=== PATIENT | male | born 1935 | race Caucasian/White ===

== ENCOUNTER 2016-10-02 09:44 | Inpatient (IN) | payer OTHER ==
[~2016-10-02] VITALS: Ht 172.7 cm; Wt 65.9 kg
[2016-10-02] MEDS ORDERED: SODIUM CHLORIDE 0.9% 1000ML 250 ML IV STA (09:58)
--- NOTE | 2016-10-02 10:07 | EMERGENCY ROOM VISIT NOTE ---
History Report prepared by Duncan: Nava Shultz Under the Supervision of: Dr. Nolan Ladd M.D. First contact with patient: 09:53 Chief Complaint: CONFUSION Stated Complaint: CONFUSION History of Present Illness The patient is an 81 year old male who presents to the Emergency Room with complaints of persistent confusion that began Saturday. Per the patient's daughter in law, the patient has been increasingly confused over the last several days. She states that the patient states that he has been going back in time. The patient's daughter in law notes that the patient has had decrease in sleep recently. The patient's khyiispd-[id number] states that the patient had a subjective, low-grade fever today. She states that the patient goes to dialysis Saturday, Saturday, Saturday, and states that he went yesterday. The patient's [id number] states that the patient additionally has mouth cancer at this time and has a feeding tube, noting that he receives all his nutrients via the tube. She states that the patient had radiation in June for his cancer, but denies any plans for surgery. The patient's mumcdago-ej-xno states that the patient has a history of pancreatitis, stating that when he spent time in the hospital he did not complain of any pain, or have any confusion. She states that the patient had a stroke in 2012. The patient's jxuincpt-ln-[id number] states that the patient takes an aspirin daily. She denies the patient having any strong history of urinary tract infections. Source of History: family ([id number]-av-[id number]) Onset: Saturday Position: other (global) Quality: other (confusion) Timing: other (persistent) Associated Symptoms: + fevers Note: Associated Symptoms: decreased sleep Review of Systems See HPI for pertinent positives & negatives. A total of 10 systems reviewed and were otherwise negative. Past Medical & Surgical Medical Problems: (1) Altered mental status (2) Benign hypertension (3) BPH (benign prostatic hyperplasia) (4) CAD (coronary artery disease) (5) CTS (carpal tunnel syndrome) (6) CVA (7) CVA (cerebral vascular accident) (8) Depression (9) DM2 (diabetes mellitus, type 2) (10) ESRD (end stage renal disease) on dialysis (11) Hematuria (12) History of left heart catheterization (LHC) (13) HLD (hyperlipidemia) (14) HTN (hypertension) (15) Neck malignant neoplasm (16) RLS (restless legs syndrome) (17) Valvular disease Surgical Problems: (1) H/O colonoscopy (2) History of surgical procedure on mouth (3) S/P percutaneous endoscopic gastrostomy (PEG) tube placement Family History Noncontributory d/t age Social History Smoking Status: Former Smoker Drug Use: none Marital Status: Occupation Status: retired Current/Historical Medications Scheduled Aspirin (Aspirin Ec), 81 MG PO DAILY Citalopram (Citalopram Hydrobromide), 40 MG PO DAILY Folic Acid (Folvite), 1 MG PO DAILY Gabapentin (Neurontin), 100 MG PO QPM Levothyroxine Sodium (Synthroid), 50 MCG PO DAILY Lidocaine-Prilocaine (Lidocaine/Prilocaine), 1 APPLN TOP UD Nutritional Supplements (Twocal Hn), 5 CAN PEG QPM Omeprazole (Prilosec), 20 MG PO QPM Tamsulosin Hcl (Flomax), 0.4 MG PO QPM Scheduled PRN Acetaminophen (Tylenol), 325 MG PO Q4H PRN for Pain Oxycodone Ir (Roxicodone Ir), 5 MG PO Q4H PRN for Pain Allergies Coded Allergies: No Known Allergies (Unverified , 10/02/16) Physical Exam Vital Signs Date Time Temp Pulse Resp B/P Pulse Ox O2 Delivery O2 Flow Rate FiO2 10/02/16 12:30 84 14 109/68 10/02/16 12:17 91 Room Air 10/02/16 12:02 87 10/02/16 11:37 91 Room Air 10/02/16 11:25 92 16 112/68 91 Room Air 10/02/16 09:49 37.1 92 18 79/52 97 Room Air Physical Exam GENERAL: Patient is in no acute distress. HEENT: Bandage to the left jaw, consistent with his malignant tumors. No acute trauma, normocephalic atraumatic, mucous membranes moist, no nasal congestion, no scleral icterus. NECK: No stridor, no adenopathy, no meningismus, trachea is midline. LUNGS: Clear to auscultation bilaterally, no wheeze, no rhonchi, breath sounds equal. HEART: 3/6 systolic murmur, irregular rhythm, with a normal rate. ABDOMEN: Feeding tube in upper abdomen consistent with his history. Soft, nontender, bowel sounds positive, no hernias, no peritonitis. RECTAL: Heme negative EXTREMITIES: No cyanosis or edema, full range of motion of all the joints without pain or difficulty, no signs for acute trauma. NEUROLOGIC: Moving all extremities, awake, some confusion, answers simple questions. SKIN: No rash, no jaundice, no diaphoresis. Medical Decision & Procedures ER Provider Diagnostic Interpretation: X ray results and stated below per my interpretation and radiologist interpretation. Other radiology results and stated below per my review and radiologist interpretation: CT SCAN OF THE BRAIN WITHOUT IV CONTRAST CLINICAL HISTORY: Generalized weakness. Change in mental status. COMPARISON STUDY: CT of the brain dated 04/06/2016. TECHNIQUE: Unenhanced axial CT scan of the brain is performed from the vertex to the skull base. CT DOSE: 823.94 mGycm FINDINGS: Brain parenchyma: There are age-related involutional changes noting mild subcortical and periventricular microangiopathic change. There is no hemorrhage, mass effect, or evidence of acute territorial ischemia by CT criteria. A small chronic lacunar infarct is noted in the left thalamus. Martel-white matter is preserved. No extra-axial fluid collection is seen. Ventricles, sulci, cisterns: Prominent secondary to involutional change. Intracranial vasculature: There is atherosclerotic calcification of the cavernous carotid and vertebral arteries. Calvarium: Unremarkable. Sinuses and mastoids: Mucosal thickening is seen within the left maxillary antrum, the ethmoid sinuses, and the right frontal sinus. There is a left mastoid effusion. The right mastoid air cells are well pneumatized. Orbits: The bony orbits are grossly intact. There are bilateral ocular lens implants. IMPRESSION: There is no hemorrhage, mass effect, or evidence of acute territorial ischemia by CT criteria. Electronically signed by: Nolan Ly M.D. 10/02/2016 11:12 AM Dictated Date/Time: 10/02/2016 11:09 AM CHEST ONE VIEW PORTABLE HISTORY: EVALUATE ALTERED MENTAL STATUS/WEAKNESS COMPARISON: Chest 04/14/2016. FINDINGS: No focal lung consolidations to suggest pneumonia. No evidence for pulmonary edema. The heart is normal in size. No pleural effusions. No pneumothorax. Degenerative changes within the bilateral glenohumeral joints are again noted. Calcifications at the aortic knob. IMPRESSION: No acute process. Electronically signed by: Antwon Calderón M.D. 10/02/2016 10:31 AM Dictated Date/Time: 10/02/2016 10:29 AM Laboratory Results 10/02/16 10:15 Red Blood Count 2.38, Mean Corpuscular Volume 100.0, Mean Corpuscular Hemoglobin 32.4, Mean Corpuscular Hemoglobin Concent 32.4, Mean Platelet Volume 9.7, Neutrophils (%) (Auto) 76.1, Lymphocytes (%) (Auto) 11.7, Monocytes (%) ( Auto) 7.6, Eosinophils (%) (Auto) 4.1, Basophils (%) (Auto) 0.3, Neutrophils # ( Auto) 4.70, Lymphocytes # (Auto) 0.72, Monocytes # (Auto) 0.47, Eosinophils # ( Auto) 0.25, Basophils # (Auto) 0.02 10/02/16 10:15 Test 10/02/16 10:15 10/02/16 10:27 10/02/16 10:43 White Blood Count 6.17 K/uL (4.8-10.8) Red Blood Count 2.38 M/uL (4.7-6.1) Hemoglobin 7.7 g/dL (14.0-18.0) Hematocrit 23.8 % (42-52) Mean Corpuscular Volume 100.0 fL (80-100) Mean Corpuscular Hemoglobin 32.4 pg (25-34) Mean Corpuscular Hemoglobin Concent 32.4 g/dl (32-36) Platelet Count 152 K/uL (130-400) Mean Platelet Volume 9.7 fL (7.4-10.4) Neutrophils (%) (Auto) 76.1 % Lymphocytes (%) (Auto) 11.7 % Monocytes (%) (Auto) 7.6 % Eosinophils (%) (Auto) 4.1 % Basophils (%) (Auto) 0.3 % Neutrophils # (Auto) 4.70 K/uL (1.4-6.5) Lymphocytes # (Auto) 0.72 K/uL (1.2-3.4) Monocytes # (Auto) 0.47 K/uL (0.11-0.59) Eosinophils # (Auto) 0.25 K/uL (0-0.5) Basophils # (Auto) 0.02 K/uL (0-0.2) RDW Standard Deviation 56.2 fL (36.4-46.3) RDW Coefficient of Variation 15.5 % (11.5-14.5) Immature Granulocyte % (Auto) 0.2 % Immature Granulocyte # (Auto) 0.01 K/uL (0.00-0.02) Schistocytes 1+ Anion Gap 10.0 mmol/L (3-11) Est Creatinine Clear Calc Drug Dose 25.5 ml/min Estimated GFR () 31.4 Estimated GFR (Non- 27.1 BUN/Creatinine Ratio 28.4 (10-20) Calcium Level 9.1 mg/dl (8.5-10.1) Magnesium Level 2.6 mg/dl (1.8-2.4) Total Bilirubin 0.3 mg/dl (0.2-1) Aspartate Amino Transf (AST/SGOT) 19 U/L (15-37) Alanine Aminotransferase (ALT/SGPT) 25 U/L (12-78) Alkaline Phosphatase 103 U/L (45-117) Troponin I < 0.015 ng/ml (0-0.045) Total Protein 7.4 gm/dl (6.4-8.2) Albumin 3.0 gm/dl (3.4-5.0) Globulin 4.4 gm/dl (2.5-4.0) Albumin/Globulin Ratio 0.7 (0.9-2) Lipase 168 U/L (73-393) Thyroid Stimulating Hormone (TSH) 60.300 uIu/ml (0.300-4.500) Free Thyroxine 0.54 ng/dl (0.80-1.60) Urine Color DK YELLOW Urine Appearance TURBID (CLEAR) Urine pH 8.0 (4.5-7.5) Urine Specific [place]cox 1.019 (1.000-1.030) Urine Protein 1+ (NEG) Urine Glucose (UA) NEG (NEG) Urine Ketones NEG (NEG) Urine Occult Blood 1+ (NEG) Urine Nitrite NEG (NEG) Urine Bilirubin NEG (NEG) Urine Urobilinogen NEG (NEG) Urine Leukocyte Esterase LARGE (NEG) Urine WBC (Auto) >30 /hpf (0-5) Urine RBC (Auto) 5-10 /hpf (0-4) Urine Hyaline Casts (Auto) 1-5 /lpf (0-5) Urine Epithelial Cells (Auto) 5-10 /lpf (0-5) Urine Bacteria (Auto) NEG (NEG) Lactic Acid Level 1.3 mmol/L (0.4-2.0) Laboratory results reviewed by me. Medications Administered Medications (Trade) Dose Ordered Sig/Aj Route Start Time Stop Time Status Last Admin Dose Admin Sodium Chloride (Nss 1000ml) 250 ml @ 999 mls/hr Q16M STAT IV 10/02/16 09:58 10/02/16 10:22 DC 10/02/16 10:55 999 MLS/HR ECG Indication: other (confusion) Rate (beats per minute): 83 Rhythm: sinus rhythm Findings: PVC, no acute ischemic change ED Course 0955: The patient was evaluated in room B9. A complete history and physical exam was performed. 0958: Ordered Sodium Chloride 250 ml @ 999 mls/hr IV. 1132: I performed a rectal exam on the patient at this time. See physical exam for further detail. I discussed all the exam findings with his [id number]-ew-ffa and I discussed the treatment plan. She verbalized complete understanding and agreement. The patient will be evaluated for further treatment. 1141: I discussed the patients case with Jazzy Patel. She is going to evaluate the patient for further treatment. Medical Decision The patient is an 81 year old male who presents to the ED with complaints of confusion. Differential diagnoses considered include dehydration, electrolyte imbalance, stroke, intracranial bleeding, UTI, sepsis, infection. There is no leukocytosis. The patient is anemic though with a hemoglobin of 7.7. I did perform a rectal exam, stool was heme-negative. Renal panel testing shows an elevation to the creatinine, consistent with his history of needing dialysis, no significant electrolyte abnormalities requiring correction. There was no hepatitis. The patient appears to be hypothyroid by our testing. Chest x-ray does not show pneumonia or CHF. EKG shows a sinus rhythm, there was no acute ischemia. Cardiac enzyme testing times one is not consistent with acute cardiac injury. Urinalysis shows possible infection, urine culture and blood cultures are pending. Brain CT shows some chronic findings, no acute bleed or mass effect. Lactic acid level was not elevated making severe sepsis less likely. The patient presents with some confusion, hypotension. He is anemic by workup. His blood pressure did respond to IV saline-he received a 250 mL bolus with a nice response. The patient was ordered for packed red blood cells for possible transfusion, the blood is not ready to be given. Given the change in mental status, given the hypotension and the anemia, admission/observation was felt warranted. I spoke to the patient, his family and case management, I talked to the on-call hospitalist. Consults Time Called: 1136 Consulting Physician: Jazzy Patel Returned Call: 1141 I discussed the patients case with Jazzy Patel. She is going to evaluate the patient for further treatment. Impression Primary Impression: Change in mental status Additional Impressions: Hypotension Anemia Scribe Attestation The scribe's documentation has been prepared under my direction and personally reviewed by me in its entirety. I confirm that the note above accurately reflects all work, treatment, procedures, and medical decision making performed by me. Departure Information Dispostion Being Evaluated By Hospitalist Referrals Francisco Delarosa M.D. (PCP) Problem Qualifiers
--- NOTE | 2016-10-02 10:32 | DIAGNOSTIC IMAGING REPORT ---
CHEST ONE VIEW PORTABLE HISTORY: EVALUATE ALTERED MENTAL STATUS/WEAKNESS COMPARISON: Chest 04/14/2016. FINDINGS: No focal lung consolidations to suggest pneumonia. No evidence for pulmonary edema. The heart is normal in size. No pleural effusions. No pneumothorax. Degenerative changes within the bilateral glenohumeral joints are again noted. Calcifications at the aortic knob. IMPRESSION: No acute process. Electronically signed by: Antwon Calderón M.D. 10/02/2016 10:31 AM Dictated Date/Time: 10/02/2016 10:29 AM
[2016-10-02] MEDS ORDERED: FOLI1TAB7 PO (10:46)
[2016-10-02] MEDS ORDERED: LEVO50TA PO (10:46)
[2016-10-02] MEDS ORDERED: PRLSR20 PO (10:46)
[2016-10-02] MEDS ORDERED: NUTR-431 PEG (10:46)
[2016-10-02] MEDS ORDERED: TAMS0.4C38 PO (10:46)
[2016-10-02] MEDS ORDERED: ACET-1311 PO (10:46)
[2016-10-02] MEDS ORDERED: LIDO1CRE16 TOP (10:46)
[2016-10-02] MEDS ORDERED: GABA-112 PO (10:46)
[2016-10-02] MEDS ORDERED: CITA40TA4 PO (10:46)
[2016-10-02] MEDS ORDERED: OXYC1TAB3 PO (10:46)
[2016-10-02] MEDS ORDERED: ASPI81TA28 PO (10:46)
[2016-10-02 10:49] LABS: BASO % 0.3 %; BASO ABS # 0.02 K/uL (0-0.2); EOS % 4.1 %; HEMATOCRIT 23.8 % (42-52); IG% 0.2 %; LYMPH % 11.7 %; LYMPH ABS # 0.72 K/uL (1.2-3.4); MEAN CORPUSCULAR HEMOGLOBIN 32.4 pg (25-34); MEAN CORPUSCULAR HGB CONC 32.4 g/dl (32-36); MEAN PLATELET VOLUME 9.7 fL (7.4-10.4); MONO % 7.6 %; NEUT % 76.1 %; PLATELET COUNT 152 K/uL (130-400); RED BLOOD COUNT 2.38 M/uL (4.7-6.1); WHITE BLOOD COUNT 6.17 K/uL (4.8-10.8)
[2016-10-02 10:50] LABS: URINE APPEARANCE TURBID (CLEAR); URINE BILIRUBIN NEG (NEG); URINE COLOR DK YELLOW; URINE NITRITE NEG (NEG); URINE SPECIFIC GRAVITY 1.019 (1.000-1.030); UROBILINOGEN NEG (NEG); ZZURINE CULT IF INDIC CATH YES
[2016-10-02 11:03] LABS: MANUAL MICROSCOPIC REQUIRED? NO; REVIEW REQ? NO; SULFASALICYLIC ACID POS (NEG)
--- NOTE | 2016-10-02 11:13 | DIAGNOSTIC IMAGING REPORT ---
CT SCAN OF THE BRAIN WITHOUT IV CONTRAST CLINICAL HISTORY: Generalized weakness. Change in mental status. COMPARISON STUDY: CT of the brain dated 04/06/2016. TECHNIQUE: Unenhanced axial CT scan of the brain is performed from the vertex to the skull base. CT DOSE: 823.94 mGycm FINDINGS: Brain parenchyma: There are age-related involutional changes noting mild subcortical and periventricular microangiopathic change. There is no hemorrhage, mass effect, or evidence of acute territorial ischemia by CT criteria. A small chronic lacunar infarct is noted in the left thalamus. Martel-white matter is preserved. No extra-axial fluid collection is seen. Ventricles, sulci, cisterns: Prominent secondary to involutional change. Intracranial vasculature: There is atherosclerotic calcification of the cavernous carotid and vertebral arteries. Calvarium: Unremarkable. Sinuses and mastoids: Mucosal thickening is seen within the left maxillary antrum, the ethmoid sinuses, and the right frontal sinus. There is a left mastoid effusion. The right mastoid air cells are well pneumatized. Orbits: The bony orbits are grossly intact. There are bilateral ocular lens implants. IMPRESSION: There is no hemorrhage, mass effect, or evidence of acute territorial ischemia by CT criteria. Electronically signed by: Nolan Ly M.D. 10/02/2016 11:12 AM Dictated Date/Time: 10/02/2016 11:09 AM
[2016-10-02 11:14] LABS: BLOOD UREA NITROGEN 62 mg/dl (7-18); GLUCOSE 219 mg/dl (70-99)
[2016-10-02 11:15] LABS: ALT/SGPT 25 U/L (12-78); BUN/CREATININE RATIO 28.4 (10-20); CALCIUM 9.1 mg/dl (8.5-10.1); CARBON DIOXIDE 32 mmol/L (21-32); CHLORIDE 97 mmol/L (98-107); MAGNESIUM 2.6 mg/dl (1.8-2.4); POTASSIUM 4.2 mmol/L (3.5-5.1); SODIUM 139 mmol/L (136-145)
[2016-10-02 11:19] LABS: COMPLETE YES; SCHISTOCYTES 1+
[2016-10-02 11:23] LABS: ALB/GLOB RATIO 0.7 (0.9-2); ALKALINE PHOSPHATASE 103 U/L (45-117); AST/SGOT 19 U/L (15-37)
[2016-10-02 12:17] VITALS: O2SAT 91; Ht 172.7 cm; Wt 65.9 kg
[2016-10-02] MEDS ORDERED: VANCOMYCIN INJ 1,000 MG in SODIUM CHLORIDE 0.9% 250ML 250 ML IV STA (12:59)
[2016-10-02] MEDS ORDERED: GLUCAGON FOR INJ 1 MG VIAL SQ PRN ×2 (13:00→14:00)
[2016-10-02] MEDS ORDERED: GLUCOSE 40% GEL 15 GM TUBE PO PRN ×2 (13:00→14:00)
[2016-10-02] MEDS ORDERED: LIDOCAINE/PRILOCAINE 2.5% EA CRM EXT SCH (13:00)
[2016-10-02] MEDS ORDERED: DEXTROSE 50% 50 ML SYR IV PRN ×2 (13:00→14:00)
[2016-10-02] MEDS ORDERED: GLUCOSE 10 TABS/TUBE PO PRN ×2 (13:00→14:00)
[2016-10-02] MEDS ORDERED: ONDANSETRON INJ 2 MG/ML 2 ML VIAL IV PRN (13:00)
[2016-10-02 14:03] VITALS: BP 129/67; PULSE 88; TEMP 36.9; O2SAT 91
[2016-10-02] MEDS ORDERED: VANCOMYCIN CONSULT ACTIVE PRN (14:10)
[2016-10-02] MEDS ORDERED: PHARMACY GLYCEMIC MGMT CONSULT PRN (14:11)
[2016-10-02] MEDS ORDERED: PIPERACILL/TAZOBAC CONSULT ACTIVE PRN (14:15)
--- NOTE | 2016-10-02 14:35 | Pharmacy Progress Note ---
Glycemic Control Intl Consult Date of Service Oct 02, 2016. Scope Glycemic Pharmacist consulted by Fozia Szymanski PA-C on 10/02/16 for glycemic control and to write orders per [facility] inpatient glycemic control protocol Objective Weight (Kilograms): 70.000 Accuchecks BSG (last 24hrs): Test 10/02/16 10:15 Random Glucose 219 mg/dl (70-99) Laboratory Data (last 24hrs) Test 10/02/16 10:15 Anion Gap 10.0 mmol/L BUN/Creatinine Ratio 28.4 Blood Urea Nitrogen 62 mg/dl Creatinine 2.20 mg/dl Potassium Level 4.2 mmol/L Sodium Level 139 mmol/L White Blood Count 6.17 K/uL Red Blood Count 2.38 M/uL Hemoglobin 7.7 g/dL Hematocrit 23.8 % Mean Corpuscular Volume 100.0 fL Mean Corpuscular Hemoglobin 32.4 pg Mean Corpuscular Hemoglobin Concent 32.4 g/dl Platelet Count 152 K/uL Mean Platelet Volume 9.7 fL Neutrophils (%) (Auto) 76.1 % Lymphocytes (%) (Auto) 11.7 % Monocytes (%) (Auto) 7.6 % Eosinophils (%) (Auto) 4.1 % Basophils (%) (Auto) 0.3 % Neutrophils # (Auto) 4.70 K/uL Lymphocytes # (Auto) 0.72 K/uL Monocytes # (Auto) 0.47 K/uL Eosinophils # (Auto) 0.25 K/uL Basophils # (Auto) 0.02 K/uL Recent Pertinent Medications Outpatient Anti-diabetic Regimen: * None * A1c = 6.3 % 03/31/16 - new A1c ordered with AM labs Risk Factors for Insulin Resistance: * Infection: IV Vancomycin and Zosyn * IVF: Zosyn mixed in dextrose * Diet: PEG tube supplements for all nutrition (mouth cancer) dietary consulted Assessment & Plan ASSESSMENT: * 81 year old male admitted for confusion, started on IV antibiotics, random BSG = 219mg/dL, not on any medications for glycemic control as outpatient. Latest A1c at goal, requires updated A1c. * I will start patient only on a CF at this time until we have more blood sugar data and A1c. * Dietary consulted for PEG tube nutrition, as patient has mouth cancer and this is his only means of nutritional intake. These carbs may or may not eventually need Novolog coverage. * ADA & AACE recommend a goal blood sugar range 140-180 mg/dl for the majority of critically ill & non-critically ill patients. However, more stringent targets may be selected in individual cases. I will start patient with 120-160mg /dL goal range, since A1c was 6.3% in March of 2016, but to prevent hypoglycemia in 81 year old. PLAN FOR INPATIENT GLYCEMIC CONTROL: * Correctional Insulin with NOVOLOG per scale ACHS or Q6hrs while NPO * Goal Range: Low 120 mg/dL - High 160 mg/dL * Correction Factor: 40 mg/dL/unit * Nutritional / Prandial insulin - None at this time until needs are determined * New A1c with AM labs, added to discharge instructions * Please note that the plan above was derived based on current level of insulin resistance and hospital stress. These recommendations are appropriate for inpatient admission only. Plan of care upon discharge will need to be reassessed to avoid potential outpatient hypo/hyperglycemia. Thank you.
[2016-10-02] MEDS ORDERED: VANCOMYCIN INJ 1,400 MG in SODIUM CHLORIDE 0.9% 500ML 500 ML IV ONE (14:45)
--- NOTE | 2016-10-02 14:48 | Pharmacy Progress Note ---
Pharmacy Antibiotic Consult Date of Service: Oct 02, 2016. Pharmacy Dosing Scope Pharmacy is consulted to initiate Vanco/Zosyn IV dosing therapy, order appropriate labs and adjust drug dose/frequency. Subjective The patient is a 81 year old male admitted on Oct 02, 2016 at 12:59. Objective Height (Feet): 5 Height (Inches): 8.00 Weight (Kilograms): 70.000 Lab Results (24hrs): Item Value Date Time Est Creatinine Clear Calc Drug Dose 25.5 ml/min 10/02/16 1015 Creatinine 2.20 mg/dl H 10/02/16 1015 Laboratory Tests Test 10/02/16 10:15 BUN/Creatinine Ratio 28.4 Blood Urea Nitrogen 62 mg/dl Creatinine 2.20 mg/dl White Blood Count 6.17 K/uL Red Blood Count 2.38 M/uL Hemoglobin 7.7 g/dL Hematocrit 23.8 % Mean Corpuscular Volume 100.0 fL Mean Corpuscular Hemoglobin 32.4 pg Mean Corpuscular Hemoglobin Concent 32.4 g/dl Platelet Count 152 K/uL Mean Platelet Volume 9.7 fL Neutrophils (%) (Auto) 76.1 % Lymphocytes (%) (Auto) 11.7 % Monocytes (%) (Auto) 7.6 % Eosinophils (%) (Auto) 4.1 % Basophils (%) (Auto) 0.3 % Neutrophils # (Auto) 4.70 K/uL Lymphocytes # (Auto) 0.72 K/uL Monocytes # (Auto) 0.47 K/uL Eosinophils # (Auto) 0.25 K/uL Basophils # (Auto) 0.02 K/uL Micro Results: Item Value Date Time Blood Culture Received 10/02/16 1043 Blood Pending Urine Culture Received 10/02/16 1027 Urine,Catheterized Pending Blood Culture Received 10/02/16 1015 Blood Pending Assessment & Plan Pt p/w altered MS. Mr. Varela attends MWF. Last session was yesterday. Pt population p'kinetics: t1/2=27hrs, ke=0.025. He is known to the pharmacy kinetic team from previous admissions. BC and UC are all pending. Mr Varela is set to receive a one time dose of Vanco 1400mg (20mg/kg) at 1445. I have ordered a random lvl for tomorrow with AM labs before his HD session. Goal trough 15-20 until C/s's result. Thank you for consulting the pharmacy kinetic team and including us in the care of Mr. Varela. Pharmacy will continue to follow and will adjust dose/frequency as necessary. Thank you
[2016-10-02] MEDS ORDERED: PIPERACILL/TAZOBAC IV 3.375 GM in DEXTROSE 5% 100ML IV ONE (15:00)
--- NOTE | 2016-10-02 15:12 | Progress Note ---
Progress Note Date of Service Oct 02, 2016. Progress Note ID Consult Dictated #[id number] A/P: 1. Left facial wound -Continue emperic abx, culture ordered -Will follow, thank you
--- NOTE | 2016-10-02 15:46 | INFECT. DISEASE CONSULTATION ---
DATE OF CONSULTATION: 10/02/2016 DATE OF CONSULTATION: 10/02/2016. HISTORY OF PRESENT ILLNESS: This is an 81-year-old gentleman who was admitted secondary to increasing confusion. His family is present during my examination and they provide most of the history. 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 He states his last received radiation in June. He did have 5 treatments for this. They are following with hematology/oncology in [place] to discuss any additional chemotherapy. He does have a large mass on the left side of the face which has been increasing in size. He does not feel that it has improved with radiation therapy. He has had drainage and foul odor from this area. They did follow up with pellet press operator in June and again in July. In July, he was placed on a 10-day course unknown oral antibiotics but did not have much improvement in symptoms. He denies any fevers or chills at home. He does admit to pain and difficulty with eating. He is eating ice cream and cereal on my examination and appears to be tolerating these well. He states that his pain tolerance is very high and he has had increasing confusion which does not allow him to state when he is in pain. Of note, he was also found to have a TSH over 60. He does have a history of chronic kidney disease and is on dialysis on Saturday, Saturday and Saturday. He currently denies fevers or chills. He does admit to some pain in the left side of the face. He is continually pulling at the drainage. He denies any chest pain, cough, shortness of breath, nausea, vomiting or diarrhea. All remaining review of systems were reviewed and are negative. PAST MEDICAL HISTORY: Significant for hypertension, BPH, coronary artery disease, chronic kidney disease with dialysis, carpal tunnel syndrome, history of CVA, depression, type 2 diabetes, neck malignancy, restless leg syndrome, valvular disease. PAST SURGICAL HISTORY: Significant for colonoscopy, oral surgery for carcinoma, PEG tube placement, heart catheterization. FAMILY HISTORY: Noncontributory. SOCIAL HISTORY: Significant for history of tobacco use. He is and lives with family. ALLERGIES: He has no known drug allergies. CURRENT MEDICATIONS: Include aspirin, Celexa, folic acid, Protonix, Synthroid, Neurontin, Flomax, Zosyn, insulin, vancomycin, Tylenol, Zofran. PHYSICAL EXAMINATION: VITAL SIGNS: He is afebrile, pulse 80, respiratory rate is 20, blood pressure is 129/67, oxygen saturation 91% on room air. GENERAL: He is awake and oriented to self. He is in no acute distress. HEAD, EYES, EARS, NOSE, AND THROAT: Mucous membranes are moist. There is a large fungating mass on the left side of the face with foul smelling drainage. It is tender and firm to palpation. HEART: Regular. LUNGS: Clear. ABDOMEN: Soft and nondistended. EXTREMITIES: There is no edema. SKIN: Without rash. LABORATORY STUDIES: CBC reveals a white blood cell count of 6.1, hemoglobin 7.7, hematocrit 23.8, platelets are 152. Chemistry panel reveals a sodium of 139, potassium 4.2, chloride 97, bicarbonate 32, BUN 62, creatinine 2.2, glucose is 219. LFTs are within normal limits. Urinalysis had no bacteria. Blood and urine cultures are pending. Head CT showed no hemorrhage, mass effect. Chest x-ray was unremarkable. ASSESSMENT AND PLAN: Left facial mass, likely secondary to known malignancy. He can be continued on empiric antibiotics as there certainly is a chance for superimposed infection. Wound culture will be ordered. His change in mental status certainly could be related to his thyroid abnormalities as well. We will follow along with you. Thank you for this consultation.
--- NOTE | 2016-10-02 16:32 | History and Physical ---
History & Physical Date & Time of Service: Oct 02, 2016 at 13:12 Chief Complaint: Confusion Primary Care Physician: Francisco Delarosa M.D. 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 History obtained from daughter in law at bedside due to patient's mental status. At baseline patient is oriented x 3 except mildly off on days of the week. He is currently only oriented to person. Daughter in law states confusion started 4 days ago on Saturday and has progressively worsened. Yesterday at dialysis pt was attempting to stand up from the table. She reports associated insomnia and visual hallucinations. Daughter in law states pt accidentally hit himself in the face with his hand 2 weeks ago and ruptured the masses on his left jaw area. From that time he had increased pain which has been medicated with Tylenol and rare use of Oxy IR- last dose 7 am. There has been white drainage from the lesions. Pt has chronic mouth asymmetry s/p buccal surgery. Pt has chronic decreased tax economist in left hand s/p CVA in 2012. Over past 2 weeks pt's legs occasionally give out but has not fallen. Ambulates with walker and assistance. Pt is chronically incontinent of dark yellow urine which is malodorous. Pt has occasional epistaxis a few times per month but no severe, prolonged bleeding. Pt is chronically cold. He takes in liquids, pills, occasional puree consistency food PO but main source of nutrition is via PEG tube. Daughter in law denies fevers, URI symptoms, cough, chest pain, SOB, speech or swallowing difficulty, acute focal numbness, chest pain, SOB, abdominal pain, nausea, vomiting, change in chronic diarrhea, hematochezia, melena. Pt dialyzes MWF and had full dialysis tx yesterday. Levothyroxine was increased approx 2 weeks ago but no other recent med change. Past Medical/Surgical History Medical Problems: (1) Benign hypertension Status: Chronic (2) BPH (benign prostatic hyperplasia) Status: Chronic (3) CAD (coronary artery disease) Status: Chronic (4) CTS (carpal tunnel syndrome) Status: Chronic (5) CVA Status: Chronic (6) CVA (cerebral vascular accident) Status: Chronic (7) Depression Status: Chronic (8) DM2 (diabetes mellitus, type 2) Status: Chronic (9) ESRD (end stage renal disease) on dialysis Status: Chronic (10) History of left heart catheterization (LHC) Permanent Comment: [place]-[facility] 30% proximal right coronary artery lesion, 20-30 % distal right coronary artery stenosis. 30% mid-LAD-D stenosis. 50% ostial stenotic lesion of LAD-D2( very small vessel). normal left ventricular function [id number] Status: Chronic (11) HLD (hyperlipidemia) Status: Chronic (12) HTN (hypertension) Status: Chronic (13) Neck malignant neoplasm Status: Chronic (14) RLS (restless legs syndrome) Status: Chronic (15) Valvular disease Status: Chronic Surgical Problems: (1) H/O colonoscopy Status: Chronic (2) History of surgical procedure on mouth Status: Chronic (3) S/P percutaneous endoscopic gastrostomy (PEG) tube placement Status: Chronic Family History Diabetes mellitus BROTHER FH: cancer BROTHER (esophageal) Social History Smoking Status: Former Smoker (quit ) Smokeless Tobacco Use: quit Alcohol Use: occasionally (rare beer. none recently. ) Drug Use: none Marital Status: Housing status: lives with family (daughter in law and son) Occupational Status: retired Immunizations History of Influenza Vaccine: No History of Tetanus Vaccine?: No History of Pneumococcal: Yes History of Hepatitis B Vaccine: No Allergies Coded Allergies: No Known Allergies (Unverified , 10/02/16) Home Medications Scheduled Aspirin (Aspirin Ec), 81 MG PO DAILY Citalopram (Citalopram Hydrobromide), 40 MG PO DAILY Folic Acid (Folvite), 1 MG PO DAILY Gabapentin (Neurontin), 100 MG PO QPM Levothyroxine Sodium (Synthroid), 50 MCG PO DAILY Lidocaine-Prilocaine (Lidocaine/Prilocaine), 1 APPLN TOP UD Nutritional Supplements (Twocal Hn), 5 CAN PEG QPM Omeprazole (Prilosec), 20 MG PO QPM Tamsulosin Hcl (Flomax), 0.4 MG PO QPM Scheduled PRN Acetaminophen (Tylenol), 325 MG PO Q4H PRN for Pain Oxycodone Ir (Roxicodone Ir), 5 MG PO Q4H PRN for Pain Review of Systems Constitutional: + problem reported (chronically cold), No fever, No weight loss ENT: No nasal symptoms, No trouble swallowing Respiratory: No cough, No shortness of breath Cardiovascular: No chest pain Abdomen: + diarrhea (chronic attributed to tube feeds), No GI bleeding (no hematochezia or melena as per daughter in law. noticed trace of blood from an abrasion on his buttock a few days ago but none in the stool or toilet. ), No nausea, No pain, No vomiting Genitourinary - Male: + problem reported (dark malodorous urine- chronic per daughter in law), + urinary incontinence (chronic) Psychiatric: + insomnia, + problem reported (confusion, hallucination) Hematologic / Lymphatic: + problem reported (epistaxis approx 2x per month. no prolonged severe bleeding. bruises easily) Integumentary: + problem reported (facial lesions- see HPI. tiny abrasion on buttock. ) Physical Exam Vital Signs Date Time Temp Pulse Resp B/P Pulse Ox O2 Delivery O2 Flow Rate FiO2 10/02/16 12:30 84 14 109/68 10/02/16 12:17 91 Room Air 10/02/16 12:02 87 10/02/16 11:37 91 Room Air 10/02/16 11:25 92 16 112/68 91 Room Air 10/02/16 09:49 37.1 92 18 79/52 97 Room Air General Appearance: WD/WN, no apparent distress, + pertinent finding ( pleasantly confused elderly male, no distress) Head: normocephalic, atraumatic Eyes: normal inspection, PERRL, EOMI ENT: hearing grossly normal, + pertinent finding (pharynx exam limited due to patient's decreased ability to open his mouth) Neck: supple, no JVD, trachea midline Respiratory/Chest: lungs clear, normal breath sounds, no respiratory distress, no accessory muscle use Cardiovascular: regular rate, rhythm, + systolic murmur Abdomen/GI: normal bowel sounds, non tender, soft, + pertinent finding (PEG tube in place) Extremities/Musculoskelatal: no calf tenderness, no pedal edema Neurologic/Psych: alert, normal mood/affect, oriented x 3, + pertinent finding (left lip asymmetry secondary to prior buccal surgery. well healed scar noted at left commisure. cranial nerves II-XII otherwise normal. tax economist strength 4/5 left hand- chronic. all other extremities strenth 5/5. no sensory deficit of face or extremities.) Skin: + pertinent finding (large mass left jaw with purulent discharge, tenderness, mild surrounding erythema. tiny abrasion on left buttock without erythema or drainage. remainder of skin is warm and dry with normal color. ) Diagnostics Laboratory Results Results Past 24 Hours Test 10/02/16 10:15 10/02/16 10:27 10/02/16 10:43 Range/Units White Blood Count 6.17 4.8-10.8 K/uL Red Blood Count 2.38 4.7-6.1 M/uL Hemoglobin 7.7 14.0-18.0 g/dL Hematocrit 23.8 42-52 % Mean Corpuscular Volume 100.0 80-100 fL Mean Corpuscular Hemoglobin 32.4 25-34 pg Mean Corpuscular Hemoglobin Concent 32.4 32-36 g/dl Platelet Count 152 130-400 K/uL Mean Platelet Volume 9.7 7.4-10.4 fL Neutrophils (%) (Auto) 76.1 % Lymphocytes (%) (Auto) 11.7 % Monocytes (%) (Auto) 7.6 % Eosinophils (%) (Auto) 4.1 % Basophils (%) (Auto) 0.3 % Neutrophils # (Auto) 4.70 1.4-6.5 K/uL Lymphocytes # (Auto) 0.72 1.2-3.4 K/uL Monocytes # (Auto) 0.47 0.11-0.59 K/uL Eosinophils # (Auto) 0.25 0-0.5 K/uL Basophils # (Auto) 0.02 0-0.2 K/uL RDW Standard Deviation 56.2 36.4-46.3 fL RDW Coefficient of Variation 15.5 11.5-14.5 % Immature Granulocyte % (Auto) 0.2 % Immature Granulocyte # (Auto) 0.01 0.00-0.02 K/uL Schistocytes 1+ Sodium Level 139 136-145 mmol/L Potassium Level 4.2 3.5-5.1 mmol/L Chloride Level 97 98-107 mmol/L Carbon Dioxide Level 32 21-32 mmol/L Anion Gap 10.0 3-11 mmol/L Blood Urea Nitrogen 62 7-18 mg/dl Creatinine 2.20 0.60-1.40 mg/dl Est Creatinine Clear Calc Drug Dose 25.5 ml/min Estimated GFR () 31.4 Estimated GFR (Non- 27.1 BUN/Creatinine Ratio 28.4 10-20 Random Glucose 219 70-99 mg/dl Calcium Level 9.1 8.5-10.1 mg/dl Magnesium Level 2.6 1.8-2.4 mg/dl Total Bilirubin 0.3 0.2-1 mg/dl Aspartate Amino Transf (AST/SGOT) 19 15-37 U/L Alanine Aminotransferase (ALT/SGPT) 25 12-78 U/L Alkaline Phosphatase 103 45-117 U/L Troponin I < 0.015 0-0.045 ng/ml Total Protein 7.4 6.4-8.2 gm/dl Albumin 3.0 3.4-5.0 gm/dl Globulin 4.4 2.5-4.0 gm/dl Albumin/Globulin Ratio 0.7 0.9-2 Lipase 168 73-393 U/L Thyroid Stimulating Hormone (TSH) 60.300 0.300-4.500 uIu/ml Free Thyroxine 0.54 0.80-1.60 ng/dl Urine Color DK YELLOW Urine Appearance TURBID CLEAR Urine pH 8.0 4.5-7.5 Urine Specific [place] 1.019 1.000-1.030 Urine Protein 1+ NEG Urine Glucose (UA) NEG NEG Urine Ketones NEG NEG Urine Occult Blood 1+ NEG Urine Nitrite NEG NEG Urine Bilirubin NEG NEG Urine Urobilinogen NEG NEG Urine Leukocyte Esterase LARGE NEG Urine WBC (Auto) >30 0-5 /hpf Urine RBC (Auto) 5-10 0-4 /hpf Urine Hyaline Casts (Auto) 1-5 0-5 /lpf Urine Epithelial Cells (Auto) 5-10 0-5 /lpf Urine Bacteria (Auto) NEG NEG Lactic Acid Level 1.3 0.4-2.0 mmol/L Microbiology Results 10/02/16 Blood Culture, Received Pending 10/02/16 Blood Culture, Received Pending 10/02/16 Urine Culture, Received Pending Diagnostic Radiology CT SCAN OF THE BRAIN WITHOUT IV CONTRAST CLINICAL HISTORY: Generalized weakness. Change in mental status. COMPARISON STUDY: CT of the brain dated 04/06/2016. TECHNIQUE: Unenhanced axial CT scan of the brain is performed from the vertex to the skull base. CT DOSE: 823.94 mGycm FINDINGS: Brain parenchyma: There are age-related involutional changes noting mild subcortical and periventricular microangiopathic change. There is no hemorrhage, mass effect, or evidence of acute territorial ischemia by CT criteria. A small chronic lacunar infarct is noted in the left thalamus. Martel-white matter is preserved. No extra-axial fluid collection is seen. Ventricles, sulci, cisterns: Prominent secondary to involutional change. Intracranial vasculature: There is atherosclerotic calcification of the cavernous carotid and vertebral arteries. Calvarium: Unremarkable. Sinuses and mastoids: Mucosal thickening is seen within the left maxillary antrum, the ethmoid sinuses, and the right frontal sinus. There is a left mastoid effusion. The right mastoid air cells are well pneumatized. Orbits: The bony orbits are grossly intact. There are bilateral ocular lens implants. IMPRESSION: There is no hemorrhage, mass effect, or evidence of acute territorial ischemia by CT criteria. CHEST ONE VIEW PORTABLE HISTORY: EVALUATE ALTERED MENTAL STATUS/WEAKNESS COMPARISON: Chest 04/14/2016. FINDINGS: No focal lung consolidations to suggest pneumonia. No evidence for pulmonary edema. The heart is normal in size. No pleural effusions. No pneumothorax. Degenerative changes within the bilateral glenohumeral joints are again noted. Calcifications at the aortic knob. IMPRESSION: No acute process. EKG sinus rhythm with occasional PVC, in comparison to prior EKG nonspecific T wave abnormality improved in inferior leads as per cardiology read Impression Assessment and Plan ALTERED MENTAL STATUS Possible metabolic encephalopathy due to infection/ sepsis; ? related to oxycodone use CT head- no acute findings Check urine drug screen Check influenza PCR Hold oxycodone POSSIBLE SEPSIS ? SKIN VS. URINARY SOURCE Presented with hypotension, tachycardia -> VSS after 250 mL bolus Afebrile; no leukocytosis; lactic acid WNL UA + large leukocyte esterase, WBC >30,000; also has facial lesion with purulent drainage; per clinic notes this was also treated with Keflex back in July 2016 F/u blood cultures, urine culture, check wound culture Empiric broad spectrum abx coverage with Zosyn and vancomycin Consult infectious disease Consult wound care nurse CHRONIC ANEMIA Hg is 7.7; baseline varies 8-10s; required prior transfusions Likely due to anemia of chronic disease No active bleeding Family denies GI bleeding; FOBT negative in ER Monitor daily H/H RECURRENT LEFT BUCCAL MUCOSA SCC [place] [facility] [place]. Tse S/p resection in 04/[address] 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 Hartmann Consult nephrology HYPOTHYROIDISM TSH elevated to 60 Levothyroxine recently increased from 25 -> 50 mcg daily on 09/19/16 Recheck TSH as outpatient in around 10/31/16 DM TYPE 2 Diet controlled Monitor BSG ACHS Insulin sliding scale coverage Consult pharmacy for glycemic control HISTORY OF CVA Continue aspirin CAD Stable; continue aspirin DEPRESSION Continue Celexa BPH Continue Flomax GERD Continue PPI NUTRITION Takes minimal PO + PEG tube feedings Consult assistant director of financial aid DVT PROPHYLAXIS SCD's Patient seen in collaboration with Dr. Breen. Please see her addendum. ADDENDUM: I have seen and examined the patient and have discussed the case with the provider above. I agree with the assessment and plan as stated. Will add heparin for DVT prophylaxis. Nephro to see in am to orchestrate inpatient dialysis (MWF schedule). Pt not on consistent oxycodone daily. Suspect infection (UTI vs wound), malignancy, dementia or hypothyroidism as a cause for AMS. Defer blood transfusion to Nephrology--repeat CBC in am--no signs/ symptoms of active bleeding at this time. Monitor overnight on telemetry with initial treatment plan as above. Mitra Breen, Hospitalist Level of Care Telemetry Advanced Directives Existing Living Will: Yes Existing Power of Perl Programmer: Yes (PJ SON ) Resuscitation Status FULL RESUSCITATION VTE Prophylaxis VTE Risk Assessment Done? Y/N: Yes Risk Level: Moderate Given or contraindicated: Unfractionated heparin SQ
[2016-10-02 17:12] LABS: INFLUENZA A PCR Neg for Influ A (NEG); INFLUENZA B PCR Neg for Influ B (NEG)
[2016-10-02] MEDS: INSULIN ASPART 100 UNITS/ML 3 ML PEN SC SCH ×2 (17:14→20:34)
[2016-10-02] MEDS ORDERED: PIPERACILL/TAZOBAC IV 4.5 GM in DEXTROSE 5% 100ML 100 ML IV SCH (18:00)
--- NOTE | 2016-10-02 18:32 | Medical Consult ---
Consultation Date of Consultation: Oct 02, 2016. Attending Physician: Viki Kellogg M.D. Reason for Consultation: Recurrent SCC of left buccal mucosa with metastatic disease to cervical nodes History of Present Illness Mr. Varela is new to the consulting Medical Oncology Service. 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 Irby, Radiation Oncology at [facility], and Dr. Tse , medical oncology at [facility]. He has extensive comorbidities including end- stage renal disease on hemodialysis, coronary artery disease, type 2 diabetes, hypertension, prior history of CVA in 2012, G-tube in situ. At initial diagnosis in early 2014, he had biopsy-proven squamous cell carcinoma of the left buccal mucosa, T2 N0, P 16 negative. A PET-CT at diagnosis revealed activity in the left buccal region and left lateral tongue, but no evidence of disease in the neck or distant metastases ; small pulmonary nodule noted. He completed 66 Gy of radiotherapy in January 2015 at [facility]. A subsequent biopsy on 03/28/2015 showed recurrent squamous cell carcinoma in so his case was prevented at tumor Board. He underwent salvage resection with ST SD reconstruction on 05/06/[address] miguel Mora ; procedure was complicated by wound disease and, which was revised on . There is an area of suspicious granulation tissue in the patient 's left side oral cavity which was biopsied on 03/15/2016, which turned out to be candidiasis. A PET-CT in March 2016 demonstrated left buccal mucosa of 80. A large, 4 centimeter, left neck lymph node, level 1 B/2a was noted subsequently. A CT of the neck was obtained. An FNA on 06/05/2016 revealed metastatic squamous cell carcinoma. he then underwent palliative RT under the direction of Dr. sudhir watson, which was completed in June 2016. Radius sensitizing Cytoxan map was going to be administered, but ultimately deferred due to the patient 's major comorbidities and poor for performance status. Dr. Tse was planning for restaging scans of CT neck and PET-CT, which was scheduled for liter September 2016. if the scans demonstrated residual disease, checkpoint inhibitor therapy was going to be considered. the patient was brought to the emergency room at [facility] today by his family due to onset of confusion since last 09/28/2016. His chest x-ray and CT of the head on admission were nonrevealing for a cause. Hematologically, he was anemic with a hemoglobin of 7.7 G/ dL for which he is receiving 1 unit PRBC. Blood in urine cultures are pending, with infection as part of differential for confusion. Additional history obtained from the patient at bedside. Patient appears to be somewhat of an unreliable historian due to known dementia. He reports feeling overall fair. He does not know why he is hospitalized. He states that his lesions on his left jaw 9 have "probably enlarged" With time. He states that they are very sore. He reports drinking some fluids by mouth, water and soda. He is maintain nutritionally via a G-tube placed during head and neck squamous cell carcinoma treatment. He reports that his bowels are regular. He has not had cough or dyspnea. He has no areas of pain, aside from the right lower leg for the past 3-4 months. He has had a few falls, per his report, but he is uncertain if he injured his right leg. He has not had dizziness or vision change. Past Medical/Surgical History Medical Problems: (1) Acute pancreatitis Status: Acute (2) Acute renal failure Status: Acute (3) Anemia Status: Acute (4) Change in mental status Status: Acute (5) Hypotension Status: Acute Family History Diabetes mellitus BROTHER FH: cancer BROTHER (esophageal) Social History Smoking Status: Former Smoker (quit ) Smokeless Tobacco Use: quit 1990s Alcohol Use: occasionally (rare beer. none recently. ) Drug Use: none Marital Status: Occupation Status: retired Allergies Coded Allergies: No Known Allergies (Unverified , 10/02/16) Current Inpatient Medications Current Inpatient Medications Medications (Trade) Dose Ordered Sig/Aj Route Start Time Stop Time Status Last Admin Dose Admin Acetaminophen (Tylenol Tab) 650 mg Q4H PRN PO 10/02/16 13:00 11/01/16 12:59 Ondansetron HCl (Zofran Inj) 4 mg Q6H PRN IV 10/02/16 13:00 11/01/16 12:59 Aspirin (Ecotrin Tab) 81 mg DAILY PO 10/03/16 09:00 11/02/16 08:59 Citalopram Hydrobromide (celeXA TAB) 40 mg DAILY PO 10/03/16 09:00 11/02/16 08:59 Folic Acid (Folvite Tab) 1 mg DAILY PO 10/03/16 09:00 11/02/16 08:59 Gabapentin (Neurontin Cap) 100 mg QPM PO 10/02/16 21:00 11/01/16 20:59 Levothyroxine Sodium (Synthroid Tab) 50 mcg DAILYBB PO 10/03/16 06:00 11/02/16 05:59 Lidocaine/ Prilocaine (Emla 2.5% Crm) 1 ea UD EXT 10/02/16 13:00 11/01/16 12:59 Tamsulosin HCl (Flomax Cap) 0.4 mg QPM PO 10/02/16 21:00 11/01/16 20:59 Pantoprazole Sodium (Protonix Tab) 40 mg QAM PO 10/03/16 09:00 11/02/16 08:59 Glucose (Glucose 40% Gel) 15-30 GRAMS 15 GRAMS... UD PRN PO 10/02/16 13:00 11/01/16 12:59 Glucose (Glucose Chew Tab) 4-8 Tablets 4 Tabl... UD PRN PO 10/02/16 13:00 11/01/16 12:59 Dextrose (Dextrose 50% 50ML Syringe) 25-50ML OF 50% DW IV FOR... UD PRN IV 10/02/16 13:00 11/01/16 12:59 Glucagon (Glucagon Inj) 1 mg UD PRN SQ 10/02/16 13:00 11/01/16 12:59 Vancomycin HCl (Consult) 1 ea UD PRN N/A 10/02/16 14:10 11/01/16 14:09 Insulin Aspart (novoLOG ASPART) SLIDING SCALE If C... ACHS SC 10/02/16 16:15 11/01/16 16:14 10/02/16 17:14 3 UNITS Miscellaneous Information (Consult Glycemic Management Pharmacy) 1 ea UD PRN N/A 10/02/16 14:11 11/01/16 14:10 Piperacillin Sod/ Tazobactam Sod 1 ea 1 ea UD PRN N/A 10/02/16 14:15 11/01/16 14:14 Piperacillin Sod/ Tazobactam Sod/ Dextrose (Zosyn Iv/D5 100ml) 115 ml @ 28.75 mls/ hr Q12H IV 10/02/16 20:00 10/12/16 19:59 Review of Systems Constitutional: No chills, No fever, No sweats Eyes: No worsening of vision ENT: + hearing loss, + problem reported (see HPI) Respiratory: No cough, No shortness of breath, No sputum Cardiovascular: No chest pain, No claudication Abdomen: + problem reported (see HPI), No constipation, No diarrhea, No nausea , No pain Genitourinary - Male: No dysuria, No hematuria Neurologic: + balance problems, + memory loss Physical Exam Date Time Temp Pulse Resp B/P Pulse Ox O2 Delivery O2 Flow Rate FiO2 10/02/16 14:03 36.9 88 20 129/67 91 Room Air 10/02/16 13:35 81 16 106/56 10/02/16 12:30 84 14 109/68 10/02/16 12:17 91 Room Air 10/02/16 12:02 87 10/02/16 11:37 91 Room Air 10/02/16 11:25 92 16 112/68 91 Room Air 10/02/16 09:49 37.1 92 18 79/52 97 Room Air General Appearance: WD/WN, no apparent distress Neck: + adenopathy present (diffuse induration of anterolateral left mandible and left neck) Respiratory/Chest: normal breath sounds, no respiratory distress, no accessory muscle use Cardiovascular: regular rate, rhythm Abdomen/GI: non tender, soft Extremities/Musculoskelatal: normal inspection, no calf tenderness, no pedal edema Neurologic/Psych: alert, + disoriented (at times) Skin: warm/dry, no rash, + pertinent finding (2 area with central opening on anterolateral left mandible; same area diffusely indurated, erythematous and tender with extension down left neck) Laboratory Results Last 24 Hours Test 10/02/16 10:15 10/02/16 10:27 10/02/16 10:43 10/02/16 15:05 White Blood Count 6.17 K/uL Red Blood Count 2.38 M/uL Hemoglobin 7.7 g/dL Hematocrit 23.8 % Mean Corpuscular Volume 100.0 fL Mean Corpuscular Hemoglobin 32.4 pg Mean Corpuscular Hemoglobin Concent 32.4 g/dl Platelet Count 152 K/uL Mean Platelet Volume 9.7 fL Neutrophils (%) (Auto) 76.1 % Lymphocytes (%) (Auto) 11.7 % Monocytes (%) (Auto) 7.6 % Eosinophils (%) (Auto) 4.1 % Basophils (%) (Auto) 0.3 % Neutrophils # (Auto) 4.70 K/uL Lymphocytes # (Auto) 0.72 K/uL Monocytes # (Auto) 0.47 K/uL Eosinophils # (Auto) 0.25 K/uL Basophils # (Auto) 0.02 K/uL RDW Standard Deviation 56.2 fL RDW Coefficient of Variation 15.5 % Immature Granulocyte % (Auto) 0.2 % Immature Granulocyte # (Auto) 0.01 K/uL Schistocytes 1+ Sodium Level 139 mmol/L Potassium Level 4.2 mmol/L Chloride Level 97 mmol/L Carbon Dioxide Level 32 mmol/L Anion Gap 10.0 mmol/L Blood Urea Nitrogen 62 mg/dl Creatinine 2.20 mg/dl Est Creatinine Clear Calc Drug Dose 25.5 ml/min Estimated GFR () 31.4 Estimated GFR (Non- 27.1 BUN/Creatinine Ratio 28.4 Random Glucose 219 mg/dl Calcium Level 9.1 mg/dl Magnesium Level 2.6 mg/dl Total Bilirubin 0.3 mg/dl Aspartate Amino Transf (AST/SGOT) 19 U/L Alanine Aminotransferase (ALT/SGPT) 25 U/L Alkaline Phosphatase 103 U/L Troponin I < 0.015 ng/ml Total Protein 7.4 gm/dl Albumin 3.0 gm/dl Globulin 4.4 gm/dl Albumin/Globulin Ratio 0.7 Lipase 168 U/L Thyroid Stimulating Hormone (TSH) 60.300 uIu/ml Free Thyroxine 0.54 ng/dl Urine Color DK YELLOW Urine Appearance TURBID Urine pH 8.0 Urine Specific [place] 1.019 Urine Protein 1+ Urine Glucose (UA) NEG Urine Ketones NEG Urine Occult Blood 1+ Urine Nitrite NEG Urine Bilirubin NEG Urine Urobilinogen NEG Urine Leukocyte Esterase LARGE Urine WBC (Auto) >30 /hpf Urine RBC (Auto) 5-10 /hpf Urine Hyaline Casts (Auto) 1-5 /lpf Urine Epithelial Cells (Auto) 5-10 /lpf Urine Bacteria (Auto) NEG Lactic Acid Level 1.3 mmol/L Influenza Type A (RT-PCR) Neg for Influ A Influenza Type B (RT-PCR) Neg for Influ B Test 10/02/16 16:30 Bedside Glucose 246 mg/dl CT of the head from 10/02/2016: No hemorrhage, mass effect or evidence of acute territorial ischemia. Small chronic lacunar infarct in the left thalamus. Chest x-ray from 10/02/2016: No focal lung consolidation to suggest pneumonia. No evidence of pulmonary edema. No pleural effusions. Assessment & Plan (1) Squamous cell cancer of buccal mucosa Assessment & Plan: Patient is s/p definitive RT, salvage surgery after local recurrence shortly after RT in 2014; he then recurred in left cervical LN and received palliative RT, completed in 06/2016. [place] this [place] [facility] rest[place] CT neck and PET/CT revealed residual neoplastic disease, Dr. Tse of [facility] was going to consider patient for palliative checkpoint inhibitor therapy (as patient has poor performance status and tolerance of other agents is of concern). Recommend obtaining CT of the neck without contrast (in light of his ESRD, on HD ) to restage local disease; PET CT can be obtained after discharge (already scheduled for 10/10/16). Further treatment of his recurrent SCC of buccal mucosa will be deferred to outpatient setting. His CT of head did not identify metastatic disease; do not believe his acute confusion is related to his malignancy. (2) Secondary malignant neoplasm of lymph nodes of neck Assessment & Plan: See #1. (3) Change in mental status Status: Acute Assessment & Plan: Uncertain etiology; infectious work up pending with blood and urine cultures and wound culture of left cheek, SCC site. Possible superinfection of SCC of left cheek. Patient started on empiric abx-Zosyn and vancomycin. Management per hospitalist team. CT of head did not reveal metastatic disease; do not believe his reason for hospitalization is related to his malignancy. TSH noted to be at 60 on admission- could be related to post-RT ablation of thyroid tissue, could be contributing to mental status. (4) Anemia due to multiple mechanisms Assessment & Plan: Patient likely has anemia from multiple mechanisms. He has end-stage renal disease for which he is on hemodialysis. Is unclear if he is on an agent such as Procrit in the outpatient setting, defer to outpatient nephrology. Recommend to transfuse PRBC if hemoglobin< 8 g/dL or patient is symptomatic of cardiopulmonary symptoms due to anemia. He also likely has a component of anemia of inflammation / chronic disease, with type 2 diabetes malignancy. He does not report any active bleeding. His hepatic function is normal, without hyperbilirubinemia, not suspecting hemolysis. Will check routine anemia labs - iron panel, ferritin, vitamin B12, folate and reticulocyte panel. I performed a history and physical examination of the patient and discussed the management with Virginia Oquendo PA-C . I reviewed her note and agree with the documented findings and plan of care. In summary he is a case of recurrent head and neck cancer mainly squamous cell carcinoma involving left buccal mucosa with metastatic disease involving the cervical lymph nodes, ESRD on HD, agree about current management. He would have PET-CT scan as an outpatient. Dr. Bartolo Vo Hem/Onc (This note was completed using the dictation program Fluency Direct. As such, there may be misspellings, word substitutions, or other variations that should not change the essence of the clinical content of this encounter note. If there is need for further clarification, please direct questions to the provider listed above.) Problem Qualifiers (1) Change in mental status: Altered mental status type: disorientation Qualified Codes: R41.0 - Disorientation, unspecified
[2016-10-02 20:02] VITALS: BP 107/66; PULSE 82; TEMP 36.8; O2SAT 94
[2016-10-02] MEDS: ACETAMINOPHEN 325 MG TAB PO PRN (20:18)
[2016-10-02] MEDS: PIPERACILL/TAZOBAC IV 3.375 GM in DEXTROSE 5% 100ML IV SCH (20:46)
[2016-10-02] MEDS: GABAPENTIN 100 MG CAP PO SCH (21:02)
[2016-10-02] MEDS: TAMSULOSIN HCL 0.4 MG CAP PO SCH (21:02)
[2016-10-02 23:21] VITALS: BP 99/58; PULSE 80; TEMP 37.5; O2SAT 95
[2016-10-03] VITALS (20 sets, daily range): BP systolic 81–133; BP diastolic 46–84; PULSE 56–91; TEMP 36.9–37.4; O2SAT 90–97
[2016-10-03] MEDS ORDERED: LEVOTHYROXINE 50 MCG TAB PO SCH (06:00)
[2016-10-03] MEDS: HEPARIN SOD 5000 UNIT/0.5 ML CARP SQ SCH ×3 (06:00→22:27)
[2016-10-03 06:40] LABS: HEMATOCRIT 24.7 % (42-52); MEAN CELL VOLUME 99.6 fL (80-100); MEAN CORPUSCULAR HEMOGLOBIN 32.7 pg (25-34); MEAN CORPUSCULAR HGB CONC 32.8 g/dl (32-36); MEAN PLATELET VOLUME 9.8 fL (7.4-10.4); PLATELET COUNT 156 K/uL (130-400); RED BLOOD COUNT 2.48 M/uL (4.7-6.1)
[2016-10-03 06:46] LABS: PROTHROMBIN TIME (PATIENT) 10.7 SECONDS (9.0-12.0)
[2016-10-03 07:13] LABS: CALCIUM 9.1 mg/dl (8.5-10.1); CREATININE 2.5 mg/dl (0.60-1.40); MAGNESIUM 2.5 mg/dl (1.8-2.4); POTASSIUM 3.8 mmol/L (3.5-5.1)
[2016-10-03 07:18] LABS: FERRITIN 1175.6 ng/ml (8.0-388.0)
[2016-10-03 07:23] LABS: ESTIMATED AVERAGE GLUCOSE 143 mg/dl; HA1C FLAG Normal (Normal)
[2016-10-03] MEDS: PIPERACILL/TAZOBAC IV 3.375 GM in DEXTROSE 5% 100ML IV SCH ×2 (07:35→20:19)
[2016-10-03] MEDS: INSULIN ASPART 100 UNITS/ML 3 ML PEN SC SCH ×4 (07:49→21:15)
[2016-10-03] MEDS ORDERED: ALBUMIN HUMAN 25% 12.5 GM/50 ML VIAL IV ONE (08:00)
[2016-10-03] MEDS ORDERED: CITALOPRAM 40 MG TAB PO SCH (09:00)
[2016-10-03] MEDS ORDERED: PANTOprazole SOD 40 MG TAB PO SCH (09:00)
[2016-10-03] MEDS ORDERED: ASPIRIN 81 MG ECTAB PO SCH (09:00)
--- NOTE | 2016-10-03 09:18 | Pharmacy Progress Note ---
Pharmacy Antibiotic Prog Note Date of Service: Oct 03, 2016. Subjective: The patient is currently receiving Vancomycin IV based on random levels and Zosyn 3.375 g IV every 12 hours for treatment of left facial mass secondary to malignancy. The patient is currently on day # 2 of IV therapy. Objective: Height (Feet): 5 Height (Inches): 8.00 Weight (Kilograms): 71.500 Levels: Item Value Date Time Random Vancomycin Level 14.2 mcg/ml 10/03/16 0609 Lab Results (24hrs): Laboratory Tests Test 10/02/16 10:15 10/03/16 06:09 BUN/Creatinine Ratio 28.4 27.0 Blood Urea Nitrogen 62 mg/dl 68 mg/dl Creatinine 2.20 mg/dl 2.50 mg/dl White Blood Count 6.17 K/uL 7.00 K/uL Red Blood Count 2.38 M/uL Hemoglobin 7.7 g/dL Hematocrit 23.8 % Mean Corpuscular Volume 100.0 fL Mean Corpuscular Hemoglobin 32.4 pg Mean Corpuscular Hemoglobin Concent 32.4 g/dl Platelet Count 152 K/uL Mean Platelet Volume 9.7 fL Neutrophils (%) (Auto) 76.1 % Lymphocytes (%) (Auto) 11.7 % Monocytes (%) (Auto) 7.6 % Eosinophils (%) (Auto) 4.1 % Basophils (%) (Auto) 0.3 % Neutrophils # (Auto) 4.70 K/uL Lymphocytes # (Auto) 0.72 K/uL Monocytes # (Auto) 0.47 K/uL Eosinophils # (Auto) 0.25 K/uL Basophils # (Auto) 0.02 K/uL Micro Results: Item Value Date Time Blood Culture Received 10/02/16 1015 Blood Pending Urine Culture Received 10/02/16 1027 Urine,Catheterized Pending Blood Culture Received 10/02/16 1043 Blood Pending Gram Stain Resulted 10/02/16 1505 Drainage - Surface Face Pending Assessment & Plan: 81 year old male with squamous cell carcinoma of L buccal mucosa receiving empiric Vancomycin and Zosyn IV for left facial mass secondary to malignancy. Patient was prescribed a 10 day course of unknown PO antibiotic in July 2016. Plan Vancomycin IV * Patient was given a dose of 1400 mg (20 mg/kg) IV on 10/02 ~1445. * Random level this am was near therapeutic at 14.2 mcg/mL. * h/o ESRD on HD - home schedule is - * The patient will be given a dose of 750 mg IV after HD today. * Goal trough level estimate: between 15 - 20 mcg/mL. * Random level has been ordered for: 3/9 am (this level has been ordered to ensure appropriate trough - further levels should be ordered based on inpatient HD schedule) Zosyn * Continue 3.375g IV every 12 hours (ext. infusion) for CrCl 20 mL/min or less or HD. Pharmacy will continue to follow and will adjust dose/frequency as necessary. Thank you
--- NOTE | 2016-10-03 10:35 | Progress Note ---
Subjective Date of Service: Oct 03, 2016. Subjective pt off of floor, wound culture with gpc, blood cultures pending. afebrile overnight, tolerating abx. wbc nml. vanco level 14.2. no overnight events. Problem List Medical Problems: (1) Acute pancreatitis Status: Acute (2) Acute renal failure Status: Acute (3) Anemia Status: Acute (4) Change in mental status Status: Acute (5) Hypotension Status: Acute Objective Vital Signs Date Time Temp Pulse Resp B/P Pulse Ox O2 Delivery O2 Flow Rate FiO2 10/03/16 07:52 37.2 79 20 118/60 90 Room Air 10/03/16 04:00 Room Air 10/03/16 03:29 36.9 82 21 93/46 94 Room Air 10/03/16 00:00 Room Air 10/02/16 23:21 37.5 80 20 99/58 95 Room Air 10/02/16 20:02 36.8 82 19 107/66 94 10/02/16 20:00 Room Air 10/02/16 16:00 Nasal Cannula 2.0 10/02/16 14:03 36.9 88 20 129/67 91 Room Air 10/02/16 13:35 81 16 106/56 10/02/16 12:30 84 14 109/68 10/02/16 12:17 91 Room Air 10/02/16 12:02 87 10/02/16 11:37 91 Room Air 10/02/16 11:25 92 16 112/68 91 Room Air Laboratory Results Item Value Date Time Gram Stain - Final Resulted 10/02/16 1505 Drainage - Surface Face Last 24 Hours Test 10/02/16 10:43 10/02/16 15:05 10/02/16 16:30 10/02/16 20:07 Lactic Acid Level 1.3 mmol/L Influenza Type A (RT-PCR) Neg for Influ A Influenza Type B (RT-PCR) Neg for Influ B Bedside Glucose 246 mg/dl 146 mg/dl Test 10/03/16 06:09 10/03/16 06:42 White Blood Count 7.00 K/uL Red Blood Count 2.48 M/uL Hemoglobin 8.1 g/dL Hematocrit 24.7 % Mean Corpuscular Volume 99.6 fL Mean Corpuscular Hemoglobin 32.7 pg Mean Corpuscular Hemoglobin Concent 32.8 g/dl RDW Standard Deviation 56.3 fL RDW Coefficient of Variation 15.5 % Platelet Count 156 K/uL Mean Platelet Volume 9.8 fL Absolute Reticulocyte Count 0.06 10^6/uL Percent Reticulocyte Count 2.6 % Prothrombin Time 10.7 SECONDS Prothromb Time International Ratio 1.0 Sodium Level 139 mmol/L Potassium Level 3.8 mmol/L Chloride Level 97 mmol/L Carbon Dioxide Level 31 mmol/L Anion Gap 11.0 mmol/L Blood Urea Nitrogen 68 mg/dl Creatinine 2.50 mg/dl Est Creatinine Clear Calc Drug Dose 22.4 ml/min Estimated GFR () 26.9 Estimated GFR (Non- 23.2 BUN/Creatinine Ratio 27.0 Random Glucose 134 mg/dl Estimated Average Glucose 143 mg/dl Hemoglobin A1c 6.6 % Calcium Level 9.1 mg/dl Magnesium Level 2.5 mg/dl Iron Level 50 mcg/dl Total Iron Binding Capacity 278 mcg/dl Transferrin 239 mg/dl Transferrin % Saturation 15 % Ferritin 1175.6 ng/ml Vitamin B12 Level 860 pg/mL Folate > 24.00 ng/mL Random Vancomycin Level 14.2 mcg/ml Bedside Glucose 151 mg/dl Assessment and Plan (1) Open facial wound Assessment & Plan: tumor, ? superimposed infection, follow cultures, continue emperic abx for now.
[2016-10-03] MEDS ORDERED: VANCOMYCIN INJ 750 MG in SODIUM CHLORIDE 0.9% 250ML 250 ML IV SCH (12:00)
--- NOTE | 2016-10-03 13:58 | NEPHROLOGY CONSULTATION ---
DATE OF CONSULTATION: 10/03/2016 ATTENDING OF RECORD: Dr. Kellogg. REASON FOR CONSULTATION: End-stage renal disease. HISTORY OF PRESENT ILLNESS: This is an 81-year-old male who dialyzes at the [facility] Mondays, Wednesdays, and Fridays; does have significant history of squamous cell carcinoma of the buccal mucosa and required chemo and radiation and underwent a PEG tube to help keep nutritional levels up. The patient still eats well, but does get night time tube feeds, and does have underlying diabetes and hypertension. The patient presented with mental status changes and worsening confusion as well as some hallucinations and difficulty sleeping. The patient has history of stroke in 2012 with residual left hand weakness, ambulates with a walker and has chronic urinary incontinence, still does urinate as well as epistaxis. The patient had cultures drawn, which are pending and infectious disease was consulted and was started on empiric antibiotics. The patient this morning is much more alert and recognized me and was answering questions appropriately and does not remember much over the last couple days, eating breakfast well. Did not receive any tube feeds last night. REVIEW OF SYSTEMS: No fevers or chills. No headaches. Positive dysphagia. No chest pain or shortness of breath. No nausea or vomiting. No diarrhea or constipation. Positive urinary incontinence. Positive ambulatory dysfunction. Positive hand weakness. All other review of systems otherwise negative. PAST MEDICAL HISTORY: Hypertension; BPH; coronary artery disease; history of stroke in the past; type 2 diabetes; end-stage renal disease on dialysis Mondays, Wednesdays and Fridays in [facility] followed by my partner, Dr. Emma Luther; buccal mucosal squamous cell carcinoma, requiring a history of radiation. PAST SURGICAL HISTORY: PEG tube placement, dialysis catheter placement, and surgery to his cancer on his side of his mouth. FAMILY HISTORY: Significant for diabetes. SOCIAL HISTORY: Former smoker, quit in the . No alcohol, no drugs. He is and lives with family. CURRENT MEDICATIONS: Aspirin 81 mg a day, Celexa 40 mg daily, folic acid 1 mg daily, Protonix 40 mg daily, Synthroid 50 mcg daily, heparin 5000 units subQ q. 8, Neurontin 100 mg p.o. at night, Flomax 0.4 mg at night, Zosyn 3.375 IV q. 12, sliding scale insulin, vancomycin and Zosyn. PHYSICAL EXAMINATION: VITAL SIGNS: Temperature 37.2, pulse 79, respiratory rate is 20, blood pressure 118/60, satting 90% on room air. GENERAL: Awake, alert, oriented x3. EYES: No scleral icterus. DERMATOLOGIC: Has the cancer on the left side of his face causing facial asymmetry and is currently covered. NECK: Supple. PULMONARY: Clear to auscultation. CARDIAC: Regular with ectopy. ABDOMEN: Positive PEG tube. Bowel sounds positive, soft and nontender. EXTREMITIES: No significant clubbing, cyanosis or edema. NEUROLOGICALLY: He does have some left-sided weakness and ambulates with a walker. DERMATOLOGIC: Has the resolving cancer on the side of his face. Otherwise, no other ulcers noted. LABORATORY DATA: White count 7, H\T\H 8.1 and 24.7, and platelet counts 156. Sodium level 139, potassium 3.8, chloride 97, bicarbonate is 31, BUN 68, creatinine is 2.5, glucose 134, hemoglobin A1c 6.6, mag is 2.5 desaturation 15%. INR is 1. UA with pH of 8, specific gravity 1.019, 1+ protein, 1+ blood, large leukocyte esterase, greater than 30 WBCs. Urine tox screen is pending. Flu is negative. IMAGING DATA: Chest x-ray shows no acute process. IMPRESSION AND PLAN: 1. End-stage renal disease: Plan on dialysis today since today is his regular dialysis day. 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 Likely did not get much p.o. fluid intake; however, did get IV fluids last night as well as fluids with the antibiotics and volume status still appears appropriate. We will discuss further with the outpatient dialysis unit to decide how much fluid is appropriate to take off today. Blood pressures tend to run low, we will use albumin to help keep blood pressure up during dialysis. 2. Anemia of renal failure. Hemoglobin levels are trending down, does have significant head and neck cancer. Transfusion dependent. No procrit. 3. Renal osteodystrophy. We will follow phosphorous levels, currently not on any phosphate binders. 4. Nutrition. The patient does get tube feeds at night through the PEG tube. We will discuss further with the family about what type and how much and discuss further with the primary hospitalist. I appreciate the consultation. JAVIER
--- NOTE | 2016-10-03 14:49 | Pharmacy Progress Note ---
Glycemic Control: Progress Nt Date of Service Oct 03, 2016. Scope Glycemic Pharmacist consulted by Fozia Szymanski PA-C on 10/02/16 for glycemic control and to write orders per [facility] inpatient glycemic control protocol. Objective Accuchecks BSG (last 24hrs): Test 10/02/16 16:30 10/02/16 20:07 10/03/16 06:09 10/03/16 06:42 Bedside Glucose 246 mg/dl (70-99) 146 mg/dl (70-99) 151 mg/dl (70-99) Random Glucose 134 mg/dl (70-99) Test 10/03/16 14:20 Bedside Glucose 139 mg/dl (70-99) Laboratory Data (last 24hrs) Test 10/03/16 06:09 Anion Gap 11.0 mmol/L BUN/Creatinine Ratio 27.0 Blood Urea Nitrogen 68 mg/dl Creatinine 2.50 mg/dl Hemoglobin A1c 6.6 % Potassium Level 3.8 mmol/L Sodium Level 139 mmol/L White Blood Count 7.00 K/uL HbA1c: Test 10/03/16 06:09 Hemoglobin A1c 6.6 % (4.5-5.6) H Recent Pertinent Medications Outpatient Anti-diabetic Regimen: * None * A1c = 6.6 % 10/03/16 Risk Factors for Insulin Resistance: * Infection: IV Vancomycin and Zosyn * IVF: Zosyn mixed in dextrose * Diet: Regular diet - ate 50% at dinner last night and at breakfast this morning. PEG tube supplements - Novosource Renal (mouth cancer) dietary consulted - 275ML TID Assessment & Plan ASSESSMENT: 10/02/16 * 81 year old male admitted for confusion, started on IV antibiotics, random BSG = 219mg/dL, not on any medications for glycemic control as outpatient. Latest A1c at goal, requires updated A1c. * I will start patient only on a CF at this time until we have more blood sugar data and A1c. * Dietary consulted for PEG tube nutrition, as patient has mouth cancer and this is his only means of nutritional intake. These carbs may or may not eventually need Novolog coverage. * ADA & AACE recommend a goal blood sugar range 140-180 mg/dl for the majority of critically ill & non-critically ill patients. However, more stringent targets may be selected in individual cases. I will start patient with 120-160mg /dL goal range, since A1c was 6.3% in March of 2016, but to prevent hypoglycemia in 81 year old. 10/03/16 * Patient only required 3 units of insulin yesterday and 1 unit so far today. Patient to start Novosource Renal tonight (275ML TID), patient's A1c at goal, no changes in current regimen until we see how patient can handle supplements. PLAN FOR INPATIENT GLYCEMIC CONTROL: * Correctional Insulin with NOVOLOG per scale ACHS or Q6hrs while NPO * Goal Range: Low 120 mg/dL - High 160 mg/dL * Correction Factor: 40 mg/dL/unit * Nutritional / Prandial insulin - None at this time until needs are determined * Please note that the plan above was derived based on current level of insulin resistance and hospital stress. These recommendations are appropriate for inpatient admission only. Plan of care upon discharge will need to be reassessed to avoid potential outpatient hypo/hyperglycemia. Thank you.
[2016-10-03] MEDS: TUBE FEEDING WATER FLUSH PEG SCH ×2 (17:55→19:00)
[2016-10-03] MEDS: NOVASOURCE RENAL 1000ML BAG PEG SCH ×2 (17:55→22:34)
[2016-10-03] MEDS ORDERED: TUBE FEEDING WATER FLUSH NG SCH (18:00)
--- NOTE | 2016-10-03 19:17 | Progress Note ---
Internal Med Progress Note Date of Service: Oct 03, 2016. Provider Documentation: SUBJECTIVE: offers no complain , pleasant no fever or chills OBJECTIVE: Vital Signs-as noted below Exam: General-no sign of distress Eyes-sclera non icteric ENT-large fungating mass on the left side of the face with foul smelling drainage. Lungs-CTA Heart-regular Abdomen-soft, non tender , PEG tube present Extremities-no lower ext edema Neuro-no focal deficit Lab data as noted below. ASSESSMENT & PLAN: ALTERED MENTAL STATUS Possible metabolic encephalopathy due to infection/ sepsis; /infected Facial ulcer CT head- no acute findings cont empiric abx with vancomycin /Zosyn POSSIBLE SEPSIS /SOURCE OF INFECTION INFECTED FACIAL ULCER Presented with hypotension, tachycardia -> VSS after 250 mL bolus Afebrile; no leukocytosis; lactic acid WNL has facial lesion with purulent drainage; with underlying malignancy Sq cell ca wound culture growing : gram positive cocci Empiric broad spectrum abx coverage with Zosyn and vancomycin to be given with dialysis consulted infectious disease-appreciate input Consult wound care nurse CHRONIC ANEMIA/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 Tse S/p resection in 04/[address] 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 Hartmann Consult nephrology -appreciate input got scheduled dialysis today HYPOTHYROIDISM TSH elevated to 60 Levothyroxine recently increased from 25 -> 50 mcg daily on 09/19/16 increase Levothyroxine to 75 mcg /Free T4 -remains low Recheck TSH as outpatient in around 10/31/16 DM TYPE 2 Diet controlled Monitor BSG ACHS Insulin sliding scale coverage Consult pharmacy for glycemic control HISTORY OF CVA Continue aspirin CAD Stable; continue aspirin DEPRESSION Continue Celexa BPH Continue Flomax GERD Continue PPI DVT PROPHYLAXIS SCD's DISPOSITION will need rehab PT/OT eval requested referral placed for [facility] following for discharge planning Vital Signs: Date Time Temp Pulse Resp B/P Pulse Ox O2 Delivery O2 Flow Rate FiO2 10/03/16 18:53 37.3 85 18 105/60 97 Room Air 10/03/16 16:00 Room Air 10/03/16 15:11 37.4 86 18 104/72 94 Room Air 10/03/16 14:30 Room Air 10/03/16 14:22 37.4 86 20 133/84 95 Room Air 10/03/16 13:45 37.4 87 118/73 10/03/16 13:00 58 96/67 10/03/16 12:45 73 95/63 10/03/16 12:30 74 90/57 10/03/16 12:15 70 98/71 10/03/16 12:01 75 115/70 10/03/16 11:30 75 81/61 10/03/16 11:15 60 95/65 10/03/16 11:00 56 97/54 10/03/16 10:45 70 101/67 10/03/16 10:30 89 115/62 10/03/16 10:13 89 115/62 10/03/16 09:55 37.3 81 91/74 10/03/16 08:00 Room Air 10/03/16 07:52 37.2 79 20 118/60 90 Room Air 10/03/16 04:00 Room Air 10/03/16 03:29 36.9 82 21 93/46 94 Room Air 10/03/16 00:00 Room Air 10/02/16 23:21 37.5 80 20 99/58 95 Room Air Lab Results: Results Past 24 Hours Test 10/03/16 06:09 10/03/16 06:42 10/03/16 14:20 10/03/16 15:46 Range/Units White Blood Count 7.00 4.8-10.8 K/uL Red Blood Count 2.48 4.7-6.1 M/uL Hemoglobin 8.1 14.0-18.0 g/dL Hematocrit 24.7 42-52 % Mean Corpuscular Volume 99.6 80-100 fL Mean Corpuscular Hemoglobin 32.7 25-34 pg Mean Corpuscular Hemoglobin Concent 32.8 32-36 g/dl RDW Standard Deviation 56.3 36.4-46.3 fL RDW Coefficient of Variation 15.5 11.5-14.5 % Platelet Count 156 130-400 K/uL Mean Platelet Volume 9.8 7.4-10.4 fL Absolute Reticulocyte Count 0.06 0.02-0.10 10^6/uL Percent Reticulocyte Count 2.6 0.5-2.0 % Prothrombin Time 10.7 9.0-12.0 SECONDS Prothromb Time International Ratio 1.0 0.9-1.1 Sodium Level 139 136-145 mmol/L Potassium Level 3.8 3.5-5.1 mmol/L Chloride Level 97 98-107 mmol/L Carbon Dioxide Level 31 21-32 mmol/L Anion Gap 11.0 3-11 mmol/L Blood Urea Nitrogen 68 7-18 mg/dl Creatinine 2.50 0.60-1.40 mg/dl Est Creatinine Clear Calc Drug Dose 22.4 ml/min Estimated GFR () 26.9 Estimated GFR (Non- 23.2 BUN/Creatinine Ratio 27.0 10-20 Random Glucose 134 70-99 mg/dl Estimated Average Glucose 143 mg/dl Hemoglobin A1c 6.6 4.5-5.6 % Calcium Level 9.1 8.5-10.1 mg/dl Magnesium Level 2.5 1.8-2.4 mg/dl Iron Level 50 35-175 mcg/dl Total Iron Binding Capacity 278 250-450 mcg/dl Transferrin 239 200-360 mg/dl Transferrin % Saturation 15 20-50 % Ferritin 1175.6 8.0-388.0 ng/ml Vitamin B12 Level 860 211-911 pg/mL Folate > 24.00 >5.38 ng/mL Random Vancomycin Level 14.2 mcg/ml Bedside Glucose 151 139 139 70-99 mg/dl Test 10/03/16 19:42 Range/Units Bedside Glucose 223 70-99 mg/dl
--- NOTE | 2016-10-03 20:11 | DIAGNOSTIC IMAGING REPORT ---
CT SCAN OF THE NECK WITHOUT IV CONTRAST CLINICAL HISTORY: Unspecified head and neck cancer. COMPARISON STUDY: No priors. TECHNIQUE: CT scan of the soft tissues of the neck was performed from the skull base to the upper chest. Images are reviewed in the axial, sagittal, and coronal planes. IV contrast was not administered as per the referring clinician. Note that the examination was performed in significantly suboptimal fashion without IV contrast. CT DOSE: 405.52 mGy.cm FINDINGS: Soft tissues: There is diffuse infiltration of the soft tissues of the left neck with associated dermal thickening. There is an indeterminant soft tissue lesion seen within the subcutaneous tissues in the left facial region overlying the body of the left mandible on axial image #144. This extends to the dermal surface and measures approximately 3.5 x 3 cm. This extends to the underlying muscles of mastication, and also appears to protrude from the dermal surface. Small foci of gas are present within this lesion. There is mild stranding soft tissue stranding. There is advanced atherosclerotic calcification of the carotid bulbs. Pharynx: The unenhanced nasopharyngeal soft tissues are grossly unremarkable. The pharyngeal airway is patent. The vocal cords are symmetric. There is asymmetric soft tissue infiltration identified in the left parapharyngeal region with loss of the left-sided parapharyngeal fat. This is best seen on axial image #129 and is located deep to the dermal lesion seen at this level. The right parapharyngeal fat is well maintained. There is mild retropharyngeal soft tissue edema. No fluid collection is suspected. The epiglottis is normal. Lymphadenopathy: No pathologically enlarged cervical lymph nodes are seen Thyroid: Atrophic. Salivary glands: The parotid and right submandibular glands are within normal limits. The left submandibular gland is not well visualized due to surrounding inflammation. Brain parenchyma: The visualized brain parenchyma at the skull base is grossly normal in appearance noting age-related involutional change. Skeletal structures: The skeletal structures are osteopenic. No lytic or blastic lesions are seen. Imaged portions of the calvarium at the skull base are within normal limits. The cervical spine appears intact noting multilevel spondylosis. Orbits: The bony orbits are intact. Orbital contents are normal in appearance noting bilateral ocular lens implants. Sinuses and mastoids: There is moderate mucosal thickening within the left maxillary antrum noting air-fluid level. Trace mucosal thickening is seen in the right maxillary antrum. Thickening and sclerosis of the byrne of the maxillary antra indicate chronicity. Moderate mucosal thickening is also seen within the ethmoid sinuses. Mild mucosal thickening is noted in the frontal sinuses. There is a bony defect seen within the lateral wall of the left maxillary antrum on image #90. There is a small left mastoid effusion. The right mastoid air cells are well pneumatized. Upper chest: Intralobular septal thickening is noted at the lung apices. No airspace consolidation, pleural effusion, or nodularity is identified. There is advanced atherosclerotic calcification of the visualized thoracic aorta. Prominent subcentimeter mediastinal lymph nodes are indeterminant significance. IMPRESSION: 1. Significantly compromised examination without IV contrast. 2. There is an indeterminant soft tissue lesion identified in the left facial region superficial to the mandible and extending to the dermal surface as detailed above. This likely corresponds to the reported history of a head and neck cancer. 3. There is diffuse induration of the subcutaneous oft tissues of the left neck, possibly treatment-related if there has been a history of radiation. Clinical correlation will be essential. 4. There is diffuse soft tissue thickening in the left parapharyngeal region with loss of the parapharyngeal fat. Again, this could represent tumor or treatment related change. 5. Mild retropharyngeal edema is identified. This may be treatment related. Clinical correlation will be required. 6. No pathologically enlarged cervical lymph nodes are identified. 7. Chronic appearing paranasal sinus disease as above. 6 per left mastoid effusion. Electronically signed by: Nolan Ly M.D. 10/03/2016 8:10 PM Dictated Date/Time: 10/03/2016 7:58 PM
[2016-10-03] MEDS: GABAPENTIN 100 MG CAP PO SCH (21:13)
[2016-10-03] MEDS: TAMSULOSIN HCL 0.4 MG CAP PO SCH (21:13)
[2016-10-04] MEDS: ACETAMINOPHEN 325 MG TAB PO PRN (01:01)
[2016-10-04] MEDS: NOVASOURCE RENAL 1000ML BAG PEG SCH (02:16)
[2016-10-04] MEDS: TUBE FEEDING WATER FLUSH PEG SCH ×4 (02:16→19:00)
[2016-10-04] MEDS: HEPARIN SOD 5000 UNIT/0.5 ML CARP SQ SCH ×3 (05:37→21:07)
[2016-10-04] MEDS ORDERED: LEVOTHYROXINE 75 MCG TAB PEG SCH (06:00)
[2016-10-04] MEDS ORDERED: LEVOTHYROXINE 100 MCG TAB PEG SCH (06:00)
--- NOTE | 2016-10-04 07:20 | DIAGNOSTIC IMAGING REPORT ---
KUB HISTORY: Abdominal distention. r/o ileus, obstruction COMPARISON: KUB 04/26/2016. FINDINGS: There is a gastrostomy tube identified. There are severe gaseous distention of the bowel. This primarily involves the colon. Distention of the descending colon has progressed and measures up to 13 cm in diameter. Distention of the ascending colon has improved and measures up to 9 cm, previously measuring 10 cm. No renal calculi. No ureteral calculi. No pneumoperitoneum or pneumatosis. IMPRESSION: Severe gaseous distention of the bowel is again noted as described above. This primarily involves the colon. Electronically signed by: Antwon Calderón M.D. 10/04/2016 7:18 AM Dictated Date/Time: 10/04/2016 7:16 AM
[2016-10-04 07:53] VITALS: BP 122/71; PULSE 83; TEMP 36.8; O2SAT 97
[2016-10-04] MEDS: PIPERACILL/TAZOBAC IV 3.375 GM in DEXTROSE 5% 100ML IV SCH (07:59)
[2016-10-04] MEDS: INSULIN ASPART 100 UNITS/ML 3 ML PEN SC SCH ×3 (08:04→17:28)
[2016-10-04 09:05] LABS: HEMATOCRIT 23.4 % (42-52); MEAN CORPUSCULAR HEMOGLOBIN 32.9 pg (25-34); MEAN PLATELET VOLUME 9.7 fL (7.4-10.4); PLATELET COUNT 154 K/uL (130-400); RED BLOOD COUNT 2.34 M/uL (4.7-6.1)
--- NOTE | 2016-10-04 09:06 | Medical Consult ---
Consultation Date of Consultation: Oct 04, 2016. Attending Physician: Viki Kellogg M.D. History of Present Illness 81 yo male adm with confusion, possible sepsis, h/o SCCa mouth with drainage from Lt face. recent progressive abd distention- KUB shows diffusely dilated sb and colon h/o chronic anemia, ESRD on HD, PEG tube, DM, CVA Past Medical/Surgical History Medical Problems: (1) Acute pancreatitis Status: Acute (2) Acute renal failure Status: Acute (3) Anemia Status: Acute (4) Change in mental status Status: Acute (5) Hypotension Status: Acute Family History Diabetes mellitus BROTHER FH: cancer BROTHER (esophageal) Social History Smoking Status: Former Smoker (quit 1970s) Smokeless Tobacco Use: quit Alcohol Use: occasionally (rare beer. none recently. ) Drug Use: none Marital Status: Occupation Status: retired Allergies Coded Allergies: No Known Allergies (Unverified , 10/02/16) Current Inpatient Medications Current Inpatient Medications Medications (Trade) Dose Ordered Sig/Aj Route Start Time Stop Time Status Last Admin Dose Admin Ondansetron HCl (Zofran Inj) 4 mg Q6H PRN IV 10/02/16 13:00 11/01/16 12:59 10/04/16 07:59 4 MG Lidocaine/ Prilocaine (Emla 2.5% Crm) 1 ea UD EXT 10/02/16 13:00 11/01/16 12:59 Glucose (Glucose 40% Gel) 15-30 GRAMS 15 GRAMS... UD PRN PO 10/02/16 13:00 11/01/16 12:59 Glucose (Glucose Chew Tab) 4-8 Tablets 4 Tabl... UD PRN PO 10/02/16 13:00 11/01/16 12:59 Dextrose (Dextrose 50% 50ML Syringe) 25-50ML OF 50% DW IV FOR... UD PRN IV 10/02/16 13:00 11/01/16 12:59 Glucagon (Glucagon Inj) 1 mg UD PRN SQ 10/02/16 13:00 11/01/16 12:59 Vancomycin HCl (Consult) 1 ea UD PRN N/A 10/02/16 14:10 11/01/16 14:09 Insulin Aspart (novoLOG ASPART) SLIDING SCALE If C... ACHS SC 3/7/17 16:15 11/01/16 16:14 10/04/16 08:04 1 UNITS Miscellaneous Information (Consult Glycemic Management Pharmacy) 1 ea UD PRN N/A 10/02/16 14:11 11/01/16 14:10 Piperacillin Sod/ Tazobactam Sod 1 ea 1 ea UD PRN N/A 10/02/16 14:15 11/01/16 14:14 Piperacillin Sod/ Tazobactam Sod/ Dextrose (Zosyn Iv/D5 100ml) 115 ml @ 28.75 mls/ hr Q12H IV 10/02/16 20:00 10/12/16 19:59 10/04/16 07:59 28.75 MLS/HR Heparin Sodium (Porcine) (Heparin Sq 5000 Unit/0.5ml) 5,000 unit Q8 SQ 10/03/16 06:00 11/02/16 05:59 10/04/16 05:37 5,000 UNIT Review of Systems Constitutional: No chills, No fever Eyes: No eye pain Respiratory: No cough, No sputum Cardiovascular: No chest pain Abdomen: No pain, No vomiting Musculoskeletal: No muscle pain Genitourinary - Male: + urinary frequency, + urinary incontinence Neurologic: + balance problems, + weakness Endocrine: + fatigue Integumentary: + rash Physical Exam Date Time Temp Pulse Resp B/P Pulse Ox O2 Delivery O2 Flow Rate FiO2 10/04/16 07:53 36.8 83 18 122/71 97 Room Air 10/04/16 00:05 Room Air 10/03/16 23:57 37.3 91 20 98/55 94 Room Air 10/03/16 22:10 37.3 85 18 97 10/03/16 20:00 Room Air 10/03/16 18:53 37.3 85 18 105/60 97 Room Air 10/03/16 16:00 Room Air 10/03/16 15:11 37.4 86 18 104/72 94 Room Air 10/03/16 14:30 Room Air 10/03/16 14:22 37.4 86 20 133/84 95 Room Air 10/03/16 13:45 37.4 87 118/73 10/03/16 13:00 58 96/67 10/03/16 12:45 73 95/63 10/03/16 12:30 74 90/57 10/03/16 12:15 70 98/71 10/03/16 12:01 75 115/70 10/03/16 11:30 75 81/61 10/03/16 11:15 60 95/65 10/03/16 11:00 56 97/54 10/03/16 10:45 70 101/67 10/03/16 10:30 89 115/62 10/03/16 10:13 89 115/62 10/03/16 09:55 37.3 81 91/74 General Appearance: no apparent distress, + cachetic Head: + pertinent finding (draining lesion Lt face) Eyes: sclerae normal Neck: supple Respiratory/Chest: no respiratory distress Cardiovascular: regular rate, rhythm Abdomen/GI: non tender, + distended Neurologic/Psych: alert Skin: no rash Laboratory Results Last 24 Hours Test 10/03/16 14:20 10/03/16 15:46 10/03/16 19:42 10/04/16 06:19 Bedside Glucose 139 mg/dl 139 mg/dl 223 mg/dl Random Vancomycin Level 16.3 mcg/ml Test 10/04/16 07:43 10/04/16 08:27 Bedside Glucose 198 mg/dl Assessment & Plan 10/04/16- diffuse gaseous distention of small bowel and colon- more of an ileus picture. Had formed bm today. nonoperative mgt for now- be sure electrolytes normalized. Will ask GI to see- endoscopic decompression would be best if worsens
[2016-10-04 09:09] LABS: MEAN CORPUSCULAR HGB CONC 32.9 g/dl (32-36)
[2016-10-04 09:27] LABS: ALB/GLOB RATIO 0.7 (0.9-2); BUN/CREATININE RATIO 23.4 (10-20); CREATININE 2.1 mg/dl (0.60-1.40); POTASSIUM 3.4 mmol/L (3.5-5.1)
--- NOTE | 2016-10-04 09:46 | DIAGNOSTIC IMAGING REPORT ---
CT SCAN OF THE ABDOMEN AND PELVIS WITHOUT IV CONTRAST CLINICAL HISTORY: Colonic distention. COMPARISON STUDY: Abdominal CT dated 04/22/2016. TECHNIQUE: CT scan of the abdomen and pelvis is performed from the lung bases to the proximal femora. Images are reviewed in the axial, sagittal, and coronal planes. IV contrast was not administered for this examination due to poor renal function. Note that the examination is suboptimal without IV contrast. Enteric contrast was utilized. The examination is also degraded by motion artifact, as well as by streak artifact from the patient's arms which could not be elevated above the abdomen or pelvis.. Automated dose control exposure was utilized. CT DOSE: 1089.83 mGy.cm FINDINGS: Lung bases: The heart is enlarged and without pericardial effusion. The coronary arteries an aortic valve leaflets are densely calcified. There is diminished attenuation of the cardiac blood pool as compared to the myocardium suggesting anemia. There are small pleural effusions with bibasilar consolidation. A small hiatal hernia is identified. Liver: Evaluation of the liver is degraded by streak artifact. The unenhanced liver is normal in size, contour, and attenuation. There is no intrahepatic biliary ductal dilatation. Gallbladder: Unremarkable. Spleen: Normal in size and attenuation. Pancreas: The unenhanced pancreas is atrophic and grossly unremarkable. Adrenal glands: Unremarkable. Kidneys: The unenhanced kidneys are atrophic and without hydronephrosis. There are no renal calculi identified. There is no evidence of contour deforming renal mass lesion. Abdominal vasculature: The abdominal aorta is normal in course and caliber noting advanced atherosclerotic calcification. Bowel: A gastrostomy tube is present in the distal stomach. The small bowel is normal in caliber. There is marked gaseous distention of the colon with numerous air-fluid levels identified. The cecum measures up to 9 cm in caliber. Enteric contrast reaches the sigmoid. There is ill-defined soft tissue suggested in the inferior rectum on axial image #414. No significant colonic wall thickening is identified. The appendix is not clearly visualized. Peritoneum: There is trace free fluid in the pelvis. No intraperitoneal free air is seen. Lymphadenopathy: None. Pelvic viscera: The prostate gland is enlarged and heterogeneous, measuring 5.9 cm in transverse diameter. The bladder wall appears thickened and trabeculated suggesting chronic s obstruction. The seminal vesicles are normal as visualized. Skeletal structures: The skeletal structures are osteopenic. There is moderate to advanced lumbosacral spondylosis. No lytic or blastic lesions are seen. Degenerative change and sclerosis is noted in the sacroiliac joints. IMPRESSION: 1. Suboptimal examination without IV contrast. The examination is also significantly degraded by streak and motion artifact. 2. There is marked distention of the colon which contains liquid stool. Enteric contrast reaches the sigmoid. The appearance is concerning for colonic obstruction. Ill-defined soft tissue is suggested involving the inferior rectum. This is indeterminant, and an obstructing mass is not excluded. Colonoscopy is recommended for further assessment. 3. No small bowel obstruction is seen. 4. Cardiomegaly. 5. Small pleural effusions with bibasilar consolidation. This likely represents atelectasis. Correlate clinically for evidence of infectious/inflammatory pneumonitis. 6. Trace pelvic ascites. 7. Additional changes as above. Electronically signed by: Nolan Ly M.D. 10/04/2016 9:45 AM Dictated Date/Time: 10/04/2016 9:35 AM
--- NOTE | 2016-10-04 09:56 | Pharmacy Progress Note ---
Glycemic Control: Progress Nt Date of Service Oct 04, 2016. Scope Glycemic Pharmacist consulted by Fozia Szymanski PA-C on 10/02/16 for glycemic control and to write orders per [facility] inpatient glycemic control protocol. Objective Accuchecks BSG (last 24hrs): Test 10/03/16 14:20 10/03/16 15:46 10/03/16 19:42 10/04/16 07:43 Bedside Glucose 139 mg/dl (70-99) 139 mg/dl (70-99) 223 mg/dl (70-99) 198 mg/dl (70-99) Test 10/04/16 08:53 Random Glucose 181 mg/dl (70-99) Laboratory Data (last 24hrs) Test 10/04/16 08:53 Anion Gap 12.0 mmol/L BUN/Creatinine Ratio 23.4 Blood Urea Nitrogen 49 mg/dl Creatinine 2.10 mg/dl Potassium Level 3.4 mmol/L Sodium Level 136 mmol/L White Blood Count 6.60 K/uL HbA1c: Test 10/03/16 06:09 Hemoglobin A1c 6.6 % (4.5-5.6) H Recent Pertinent Medications Outpatient Anti-diabetic Regimen: * None * A1c = 6.6 % 10/03/16 Risk Factors for Insulin Resistance: * Infection: IV Vancomycin and Zosyn * IVF: Zosyn mixed in dextrose * Diet: NPO TODAY * yesterday = Regular diet - ate 50% at dinner 10/02 and at breakfast 10/03. PEG tube supplements - Novosource Renal (mouth cancer) dietary consulted - 275ML TID - pt received at 1800,2200, and 0200 (10/03-10/04) Assessment & Plan ASSESSMENT: 10/02/16 * 81 year old male admitted for confusion, started on IV antibiotics, random BSG = 219mg/dL, not on any medications for glycemic control as outpatient. Latest A1c at goal, requires updated A1c. * I will start patient only on a CF at this time until we have more blood sugar data and A1c. * Dietary consulted for PEG tube nutrition, as patient has mouth cancer and this is his only means of nutritional intake. These carbs may or may not eventually need Novolog coverage. * ADA & AACE recommend a goal blood sugar range 140-180 mg/dl for the majority of critically ill & non-critically ill patients. However, more stringent targets may be selected in individual cases. I will start patient with 120-160mg /dL goal range, since A1c was 6.3% in March of 2016, but to prevent hypoglycemia in 81 year old. 10/03/16 * Patient only required 3 units of insulin yesterday and 1 unit so far today. Patient to start Novosource Renal tonight (275ML TID), patient's A1c at goal, no changes in current regimen until we see how patient can handle supplements. 10/04/16 * Patient started on tube feeds last night resulting in slightly higher BSG, corrected with Novolog. TFs were cut today after consult by Dr Irizarry - pt with distention of small bowel and colon, more of an ileus picture, GI also consulted. Non-operative management at this time, NPO. * No changes needed in glycemic regimen as diet has been changed to NPO. May need to cover tube feeds with fixed doses of insulin if/when they are resumed. PLAN FOR INPATIENT GLYCEMIC CONTROL: * Correctional Insulin with NOVOLOG per scale ACHS or Q6hrs while NPO * Goal Range: Low 120 mg/dL - High 160 mg/dL * Correction Factor: 40 mg/dL/unit * Nutritional / Prandial insulin - None at this time (NPO) * Please note that the plan above was derived based on current level of insulin resistance and hospital stress. These recommendations are appropriate for inpatient admission only. Plan of care upon discharge will need to be reassessed to avoid potential outpatient hypo/hyperglycemia. Thank you.
--- NOTE | 2016-10-04 09:57 | Pharmacy Progress Note ---
Pharmacy Antibiotic Prog Note Date of Service: Oct 04, 2016. Subjective: The patient is currently receiving Vancomycin dosing per random levels for ESRD + Zosyn The patient is currently on day # 3 of Abx IV therapy. 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 Patient was prescribed a 10 day course of unknown PO antibiotic in July 2016. Pt given one dose of Fluconazole for Paola albicans UTI. Plan Vancomycin IV * h/o ESRD on HD - home schedule is which is being continued inhouse. * Vancomycin is being dosed after HD based on pre-HD level. * The patient was given a dose of 750 mg IV after HD yesterday (10/03) based on pre-HD vanco level of 14.2mcg/ml * Goal trough level estimate: between 15 - 20 mcg/mL. * Random level this morning is therapeutic at 16.3mcg/ml but may become sub- therapeutic over the next 24hrs. * Per nursing, Pt is voiding (minimally). Nursing is unable to quantify voiding amount due to incontinence. But, nursing reports that urine production is "not that much." Pt with 8 occurrences of voiding 10/03. * HD next scheduled for 10/05. Vancomycin is dosed after HD. * Concern that level will become subtherapeutic after HD tomorrow d/t urine output + HD. * Will give a minimal dose today of Vancomycin 250mg/dl to ensure that therapeutic trough level is maintained. * Based on patient Vd this should equate to about a 5 point rise in vanco level. * Random level has been ordered for: 10/05 with AM labs. Vancomycin will be redosed after HD on 10/05 depending on pre-HD vanco level. Zosyn * Continue 3.375g IV every 12 hours (ext. infusion) for CrCl 20 mL/min or less or HD. Pharmacy will continue to follow and will adjust dose/frequency as necessary. Thank you
--- NOTE | 2016-10-04 10:28 | Progress Note ---
Progress Note Date of Service Oct 04, 2016. Progress Note ATTENDING NOTE: Xray of KUB ordered last night for abdominal distention -shows severe gaseous distention of the bowel /distention of descending colon measures 13 cm /ascending colon distention [address] ABDOMEN /PELVIS : There is marked distention of the colon which contains liquid stool. Enteric contrast reaches the sigmoid. The appearance is concerning for colonic obstruction. Ill-defined soft tissue is suggested involving the inferior rectum. This is indeterminant, and an obstructing mass is not excluded. Colonoscopy is recommended for further assessment. No small bowel obstruction seen Surgery consulted -appreciate input not a surgical candidate recommend cont bowel rest with NPO GI consulted for colonoscopic eval family will be updated
--- NOTE | 2016-10-04 10:53 | Progress Note ---
Subjective Date of Service: Oct 04, 2016. Subjective Pt evaluation today including: conversation w/ patient, conversation w/ family , physical exam, chart review, lab review pt seen in follow up, family at bedside, pt resting comfortably during exam, family provides history. state pt is distended. ct abd/ pelvis done, obst with ? mass, ? need for scope. Also had ct face, mass noted 3.5x3cm with extension to muscles. no abscess/collection noted. remains on abx, wound culture with gpc , awaiting furhter ID. blood cultures negative, urine culture with yeast and gpc , no bacteria noted on ua, given fluconazole yesterday. afebrile. tolerating abx. vanco level 16, wbc nml. Problem List Medical Problems: (1) Acute pancreatitis Status: Acute (2) Acute renal failure Status: Acute (3) Anemia Status: Acute (4) Change in mental status Status: Acute (5) Hypotension Status: Acute Objective Vital Signs Date Time Temp Pulse Resp B/P Pulse Ox O2 Delivery O2 Flow Rate FiO2 10/04/16 07:53 36.8 83 18 122/71 97 Room Air 10/04/16 00:05 Room Air 10/03/16 23:57 37.3 91 20 98/55 94 Room Air 10/03/16 22:10 37.3 85 18 97 10/03/16 20:00 Room Air 10/03/16 18:53 37.3 85 18 105/60 97 Room Air 10/03/16 16:00 Room Air 10/03/16 15:11 37.4 86 18 104/72 94 Room Air 10/03/16 14:30 Room Air 10/03/16 14:22 37.4 86 20 133/84 95 Room Air 10/03/16 13:45 37.4 87 118/73 10/03/16 13:00 58 96/67 10/03/16 12:45 73 95/63 10/03/16 12:30 74 90/57 10/03/16 12:15 70 98/71 10/03/16 12:01 75 115/70 10/03/16 11:30 75 81/61 10/03/16 11:15 60 95/65 10/03/16 11:00 56 97/54 Physical Exam General Appearance: WD/WN, no apparent distress ENT: + pertinent finding (left facial dressing c/d/i) Respiratory/Chest: lungs clear, normal breath sounds, no respiratory distress Cardiovascular: regular rate, rhythm, no edema Abdomen: non tender, + distended Extremities: non-tender, normal inspection, no pedal edema Skin: normal color Laboratory Results Item Value Date Time Gram Stain - Final Resulted 10/02/16 1505 Drainage - Surface Face Blood Culture - Preliminary Resulted 10/02/16 1043 Blood NO GROWTH TO DATE. Urine Culture - Preliminary Resulted 10/02/16 1027 Urine,Catheterized Paola Albicans Blood Culture - Preliminary Resulted 10/02/16 1015 Blood NO GROWTH TO DATE. Urine Culture - Final Complete 10/02/16 1027 Urine,Catheterized Paola Albicans Last 24 Hours Test 10/03/16 14:20 10/03/16 15:46 10/03/16 19:42 10/04/16 06:19 Bedside Glucose 139 mg/dl 139 mg/dl 223 mg/dl Random Vancomycin Level 16.3 mcg/ml Test 10/04/16 07:43 10/04/16 08:53 Bedside Glucose 198 mg/dl White Blood Count 6.60 K/uL Red Blood Count 2.34 M/uL Hemoglobin 7.7 g/dL Hematocrit 23.4 % Mean Corpuscular Volume 100.0 fL Mean Corpuscular Hemoglobin 32.9 pg Mean Corpuscular Hemoglobin Concent 32.9 g/dl RDW Standard Deviation 54.8 fL RDW Coefficient of Variation 15.1 % Platelet Count 154 K/uL Mean Platelet Volume 9.7 fL Sodium Level 136 mmol/L Potassium Level 3.4 mmol/L Chloride Level 98 mmol/L Carbon Dioxide Level 26 mmol/L Anion Gap 12.0 mmol/L Blood Urea Nitrogen 49 mg/dl Creatinine 2.10 mg/dl Est Creatinine Clear Calc Drug Dose 26.7 ml/min Estimated GFR () 33.2 Estimated GFR (Non- 28.7 BUN/Creatinine Ratio 23.4 Random Glucose 181 mg/dl Lactic Acid Level 1.4 mmol/L Calcium Level 9.0 mg/dl Total Bilirubin 0.4 mg/dl Aspartate Amino Transf (AST/SGOT) 23 U/L Alanine Aminotransferase (ALT/SGPT) 25 U/L Alkaline Phosphatase 104 U/L Total Protein 7.7 gm/dl Albumin 3.2 gm/dl Globulin 4.5 gm/dl Albumin/Globulin Ratio 0.7 Assessment and Plan (1) Open facial wound Assessment & Plan: tumor with ? superimposed infection. await culture findings , no gnr found, will stop zosyn. now with ? colonic mass as well.
--- NOTE | 2016-10-04 11:54 | Progress Note ---
Internal Med Progress Note Date of Service: Oct 04, 2016. Provider Documentation: SUBJECTIVE: developed abdominal distention last night Xray of KUB shows distended Colon pt is made NPO case D/w Surgery and GI team Daughter in Law -Dixon present at bedside -updated at well pt appears to be not in distress, offers no complain has nausea earlier this morning per Nursing -had episode of retching , no vomiting denies of any abdominal pain or discomfort or pain now had BM yesterday -liquid no BM today .not able to pass gas made NPO ,TF kept on hold no residue noted on suction of PEG tube per nursing GI team will decide for possible C -scope today for colonic decompression OBJECTIVE: Vital Signs-as noted below Exam: General-no sign of distress , elderly male , appears to be in stable state of mind , answering questions appropriately Eyes-sclera non icteric ENT-ulcer on left face /dressing present , no drainage-noted Lungs-CTA Heart-regular Abdomen-Distended, tympanic, pt denies of any pain on palpation , PEG tube present , bowel sound diminished Extremities-no lower ext edema Neuro-no focal deficit , no confusion , agitation noted, appears to be at baseline mental status Lab data as noted below. ASSESSMENT & PLAN: ABDOMINAL DISTENTION /COLONIC DILATATION : Xray of KUB ordered last night for abdominal distention -shows severe gaseous distention of the bowel /distention of descending colon measures 13 cm /ascending colon distention [address] ABDOMEN /PELVIS : There is marked distention of the colon which contains liquid stool. Enteric contrast reaches the sigmoid. The appearance is concerning for colonic obstruction. Ill-defined soft tissue is suggested involving the inferior rectum. This is indeterminant, and an obstructing mass is not excluded. Colonoscopy is recommended for further assessment. No small bowel obstruction seen Surgery consulted -appreciate input not a surgical candidate recommend cont bowel rest with NPO GI consulted for colonoscopic eval -pt evaluated by GI team lactic acid wnl , normal white count, no evidence of bowel ischemia pt has similar episodes in his last admission at [facility] on 03/2016 had Colonoscopy on 04/14/16 -showed ext hemorrhoids no mass or growth noted will defer to GI team for Colonoscopy and Biopsy if indicated ALTERED MENTAL STATUS due to sepsis /dehydratiaon -mental status improved to baseline line Possible metabolic encephalopathy due to infection/ sepsis; /infected Facial ulcer CT head- no acute findings cont empiric abx with vancomycin /Zosyn POSSIBLE SEPSIS /SOURCE OF INFECTION INFECTED FACIAL ULCER Presented with hypotension, tachycardia -> improved Vital signs after 250 mL bolus Afebrile; no leukocytosis; lactic acid WNL has facial lesion with purulent drainage; with underlying malignancy Sq cell ca wound culture growing : gram positive cocci MRSA Nasal swab ordered Empiric broad spectrum abx coverage with Zosyn and vancomycin to be given with dialysis consulted infectious disease-appreciate input Consult wound care nurse UTI: urine culture gram + ve cocci /Paola on Vanco ordered 1 x dose of 50 mg Diflucan ( pt is on HD ) ID following CHRONIC ANEMIA/AOCD due to end stage renal disease Hg is 7.7; baseline varies 8-10s; required prior transfusions with dialysis Procrit contraindicated due to malignancy LOW k ; will defer to Nephrology to correct as pt is on dialysis 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 Tse S/p resection in 04/[address] Evans S/p radiation in January 2015 Developed left neck mass FNA revealed metastatic SCC Completed second round of radiation June 2016 [facility] plan is for PET scan October 10 2016 As per oncology note 08/21/16 skin lesion looks concerning for metastasis; if confirmed, checkpoint inhibitor therapy is the one tx that may be considered in this patient Consult oncology ESRD ON DIALYSIS Dialyzes on MWF Follows with Dr. Hartmann Consult nephrology -appreciate input got scheduled dialysis yesterday HYPOTHYROIDISM TSH elevated to 60 Levothyroxine recently increased from 25 -> 50 mcg daily on 09/19/16 increase Levothyroxine to 75 mcg /Free T4 -remains low Recheck TSH as outpatient in around 10/31/16 DM TYPE 2 Diet controlled Monitor BSG ACHS Insulin sliding scale coverage pharmacy consulted for glycemic control HISTORY OF CVA hold aspirin for NPO bowel obstruction CAD Stable; hold all meds for NPO bowel obstruction DEPRESSION hold all meds for NPO bowel obstruction BPH hold all meds for NPO bowel obstruction DVT PROPHYLAXIS SCD's DISPOSITION will need rehab PT/OT eval requested referral placed for [facility] following for discharge planning daughter in Law updated at bedside Vital Signs: Date Time Temp Pulse Resp B/P Pulse Ox O2 Delivery O2 Flow Rate FiO2 10/04/16 07:53 36.8 83 18 122/71 97 Room Air 10/04/16 00:05 Room Air 10/03/16 23:57 37.3 91 20 98/55 94 Room Air 10/03/16 22:10 37.3 85 18 97 10/03/16 20:00 Room Air 10/03/16 18:53 37.3 85 18 105/60 97 Room Air 10/03/16 16:00 Room Air 10/03/16 15:11 37.4 86 18 104/72 94 Room Air 10/03/16 14:30 Room Air 10/03/16 14:22 37.4 86 20 133/84 95 Room Air 10/03/16 13:45 37.4 87 118/73 10/03/16 13:00 58 96/67 10/03/16 12:45 73 95/63 10/03/16 12:30 74 90/57 10/03/16 12:15 70 98/71 10/03/16 12:01 75 115/70 Lab Results: Results Past 24 Hours Test 10/03/16 14:20 10/03/16 15:46 10/03/16 19:42 10/04/16 06:19 Range/Units Bedside Glucose 139 139 223 70-99 mg/dl Random Vancomycin Level 16.3 mcg/ml Test 10/04/16 07:43 10/04/16 08:53 10/04/16 11:46 Range/Units Bedside Glucose 198 70-99 mg/dl White Blood Count 6.60 4.8-10.8 K/uL Red Blood Count 2.34 4.7-6.1 M/uL Hemoglobin 7.7 14.0-18.0 g/dL Hematocrit 23.4 42-52 % Mean Corpuscular Volume 100.0 80-100 fL Mean Corpuscular Hemoglobin 32.9 25-34 pg Mean Corpuscular Hemoglobin Concent 32.9 32-36 g/dl RDW Standard Deviation 54.8 36.4-46.3 fL RDW Coefficient of Variation 15.1 11.5-14.5 % Platelet Count 154 130-400 K/uL Mean Platelet Volume 9.7 7.4-10.4 fL Sodium Level 136 136-145 mmol/L Potassium Level 3.4 3.5-5.1 mmol/L Chloride Level 98 98-107 mmol/L Carbon Dioxide Level 26 21-32 mmol/L Anion Gap 12.0 3-11 mmol/L Blood Urea Nitrogen 49 7-18 mg/dl Creatinine 2.10 0.60-1.40 mg/dl Est Creatinine Clear Calc Drug Dose 26.7 ml/min Estimated GFR () 33.2 Estimated GFR (Non- 28.7 BUN/Creatinine Ratio 23.4 10-20 Random Glucose 181 70-99 mg/dl Lactic Acid Level 1.4 0.4-2.0 mmol/L Calcium Level 9.0 8.5-10.1 mg/dl Total Bilirubin 0.4 0.2-1 mg/dl Aspartate Amino Transf (AST/SGOT) 23 15-37 U/L Alanine Aminotransferase (ALT/SGPT) 25 12-78 U/L Alkaline Phosphatase 104 45-117 U/L Total Protein 7.7 6.4-8.2 gm/dl Albumin 3.2 3.4-5.0 gm/dl Globulin 4.5 2.5-4.0 gm/dl Albumin/Globulin Ratio 0.7 0.9-2
[2016-10-04] MEDS ORDERED: FLUCONAZOLE IV ONE (12:00)
[2016-10-04] MEDS ORDERED: PREMIXED NSS IV ONE (12:00)
[2016-10-04] MEDS ORDERED: NSS IV ONE (12:00)
[2016-10-04] MEDS ORDERED: NURSING DECISION MEDICATION ORDER SCH (13:00)
[2016-10-04] MEDS ORDERED: EUCERIN CR 120 GM JAR EXT PRN (13:15)
[2016-10-04 13:58] LABS: URCREATININE 78.9 MG/DL (>/= 20)
[2016-10-04] MEDS ORDERED: VANCOMYCIN IV SCH (14:00)
[2016-10-04] MEDS ORDERED: SODIUM CHLORIDE 0.9% IV SCH (14:00)
--- NOTE | 2016-10-04 14:46 | Surgery Progress Note ---
Surgery Progress Note Date of Service Oct 04, 2016. Objective Vital Signs: Date Time Temp Pulse Resp B/P Pulse Ox O2 Delivery O2 Flow Rate FiO2 10/04/16 07:53 36.8 83 18 122/71 97 Room Air 10/04/16 00:05 Room Air 10/03/16 23:57 37.3 91 20 98/55 94 Room Air 10/03/16 22:10 37.3 85 18 97 10/03/16 20:00 Room Air 10/03/16 18:53 37.3 85 18 105/60 97 Room Air 10/03/16 16:00 Room Air 10/03/16 15:11 37.4 86 18 104/72 94 Room Air Laboratory Results: Results Past 24 Hours Test 10/03/16 15:46 10/03/16 19:42 10/04/16 06:19 10/04/16 07:43 Range/Units Bedside Glucose 139 223 198 70-99 mg/dl Random Vancomycin Level 16.3 mcg/ml Test 10/04/16 08:53 10/04/16 11:50 Range/Units White Blood Count 6.60 4.8-10.8 K/uL Red Blood Count 2.34 4.7-6.1 M/uL Hemoglobin 7.7 14.0-18.0 g/dL Hematocrit 23.4 42-52 % Mean Corpuscular Volume 100.0 80-100 fL Mean Corpuscular Hemoglobin 32.9 25-34 pg Mean Corpuscular Hemoglobin Concent 32.9 32-36 g/dl RDW Standard Deviation 54.8 36.4-46.3 fL RDW Coefficient of Variation 15.1 11.5-14.5 % Platelet Count 154 130-400 K/uL Mean Platelet Volume 9.7 7.4-10.4 fL Sodium Level 136 136-145 mmol/L Potassium Level 3.4 3.5-5.1 mmol/L Chloride Level 98 98-107 mmol/L Carbon Dioxide Level 26 21-32 mmol/L Anion Gap 12.0 3-11 mmol/L Blood Urea Nitrogen 49 7-18 mg/dl Creatinine 2.10 0.60-1.40 mg/dl Est Creatinine Clear Calc Drug Dose 26.7 ml/min Estimated GFR () 33.2 Estimated GFR (Non- 28.7 BUN/Creatinine Ratio 23.4 10-20 Random Glucose 181 70-99 mg/dl Lactic Acid Level 1.4 0.4-2.0 mmol/L Calcium Level 9.0 8.5-10.1 mg/dl Magnesium Level 2.4 1.8-2.4 mg/dl Total Bilirubin 0.4 0.2-1 mg/dl Aspartate Amino Transf (AST/SGOT) 23 15-37 U/L Alanine Aminotransferase (ALT/SGPT) 25 12-78 U/L Alkaline Phosphatase 104 45-117 U/L Total Protein 7.7 6.4-8.2 gm/dl Albumin 3.2 3.4-5.0 gm/dl Globulin 4.5 2.5-4.0 gm/dl Albumin/Globulin Ratio 0.7 0.9-2 Bedside Glucose 184 70-99 mg/dl Microbiology Results 10/04/16 MRSA DNA Surveillance Screen, Received Pending Assessment & Plan 10/04/16- pt had very similar episode Mar 2016 with colonoscopic decompression x [address] Mckenzie- nothing seen or felt in rectum on those 2 occasions
--- NOTE | 2016-10-04 14:49 | Gastrointestinal Consultation ---
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 His daughter in law (Dixon) noted that pt had been progressively confused since last Saturday. Upon evaluation he was noted to have infection of his L face tumor wound ( Corynebacterium and GPCs). Urine culture also grew GPCs and lulu. He is currently on Vancomycin and Fluconazole. His CT head is w/o evidence of acute processes. He is currently back to his baseline mental status. Confusion suspected to be due to wound infection, UTI and possibly related to opioid use. GI consulted as pt was noted to have abd distension. CT abd/pelvis showed normal caliber small bowel but colonic distension throughout w cecum measuring 9cm. CT also noted soft tissue mass at inferior rectum area. In reviewing pt's chart, he was admitted last March and was also noted to have colonic distension at that time. He underwent colonic decompression and rectal tube placements by Dr. Mckenzie on 04/14/16 and 04/20/16. Eventually placed on Erythromycin 250mg QID via PE. Neostigmine use deferred given his cardiac history. Pt seen laying in bed, awake, oriented to self and place. He is currently NPO and TF help last night. He denies any abd pain, n/v. Denies passing flatus either. He did have a BM this AM. Past Medical/Surgical History Medical Problems: (1) Acute pancreatitis Status: Acute (2) Acute renal failure Status: Acute (3) Anemia Status: Acute (4) Change in mental status Status: Acute (5) Hypotension Status: Acute Past Medical History: See above. Past Surgical History: See above. Family History Diabetes mellitus BROTHER FH: cancer BROTHER (esophageal) Unrelated to admission Social History Smoking Status: Former Smoker (quit ) Alcohol Use: none Drug Use: none Marital Status: Occupation Status: retired Allergies Coded Allergies: No Known Allergies (Unverified , 10/02/16) Current Medications Home Meds and Scripts Medications Dose Route/Sig Max Daily Dose Days Date Category Dose Instructions Lidocaine/Prilocaine (Lidocaine-Prilocaine) 1 Cre Cre 1 Appln TOP UD 10/02/16 Reported APPLIES TO FISTULA ON LEFT ARM Folvite (Folic Acid) 1 Mg Tab 1 Mg PO DAILY 10/02/16 Reported Citalopram Hydrobromide (Citalopram) 40 Mg Tab 40 Mg PO DAILY 10/02/16 Reported Aspirin Ec (Aspirin) 81 Mg Tab 81 Mg PO DAILY 10/02/16 Reported Neurontin (Gabapentin) 100 Mg Cap 100 Mg PO QPM 10/02/16 Reported Synthroid (Levothyroxine Sodium) 50 Mcg Tab 50 Mcg PO DAILY 10/02/16 Reported Flomax (Tamsulosin Hcl) 0.4 Mg Cap 0.4 Mg PO QPM 10/02/16 Reported Tylenol (Acetaminophen) 325 Mg Tab 325 Mg PO Q4H PRN 10/02/16 Reported Prilosec (Omeprazole) 20 Mg Capcr 20 Mg PO QPM 10/02/16 Reported Roxicodone Ir (Oxycodone HCl) 5 Mg Tab 5 Mg PO Q4H PRN 10/02/16 Reported Twocal Hn (Nutritional Supplements) 1 Liq Liq 5 Can PEG QPM 10/02/16 Reported Review of Systems Constitutional: No chills, No fever Respiratory: No cough, No shortness of breath Cardiac: No chest pain, No edema Abdomen: No nausea, No pain, No vomiting Skin: + see HPI Physical Exam Date Time Temp Pulse Resp B/P Pulse Ox O2 Delivery O2 Flow Rate FiO2 10/04/16 07:53 36.8 83 18 122/71 97 Room Air 10/04/16 00:05 Room Air 10/03/16 23:57 37.3 91 20 98/55 94 Room Air 10/03/16 22:10 37.3 85 18 97 10/03/16 20:00 Room Air 10/03/16 18:53 37.3 85 18 105/60 97 Room Air 10/03/16 16:00 Room Air 10/03/16 15:11 37.4 86 18 104/72 94 Room Air 10/03/16 14:30 Room Air 10/03/16 14:22 37.4 86 20 133/84 95 Room Air 10/03/16 13:45 37.4 87 118/73 10/03/16 13:00 58 96/67 10/03/16 12:45 73 95/63 General Appearance: WD/WN, no apparent distress Eyes: normal inspection, PERRL, EOMI Neck: supple, no JVD, trachea midline Respiratory/Chest: no respiratory distress, no accessory muscle use, + respiratory distress, + decreased breath sounds Cardiovascular: no gallop, no murmur Abdomen: non tender, + abnormal bowel sounds (tympanic bowel sounds), + distended Extremities: normal inspection, no pedal edema, no calf tenderness Neurologic/Psych: alert, normal mood/affect, + disoriented (oriented to self and place only) Skin: normal color, no jaundice, + pertinent finding (L cheek wound covered w CDI dressing) Laboratory Results Last 24 Hours Test 10/03/16 14:20 10/03/16 15:46 10/03/16 19:42 10/04/16 06:19 Bedside Glucose 139 mg/dl 139 mg/dl 223 mg/dl Random Vancomycin Level 16.3 mcg/ml Test 10/04/16 07:43 10/04/16 08:53 10/04/16 11:50 Bedside Glucose 198 mg/dl 184 mg/dl White Blood Count 6.60 K/uL Red Blood Count 2.34 M/uL Hemoglobin 7.7 g/dL Hematocrit 23.4 % Mean Corpuscular Volume 100.0 fL Mean Corpuscular Hemoglobin 32.9 pg Mean Corpuscular Hemoglobin Concent 32.9 g/dl RDW Standard Deviation 54.8 fL RDW Coefficient of Variation 15.1 % Platelet Count 154 K/uL Mean Platelet Volume 9.7 fL Sodium Level 136 mmol/L Potassium Level 3.4 mmol/L Chloride Level 98 mmol/L Carbon Dioxide Level 26 mmol/L Anion Gap 12.0 mmol/L Blood Urea Nitrogen 49 mg/dl Creatinine 2.10 mg/dl Est Creatinine Clear Calc Drug Dose 26.7 ml/min Estimated GFR () 33.2 Estimated GFR (Non- 28.7 BUN/Creatinine Ratio 23.4 Random Glucose 181 mg/dl Lactic Acid Level 1.4 mmol/L Calcium Level 9.0 mg/dl Total Bilirubin 0.4 mg/dl Aspartate Amino Transf (AST/SGOT) 23 U/L Alanine Aminotransferase (ALT/SGPT) 25 U/L Alkaline Phosphatase 104 U/L Total Protein 7.7 gm/dl Albumin 3.2 gm/dl Globulin 4.5 gm/dl Albumin/Globulin Ratio 0.7 Impression Patient is a 81 year old male w SCC of L cheek/buccal mucosa currently seen for colonic distension up to 9cm at cecum area. 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 He had previous colonic decompressions & rectal tube placement w colonic distension recurrence. Plan - Hold TF, NPO for now. - Start Erythromycin 250mg QID per PEG - Place rectal tube; repeat KUB tomorrow if colon still distended, will attempt colonoscopy to decompress colon ATTESTATION: I have performed a history and physical examination of this patient and reviewed the electronic record. Specifically, on physical examination abdomen is distended. I have discussed the case with BLANE Ricketts. The above note reflects my findings, conclusions, and recommendations. Gurvinder Cisse MD
[2016-10-04 16:45] VITALS: BP 114/66; PULSE 82; TEMP 36.6; O2SAT 97
[2016-10-04] MEDS: POTASSIUM CHLR 10 MEQ / WTR 10 MEQ in PREMIXED WATER 100 ML IV SCH ×4 (17:27→19:38)
[2016-10-04] MEDS: ERYTHROMYCIN ETHYLSUCC SUSP 200 MG/5 ML 100 ML BTL PEG SCH ×2 (17:28→20:56)
[2016-10-04 23:38] VITALS: BP 100/73; PULSE 85; TEMP 37.3; O2SAT 95
[2016-10-05] VITALS (17 sets, daily range): BP systolic 91–117; BP diastolic 45–66; PULSE 64–90; TEMP 36.6–37.1; O2SAT 93–99
[2016-10-05] MEDS: INSULIN ASPART 100 UNITS/ML 3 ML PEN SC SCH ×5 (06:00→23:52)
[2016-10-05 06:03] LABS: HEMATOCRIT 23.4 % (42-52); MEAN CORPUSCULAR HEMOGLOBIN 32.9 pg (25-34); MEAN CORPUSCULAR HGB CONC 32.9 g/dl (32-36); MEAN PLATELET VOLUME 9.7 fL (7.4-10.4); PLATELET COUNT 147 K/uL (130-400); RED BLOOD COUNT 2.34 M/uL (4.7-6.1); WHITE BLOOD COUNT 6.59 K/uL (4.8-10.8)
--- NOTE | 2016-10-05 06:03 | Surgery Progress Note ---
Surgery Progress Note Date of Service Oct 05, 2016. Subjective + bowel movement, + flatus, No nausea, No vomiting has fecal mgt system in place abd is flat and soft Objective Vital Signs: Date Time Temp Pulse Resp B/P Pulse Ox O2 Delivery O2 Flow Rate FiO2 10/05/16 00:00 95 Room Air 2.0 10/04/16 23:38 37.3 85 20 100/73 95 Room Air 10/04/16 16:45 36.6 82 16 114/66 97 Room Air 10/04/16 16:00 Room Air 10/04/16 08:00 Room Air 10/04/16 07:53 36.8 83 18 122/71 97 Room Air General Appearance: no apparent distress Abdomen: non tender, non distended, soft (has bowel sounds) Laboratory Results: Results Past 24 Hours Test 10/04/16 06:19 10/04/16 07:43 10/04/16 08:53 10/04/16 11:50 Range/Units Random Vancomycin Level 16.3 mcg/ml Bedside Glucose 198 184 70-99 mg/dl White Blood Count 6.60 4.8-10.8 K/uL Red Blood Count 2.34 4.7-6.1 M/uL Hemoglobin 7.7 14.0-18.0 g/dL Hematocrit 23.4 42-52 % Mean Corpuscular Volume 100.0 80-100 fL Mean Corpuscular Hemoglobin 32.9 25-34 pg Mean Corpuscular Hemoglobin Concent 32.9 32-36 g/dl RDW Standard Deviation 54.8 36.4-46.3 fL RDW Coefficient of Variation 15.1 11.5-14.5 % Platelet Count 154 130-400 K/uL Mean Platelet Volume 9.7 7.4-10.4 fL Sodium Level 136 136-145 mmol/L Potassium Level 3.4 3.5-5.1 mmol/L Chloride Level 98 98-107 mmol/L Carbon Dioxide Level 26 21-32 mmol/L Anion Gap 12.0 3-11 mmol/L Blood Urea Nitrogen 49 7-18 mg/dl Creatinine 2.10 0.60-1.40 mg/dl Est Creatinine Clear Calc Drug Dose 26.7 ml/min Estimated GFR () 33.2 Estimated GFR (Non- 28.7 BUN/Creatinine Ratio 23.4 10-20 Random Glucose 181 70-99 mg/dl Lactic Acid Level 1.4 0.4-2.0 mmol/L Calcium Level 9.0 8.5-10.1 mg/dl Magnesium Level 2.4 1.8-2.4 mg/dl Total Bilirubin 0.4 0.2-1 mg/dl Aspartate Amino Transf (AST/SGOT) 23 15-37 U/L Alanine Aminotransferase (ALT/SGPT) 25 12-78 U/L Alkaline Phosphatase 104 45-117 U/L Total Protein 7.7 6.4-8.2 gm/dl Albumin 3.2 3.4-5.0 gm/dl Globulin 4.5 2.5-4.0 gm/dl Albumin/Globulin Ratio 0.7 0.9-2 Test 10/04/16 16:39 10/05/16 00:37 10/05/16 05:16 Range/Units Bedside Glucose 153 121 70-99 mg/dl Microbiology Results 10/04/16 MRSA DNA Surveillance Screen - Final, Complete Specimen Negative for MRSA by DNA Probe Assessment & Plan 10/05/16- No abd distention- decompressed with rectal tube system Will follow progress- Dr Nair covering over weekend 10/04/16- pt had very similar episode Mar 2016 with colonoscopic decompression x [address] Mckenzie- nothing seen or felt in rectum on those 2 occasions 10/04/16- pt had very similar episode Mar 2016 with colonoscopic decompression x [address] Mckenzie- nothing seen or felt in rectum on those 2 occasions
[2016-10-05] MEDS: HEPARIN SOD 5000 UNIT/0.5 ML CARP SQ SCH ×3 (06:32→21:37)
[2016-10-05 06:34] LABS: BUN/CREATININE RATIO 21.2 (10-20); CALCIUM 8.9 mg/dl (8.5-10.1); CREATININE 2.4 mg/dl (0.60-1.40); MAGNESIUM 2.4 mg/dl (1.8-2.4); POTASSIUM 3.8 mmol/L (3.5-5.1)
--- NOTE | 2016-10-05 07:46 | Nephrology Progress Note ---
Nephrology Progress Note Date of Service: Oct 05, 2016. Subjective 81 yo male with esrd who was admitted with confusion which is back to baseline. pt with positive wound culture from his face, +uti and on appropriate antibiotics. mental status changes thought to be from infection or pain meds. pt found to have abdominal distention and has history of abdominal distention in previous admission requiring colonic decompression through scope. GI was consulted and repeating kub to see if any improvement. pts main complaint is the rectal tube which is causing discomfort. Objective Date Time Temp Pulse Resp B/P Pulse Ox O2 Delivery O2 Flow Rate FiO2 10/05/16 00:00 95 Room Air 2.0 10/04/16 23:38 37.3 85 20 100/73 95 Room Air 10/04/16 16:45 36.6 82 16 114/66 97 Room Air 10/04/16 16:00 Room Air 10/04/16 08:00 Room Air 10/04/16 07:53 36.8 83 18 122/71 97 Room Air Physical Exam: General-[id number] Eyes-no scleral icterus ENT-left facial wound-covered Neck-supple Lungs-cta Heart-2/6 systolic murmur Abdomen-bs+, soft, +peg Extremities-no c/c/e Neuro-at baseline Rectal olmos in place Current Inpatient Medications Medications (Trade) Dose Ordered Sig/Aj Route Start Time Stop Time Status Last Admin Dose Admin Ondansetron HCl (Zofran Inj) 4 mg Q6H PRN IV 10/02/16 13:00 11/01/16 12:59 10/04/16 07:59 4 MG Lidocaine/ Prilocaine (Emla 2.5% Crm) 1 ea UD EXT 10/02/16 13:00 11/01/16 12:59 Glucose (Glucose 40% Gel) 15-30 GRAMS 15 GRAMS... UD PRN PO 10/02/16 13:00 11/01/16 12:59 Glucose (Glucose Chew Tab) 4-8 Tablets 4 Tabl... UD PRN PO 10/02/16 13:00 11/01/16 12:59 Dextrose (Dextrose 50% 50ML Syringe) 25-50ML OF 50% DW IV FOR... UD PRN IV 10/02/16 13:00 11/01/16 12:59 Glucagon (Glucagon Inj) 1 mg UD PRN SQ 10/02/16 13:00 11/01/16 12:59 Vancomycin HCl (Consult) 1 ea UD PRN N/A 10/02/16 14:10 11/01/16 14:09 Miscellaneous Information (Consult Glycemic Management Pharmacy) 1 ea UD PRN N/A 10/02/16 14:11 11/01/16 14:10 Heparin Sodium (Porcine) (Heparin Sq 5000 Unit/0.5ml) 5,000 unit Q8 SQ 10/03/16 06:00 11/02/16 05:59 10/05/16 06:32 5,000 UNIT Insulin Aspart (novoLOG ASPART) SLIDING SCALE If C... Q6 SC 10/04/16 12:00 11/03/16 11:59 10/04/16 12:34 1 UNITS Erythromycin Ethylsuccinate (Ees Susp) 250 mg QID PEG 10/04/16 17:00 10/14/16 16:59 10/04/16 20:56 250 MG Multi-Ingredient Ointment (Eucerin Unscented Cr) 1 appln BID PRN EXT 10/04/16 13:15 11/03/16 13:14 Morphine Sulfate (MoRPHine SULFATE INJ) 1 mg Q4 PRN IV 10/04/16 18:30 10/18/16 18:29 Last 24 Hours Test 10/04/16 07:43 10/04/16 08:53 10/04/16 11:50 10/04/16 16:39 Bedside Glucose 198 mg/dl 184 mg/dl 153 mg/dl White Blood Count 6.60 K/uL Red Blood Count 2.34 M/uL Hemoglobin 7.7 g/dL Hematocrit 23.4 % Mean Corpuscular Volume 100.0 fL Mean Corpuscular Hemoglobin 32.9 pg Mean Corpuscular Hemoglobin Concent 32.9 g/dl RDW Standard Deviation 54.8 fL RDW Coefficient of Variation 15.1 % Platelet Count 154 K/uL Mean Platelet Volume 9.7 fL Sodium Level 136 mmol/L Potassium Level 3.4 mmol/L Chloride Level 98 mmol/L Carbon Dioxide Level 26 mmol/L Anion Gap 12.0 mmol/L Blood Urea Nitrogen 49 mg/dl Creatinine 2.10 mg/dl Est Creatinine Clear Calc Drug Dose 26.7 ml/min Estimated GFR () 33.2 Estimated GFR (Non- 28.7 BUN/Creatinine Ratio 23.4 Random Glucose 181 mg/dl Lactic Acid Level 1.4 mmol/L Calcium Level 9.0 mg/dl Magnesium Level 2.4 mg/dl Total Bilirubin 0.4 mg/dl Aspartate Amino Transf (AST/SGOT) 23 U/L Alanine Aminotransferase (ALT/SGPT) 25 U/L Alkaline Phosphatase 104 U/L Total Protein 7.7 gm/dl Albumin 3.2 gm/dl Globulin 4.5 gm/dl Albumin/Globulin Ratio 0.7 Test 10/05/16 00:37 10/05/16 05:16 10/05/16 06:18 Bedside Glucose 121 mg/dl 121 mg/dl White Blood Count 6.59 K/uL Red Blood Count 2.34 M/uL Hemoglobin 7.7 g/dL Hematocrit 23.4 % Mean Corpuscular Volume 100.0 fL Mean Corpuscular Hemoglobin 32.9 pg Mean Corpuscular Hemoglobin Concent 32.9 g/dl RDW Standard Deviation 54.5 fL RDW Coefficient of Variation 15.1 % Platelet Count 147 K/uL Mean Platelet Volume 9.7 fL Sodium Level 140 mmol/L Potassium Level 3.8 mmol/L Chloride Level 102 mmol/L Carbon Dioxide Level 28 mmol/L Anion Gap 10.0 mmol/L Blood Urea Nitrogen 51 mg/dl Creatinine 2.40 mg/dl Est Creatinine Clear Calc Drug Dose 23.4 ml/min Estimated GFR () 28.3 Estimated GFR (Non- 24.4 BUN/Creatinine Ratio 21.2 Random Glucose 119 mg/dl Calcium Level 8.9 mg/dl Magnesium Level 2.4 mg/dl Random Vancomycin Level 15.5 mcg/ml Date/Time Source Procedure Growth Status 10/04/16 14:00 Nasal MRSA DNA Surveillance Screen - Final Specimen Negative for MRSA by DNA Probe Complete Assessment & Plan ESRD-for dialysis today and will need to arrange with GI if he indeed goes for colonic decompression today. Hypokalemia-has loose stools through the rectal bag, given 40meq of iv k yesterday. todays labs pending.
--- NOTE | 2016-10-05 08:21 | DIAGNOSTIC IMAGING REPORT ---
KUB CLINICAL HISTORY: Colonic distention. FINDINGS: 2 AP supine abdominal radiographs are compared to radiographs and abdominal CT dated 10/04/2016. There is persistent and unchanged gaseous distention of the colon as compared to yesterday. The small bowel loops are gas-filled and normal in caliber. No evidence of intraperitoneal free air is seen. Advanced atherosclerotic calcification is noted in the abdominal aorta. Phleboliths are observed in the pelvis. The skeletal structures are osteopenic. There is advanced lumbosacral spondylosis and mild scoliosis. IMPRESSION: Unchanged gaseous distention of the colon as compared to yesterday. Electronically signed by: Nolan Ly M.D. 10/05/2016 8:19 AM Dictated Date/Time: 10/05/2016 8:18 AM
[2016-10-05] MEDS: ERYTHROMYCIN ETHYLSUCC SUSP 200 MG/5 ML 100 ML BTL PEG SCH ×4 (08:36→19:50)
--- NOTE | 2016-10-05 09:01 | Pharmacy Progress Note ---
Glycemic Control: Progress Nt Date of Service Oct 05, 2016. Scope Glycemic Pharmacist consulted by Yulissa Szymanski PA-C on 10/02/16 for glycemic control and to write orders per [facility] inpatient glycemic control protocol. Objective Accuchecks BSG (last 24hrs): Test 10/04/16 11:50 10/04/16 16:39 Bedside Glucose 184 mg/dl (70-99) 153 mg/dl (70-99) Test 10/05/16 00:37 10/05/16 05:16 10/05/16 06:18 Bedside Glucose 121 mg/dl 119mg/dl 121 mg/dl (70-99) HbA1c: Test 10/03/16 06:09 Hemoglobin A1c 6.6 % (4.5-5.6) H Recent Pertinent Medications Outpatient Anti-diabetic Regimen: * None The patient is currently receiving: * Basal insulin: None * Correctional Insulin: Novolog Correction per scale ACHS/Q6hrs while NPO Goal Range: Low 120 mg/dL - High 160 mg/dL Correction Factor: 40 mg/dL/unit * Prandial insulin: None Risk Factors for Insulin Resistance: * Infection * Dialysates Assessment & Plan ASSESSMENT: * 81yo male known to pharmacy from previous admissions/glycemic consults * Pt requires little to no insulin while admitted despite stressors. * BSGs in range x 48hrs with current orders * No changes have been made since admission * No further titrations needed - PHARMACY WILL SIGN OFF OF GLYCEMIC CONSULT PLAN FOR INPATIENT GLYCEMIC CONTROL: * Correctional Insulin with NOVOLOG per scale ACHS or Q6hrs while NPO * Goal Range: Low 120 mg/dL - High 160 mg/dL * Correction Factor: 40 mg/dL/unit * PHARMACY IS SIGNING OFF OF GLYCEMIC CONSULT. Please feel free to re-consult if needed. Thank you. * Please note that the plan above was derived based on current level of insulin resistance and hospital stress. These recommendations are appropriate for inpatient admission only. Plan of care upon discharge will need to be reassessed to avoid potential outpatient hypo/hyperglycemia. Thank you.
--- NOTE | 2016-10-05 10:15 | Progress Note ---
Subjective Date of Service: Oct 05, 2016. Subjective now with rectal tube, ? colonoscopy if no improvement. on vanco, tolerating well. no fevers. wound culture with gbs. blood cultures negative. wbc 6.5. no overnight events. Problem List Medical Problems: (1) Acute pancreatitis Status: Acute (2) Acute renal failure Status: Acute (3) Anemia Status: Acute (4) Change in mental status Status: Acute (5) Hypotension Status: Acute Objective Vital Signs Date Time Temp Pulse Resp B/P Pulse Ox O2 Delivery O2 Flow Rate FiO2 10/05/16 08:27 36.6 83 18 100/58 96 Room Air 10/05/16 00:00 95 Room Air 2.0 10/04/16 23:38 37.3 85 20 100/73 95 Room Air 10/04/16 16:45 36.6 82 16 114/66 97 Room Air 10/04/16 16:00 Room Air Laboratory Results Item Value Date Time Gram Stain - Final Resulted 10/02/16 1505 Drainage - Surface Face Blood Culture - Preliminary Resulted 10/02/16 1043 Blood NO GROWTH TO DATE. Urine Culture - Preliminary Resulted 10/02/16 1027 Urine,Catheterized Paola Albicans Blood Culture - Preliminary Resulted 10/02/16 1015 Blood NO GROWTH TO DATE. Urine Culture - Final Complete 10/02/16 1027 Urine,Catheterized Paola Albicans Gram Stain - Final Resulted 10/02/16 1505 Drainage - Surface Face Last 24 Hours Test 10/04/16 11:50 10/04/16 16:39 10/05/16 00:37 10/05/16 05:16 Bedside Glucose 184 mg/dl 153 mg/dl 121 mg/dl White Blood Count 6.59 K/uL Red Blood Count 2.34 M/uL Hemoglobin 7.7 g/dL Hematocrit 23.4 % Mean Corpuscular Volume 100.0 fL Mean Corpuscular Hemoglobin 32.9 pg Mean Corpuscular Hemoglobin Concent 32.9 g/dl RDW Standard Deviation 54.5 fL RDW Coefficient of Variation 15.1 % Platelet Count 147 K/uL Mean Platelet Volume 9.7 fL Sodium Level 140 mmol/L Potassium Level 3.8 mmol/L Chloride Level 102 mmol/L Carbon Dioxide Level 28 mmol/L Anion Gap 10.0 mmol/L Blood Urea Nitrogen 51 mg/dl Creatinine 2.40 mg/dl Est Creatinine Clear Calc Drug Dose 23.4 ml/min Estimated GFR () 28.3 Estimated GFR (Non- 24.4 BUN/Creatinine Ratio 21.2 Random Glucose 119 mg/dl Calcium Level 8.9 mg/dl Magnesium Level 2.4 mg/dl Random Vancomycin Level 15.5 mcg/ml Test 10/05/16 06:18 Bedside Glucose 121 mg/dl Assessment and Plan (1) Open facial wound Assessment & Plan: continue vanco for now, if pcn sensitive would suggest transition to po augmentin to complete 21 day course. blood cultures negative. continue local wound care.
[2016-10-05] MEDS ORDERED: PROPOFOL IV EMULSION 10 MG/ML 20 ML VIAL IV ONE (11:24)
[2016-10-05] MEDS ORDERED: LIDOCAINE HCL 2% 2 ML VIAL (20MG/ML) ONE (11:24)
--- NOTE | 2016-10-05 11:48 | Pharmacy Progress Note ---
Pharmacy Antibiotic Prog Note Date of Service: Oct 05, 2016. Subjective: The patient is currently receiving Vanco/Zosyn Objective: Height (Feet): 5 Height (Inches): 8.00 Weight (Kilograms): 73.900 Levels: Item Value Date Time Random Vancomycin Level 15.5 mcg/ml 10/05/16 0516 Random Vancomycin Level 16.3 mcg/ml 10/04/16 0619 Random Vancomycin Level 14.2 mcg/ml 10/03/16 0609 Lab Results (24hrs): Laboratory Tests Test 10/05/16 05:16 10/05/16 10:17 BUN/Creatinine Ratio 21.2 Blood Urea Nitrogen 51 mg/dl Creatinine 2.40 mg/dl White Blood Count 6.59 K/uL Micro Results: Item Value Date Time MRSA DNA Surveillance Screen - Final Complete 10/04/16 1400 Nasal Specimen Negative for MRSA by DNA Probe Cancelled 10/02/16 1521 Skin Face , Left Gram Stain - Final Resulted 10/02/16 1505 Drainage - Surface Face Group B beta Strep Corynebacterium sp Blood Culture - Preliminary Resulted 10/02/16 1043 Blood NO GROWTH TO DATE. Urine Culture - Final Complete 10/02/16 1027 Urine,Catheterized Paola Albicans Gram(+) cocci Blood Culture - Preliminary Resulted 10/02/16 1015 Blood NO GROWTH TO DATE. Assessment & Plan: Pt is an 81yo M w SCC receiving empiric Vanco for left facial mass 2/2 to malignancy. Zosyn was d/c'd. Pt received a one time dose of Fluconazole for Paola in the urine on 10/04/16. May need to schedule additional doses after HD sessions. HD scheduled for MWF's. Vanco: * Receiving Vanco PRN 2/2 to HD. This morning's lvl came back therapeutic at 15.5. I have dosed a one time Vanco 750mg (11mg/kg) to ensure he remains therapeutic after today's HD session. It looks like the pt has been voiding between HD sessions and thus eliminating Vanco outside of HD. I have ordered a trough to be drawn on Saturday 10/07 w/ AM labs to ensure Mr. Varela is still within therapeutic ranges. Thank you for consulting the pharmacy kinetic team and including us in the care of Mr. Varela Pharmacy will continue to follow and will adjust dose/frequency as necessary. Thank you
--- NOTE | 2016-10-05 11:55 | Progress Note ---
Progress Note Date of Service Oct 05, 2016. Progress Note Pt seen for colonic distension. He had rectal tube placement yesterday. KUB this AM showed persistent colonic distension though on exam his abd is soft, he' s having good bowel sounds. He denies any abd pain, nausea and vomiting. Discussed case and assessment findings w Dr. Cisse who decided that colonoscopy for decompression could be deferred at this time. Will keep rectal tube in place for over weekend, repeat KUB tomorrow AM. Pls call if any questions or concerns over the weekend.
[2016-10-05] MEDS ORDERED: EpHEDrine SULFATE 50MG/5ML SYR ONE (12:22)
--- NOTE | 2016-10-05 15:29 | Hematology/Oncology Prog Note ---
Hematology/Onc Progress Note Date of Service Oct 05, 2016. Diagnoses 1. 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 AMS 3. Anemia of multiple mechanisms 4. Colonic distension- recurrent Medications Medications Administered Medications (Trade) Dose Ordered Sig/Aj Route Start Time Stop Time Status Last Admin Dose Admin Sodium Chloride (Nss 1000ml) 250 ml @ 999 mls/hr Q16M STAT IV 10/02/16 09:58 10/02/16 10:22 DC 10/02/16 10:55 999 MLS/HR Acetaminophen (Tylenol Tab) 650 mg Q4H PRN PO 10/02/16 13:00 10/04/16 08:09 DC 10/04/16 01:01 650 MG Ondansetron HCl (Zofran Inj) 4 mg Q6H PRN IV 10/02/16 13:00 11/01/16 12:59 10/04/16 07:59 4 MG Aspirin (Ecotrin Tab) 81 mg DAILY PO 10/03/16 09:00 10/04/16 08:09 DC 10/03/16 07:36 81 MG Citalopram Hydrobromide (celeXA TAB) 40 mg DAILY PO 10/03/16 09:00 10/04/16 08:09 DC 10/03/16 07:36 40 MG Folic Acid (Folvite Tab) 1 mg DAILY PO 10/03/16 09:00 10/04/16 08:09 DC 10/03/16 07:36 1 MG Gabapentin (Neurontin Cap) 100 mg QPM PO 10/02/16 21:00 10/04/16 08:09 DC 10/03/16 21:13 100 MG Levothyroxine Sodium (Synthroid Tab) 50 mcg DAILYBB PO 10/03/16 06:00 10/03/16 21:15 DC 10/03/16 06:41 50 MCG Tamsulosin HCl (Flomax Cap) 0.4 mg QPM PO 10/02/16 21:00 10/04/16 08:09 DC 10/03/16 21:13 0.4 MG Pantoprazole Sodium (Protonix Tab) 40 mg QAM PO 10/03/16 09:00 10/04/16 08:09 DC 10/03/16 07:37 40 MG Insulin Aspart SLIDING SCALE If C... ACHS SC 10/02/16 16:15 10/04/16 09:56 DC 10/04/16 08:04 1 UNITS Vancomycin HCl 1400 mg/Sodium Chloride 528 ml @ 200 mls/hr 1445 ONCE IV 10/02/16 14:45 10/02/16 17:23 DC 10/02/16 15:57 200 MLS/HR Piperacillin Sod/ Tazobactam Sod 3.375 gm/Dextrose 115 ml @ 230 mls/hr 1500 ONCE IV 10/02/16 15:00 10/02/16 15:29 DC 10/02/16 15:23 230 MLS/HR Piperacillin Sod/ Tazobactam Sod/ Dextrose (Zosyn Iv/D5 100ml) 115 ml @ 28.75 mls/ hr Q12H IV 10/02/16 20:00 10/04/16 10:54 DC 10/04/16 07:59 28.75 MLS/HR Heparin Sodium (Porcine) (Heparin Sq 5000 Unit/0.5ml) 5,000 unit Q8 SQ 10/03/16 06:00 11/02/16 05:59 10/05/16 13:55 5,000 UNIT Albumin Human 12.5 gm 12.5 gm TODAY@0800 ONCE IV 10/03/16 08:00 10/03/16 08:01 DC 10/03/16 11:38 12.5 GM Vancomycin HCl/ Sodium Chloride (Vancomycin Inj/ Nss 250ml) 265 ml @ 125 mls/hr 1200 IV 10/03/16 12:00 10/03/16 18:01 DC 10/03/16 14:18 125 MLS/HR Enteral Nutritional Formula (Novasource Renal) 275 ml DAILY@0200,1800,2200 PEG 10/03/16 18:00 10/04/16 08:09 DC 10/04/16 02:16 275 ML Sterile Water 1 ea 1 ea 0200,0300,1800,1900 PEG 10/03/16 18:00 10/04/16 08:09 DC 10/04/16 03:00 1 EA Fluconazole/ Sodium Chloride 50 mg/Prmx 50 ml @ 100 mls/hr ONE ONCE IV 10/04/16 12:00 10/04/16 12:29 DC 10/04/16 13:56 100 MLS/HR Vancomycin HCl/ Sodium Chloride (Vancomycin Inj/ Nss 50ml) 55 ml @ 55 mls/hr TODAY@1400 IV 10/04/16 14:00 10/04/16 14:59 DC 10/04/16 15:54 55 MLS/HR Insulin Aspart (novoLOG ASPART) SLIDING SCALE If C... Q6 SC 10/04/16 12:00 11/03/16 11:59 10/04/16 12:34 1 UNITS Erythromycin Ethylsuccinate 250 mg 250 mg QID PEG 10/04/16 17:00 10/14/16 16:59 10/05/16 08:36 250 MG Potassium Chloride/Prmx (Kcl 10 Meq / Wtr/Premixed Water) 100 ml @ 100 mls/hr Q1H IV 10/04/16 14:45 10/04/16 18:44 DC 10/04/16 17:45 100 MLS/HR Subjective Mr. Varela was seen briefly today in follow-up in dialysis unit. He reports feeling overall fair. He states that his left jaw feels less sore today. He does not have issues with cough or dyspnea. A rectal tube has been placed due to rectal obstruction. He has been evaluated by GI. Vital Signs Vital Signs Past 12 Hours Date Time Temp Pulse Resp B/P Pulse Ox O2 Delivery O2 Flow Rate FiO2 10/05/16 14:32 37.1 86 16 110/52 99 Room Air 10/05/16 12:26 97 Room Air 10/05/16 12:00 78 103/59 10/05/16 11:45 81 113/62 10/05/16 11:30 90 91/54 10/05/16 11:15 81 111/62 10/05/16 11:00 80 117/62 10/05/16 10:45 70 105/45 10/05/16 10:30 86 100/61 10/05/16 10:15 84 107/61 10/05/16 10:06 76 106/58 10/05/16 08:27 36.6 83 18 100/58 96 Room Air 10/05/16 08:00 Room Air Physical Exam Head: normocephalic, atraumatic ENMT: pertinent finding (bandage covering left anterolateral mandible. ) Lungs: Respiratory Effort: no dyspnea Auscuitation: no wheezing, no rhonchi Cardiovascular: Heart Auscultation: RRR Abdomen: Bowel Sounds: normal Inspection & Palpation: no tenderness, guarding & rebound, pertinent finding (firm to palpation) Laboratory 10/03/16 06:09 10/04/16 08:53 10/05/16 05:16 10/03/16 06:09 10/04/16 08:53 10/05/16 05:16 Test 10/02/16 16:30 10/02/16 20:07 10/03/16 06:09 10/03/16 06:42 Bedside Glucose 246 mg/dl (70-99) 146 mg/dl (70-99) 151 mg/dl (70-99) Red Blood Count 2.48 M/uL (4.7-6.1) Mean Corpuscular Volume 99.6 fL (80-100) Mean Corpuscular Hemoglobin 32.7 pg (25-34) Mean Corpuscular Hemoglobin Concent 32.8 g/dl (32-36) RDW Standard Deviation 56.3 fL (36.4-46.3) RDW Coefficient of Variation 15.5 % (11.5-14.5) Mean Platelet Volume 9.8 fL (7.4-10.4) Absolute Reticulocyte Count 0.06 10^6/uL (0.02-0.10) Percent Reticulocyte Count 2.6 % (0.5-2.0) Prothrombin Time 10.7 SECONDS (9.0-12.0) Prothromb Time International Ratio 1.0 (0.9-1.1) Anion Gap 11.0 mmol/L (3-11) Est Creatinine Clear Calc Drug Dose 22.4 ml/min Estimated GFR () 26.9 Estimated GFR (Non- 23.2 BUN/Creatinine Ratio 27.0 (10-20) Estimated Average Glucose 143 mg/dl Hemoglobin A1c 6.6 % (4.5-5.6) Calcium Level 9.1 mg/dl (8.5-10.1) Magnesium Level 2.5 mg/dl (1.8-2.4) Iron Level 50 mcg/dl (35-175) Total Iron Binding Capacity 278 mcg/dl (250-450) Transferrin 239 mg/dl (200-360) Transferrin % Saturation 15 % (20-50) Ferritin 1175.6 ng/ml (8.0-388.0) Vitamin B12 Level 860 pg/mL (211-911) Folate > 24.00 ng/mL (>5.38) Random Vancomycin Level 14.2 mcg/ml Test 10/03/16 14:20 10/03/16 15:46 10/03/16 19:42 10/04/16 06:19 Bedside Glucose 139 mg/dl (70-99) 139 mg/dl (70-99) 223 mg/dl (70-99) Random Vancomycin Level 16.3 mcg/ml Test 10/04/16 07:43 10/04/16 08:53 10/04/16 11:50 10/04/16 16:39 Bedside Glucose 198 mg/dl (70-99) 184 mg/dl (70-99) 153 mg/dl (70-99) Red Blood Count 2.34 M/uL (4.7-6.1) Mean Corpuscular Volume 100.0 fL (80-100) Mean Corpuscular Hemoglobin 32.9 pg (25-34) Mean Corpuscular Hemoglobin Concent 32.9 g/dl (32-36) RDW Standard Deviation 54.8 fL (36.4-46.3) RDW Coefficient of Variation 15.1 % (11.5-14.5) Mean Platelet Volume 9.7 fL (7.4-10.4) Anion Gap 12.0 mmol/L (3-11) Est Creatinine Clear Calc Drug Dose 26.7 ml/min Estimated GFR () 33.2 Estimated GFR (Non- 28.7 BUN/Creatinine Ratio 23.4 (10-20) Lactic Acid Level 1.4 mmol/L (0.4-2.0) Calcium Level 9.0 mg/dl (8.5-10.1) Magnesium Level 2.4 mg/dl (1.8-2.4) Total Bilirubin 0.4 mg/dl (0.2-1) Aspartate Amino Transf (AST/SGOT) 23 U/L (15-37) Alanine Aminotransferase (ALT/SGPT) 25 U/L (12-78) Alkaline Phosphatase 104 U/L (45-117) Total Protein 7.7 gm/dl (6.4-8.2) Albumin 3.2 gm/dl (3.4-5.0) Globulin 4.5 gm/dl (2.5-4.0) Albumin/Globulin Ratio 0.7 (0.9-2) Test 10/05/16 00:37 10/05/16 05:16 10/05/16 06:18 10/05/16 11:27 Bedside Glucose 121 mg/dl (70-99) 121 mg/dl (70-99) 121 mg/dl (70-99) Red Blood Count 2.34 M/uL (4.7-6.1) Mean Corpuscular Volume 100.0 fL (80-100) Mean Corpuscular Hemoglobin 32.9 pg (25-34) Mean Corpuscular Hemoglobin Concent 32.9 g/dl (32-36) RDW Standard Deviation 54.5 fL (36.4-46.3) RDW Coefficient of Variation 15.1 % (11.5-14.5) Mean Platelet Volume 9.7 fL (7.4-10.4) Anion Gap 10.0 mmol/L (3-11) Est Creatinine Clear Calc Drug Dose 23.4 ml/min Estimated GFR () 28.3 Estimated GFR (Non- 24.4 BUN/Creatinine Ratio 21.2 (10-20) Calcium Level 8.9 mg/dl (8.5-10.1) Magnesium Level 2.4 mg/dl (1.8-2.4) Random Vancomycin Level 15.5 mcg/ml Date/Time Source Procedure Growth Status 10/04/16 14:00 Nasal MRSA DNA Surveillance Screen - Final Specimen Negative for MRSA by DNA Probe Complete CT of the neck from 10/03/2016: Diffuse infiltration of soft tissues of left neck with associated dermal thickening. Indeterminate soft tissue lesion seen within the subcutaneous tissues of the left facial region overlying the body of the left mandible, extending to the terminal surface and measuring approximately 3.5 x 3 cm. Extends to the underlying muscles of mastication and also appears to protrude from the dermal surface. Small foci of gas present within lesion. Mild stranding soft tissue. Asymmetric soft tissue infiltration identified in the left parapharyngeal region with loss of the left- sided parapharyngeal fat (tx related vs malignancy). Mild retropharyngeal soft tissue edema. No pathologically enlarged cervical lymph nodes. No lytic or blastic lesions the skeleton. Prominent subcentimeter mediastinal lymph nodes of indeterminate significance. KUB from 10/04/2016: Severe gaseous distention of the bowel primarily involving the colon. CT of the abdomen/pelvis from 10/04/2016: No lymphadenopathy or liver lesions. No lytic or blastic lesions. Marked distention of the colon which contains liquid stool. Appearance concerning for colonic obstruction. Ill-defined soft tissue is suggested involving the inferior rectum. This is indeterminate, an obstructing mass is not excluded. Colonoscopy is recommended for further assessment. KUB from 10/05/2016: Unchanged gassy is distention of colon. Assessment & Plan (1) Squamous cell cancer of buccal mucosa Assessment & Plan: Patient is s/p definitive RT, salvage surgery after local recurrence shortly after RT in 2014; he then recurred in left cervical LN and received palliative RT, completed in 06/2016. Restaging evaluation was planned for later this month through [facility] and if restaging CT neck and PET/CT revealed residual neoplastic disease, Dr. Tse of [facility] [place] was going to consider patient for palliative checkpoint inhibitor therapy (as patient has poor performance status and tolerance of other agents is of concern). CT of the neck without contrast (in light of his ESRD, on HD) to restage local disease was obtained 10/03/16- no definitive evidence of metastatic disease to cervical LNS, appears to have involvement of subcutaneous tissues of jaw and possibly parapharyngeal space (vs post-tx effect?). Mediastinal LNs indeterminate. PET CT can be obtained after discharge (already scheduled for ) to further characterize these findings. CT of abd/pelvis obtained for constipation- no abdominal/pelvic involvement with carcinoma by these scans. Further treatment of his recurrent SCC of buccal mucosa will be deferred to outpatient setting, depending on PS. (2) Secondary malignant neoplasm of lymph nodes of neck Assessment & Plan: See #1. (3) Anemia due to multiple mechanisms Assessment & Plan: Patient likely has anemia from multiple mechanisms. He has end-stage renal disease for which he is on hemodialysis. Nephrology not administering Procrit, will be supported by blood transfusion as necessary. Recommend to transfuse PRBC if hemoglobin< 8 g/dL or patient is symptomatic of cardiopulmonary symptoms due to anemia. He also likely has a component of anemia of inflammation / chronic disease, with type 2 diabetes and malignancy. Iron panel, ferritin, vitamin B12, folate and reticulocyte panel- no deficiencies identified. #4. Colonic distension- management per GI. No colonoscopy to decompress at this time, continue rectal tube. Colonoscopy in / did not reveal suspicious findings.
[2016-10-05] MEDS: FLUCONAZOLE 100 MG TAB PO SCH (17:55)
[2016-10-05] MEDS ORDERED: VANCOMYCIN INJ 750 MG in SODIUM CHLORIDE 0.9% 250ML 250 ML IV ONE (18:00)
--- NOTE | 2016-10-05 21:25 | Progress Note ---
Internal Med Progress Note Date of Service: Oct 05, 2016. Provider Documentation: SUBJECTIVE: had multiple loose bowel movement after rectal tube placement abdomen soft , non tender pt feels much more comfortable no nausea , no fever or chills OBJECTIVE: Vital Signs-as noted below Exam: General-no sign of distress , elderly male , appears to be in stable state of mind , answering questions appropriately Eyes-sclera non icteric ENT-ulcer on left face /dressing present , no drainage-noted Lungs-CTA Heart-regular Abdomen-soft, improved distention , PEG tube present , Extremities-no lower ext edema Neuro-no focal deficit , Lab data as noted below. ASSESSMENT & PLAN: ABDOMINAL DISTENTION /COLONIC DILATATION : possible Pseudo obstruction due to Ileus improved after placement of rectal tube , had multiple loose BM with improvement of abdominal distention , discomfort GI following , cont rectal tube for now , with continued bowel rest no plan for Colonoscopy Surgery consulted -appreciate input -conservative management ALTERED MENTAL STATUS resolved due to sepsis /dehydration -mental status improved to baseline line Possible metabolic encephalopathy due to infection/ sepsis; /infected Facial ulcer CT head- no acute findings POSSIBLE SEPSIS /SOURCE OF INFECTION INFECTED FACIAL ULCER Presented with hypotension, tachycardia -> improved Vital signs after 250 mL bolus Afebrile; no leukocytosis; lactic acid WNL has facial lesion with purulent drainage; with underlying malignancy Sq cell ca wound culture growing : gram positive cocci -Streptococcus /Corynebacterium MRSA Nasal swab -negative was on Empiric broad spectrum abx coverage with Zosyn and vancomycin to be given with dialysis consulted infectious disease-appreciate input IV Vancomycin D/jody if Streptococcus species Penicillin sensitive would recommend transition to PO Augmentin to complete 21 day course. blood cultures negative. continue local wound care. 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 Tse S/p resection in 04/[address] Evans S/p radiation in January 2015 Developed left neck mass FNA revealed metastatic SCC Completed second round of radiation June 2016 [facility] states plan is for PET scan October 10 2016 As per oncology note 08/21/16 skin lesion looks concerning for metastasis; if confirmed, checkpoint inhibitor therapy is the one tx that may be considered in this patient Consult oncology ESRD ON DIALYSIS Dialyzes on MWF Follows with Dr. Hartmann Consult nephrology -appreciate input got scheduled dialysis yesterday HYPOTHYROIDISM TSH elevated to 60 Levothyroxine recently increased from 25 -> 50 mcg daily on 09/19/16 increase Levothyroxine to 75 mcg /Free T4 -remains low Recheck TSH as outpatient in around 10/31/16 DM TYPE 2 Diet controlled Monitor BSG ACHS Insulin sliding scale coverage pharmacy consulted for glycemic control HISTORY OF CVA hold aspirin for NPO bowel obstruction CAD Stable; hold all meds for NPO bowel obstruction DEPRESSION hold all meds for NPO bowel obstruction BPH hold all meds for NPO bowel obstruction DVT PROPHYLAXIS SCD's DISPOSITION will need rehab PT/OT eval requested referral placed for [facility] plan to transfer to [facility] as medically stable /Ileus resolves Social service following for discharge planning daughter in Law updated at bedside Vital Signs: Date Time Temp Pulse Resp B/P Pulse Ox O2 Delivery O2 Flow Rate FiO2 10/05/16 16:01 84 97 10/05/16 16:00 Room Air 10/05/16 14:32 37.1 86 16 110/52 99 Room Air 10/05/16 13:30 37.0 68 112/62 10/05/16 12:26 97 Room Air 10/05/16 12:00 78 103/59 10/05/16 11:45 81 113/62 10/05/16 11:30 90 91/54 10/05/16 11:15 81 111/62 10/05/16 11:00 80 117/62 10/05/16 10:45 70 105/45 10/05/16 10:30 86 100/61 10/05/16 10:15 84 107/61 10/05/16 10:06 76 106/58 10/05/16 09:50 37.1 64 94/66 10/05/16 08:27 36.6 83 18 100/58 96 Room Air 10/05/16 08:00 Room Air 10/05/16 00:00 95 Room Air 2.0 10/04/16 23:38 37.3 85 20 100/73 95 Room Air Lab Results: Results Past 24 Hours Test 10/05/16 00:37 10/05/16 05:16 10/05/16 06:18 10/05/16 11:27 Range/Units Bedside Glucose 121 121 121 70-99 mg/dl White Blood Count 6.59 4.8-10.8 K/uL Red Blood Count 2.34 4.7-6.1 M/uL Hemoglobin 7.7 14.0-18.0 g/dL Hematocrit 23.4 42-52 % Mean Corpuscular Volume 100.0 80-100 fL Mean Corpuscular Hemoglobin 32.9 25-34 pg Mean Corpuscular Hemoglobin Concent 32.9 32-36 g/dl RDW Standard Deviation 54.5 36.4-46.3 fL RDW Coefficient of Variation 15.1 11.5-14.5 % Platelet Count 147 130-400 K/uL Mean Platelet Volume 9.7 7.4-10.4 fL Sodium Level 140 136-145 mmol/L Potassium Level 3.8 3.5-5.1 mmol/L Chloride Level 102 98-107 mmol/L Carbon Dioxide Level 28 21-32 mmol/L Anion Gap 10.0 3-11 mmol/L Blood Urea Nitrogen 51 7-18 mg/dl Creatinine 2.40 0.60-1.40 mg/dl Est Creatinine Clear Calc Drug Dose 23.4 ml/min Estimated GFR () 28.3 Estimated GFR (Non- 24.4 BUN/Creatinine Ratio 21.2 10-20 Random Glucose 119 70-99 mg/dl Calcium Level 8.9 8.5-10.1 mg/dl Magnesium Level 2.4 1.8-2.4 mg/dl Random Vancomycin Level 15.5 mcg/ml Test 10/05/16 17:49 10/05/16 20:13 Range/Units Bedside Glucose 133 119 70-99 mg/dl
[2016-10-05] MEDS ORDERED: LEVO50TA PO (21:27)
[2016-10-05] MEDS ORDERED: [UNRECOGNIZED DRUG - CODE] PEG (21:27)
--- NOTE | 2016-10-05 21:29 | Discharge Instructions ---
Discharge Instructions Date of Service Oct 05, 2016. Admission Reason for Admission: Altered Mental Status, Hypotension Discharge Discharge Diagnosis / Problem: SEPSIS /INFECTED FACIAL WOUND /ILLEUS Discharge Goals Goal(s): Increase independence, Improve disease control, Diagnostic testing, Therapeutic intervention Activity Recommendations Activity Level: Assistance Required Therapies: Physical Therapy, Occupational Therapy . Additional Information Patient informed of condition: Yes Advance Directives: No DNR: No Level of Care: Skilled Communicable Disease: No Prognosis: Stable Kaur Catheter: No Instructions / Follow-Up Instructions / Follow-Up FOLLOW UP WITH FAMILY PHYSICIAN AFTER DISCHARGE FORM REHAB Current Hospital Diet Patient's current hospital diet: Regular Diet Discharge Diet Recommended Diet: N/A (TUBE FEEDING ) Pending Studies Studies pending at discharge: no Laboratory Results Hemoglobin A1c Test 10/03/16 06:09 Range/Units Estimated Average Glucose 143 mg/dl Hemoglobin A1c 6.6 H 4.5-5.6 % Medical Emergencies . Who to Call and When: Medical Emergencies: If at any time you feel your situation is an emergency, please call 911 immediately. . Non-Emergent Contact Non-Emergency issues call your: Primary Care Provider . . "Provider Documentation" section prepared by Viki Kellogg. Core Measure Problem Core Measures: None
[2016-10-06] VITALS (7 sets, daily range): BP systolic 101–127; BP diastolic 55–70; PULSE 84–88; TEMP 36.4–37.3; O2SAT 93–98
[2016-10-06] MEDS: MoRPHine SULFATE 2 MG/ML CARP IV PRN ×2 (00:41→16:55)
[2016-10-06] MEDS: INSULIN ASPART 100 UNITS/ML 3 ML PEN SC SCH ×4 (06:00→23:41)
[2016-10-06 06:18] LABS: HEMATOCRIT 24.4 % (42-52); MEAN CELL VOLUME 97.6 fL (80-100); MEAN CORPUSCULAR HEMOGLOBIN 33.2 pg (25-34); MEAN PLATELET VOLUME 9.6 fL (7.4-10.4); PLATELET COUNT 164 K/uL (130-400); WHITE BLOOD COUNT 7.32 K/uL (4.8-10.8)
[2016-10-06] MEDS: HEPARIN SOD 5000 UNIT/0.5 ML CARP SQ SCH ×3 (06:22→21:21)
[2016-10-06 06:55] LABS: BUN/CREATININE RATIO 15.5 (10-20); CALCIUM 8.7 mg/dl (8.5-10.1); CREATININE 1.9 mg/dl (0.60-1.40); MAGNESIUM 2.2 mg/dl (1.8-2.4); POTASSIUM 3.7 mmol/L (3.5-5.1)
[2016-10-06] MEDS: FLUCONAZOLE 50 MG TAB PO SCH (08:00)
[2016-10-06] MEDS: ERYTHROMYCIN ETHYLSUCC SUSP 200 MG/5 ML 100 ML BTL PEG SCH ×4 (08:10→20:31)
--- NOTE | 2016-10-06 09:49 | DIAGNOSTIC IMAGING REPORT ---
KUB CLINICAL HISTORY: re-eval colonic distension COMPARISON STUDY: 10/05/2016 FINDINGS: There is a left upper quadrant catheter likely representing a PEG tube. There is mild gaseous prominence of both large and small bowel loops. There are no transition zones indicate bowel obstruction. Degenerative changes are present within the lumbar spine IMPRESSION: Slightly diminished colonic distention. No evidence of bowel obstruction. Electronically signed by: Mik Clark M.D. 10/06/2016 9:48 AM Dictated Date/Time: 10/06/2016 9:45 AM
--- NOTE | 2016-10-06 12:18 | Surgery Progress Note ---
Surgery Progress Note Date of Service Oct 06, 2016. Subjective + bowel movement, + flatus, No nausea Denies abdominal pain Objective Vital Signs: Date Time Temp Pulse Resp B/P Pulse Ox O2 Delivery O2 Flow Rate FiO2 10/06/16 08:00 98 Room Air 10/06/16 07:07 36.4 88 20 127/70 98 Room Air 10/06/16 01:32 93 Room Air 10/06/16 00:30 109/65 10/05/16 23:19 37.1 83 18 91/51 93 Room Air 10/05/16 16:01 84 97 10/05/16 16:00 Room Air 10/05/16 14:32 37.1 86 16 110/52 99 Room Air 10/05/16 13:30 37.0 68 112/62 10/05/16 12:26 97 Room Air Abdomen: non tender, non distended, soft Laboratory Results: Results Past 24 Hours Test 10/05/16 17:49 10/05/16 20:13 10/06/16 05:36 10/06/16 06:16 Range/Units Bedside Glucose 133 119 121 70-99 mg/dl White Blood Count 7.32 4.8-10.8 K/uL Red Blood Count 2.50 4.7-6.1 M/uL Hemoglobin 8.3 14.0-18.0 g/dL Hematocrit 24.4 42-52 % Mean Corpuscular Volume 97.6 80-100 fL Mean Corpuscular Hemoglobin 33.2 25-34 pg Mean Corpuscular Hemoglobin Concent 34.0 32-36 g/dl RDW Standard Deviation 52.0 36.4-46.3 fL RDW Coefficient of Variation 14.6 11.5-14.5 % Platelet Count 164 130-400 K/uL Mean Platelet Volume 9.6 7.4-10.4 fL Sodium Level 139 136-145 mmol/L Potassium Level 3.7 3.5-5.1 mmol/L Chloride Level 101 98-107 mmol/L Carbon Dioxide Level 27 21-32 mmol/L Anion Gap 11.0 3-11 mmol/L Blood Urea Nitrogen 30 7-18 mg/dl Creatinine 1.90 0.60-1.40 mg/dl Est Creatinine Clear Calc Drug Dose 29.5 ml/min Estimated GFR () 37.5 Estimated GFR (Non- 32.3 BUN/Creatinine Ratio 15.5 10-20 Random Glucose 108 70-99 mg/dl Calcium Level 8.7 8.5-10.1 mg/dl Magnesium Level 2.2 1.8-2.4 mg/dl Test 10/06/16 07:35 10/06/16 11:20 Range/Units Bedside Glucose 118 131 70-99 mg/dl Assessment & Plan Bowel system in place and effective NNO evidence of peritonitis Continue conservative measures
--- NOTE | 2016-10-06 15:23 | Progress Note ---
Progress Note Date of Service Oct 06, 2016. Progress Note Continues to have loose small volume BM's. Per nursing, abd distention is much improved. Appears comfortable. Abd is soft. X ray reviewed A/P: Pseudoobstruction - I suspect he has chronic constipation and chronic gudelia colon. He has risk factors for this (age, immboility, narcs), and events during prior hosp in March, when he appeared to be discharged with a cecal diameter of 13 cm, supports this diagnosis. His lack of abdiominal pain, dspite x rays showing cecal dilation, also supports this diagnosis. - Will cont emycin for now, Begin feeds.
[2016-10-06] MEDS ORDERED: NURSING VERBAL MED ORDER ONE (15:30)
[2016-10-06] MEDS: NOVASOURCE RENAL 1000ML BAG PEG SCH ×4 (18:08→22:20)
--- NOTE | 2016-10-06 21:54 | Progress Note ---
Internal Med Progress Note Date of Service: Oct 06, 2016. Provider Documentation: SUBJECTIVE: continued to liquid bowel movement -in rectal tube abdominal pain has resolved started on clear diet by GI -tolerating well OBJECTIVE: Vital Signs-as noted below Exam: General-no sign of distress , elderly male , appears to be in stable state of mind , answering questions appropriately Eyes-sclera non icteric ENT-ulcer on left face /dressing present , no drainage-noted Lungs-CTA Heart-regular Abdomen-soft, improved distention , PEG tube present , Extremities-no lower ext edema Neuro-no focal deficit , Lab data as noted below. ASSESSMENT & PLAN: ABDOMINAL DISTENTION /COLONIC DILATATION : possible Pseudo obstruction due to Ileus improved after placement of rectal tube , had multiple loose BM with improvement of abdominal distention , discomfort GI following , cont rectal tube for now , started on Clears no plan for Colonoscopy Surgery consulted -appreciate input -conservative management ALTERED MENTAL STATUS resolved due to sepsis /dehydration -mental status improved to baseline line Possible metabolic encephalopathy due to infection/ sepsis; /infected Facial ulcer CT head- no acute findings POSSIBLE SEPSIS /SOURCE OF INFECTION INFECTED FACIAL ULCER Presented with hypotension, tachycardia -> improved Vital signs after 250 mL bolus Afebrile; no leukocytosis; lactic acid WNL has facial lesion with purulent drainage; with underlying malignancy Sq cell ca wound culture growing : gram positive cocci -Streptococcus /Corynebacterium MRSA Nasal swab -negative was on Empiric broad spectrum abx coverage with Zosyn and vancomycin to be given with dialysis consulted infectious disease-appreciate input IV Vancomycin D/jody if Streptococcus species Penicillin sensitive would recommend transition to PO Augmentin to complete 21 day course. blood cultures negative. continue local wound care. 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 hem/onc Dr. Tse S/p resection in 04/[address] Evans S/p radiation in January 2015 Developed left neck mass FNA revealed metastatic SCC Completed second round of radiation June 2016 [facility] states plan is for PET scan October 10 2016 As per oncology note 08/21/16 skin lesion looks concerning for metastasis; if confirmed, checkpoint inhibitor therapy is the one tx that may be considered in this patient Consult oncology ESRD ON DIALYSIS Dialyzes on MWF Follows with Dr. Hartmann Consult nephrology -appreciate input got scheduled dialysis yesterday HYPOTHYROIDISM TSH elevated to 60 Levothyroxine recently increased from 25 -> 50 mcg daily on 09/19/16 increase Levothyroxine to 75 mcg /Free T4 -remains low Recheck TSH as outpatient in around 10/31/16 DM TYPE 2 Diet controlled Monitor BSG ACHS Insulin sliding scale coverage pharmacy consulted for glycemic control HISTORY OF CVA hold aspirin for NPO bowel obstruction CAD Stable; hold all meds for NPO bowel obstruction DEPRESSION hold all meds for NPO bowel obstruction BPH hold all meds for NPO bowel obstruction DVT PROPHYLAXIS SCD's DISPOSITION will need rehab PT/OT eval requested referral placed for [facility] plan to transfer to [facility] as medically stable /Ileus resolves Social service following for discharge planning daughter in Law updated at bedside Vital Signs: Date Time Temp Pulse Resp B/P Pulse Ox O2 Delivery O2 Flow Rate FiO2 10/06/16 16:00 98 Room Air 10/06/16 14:57 36.9 84 20 107/55 97 Room Air 10/06/16 08:00 98 Room Air 10/06/16 07:07 36.4 88 20 127/70 98 Room Air 10/06/16 01:32 93 Room Air 10/06/16 00:30 109/65 10/05/16 23:19 37.1 83 18 91/51 93 Room Air Lab Results: Results Past 24 Hours Test 10/06/16 05:36 10/06/16 06:16 10/06/16 07:35 10/06/16 11:20 Range/Units White Blood Count 7.32 4.8-10.8 K/uL Red Blood Count 2.50 4.7-6.1 M/uL Hemoglobin 8.3 14.0-18.0 g/dL Hematocrit 24.4 42-52 % Mean Corpuscular Volume 97.6 80-100 fL Mean Corpuscular Hemoglobin 33.2 25-34 pg Mean Corpuscular Hemoglobin Concent 34.0 32-36 g/dl RDW Standard Deviation 52.0 36.4-46.3 fL RDW Coefficient of Variation 14.6 11.5-14.5 % Platelet Count 164 130-400 K/uL Mean Platelet Volume 9.6 7.4-10.4 fL Sodium Level 139 136-145 mmol/L Potassium Level 3.7 3.5-5.1 mmol/L Chloride Level 101 98-107 mmol/L Carbon Dioxide Level 27 21-32 mmol/L Anion Gap 11.0 3-11 mmol/L Blood Urea Nitrogen 30 7-18 mg/dl Creatinine 1.90 0.60-1.40 mg/dl Est Creatinine Clear Calc Drug Dose 29.5 ml/min Estimated GFR () 37.5 Estimated GFR (Non- 32.3 BUN/Creatinine Ratio 15.5 10-20 Random Glucose 108 70-99 mg/dl Calcium Level 8.7 8.5-10.1 mg/dl Magnesium Level 2.2 1.8-2.4 mg/dl Bedside Glucose 121 118 131 70-99 mg/dl Test 10/06/16 16:28 10/06/16 20:05 Range/Units Bedside Glucose 109 158 70-99 mg/dl
[2016-10-07] MEDS: NOVASOURCE RENAL 1000ML BAG PEG SCH ×3 (01:38→22:16)
[2016-10-07] MEDS: TUBE FEEDING WATER FLUSH PEG SCH ×4 (01:56→19:00)
[2016-10-07] MEDS: MoRPHine SULFATE 2 MG/ML CARP IV PRN ×2 (03:06→18:17)
[2016-10-07 05:12] LABS: HEMATOCRIT 22.7 % (42-52); MEAN CELL VOLUME 98.3 fL (80-100); MEAN CORPUSCULAR HEMOGLOBIN 33.3 pg (25-34); MEAN CORPUSCULAR HGB CONC 33.9 g/dl (32-36); MEAN PLATELET VOLUME 9.7 fL (7.4-10.4); PLATELET COUNT 162 K/uL (130-400); RED BLOOD COUNT 2.31 M/uL (4.7-6.1); WHITE BLOOD COUNT 7.86 K/uL (4.8-10.8)
[2016-10-07 05:36] LABS: BUN/CREATININE RATIO 19.7 (10-20); CALCIUM 8.4 mg/dl (8.5-10.1); CREATININE 2.4 mg/dl (0.60-1.40); MAGNESIUM 2.2 mg/dl (1.8-2.4); POTASSIUM 3.5 mmol/L (3.5-5.1)
[2016-10-07] MEDS: HEPARIN SOD 5000 UNIT/0.5 ML CARP SQ SCH ×3 (05:40→21:50)
[2016-10-07] MEDS: INSULIN ASPART 100 UNITS/ML 3 ML PEN SC SCH ×4 (05:49→21:49)
[2016-10-07 06:53] VITALS: BP 109/63; PULSE 83; TEMP 36.8; O2SAT 96
[2016-10-07] MEDS: ERYTHROMYCIN ETHYLSUCC SUSP 200 MG/5 ML 100 ML BTL PEG SCH ×4 (08:00→19:57)
[2016-10-07] MEDS: FLUCONAZOLE 50 MG TAB PO SCH (08:00)
[2016-10-07 08:30] VITALS: O2SAT 96
--- NOTE | 2016-10-07 13:27 | Surgery Progress Note ---
Surgery Progress Note Date of Service Oct 07, 2016. Subjective + bowel movement, + flatus, No nausea, No vomiting Denies pain Objective Vital Signs: Date Time Temp Pulse Resp B/P Pulse Ox O2 Delivery O2 Flow Rate FiO2 10/07/16 08:30 96 Room Air 10/07/16 06:53 36.8 83 20 109/63 96 Room Air 10/07/16 00:00 Room Air 10/06/16 22:33 37.3 86 20 101/56 95 Room Air 10/06/16 16:00 98 Room Air 10/06/16 14:57 36.9 84 20 107/55 97 Room Air Abdomen: normal bowel sounds, non tender, non distended, soft Laboratory Results: Results Past 24 Hours Test 10/06/16 16:28 10/06/16 20:05 10/06/16 23:39 10/07/16 04:50 Range/Units Bedside Glucose 109 158 133 70-99 mg/dl White Blood Count 7.86 4.8-10.8 K/uL Red Blood Count 2.31 4.7-6.1 M/uL Hemoglobin 7.7 14.0-18.0 g/dL Hematocrit 22.7 42-52 % Mean Corpuscular Volume 98.3 80-100 fL Mean Corpuscular Hemoglobin 33.3 25-34 pg Mean Corpuscular Hemoglobin Concent 33.9 32-36 g/dl RDW Standard Deviation 52.3 36.4-46.3 fL RDW Coefficient of Variation 14.4 11.5-14.5 % Platelet Count 162 130-400 K/uL Mean Platelet Volume 9.7 7.4-10.4 fL Sodium Level 138 136-145 mmol/L Potassium Level 3.5 3.5-5.1 mmol/L Chloride Level 100 98-107 mmol/L Carbon Dioxide Level 25 21-32 mmol/L Anion Gap 13.0 3-11 mmol/L Blood Urea Nitrogen 47 7-18 mg/dl Creatinine 2.40 0.60-1.40 mg/dl Est Creatinine Clear Calc Drug Dose 23.4 ml/min Estimated GFR () 28.3 Estimated GFR (Non- 24.4 BUN/Creatinine Ratio 19.7 10-20 Random Glucose 207 70-99 mg/dl Calcium Level 8.4 8.5-10.1 mg/dl Magnesium Level 2.2 1.8-2.4 mg/dl Random Vancomycin Level 13.3 mcg/ml Test 10/07/16 05:43 10/07/16 07:38 10/07/16 11:35 Range/Units Bedside Glucose 197 157 145 70-99 mg/dl Assessment & Plan Bowel system in place and effective No evidence of peritonitis Continue conservative measures
--- NOTE | 2016-10-07 13:32 | Nephrology Progress Note ---
Nephrology Progress Note Date of Service: Oct 07, 2016. Subjective 81 yo male with esrd who was admitted with confusion, found to have uti and then discovered to have colonic distention requiring a rectal tube. has loose stools coming from the rectal tube. pt comfortable. underwent dialysis on saturday. usually m-w-f as outpt. no abdominal pain. confusion resolved. Objective Date Time Temp Pulse Resp B/P Pulse Ox O2 Delivery O2 Flow Rate FiO2 10/07/16 08:30 96 Room Air 10/07/16 06:53 36.8 83 20 109/63 96 Room Air 10/07/16 00:00 Room Air 10/06/16 22:33 37.3 86 20 101/56 95 Room Air 10/06/16 16:00 98 Room Air 10/06/16 14:57 36.9 84 20 107/55 97 Room Air Physical Exam: General-aaox3 Eyes-no scleral icterus ENT-left facial wound-covered Neck-supple Lungs-clear Heart-2/6 systolic murmur, regular Abdomen-bs+, soft, +peg Extremities-no c/c/e Neuro-nonfocal Rectal bag in place Current Inpatient Medications Medications (Trade) Dose Ordered Sig/Aj Route Start Time Stop Time Status Last Admin Dose Admin Ondansetron HCl (Zofran Inj) 4 mg Q6H PRN IV 10/02/16 13:00 11/01/16 12:59 10/04/16 07:59 4 MG Lidocaine/ Prilocaine (Emla 2.5% Crm) 1 ea UD EXT 10/02/16 13:00 11/01/16 12:59 Glucose (Glucose 40% Gel) 15-30 GRAMS 15 GRAMS... UD PRN PO 10/02/16 13:00 11/01/16 12:59 Glucose (Glucose Chew Tab) 4-8 Tablets 4 Tabl... UD PRN PO 10/02/16 13:00 11/01/16 12:59 Dextrose (Dextrose 50% 50ML Syringe) 25-50ML OF 50% DW IV FOR... UD PRN IV 10/02/16 13:00 11/01/16 12:59 Glucagon (Glucagon Inj) 1 mg UD PRN SQ 10/02/16 13:00 11/01/16 12:59 Vancomycin HCl (Consult) 1 ea UD PRN N/A 10/02/16 14:10 11/01/16 14:09 Heparin Sodium (Porcine) (Heparin Sq 5000 Unit/0.5ml) 5,000 unit Q8 SQ 10/03/16 06:00 11/02/16 05:59 10/07/16 05:40 5,000 UNIT Enteral Nutritional Formula (Novasource Renal) 275 ml DAILY@0200,1800,2200 PEG 10/03/16 18:00 11/02/16 17:59 10/07/16 01:38 275 ML Sterile Water (Tube Feeding Water Flush) 1 ea 0200,0300,1800,1900 PEG 10/03/16 18:00 11/02/16 17:59 10/07/16 04:32 1 EA Insulin Aspart (novoLOG ASPART) SLIDING SCALE If C... Q6 SC 10/04/16 12:00 11/03/16 11:59 10/07/16 05:49 1 UNITS Erythromycin Ethylsuccinate (Ees Susp) 250 mg QID PEG 10/04/16 17:00 10/14/16 16:59 10/07/16 12:42 250 MG Multi-Ingredient Ointment (Eucerin Unscented Cr) 1 appln BID PRN EXT 10/04/16 13:15 11/03/16 13:14 Morphine Sulfate (MoRPHine SULFATE INJ) 1 mg Q4 PRN IV 10/04/16 18:30 10/18/16 18:29 10/07/16 03:06 1 MG Fluconazole (Diflucan Tab) 100 mg MoWeFr@1800 PO 10/05/16 18:00 10/15/16 17:59 Fluconazole (Diflucan Tab) 50 mg SuTuThSa@0900 PO 10/06/16 09:00 10/16/16 08:59 10/07/16 08:00 50 MG Last 24 Hours Test 10/06/16 16:28 10/06/16 20:05 10/06/16 23:39 10/07/16 04:50 Bedside Glucose 109 mg/dl 158 mg/dl 133 mg/dl White Blood Count 7.86 K/uL Red Blood Count 2.31 M/uL Hemoglobin 7.7 g/dL Hematocrit 22.7 % Mean Corpuscular Volume 98.3 fL Mean Corpuscular Hemoglobin 33.3 pg Mean Corpuscular Hemoglobin Concent 33.9 g/dl RDW Standard Deviation 52.3 fL RDW Coefficient of Variation 14.4 % Platelet Count 162 K/uL Mean Platelet Volume 9.7 fL Sodium Level 138 mmol/L Potassium Level 3.5 mmol/L Chloride Level 100 mmol/L Carbon Dioxide Level 25 mmol/L Anion Gap 13.0 mmol/L Blood Urea Nitrogen 47 mg/dl Creatinine 2.40 mg/dl Est Creatinine Clear Calc Drug Dose 23.4 ml/min Estimated GFR () 28.3 Estimated GFR (Non- 24.4 BUN/Creatinine Ratio 19.7 Random Glucose 207 mg/dl Calcium Level 8.4 mg/dl Magnesium Level 2.2 mg/dl Random Vancomycin Level 13.3 mcg/ml Test 10/07/16 05:43 10/07/16 07:38 10/07/16 11:35 Bedside Glucose 197 mg/dl 157 mg/dl 145 mg/dl Assessment & Plan ESRD-for dialysis again on saturday on a 4k bath with k chronically below 4. volume status appropriate. plan on one liter off as bp tolerates. Hypokalemia-likely losing it from GI sources. will do him on a 4k bath. k 3.5 today. will give 20 iv of kcl today. Anemia of renal failure-pts hg levels are trending down. no procrit given his head and neck cancer. blood transfusions prn.
[2016-10-07] MEDS: POTASSIUM CHLR 10 MEQ / WTR 10 MEQ in PREMIXED WATER 100 ML IV SCH ×2 (14:48→17:04)
[2016-10-07 15:11] VITALS: BP 106/52; PULSE 84; TEMP 37.2; O2SAT 97
[2016-10-07 16:00] VITALS: O2SAT 97
--- NOTE | 2016-10-07 17:27 | Progress Note ---
Progress Note Date of Service Oct 07, 2016. Progress Note Tube feeds resumed. Pt has no complaints. He is stooling small volumes of liquid. Abd is mildly more distended compared to yesterday. Will cont tube feeds at current rate, give Relistor, and check KUB tomorrow.
[2016-10-07] MEDS ORDERED: METHYLNALTREXONE BROMIDE INJ 12 MG/0.6 ML SYR SQ ONE (18:00)
[2016-10-07] MEDS: AMOXICILLIN/CLAVULANATE TAB 500 MG TAB PO SCH (18:02)
--- NOTE | 2016-10-07 18:24 | Progress Note ---
Internal Med Progress Note Date of Service: Oct 07, 2016. Provider Documentation: SUBJECTIVE: tube feeding started on low dose tolerating well no abdominal pain or nausea rectal tube present , draining liquid stool OBJECTIVE: Vital Signs-as noted below Exam: General-no sign of distress , elderly male , appears to be in stable state of mind , answering questions appropriately Eyes-sclera non icteric ENT-ulcer on left face /dressing present , no drainage-noted Lungs-CTA Heart-regular Abdomen-soft, improved distention , PEG tube present , Extremities-no lower ext edema Neuro-no focal deficit , Lab data as noted below. ASSESSMENT & PLAN: ABDOMINAL DISTENTION /COLONIC DILATATION : possible Pseudo obstruction due to Ileus improved after placement of rectal tube , had multiple loose BM with improvement of abdominal distention , discomfort GI following , started on Clears , Tube feeding started no plan for Colonoscopy Surgery consulted -appreciate input -conservative management ALTERED MENTAL STATUS resolved due to sepsis /dehydration -mental status improved to baseline line Possible metabolic encephalopathy due to infection/ sepsis; /infected Facial ulcer CT head- no acute findings POSSIBLE SEPSIS /SOURCE OF INFECTION INFECTED FACIAL ULCER Presented with hypotension, tachycardia -> improved Vital signs after 250 mL bolus Afebrile; no leukocytosis; lactic acid WNL has facial lesion with purulent drainage; with underlying malignancy Sq cell ca wound culture growing : gram positive cocci -Streptococcus /Corynebacterium MRSA Nasal swab -negative was on Empiric broad spectrum abx coverage with Zosyn and vancomycin to be given with dialysis consulted infectious disease-appreciate input IV Vancomycin D/jody Streptococcus species Penicillin sensitive : transition to PO Augmentin to complete 21 day course. blood cultures negative. continue local wound care. 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 Tse S/p resection in 04/[address] Evans S/p radiation in January 2015 Developed left neck mass FNA revealed metastatic SCC Completed second round of radiation June 2016 [facility] plan is for PET scan October 10 2016 As per oncology note 08/21/16 skin lesion looks concerning for metastasis; if confirmed, checkpoint inhibitor therapy is the one tx that may be considered in this patient Consult oncology ESRD ON DIALYSIS Dialyzes on MWF Follows with Dr. Hartmann Consult nephrology -appreciate input got scheduled dialysis yesterday HYPOTHYROIDISM TSH elevated to 60 Levothyroxine recently increased from 25 -> 50 mcg daily on 09/19/16 increase Levothyroxine to 75 mcg /Free T4 -remains low Recheck TSH as outpatient in around 10/31/16 DM TYPE 2 Diet controlled Monitor BSG ACHS Insulin sliding scale coverage pharmacy consulted for glycemic control HISTORY OF CVA hold aspirin for NPO bowel obstruction CAD Stable; hold all meds for NPO bowel obstruction DEPRESSION hold all meds for NPO bowel obstruction BPH hold all meds for NPO bowel obstruction DVT PROPHYLAXIS SCD's DISPOSITION will need rehab PT/OT eval requested referral placed for [facility] plan to transfer to [facility] as medically stable /Ileus resolves Social service following for discharge planning daughter in Law updated at bedside Vital Signs: Date Time Temp Pulse Resp B/P Pulse Ox O2 Delivery O2 Flow Rate FiO2 10/08/16 18:55 37.1 73 131/76 10/08/16 18:30 82 109/61 10/08/16 18:15 83 122/73 10/08/16 18:00 78 115/66 10/08/16 17:45 75 107/64 10/08/16 17:30 82 92/54 10/08/16 17:15 81 118/62 10/08/16 17:00 81 99/62 10/08/16 16:45 83 127/65 10/08/16 16:30 65 122/64 10/08/16 16:15 92 105/65 10/08/16 16:00 77 126/60 10/08/16 15:45 83 121/77 10/08/16 15:33 69 123/64 10/08/16 15:30 Room Air 10/08/16 15:15 37.3 84 114/67 10/08/16 14:58 36.6 74 20 119/66 96 Room Air 10/08/16 14:20 86 10/08/16 08:30 96 Room Air 10/08/16 06:42 36.4 80 20 96/53 96 Room Air 10/08/16 00:00 Room Air 10/07/16 23:38 36.4 93 18 101/58 97 Room Air Lab Results: Results Past 24 Hours Test 10/08/16 01:59 10/08/16 05:26 10/08/16 07:43 10/08/16 11:28 Range/Units Bedside Glucose 130 160 171 70-99 mg/dl White Blood Count 5.94 4.8-10.8 K/uL Red Blood Count 2.19 4.7-6.1 M/uL Hemoglobin 7.3 14.0-18.0 g/dL Hematocrit 21.6 42-52 % Mean Corpuscular Volume 98.6 80-100 fL Mean Corpuscular Hemoglobin 33.3 25-34 pg Mean Corpuscular Hemoglobin Concent 33.8 32-36 g/dl RDW Standard Deviation 52.4 36.4-46.3 fL RDW Coefficient of Variation 14.5 11.5-14.5 % Platelet Count 151 130-400 K/uL Mean Platelet Volume 9.2 7.4-10.4 fL Sodium Level 137 136-145 mmol/L Potassium Level 3.4 3.5-5.1 mmol/L Chloride Level 100 98-107 mmol/L Carbon Dioxide Level 27 21-32 mmol/L Anion Gap 10.0 3-11 mmol/L Blood Urea Nitrogen 54 7-18 mg/dl Creatinine 2.30 0.60-1.40 mg/dl Est Creatinine Clear Calc Drug Dose 24.4 ml/min Estimated GFR () 29.8 Estimated GFR (Non- 25.7 BUN/Creatinine Ratio 23.6 10-20 Random Glucose 156 70-99 mg/dl Calcium Level 8.3 8.5-10.1 mg/dl Magnesium Level 2.3 1.8-2.4 mg/dl Test 10/08/16 19:57 Range/Units Bedside Glucose 148 70-99 mg/dl
[2016-10-07] MEDS: BISACODYL 5 MG TABEC PO SCH (19:57)
[2016-10-07 23:38] VITALS: BP 101/58; PULSE 93; TEMP 36.4; O2SAT 97
[2016-10-08] VITALS (21 sets, daily range): BP systolic 92–131; BP diastolic 53–77; PULSE 65–92; TEMP 36.4–37.3; O2SAT 96–98
[2016-10-08] MEDS: TUBE FEEDING WATER FLUSH PEG SCH ×4 (01:58→20:31)
[2016-10-08] MEDS: NOVASOURCE RENAL 1000ML BAG PEG SCH ×3 (01:58→23:28)
[2016-10-08 05:55] LABS: HEMATOCRIT 21.6 % (42-52); MEAN CELL VOLUME 98.6 fL (80-100); MEAN CORPUSCULAR HEMOGLOBIN 33.3 pg (25-34); MEAN CORPUSCULAR HGB CONC 33.8 g/dl (32-36); MEAN PLATELET VOLUME 9.2 fL (7.4-10.4); PLATELET COUNT 151 K/uL (130-400); RED BLOOD COUNT 2.19 M/uL (4.7-6.1); WHITE BLOOD COUNT 5.94 K/uL (4.8-10.8)
[2016-10-08] MEDS: HEPARIN SOD 5000 UNIT/0.5 ML CARP SQ SCH ×3 (06:07→22:10)
[2016-10-08 06:23] LABS: BUN/CREATININE RATIO 23.6 (10-20); CALCIUM 8.3 mg/dl (8.5-10.1); CREATININE 2.3 mg/dl (0.60-1.40); MAGNESIUM 2.3 mg/dl (1.8-2.4); POTASSIUM 3.4 mmol/L (3.5-5.1)
--- NOTE | 2016-10-08 07:54 | DIAGNOSTIC IMAGING REPORT ---
KUB CLINICAL HISTORY: look for evidence of worsening ileus, measure cecal diameter COMPARISON STUDY: 10/06/2016 FINDINGS: Improving ileus. Cecal diameter 4 cm. Persistent air-filled small bowel. IMPRESSION: Nonobstructive bowel pattern. Mild generalized ileus improved from the prior exam. Cecal diameter 4 cm. Electronically signed by: Maksim Duenas M.D. 10/08/2016 7:52 AM Dictated Date/Time: 10/08/2016 7:50 AM
[2016-10-08] MEDS: ERYTHROMYCIN ETHYLSUCC SUSP 200 MG/5 ML 100 ML BTL PEG SCH ×4 (08:22→20:30)
[2016-10-08] MEDS: INSULIN ASPART 100 UNITS/ML 3 ML PEN SC SCH ×4 (08:25→20:30)
--- NOTE | 2016-10-08 10:02 | Nephrology Progress Note ---
Nephrology Progress Note Date of Service: Oct 08, 2016. Subjective no complaints of musculoskeletal or abdominal pain or dypsnea, taking liquids/ po though limited amount. voided 300 mL yesterday. Objective Date Time Temp Pulse Resp B/P Pulse Ox O2 Delivery O2 Flow Rate FiO2 10/08/16 08:30 96 Room Air 10/08/16 06:42 36.4 80 20 96/53 96 Room Air 10/08/16 00:00 Room Air 10/07/16 23:38 36.4 93 18 101/58 97 Room Air 10/07/16 16:00 97 Room Air 10/07/16 15:11 37.2 84 18 106/52 97 Room Air Physical Exam: General-aaox3, sitting up on RA Eyes-no scleral icterus ENT-left facial/jaw wound-covered, [place] Neck-supple Lungs-clear/diminished Heart-2/6 systolic murmur, regular Abdomen-bs+, soft, +peg Extremities-no c/c/e Neuro-vinson, fluent but slightly delayed speech Current Inpatient Medications Medications (Trade) Dose Ordered Sig/Aj Route Start Time Stop Time Status Last Admin Dose Admin Ondansetron HCl (Zofran Inj) 4 mg Q6H PRN IV 10/02/16 13:00 11/01/16 12:59 10/04/16 07:59 4 MG Lidocaine/ Prilocaine (Emla 2.5% Crm) 1 ea UD EXT 10/02/16 13:00 11/01/16 12:59 Glucose (Glucose 40% Gel) 15-30 GRAMS 15 GRAMS... UD PRN PO 10/02/16 13:00 11/01/16 12:59 Glucose (Glucose Chew Tab) 4-8 Tablets 4 Tabl... UD PRN PO 10/02/16 13:00 11/01/16 12:59 Dextrose (Dextrose 50% 50ML Syringe) 25-50ML OF 50% DW IV FOR... UD PRN IV 10/02/16 13:00 11/01/16 12:59 Glucagon (Glucagon Inj) 1 mg UD PRN SQ 10/02/16 13:00 11/01/16 12:59 Heparin Sodium (Porcine) (Heparin Sq 5000 Unit/0.5ml) 5,000 unit Q8 SQ 10/03/16 06:00 11/02/16 05:59 3/13/17 06:07 5,000 UNIT Enteral Nutritional Formula (Novasource Renal) 275 ml DAILY@0200,1800,2200 PEG 10/03/16 18:00 11/02/16 17:59 10/08/16 01:58 275 ML Sterile Water (Tube Feeding Water Flush) 1 ea 0200,0300,1800,1900 PEG 10/03/16 18:00 11/02/16 17:59 10/08/16 03:15 1 EA Erythromycin Ethylsuccinate (Ees Susp) 250 mg QID PEG 10/04/16 17:00 10/14/16 16:59 10/08/16 08:22 250 MG Multi-Ingredient Ointment (Eucerin Unscented Cr) 1 appln BID PRN EXT 10/04/16 13:15 11/03/16 13:14 Morphine Sulfate (MoRPHine SULFATE INJ) 1 mg Q4 PRN IV 10/04/16 18:30 10/18/16 18:29 10/07/16 18:17 1 MG Fluconazole (Diflucan Tab) 100 mg MoWeFr@1800 PO 10/05/16 18:00 10/15/16 17:59 Fluconazole (Diflucan Tab) 50 mg SuTuThSa@0900 PO 10/06/16 09:00 10/16/16 08:59 10/07/16 08:00 50 MG Amoxicillin/ Clavulanate Potassium (Augmentin Tab) 500 mg Q24H PO 10/07/16 18:00 10/27/16 18:01 10/07/16 18:02 500 MG Bisacodyl (Dulcolax Tab) 5 mg BID PO 10/07/16 20:00 11/06/16 19:59 10/07/16 19:57 5 MG Insulin Aspart (novoLOG ASPART) SLIDING SCALE If C... ACHS SC 10/07/16 21:00 11/06/16 20:59 10/07/16 21:49 1 UNITS Last 24 Hours Test 10/07/16 11:35 10/07/16 16:22 10/07/16 20:15 10/08/16 01:59 Bedside Glucose 145 mg/dl 116 mg/dl 182 mg/dl 130 mg/dl Test 10/08/16 05:26 10/08/16 07:43 White Blood Count 5.94 K/uL Red Blood Count 2.19 M/uL Hemoglobin 7.3 g/dL Hematocrit 21.6 % Mean Corpuscular Volume 98.6 fL Mean Corpuscular Hemoglobin 33.3 pg Mean Corpuscular Hemoglobin Concent 33.8 g/dl RDW Standard Deviation 52.4 fL RDW Coefficient of Variation 14.5 % Platelet Count 151 K/uL Mean Platelet Volume 9.2 fL Sodium Level 137 mmol/L Potassium Level 3.4 mmol/L Chloride Level 100 mmol/L Carbon Dioxide Level 27 mmol/L Anion Gap 10.0 mmol/L Blood Urea Nitrogen 54 mg/dl Creatinine 2.30 mg/dl Est Creatinine Clear Calc Drug Dose 24.4 ml/min Estimated GFR () 29.8 Estimated GFR (Non- 25.7 BUN/Creatinine Ratio 23.6 Random Glucose 156 mg/dl Calcium Level 8.3 mg/dl Magnesium Level 2.3 mg/dl Bedside Glucose 160 mg/dl Assessment & Plan 81 yo male with esrd who was admitted with confusion, found to have uti and then discovered to have colonic distention requiring a rectal tube. usually m-w -f as outpt. no abdominal pain. confusion resolved. ESRD-for dialysis again today on a 4k bath with k chronically below 4. volume status appropriate. plan on one liter off as bp tolerates. Hypokalemia-likely losing it from GI sources. will do him on a 4k bath. k 3.4 today. Anemia of renal failure-pts hg levels are trending down. no procrit given his head and neck cancer. blood transfusions prn >> may need one soon; recommend transfusion between 7-7.5 hgb Appreciate consult; will follow with you.
[2016-10-08] MEDS: BISACODYL 5 MG TABEC PO SCH ×2 (12:07→20:30)
--- NOTE | 2016-10-08 12:25 | Progress Note ---
Progress Note Date of Service Oct 08, 2016. Progress Note Pt without complaints. He is tacos his current diet. His rectal tube is not draining, despite flushing, and he is having small vol liquid BM's. On exam, His abd is mod distended and tympanic, but non tender. It is mildly more distended than yesterday, Imaging reviewed - Cecal diameter is reported as 4 cm, but pt apperas to have diffuse dilation of sb loops. A/P: Pseudo-obstruction - He appears to be at his presumed baseline. Would cont current diet. Will titrate laxatives and d/c rectal tube. Please complete 7 d course of emycin, and then d/c..
[2016-10-08] MEDS: FLUCONAZOLE 100 MG TAB PO SCH (18:00)
[2016-10-08] MEDS: AMOXICILLIN/CLAVULANATE TAB 500 MG TAB PO SCH (18:00)
--- NOTE | 2016-10-08 20:27 | Hematology/Oncology Prog Note ---
Hematology/Onc Progress Note Date of Service Oct 08, 2016. Diagnoses 1. 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 AMS 3. Anemia of multiple mechanisms 4. Colonic distension- recurrent Subjective Mr. Varela was seen today in his hospital room. He reports feeling overall fair. He states his rectal tube has been removed today. He reports a good appetite and has not had nausea, vomiting, abdominal pain. He denies cough or dyspnea. He states his left role as intermittently sore. Patient was easily confused during questioning, so full ROS not obtained. Vital Signs Vital Signs Past 12 Hours Date Time Temp Pulse Resp B/P Pulse Ox O2 Delivery O2 Flow Rate FiO2 10/08/16 18:55 37.1 73 131/76 10/08/16 18:30 82 109/61 10/08/16 18:15 83 122/73 10/08/16 18:00 78 115/66 10/08/16 17:45 75 107/64 10/08/16 17:30 82 92/54 10/08/16 17:15 81 118/62 10/08/16 17:00 81 99/62 10/08/16 16:45 83 127/65 10/08/16 16:30 65 122/64 10/08/16 16:15 92 105/65 10/08/16 16:00 77 126/60 10/08/16 15:45 83 121/77 10/08/16 15:33 69 123/64 10/08/16 15:30 Room Air 10/08/16 15:15 37.3 84 114/67 10/08/16 14:58 36.6 74 20 119/66 96 Room Air 10/08/16 14:20 86 10/08/16 08:30 96 Room Air Physical Exam Head: normocephalic, atraumatic ENMT: pertinent finding (bandage covering left anterolateral mandible. ) Lungs: Respiratory Effort: no dyspnea Auscuitation: no wheezing, no rhonchi Cardiovascular: Heart Auscultation: RRR Abdomen: Bowel Sounds: normal Inspection & Palpation: no tenderness, guarding & rebound Laboratory 10/06/16 05:36 10/07/16 04:50 10/08/16 05:26 10/06/16 05:36 10/07/16 04:50 10/08/16 05:26 Test 10/06/16 05:36 10/06/16 06:16 10/06/16 07:35 10/06/16 11:20 Red Blood Count 2.50 M/uL (4.7-6.1) Mean Corpuscular Volume 97.6 fL (80-100) Mean Corpuscular Hemoglobin 33.2 pg (25-34) Mean Corpuscular Hemoglobin Concent 34.0 g/dl (32-36) RDW Standard Deviation 52.0 fL (36.4-46.3) RDW Coefficient of Variation 14.6 % (11.5-14.5) Mean Platelet Volume 9.6 fL (7.4-10.4) Anion Gap 11.0 mmol/L (3-11) Est Creatinine Clear Calc Drug Dose 29.5 ml/min Estimated GFR () 37.5 Estimated GFR (Non- 32.3 BUN/Creatinine Ratio 15.5 (10-20) Calcium Level 8.7 mg/dl (8.5-10.1) Magnesium Level 2.2 mg/dl (1.8-2.4) Bedside Glucose 121 mg/dl (70-99) 118 mg/dl (70-99) 131 mg/dl (70-99) Test 10/06/16 16:28 10/06/16 20:05 10/06/16 23:39 10/07/16 04:50 Bedside Glucose 109 mg/dl (70-99) 158 mg/dl (70-99) 133 mg/dl (70-99) Red Blood Count 2.31 M/uL (4.7-6.1) Mean Corpuscular Volume 98.3 fL (80-100) Mean Corpuscular Hemoglobin 33.3 pg (25-34) Mean Corpuscular Hemoglobin Concent 33.9 g/dl (32-36) RDW Standard Deviation 52.3 fL (36.4-46.3) RDW Coefficient of Variation 14.4 % (11.5-14.5) Mean Platelet Volume 9.7 fL (7.4-10.4) Anion Gap 13.0 mmol/L (3-11) Est Creatinine Clear Calc Drug Dose 23.4 ml/min Estimated GFR () 28.3 Estimated GFR (Non- 24.4 BUN/Creatinine Ratio 19.7 (10-20) Calcium Level 8.4 mg/dl (8.5-10.1) Magnesium Level 2.2 mg/dl (1.8-2.4) Random Vancomycin Level 13.3 mcg/ml Test 10/07/16 05:43 10/07/16 07:38 10/07/16 11:35 10/07/16 16:22 Bedside Glucose 197 mg/dl (70-99) 157 mg/dl (70-99) 145 mg/dl (70-99) 116 mg/dl (70-99) Test 10/07/16 20:15 10/08/16 01:59 10/08/16 05:26 10/08/16 07:43 Bedside Glucose 182 mg/dl (70-99) 130 mg/dl (70-99) 160 mg/dl (70-99) Red Blood Count 2.19 M/uL (4.7-6.1) Mean Corpuscular Volume 98.6 fL (80-100) Mean Corpuscular Hemoglobin 33.3 pg (25-34) Mean Corpuscular Hemoglobin Concent 33.8 g/dl (32-36) RDW Standard Deviation 52.4 fL (36.4-46.3) RDW Coefficient of Variation 14.5 % (11.5-14.5) Mean Platelet Volume 9.2 fL (7.4-10.4) Anion Gap 10.0 mmol/L (3-11) Est Creatinine Clear Calc Drug Dose 24.4 ml/min Estimated GFR () 29.8 Estimated GFR (Non- 25.7 BUN/Creatinine Ratio 23.6 (10-20) Calcium Level 8.3 mg/dl (8.5-10.1) Magnesium Level 2.3 mg/dl (1.8-2.4) Test 10/08/16 11:28 10/08/16 19:57 Bedside Glucose 171 mg/dl (70-99) 148 mg/dl (70-99) Radiology KUB from 10/06/2016: Slightly diminished colonic distention. No evidence of bowel obstruction. KUB from 10/08/2016: Improving ileus with cecal diameter 4 cm. Persistent air- filled small-bowel. Assessment & Plan (1) Squamous cell cancer of buccal mucosa Assessment & Plan: Patient is s/p definitive RT, salvage surgery after local recurrence shortly after RT in 2014; he then recurred in left cervical LN and received palliative RT, completed in 06/2016. Restaging evaluation was planned for later this month through [facility] [place] and if restaging CT neck and PET/CT revealed residual neoplastic disease, Dr. Tse of [facility] was going to consider patient for palliative checkpoint inhibitor therapy (as patient has poor performance status and tolerance of other agents is of concern). CT of the neck without contrast (in light of his ESRD, on HD) to restage local disease was obtained 10/03/16- no definitive evidence of metastatic disease to cervical LNS, appears to have involvement of subcutaneous tissues of jaw and possibly parapharyngeal space (vs post-tx effect?). Mediastinal LNs indeterminate. PET CT can be obtained after discharge (already scheduled for ) to further characterize these findings. CT of abd/pelvis obtained for constipation- no abdominal/pelvic involvement with carcinoma by these scans. Further treatment of his recurrent SCC of buccal mucosa will be deferred to outpatient setting, depending on PS. Patient should have an appointment made with his primary managing oncologist at [facility] upon discharge, Dr. Tse. (2) Secondary malignant neoplasm of lymph nodes of neck Assessment & Plan: See #1. (3) Anemia due to multiple mechanisms Assessment & Plan: Patient likely has anemia from multiple mechanisms. He has end-stage renal disease for which he is on hemodialysis. Nephrology not administering Procrit, will be supported by blood transfusion as necessary. Recommend to transfuse PRBC if hemoglobin< 8 g/dL or patient is symptomatic of cardiopulmonary symptoms due to anemia. He also likely has a component of anemia of inflammation / chronic disease, with type 2 diabetes and malignancy. Iron panel, ferritin, vitamin B12, folate and reticulocyte panel- no deficiencies identified. #4. Colonic distension- management per GI. No colonoscopy to decompress. Colonoscopy in 04/13 did not reveal suspicious findings. Rectal tube was removed today.
--- NOTE | 2016-10-08 20:33 | Progress Note ---
Internal Med Progress Note Date of Service: Oct 08, 2016. Provider Documentation: SUBJECTIVE: rectal tube D/jody today feels much better tolerating TF to goal having liquid bowel movement OBJECTIVE: Vital Signs-as noted below Exam: General-no sign of distress , elderly male , appears to be in stable state of mind , answering questions appropriately Eyes-sclera non icteric ENT-ulcer on left face /dressing present , no drainage-noted Lungs-CTA Heart-regular Abdomen-soft, improved distention , PEG tube present , Extremities-no lower ext edema Neuro-no focal deficit , Lab data as noted below. ASSESSMENT & PLAN: ABDOMINAL DISTENTION /COLONIC DILATATION : possible Pseudo obstruction due to Ileus improved after placement of rectal tube , had multiple loose BM with improvement of abdominal distention , discomfort rectal tube D/jody TF restarted Erythromycin to be continued for total 7 days GI following , started on Clears , Tube feeding started no plan for Colonoscopy Surgery consulted -appreciate input -conservative management ALTERED MENTAL STATUS resolved due to sepsis /dehydration -mental status improved to baseline line Possible metabolic encephalopathy due to infection/ sepsis; /infected Facial ulcer CT head- no acute findings POSSIBLE SEPSIS /SOURCE OF INFECTION INFECTED FACIAL ULCER Presented with hypotension, tachycardia -> improved Vital signs after 250 mL bolus Afebrile; no leukocytosis; lactic acid WNL has facial lesion with purulent drainage; with underlying malignancy Sq cell ca wound culture growing : gram positive cocci -Streptococcus /Corynebacterium MRSA Nasal swab -negative was on Empiric broad spectrum abx coverage with Zosyn and vancomycin to be given with dialysis consulted infectious disease-appreciate input IV Vancomycin D/jody Streptococcus species Penicillin sensitive : transition to PO Augmentin to complete 21 day course. blood cultures negative. continue local wound care. UTI: urine culture gram + ve cocci /Paola cont Diflucan -needs 7 days tx Pharmacy following for renal dosing ID following CHRONIC ANEMIA/AOCD due to end stage renal disease Hg is 7.7; baseline varies 8-10s; required prior transfusions with dialysis Procrit contraindicated due to malignancy LOW k ; corrected RECURRENT LEFT BUCCAL MUCOSA Sq cell CA hold PEG tube feeding for bowel obstruction [place] [facility] [place]onc Dr. Tse S/p resection in 04/[address] Evans S/p radiation in January 2015 Developed left neck mass FNA revealed metastatic SCC Completed second round of radiation June 2016 [facility] plan is for PET scan October 10 2016 As per oncology note 1/24/17 skin lesion looks concerning for metastasis; if confirmed, checkpoint inhibitor therapy is the one tx that may be considered in this patient Consult oncology ESRD ON DIALYSIS Dialyzes on MWF Follows with Dr. Hartmann Consult nephrology -appreciate input got scheduled dialysis yesterday HYPOTHYROIDISM TSH elevated to 60 Levothyroxine recently increased from 25 -> 50 mcg daily on 09/19/16 increase Levothyroxine to 75 mcg /Free T4 -remains low Recheck TSH as outpatient in around 10/31/16 DM TYPE 2 Diet controlled Monitor BSG ACHS Insulin sliding scale coverage pharmacy consulted for glycemic control HISTORY OF CVA hold aspirin for NPO bowel obstruction CAD Stable; hold all meds for NPO bowel obstruction DEPRESSION hold all meds for NPO bowel obstruction BPH hold all meds for NPO bowel obstruction DVT PROPHYLAXIS SCD's DISPOSITION will need rehab PT/OT eval requested referral placed for [facility] plan to transfer to [facility] as medically stable /Ileus resolves Social service following for discharge planning Vital Signs: Date Time Temp Pulse Resp B/P Pulse Ox O2 Delivery O2 Flow Rate FiO2 10/08/16 18:55 37.1 73 131/76 10/08/16 18:30 82 109/61 10/08/16 18:15 83 122/73 10/08/16 18:00 78 115/66 10/08/16 17:45 75 107/64 10/08/16 17:30 82 92/54 10/08/16 17:15 81 118/62 10/08/16 17:00 81 99/62 10/08/16 16:45 83 127/65 10/08/16 16:30 65 122/64 10/08/16 16:15 92 105/65 10/08/16 16:00 77 126/60 10/08/16 15:45 83 121/77 10/08/16 15:33 69 123/64 10/08/16 15:30 Room Air 10/08/16 15:15 37.3 84 114/67 10/08/16 14:58 36.6 74 20 119/66 96 Room Air 10/08/16 14:20 86 10/08/16 08:30 96 Room Air 10/08/16 06:42 36.4 80 20 96/53 96 Room Air 10/08/16 00:00 Room Air 10/07/16 23:38 36.4 93 18 101/58 97 Room Air Lab Results: Results Past 24 Hours Test 10/08/16 01:59 10/08/16 05:26 10/08/16 07:43 10/08/16 11:28 Range/Units Bedside Glucose 130 160 171 70-99 mg/dl White Blood Count 5.94 4.8-10.8 K/uL Red Blood Count 2.19 4.7-6.1 M/uL Hemoglobin 7.3 14.0-18.0 g/dL Hematocrit 21.6 42-52 % Mean Corpuscular Volume 98.6 80-100 fL Mean Corpuscular Hemoglobin 33.3 25-34 pg Mean Corpuscular Hemoglobin Concent 33.8 32-36 g/dl RDW Standard Deviation 52.4 36.4-46.3 fL RDW Coefficient of Variation 14.5 11.5-14.5 % Platelet Count 151 130-400 K/uL Mean Platelet Volume 9.2 7.4-10.4 fL Sodium Level 137 136-145 mmol/L Potassium Level 3.4 3.5-5.1 mmol/L Chloride Level 100 98-107 mmol/L Carbon Dioxide Level 27 21-32 mmol/L Anion Gap 10.0 3-11 mmol/L Blood Urea Nitrogen 54 7-18 mg/dl Creatinine 2.30 0.60-1.40 mg/dl Est Creatinine Clear Calc Drug Dose 24.4 ml/min Estimated GFR () 29.8 Estimated GFR (Non- 25.7 BUN/Creatinine Ratio 23.6 10-20 Random Glucose 156 70-99 mg/dl Calcium Level 8.3 8.5-10.1 mg/dl Magnesium Level 2.3 1.8-2.4 mg/dl Test 10/08/16 19:57 Range/Units Bedside Glucose 148 70-99 mg/dl
[2016-10-08] MEDS ORDERED: [UNRECOGNIZED DRUG - CODE] PEG (20:34)
[2016-10-09 00:21] VITALS: O2SAT 96
[2016-10-09] MEDS: TUBE FEEDING WATER FLUSH PEG SCH ×4 (01:56→17:58)
[2016-10-09] MEDS: NOVASOURCE RENAL 1000ML BAG PEG SCH ×3 (01:57→22:49)
[2016-10-09] MEDS: HEPARIN SOD 5000 UNIT/0.5 ML CARP SQ SCH ×3 (05:40→22:27)
[2016-10-09] MEDS: LEVOTHYROXINE 75 MCG TAB NG SCH (05:48)
[2016-10-09 05:49] LABS: CREATININE 1.6 mg/dl (0.60-1.40)
[2016-10-09] MEDS: INSULIN ASPART 100 UNITS/ML 3 ML PEN SC SCH ×4 (06:30→20:38)
[2016-10-09 07:26] VITALS: BP 117/65; PULSE 62; TEMP 36.5; O2SAT 96
--- NOTE | 2016-10-09 07:35 | SURGERY PROGRESS NOTE ---
DATE: 10/09/2016 David is resting comfortably. He is having no issues. He is tolerating a diet. His last vitals showed a temperature of 36.5, pulse 62, respirations 16, blood pressure 117/65, O2 sats 96 on room air. He has been moving his bowels. His abdomen is completely benign. The PEG tube site is free of any inflammation. Last labs yesterday showed hemoglobin is stable at 7.3. At this point I have nothing further to add. We will sign off. If there is any more issues please reconsult us.
[2016-10-09] MEDS: BISACODYL 5 MG TABEC PO SCH ×2 (08:00→20:31)
[2016-10-09] MEDS: BISACODYL 10 MG SUPP PR SCH (08:00)
[2016-10-09] MEDS: FLUCONAZOLE 50 MG TAB PO SCH (08:23)
[2016-10-09] MEDS: ERYTHROMYCIN ETHYLSUCC SUSP 200 MG/5 ML 100 ML BTL PEG SCH ×4 (08:23→20:32)
[2016-10-09 09:07] LABS: HEPATITIS B AB NEG
--- NOTE | 2016-10-09 10:56 | Progress Note ---
Progress Note Date of Service Oct 09, 2016. 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 Rectal tube placed last , pt able to avoid colonoscopy for colonic decompression. His rectal tube was removed on Saturday. He's having bowel movements. Tolerating TF via PEG. Abd today soft, non tender, BS present. He's denying any abd pain, nausea, vomiting. VS stable. KUB yesterday showed cecum 4cm. - Continue Erythromycin 250mg QID via PEG - GI will sign off; call if new questions or concerns.
[2016-10-09 15:15] VITALS: BP 105/52; PULSE 73; TEMP 36.9; O2SAT 98
--- NOTE | 2016-10-09 17:35 | Progress Note ---
Internal Med Progress Note Date of Service: Oct 09, 2016. Provider Documentation: SUBJECTIVE: resting comfortably tolerating tube feeds says has some discomfort on left cheek at his cancer site afebrile says ambulated fine with PT OBJECTIVE: Vital Signs-as noted below Exam: General-alert and oriented. Not in distress HEENT- lesion on left cheek. Has bandage Neck-no neck masses Lungs-cta b/l no wheezing no crackles Heart-s1 and s2 heard, regular rate and rhythm no murmurs Abdomen-soft bowel sounds present non tender no distension Extremities-no edema no erythema Neuro-alert and awake moves extremities Lab data as noted below. ASSESSMENT & PLAN: ABDOMINAL DISTENTION /COLONIC DILATATION : most likely Pseudo obstruction due to Ileus improvement after placement of rectal tube rectal tube D/jody TF restarted and tolerating ok Erythromycin to be continued for total 7 days GI following signed off started on Clears , Tube feeding started Surgery consulted -appreciate input -signed off. ALTERED MENTAL STATUS resolved due to sepsis /dehydration CT head- no acute findings POSSIBLE SEPSIS /SOURCE OF INFECTION INFECTED FACIAL ULCER Presented with hypotension, tachycardia -> improved Vital signs after 250 mL bolus has facial lesion with purulent drainage; with underlying malignancy Sq cell ca wound culture growing : gram positive cocci -Streptococcus /Corynebacterium MRSA Nasal swab -negative was on Empiric broad spectrum abx coverage with Zosyn and vancomycin to be given with dialysis consulted infectious disease IV Vancomycin D/jody transition to PO Augmentin to complete 21 day course. To continue local wound care. UTI: urine culture gram + ve cocci /Paola cont Diflucan for 7 days tx Pharmacy following for renal dosing ID following CHRONIC ANEMIA/AOCD due to end stage renal disease Hg is 7.7; baseline varies 8-10s; required prior transfusions with dialysis Procrit contraindicated due to malignancy may need prbc transfusion during dialysis appreciate nephrology inputs LOW k ; corrected RECURRENT LEFT BUCCAL MUCOSA Sq cell CA As per : [place] [facility] [place] Dr. Tse S/p resection in 04/[address] Evans S/p radiation in January 2015 Developed left neck mass FNA revealed metastatic SCC Completed second round of radiation June 2016 [facility] states plan is for PET scan October 10 2016 As per oncology note 08/21/16 skin lesion looks concerning for metastasis; if confirmed, checkpoint inhibitor therapy is the one tx that may be considered in this patient Consulted oncology ESRD ON DIALYSIS Dialyzes on MWF Follows with Dr. Hartmann HYPOTHYROIDISM TSH elevated to 60 Levothyroxine recently increased from 25 -> 50 mcg daily on 09/19/16 increase Levothyroxine to 75 mcg /Free T4 -remains low Recheck TSH as outpatient in 4-6 weeks DM TYPE 2 Diet controlled Monitor BSG ACHS Insulin sliding scale coverage hba1c 6.6 pharmacy consulted for glycemic control HISTORY OF CVA will restart aspirin which was held while npo for colon obstruction CAD Stable; restart po meds DEPRESSION stable BPH stable DVT PROPHYLAXIS SCD's DISPOSITION plan for [facility] following for discharge planning Vital Signs: Date Time Temp Pulse Resp B/P Pulse Ox O2 Delivery O2 Flow Rate FiO2 10/09/16 16:00 Room Air 10/09/16 15:15 36.9 73 16 105/52 98 Room Air 10/09/16 08:00 Room Air 10/09/16 07:26 36.5 62 16 117/65 96 Room Air 10/09/16 00:21 96 Room Air 10/08/16 23:25 37.1 84 18 103/64 98 Room Air 10/08/16 20:30 96 Room Air 10/08/16 18:55 37.1 73 131/76 10/08/16 18:30 82 109/61 10/08/16 18:15 83 122/73 10/08/16 18:00 78 115/66 10/08/16 17:45 75 107/64 10/08/16 17:30 82 92/54 Lab Results: Results Past 24 Hours Test 10/08/16 19:57 10/09/16 05:12 10/09/16 07:13 10/09/16 11:41 Range/Units Bedside Glucose 148 139 151 70-99 mg/dl Creatinine 1.60 0.60-1.40 mg/dl Est Creatinine Clear Calc Drug Dose 35.0 ml/min Estimated GFR () 46.1 Estimated GFR (Non- 39.8 Hepatitis B Surface Antigen NEG NEG Hepatitis B Surface Antibody NEG Test 10/09/16 16:34 Range/Units Bedside Glucose 113 70-99 mg/dl
[2016-10-09] MEDS: AMOXICILLIN/CLAVULANATE TAB 500 MG TAB PO SCH (17:45)
[2016-10-09] MEDS: GABAPENTIN 100 MG CAP PO SCH (20:31)
[2016-10-09] MEDS: TAMSULOSIN HCL 0.4 MG CAP PO SCH (20:32)
[2016-10-09 23:51] VITALS: BP 101/55; PULSE 86; TEMP 37; O2SAT 98
[2016-10-10] VITALS (20 sets, daily range): BP systolic 97–130; BP diastolic 41–80; PULSE 60–86; TEMP 36.5–37.1; O2SAT 96–99
[2016-10-10] MEDS: TUBE FEEDING WATER FLUSH PEG SCH ×4 (02:07→18:32)
[2016-10-10] MEDS: NOVASOURCE RENAL 1000ML BAG PEG SCH ×3 (02:07→22:05)
[2016-10-10 06:13] LABS: HEMATOCRIT 23.1 % (42-52)
[2016-10-10] MEDS: HEPARIN SOD 5000 UNIT/0.5 ML CARP SQ SCH ×3 (06:20→20:20)
[2016-10-10] MEDS: INSULIN ASPART 100 UNITS/ML 3 ML PEN SC SCH ×4 (06:30→20:20)
[2016-10-10 06:33] LABS: BUN/CREATININE RATIO 22.7 (10-20); CALCIUM 8.8 mg/dl (8.5-10.1); CREATININE 1.9 mg/dl (0.60-1.40); POTASSIUM 3.2 mmol/L (3.5-5.1)
[2016-10-10] MEDS: LEVOTHYROXINE 75 MCG TAB NG SCH (06:45)
[2016-10-10] MEDS ORDERED: HEPARIN SOD (PORCINE) 1000 UNIT/ML 10 ML VIAL IV SCH ×2 (08:00)
[2016-10-10] MEDS: ERYTHROMYCIN ETHYLSUCC SUSP 200 MG/5 ML 100 ML BTL PEG SCH ×4 (08:00→20:20)
[2016-10-10] MEDS: MoRPHine SULFATE 2 MG/ML CARP IV PRN (08:45)
--- NOTE | 2016-10-10 09:03 | Dialysis Progress Note ---
Nephrology Dialysis Note Date of Service: Oct 10, 2016. Subjective c/o L facial/jaw pain at site of H/Neck cancer. no other complaints of musculoskeletal or abdominal pain or dypsnea, taking liquids/po though limited amount. voided 375 mL yesterday. Objective Date Time Temp Pulse Resp B/P Pulse Ox O2 Delivery O2 Flow Rate FiO2 10/10/16 07:33 37.0 86 20 126/80 99 Room Air 10/10/16 01:08 96 Room Air 10/09/16 23:51 37.0 86 18 101/55 98 Room Air 10/09/16 16:00 Room Air 10/09/16 15:15 36.9 73 16 105/52 98 Room Air Physical Exam: General-aaox3, on RA Eyes-no scleral icterus ENT-left facial/jaw wound-covered, [place] Neck-supple Lungs-clear/diminished Heart-2/6 systolic murmur, regular Abdomen-bs+, soft, +peg Extremities-no c/c/e Neuro-vinson, fluent but slightly delayed speech Current Inpatient Medications Medications (Trade) Dose Ordered Sig/Aj Route Start Time Stop Time Status Last Admin Dose Admin Ondansetron HCl (Zofran Inj) 4 mg Q6H PRN IV 10/02/16 13:00 11/01/16 12:59 10/04/16 07:59 4 MG Lidocaine/ Prilocaine (Emla 2.5% Crm) 1 ea UD EXT 10/02/16 13:00 11/01/16 12:59 Glucose (Glucose 40% Gel) 15-30 GRAMS 15 GRAMS... UD PRN PO 10/02/16 13:00 11/01/16 12:59 Glucose (Glucose Chew Tab) 4-8 Tablets 4 Tabl... UD PRN PO 10/02/16 13:00 11/01/16 12:59 Dextrose (Dextrose 50% 50ML Syringe) 25-50ML OF 50% DW IV FOR... UD PRN IV 10/02/16 13:00 11/01/16 12:59 Glucagon (Glucagon Inj) 1 mg UD PRN SQ 10/02/16 13:00 11/01/16 12:59 Heparin Sodium (Porcine) (Heparin Sq 5000 Unit/0.5ml) 5,000 unit Q8 SQ 10/03/16 06:00 11/02/16 05:59 10/10/16 06:20 5,000 UNIT Enteral Nutritional Formula (Novasource Renal) 275 ml DAILY@0200,1800,2200 PEG 10/03/16 18:00 11/02/16 17:59 10/10/16 02:07 275 ML Sterile Water (Tube Feeding Water Flush) 1 ea 0200,0300,1800,1900 PEG 10/03/16 18:00 11/02/16 17:59 10/10/16 03:10 1 EA Erythromycin Ethylsuccinate (Ees Susp) 250 mg QID PEG 10/04/16 17:00 10/14/16 16:59 10/09/16 20:32 250 MG Multi-Ingredient Ointment (Eucerin Unscented Cr) 1 appln BID PRN EXT 10/04/16 13:15 11/03/16 13:14 Morphine Sulfate (MoRPHine SULFATE INJ) 1 mg Q4 PRN IV 10/04/16 18:30 10/18/16 18:29 10/10/16 08:45 1 MG Fluconazole (Diflucan Tab) 100 mg MoWeFr@1800 PO 10/05/16 18:00 10/15/16 17:59 Fluconazole (Diflucan Tab) 50 mg SuTuThSa@0900 PO 10/06/16 09:00 10/16/16 08:59 10/09/16 08:23 50 MG Amoxicillin/ Clavulanate Potassium (Augmentin Tab) 500 mg Q24H PO 10/07/16 18:00 10/27/16 18:01 10/09/16 17:45 500 MG Bisacodyl (Dulcolax Tab) 5 mg BID PO 10/07/16 20:00 11/06/16 19:59 10/09/16 20:31 5 MG Insulin Aspart (novoLOG ASPART) SLIDING SCALE If C... ACHS SC 10/07/16 21:00 11/06/16 20:59 10/09/16 20:38 1 UNITS Bisacodyl (Dulcolax Supp) 10 mg QAM DE 10/09/16 08:00 11/08/16 07:59 Levothyroxine Sodium (Synthroid Tab) 75 mcg DAILYBB NG 10/09/16 06:30 11/08/16 06:29 10/10/16 06:45 75 MCG Heparin Sodium (Porcine) (Heparin Iv Bolus) 400 unit Q1H IV 10/10/16 08:00 10/10/16 10:01 Aspirin (Ecotrin Tab) 81 mg QAM PO 10/10/16 08:00 11/09/16 07:59 Citalopram Hydrobromide (celeXA TAB) 40 mg QAM PO 10/10/16 08:00 11/09/16 07:59 Tamsulosin HCl (Flomax Cap) 0.4 mg HS PO 10/09/16 21:00 11/08/16 20:59 10/09/16 20:32 0.4 MG Gabapentin (Neurontin Cap) 100 mg HS PO 10/09/16 21:00 11/08/16 20:59 10/09/16 20:31 100 MG Pantoprazole Sodium (Protonix Tab) 40 mg QAM PO 10/10/16 08:00 11/09/16 07:59 Last 24 Hours Test 10/09/16 11:41 10/09/16 16:34 10/09/16 20:29 10/10/16 05:36 Bedside Glucose 151 mg/dl 113 mg/dl 172 mg/dl Hemoglobin 7.7 g/dL Hematocrit 23.1 % Sodium Level 136 mmol/L Potassium Level 3.2 mmol/L Chloride Level 100 mmol/L Carbon Dioxide Level 26 mmol/L Anion Gap 10.0 mmol/L Blood Urea Nitrogen 43 mg/dl Creatinine 1.90 mg/dl Est Creatinine Clear Calc Drug Dose 29.5 ml/min Estimated GFR () 37.5 Estimated GFR (Non- 32.3 BUN/Creatinine Ratio 22.7 Random Glucose 126 mg/dl Calcium Level 8.8 mg/dl Test 10/10/16 07:19 Bedside Glucose 140 mg/dl Assessment & Plan 81 yo male with esrd who was admitted with confusion, found to have uti and then discovered to have colonic distention requiring a rectal tube. usually m-w -f as outpt. no abdominal pain. confusion resolved. ESRD-for dialysis again today on a 4k bath with k chronically below 4. volume status appropriate. plan on one-2 liters off as bp tolerates. Hypokalemia-likely losing it from GI sources. will do him on a 4k bath. k 3.2 today. Anemia of renal failure-pts hg levels are stable in 7s. no procrit given his head and neck cancer. blood transfusions prn >> may need one soon; recommend transfusion between 7-7.5 hgb Appreciate consult; will follow with you.
[2016-10-10] MEDS: BISACODYL 5 MG TABEC PO SCH ×2 (11:47→20:13)
[2016-10-10] MEDS: CITALOPRAM 40 MG TAB PO SCH (11:48)
[2016-10-10] MEDS: ASPIRIN 81 MG ECTAB PO SCH (11:48)
[2016-10-10] MEDS: PANTOprazole SOD 40 MG TAB PO SCH (11:48)
[2016-10-10] MEDS ORDERED: MoRPHine SULFATE 2 MG/ML CARP IV ONE (12:15)
[2016-10-10] MEDS ORDERED: NURSING VERBAL MED ORDER ONE (12:15)
[2016-10-10] MEDS: OXYCODONE HCL IR 5 MG TAB (IMMEDIATE RELEASE) PO PRN (14:55)
[2016-10-10] MEDS: BISACODYL 10 MG SUPP PR SCH (16:30)
--- NOTE | 2016-10-10 17:11 | Progress Note ---
Internal Med Progress Note Date of Service: Oct 10, 2016. Provider Documentation: SUBJECTIVE: complains of pain in his left cheek eating clears no chest pain or sob afebrile OBJECTIVE: Vital Signs-as noted below Exam: General-alert and oriented. Not in distress HEENT- lesion on left cheek. Has bandage Neck-no neck masses Lungs-cta b/l no wheezing no crackles Heart-s1 and s2 heard, regular rate and rhythm no murmurs Abdomen-soft bowel sounds present non tender no distension Extremities-no edema no erythema Neuro-alert and awake moves extremities Lab data as noted below. ASSESSMENT & PLAN: ABDOMINAL DISTENTION /COLONIC DILATATION : most likely Pseudo obstruction due to Ileus improvement after placement of rectal tube rectal tube D/jody TF restarted and tolerating ok Erythromycin to be continued for total 7 days GI following signed off started on Clears , Tube feeding started Surgery consulted -appreciate input -signed off. stable ALTERED MENTAL STATUS resolved due to sepsis /dehydration CT head- no acute findings stable POSSIBLE SEPSIS /SOURCE OF INFECTION INFECTED FACIAL ULCER Presented with hypotension, tachycardia -> improved Vital signs after 250 mL bolus has facial lesion with purulent drainage; with underlying malignancy Sq cell ca wound culture growing : gram positive cocci -Streptococcus /Corynebacterium MRSA Nasal swab -negative was on Empiric broad spectrum abx coverage with Zosyn and vancomycin to be given with dialysis consulted infectious disease IV Vancomycin D/jody transition to PO Augmentin to complete 21 day course. To continue local wound care. 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 Tse S/p resection in 04/[address] Evans S/p radiation in January 2015 Developed left neck mass FNA revealed metastatic SCC Completed second round of radiation June 2016 [facility] states plan is for PET scan October 10 2016 As per oncology note 08/21/16 skin lesion looks concerning for metastasis; if confirmed, checkpoint inhibitor therapy is the one tx that may be considered in this patient Consulted oncology f/u with oncology. 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 Hartmann HYPOTHYROIDISM TSH elevated to 60 Levothyroxine recently increased from 25 -> 50 mcg daily on 09/19/16 increase Levothyroxine to 75 mcg /Free T4 -remains low Recheck TSH as outpatient in 4-6 weeks DM TYPE 2 Diet controlled Monitor BSG ACHS Insulin sliding scale coverage hba1c 6.6 pharmacy consulted for glycemic control HISTORY OF CVA will restart aspirin which was held while npo for colon obstruction CAD Stable; restart po meds DEPRESSION stable BPH stable DVT PROPHYLAXIS SCD's DISPOSITION possible for [facility] in am Social service following for discharge planning Vital Signs: Date Time Temp Pulse Resp B/P Pulse Ox O2 Delivery O2 Flow Rate FiO2 10/10/16 16:00 Room Air 10/10/16 15:28 37.0 82 18 107/41 98 Room Air 10/10/16 11:09 36.5 70 130/72 10/10/16 11:03 63 106/63 10/10/16 10:45 66 120/59 10/10/16 10:30 67 116/69 10/10/16 10:15 60 128/67 10/10/16 10:00 65 130/63 10/10/16 09:45 69 116/69 10/10/16 09:30 75 123/72 10/10/16 09:15 71 112/69 10/10/16 09:00 74 97/71 10/10/16 08:45 62 106/63 10/10/16 08:30 71 120/62 10/10/16 08:15 69 118/55 10/10/16 08:00 81 122/51 10/10/16 08:00 Room Air 10/10/16 07:45 81 118/52 10/10/16 07:33 37.0 86 20 126/80 99 Room Air 10/10/16 07:30 84 121/58 10/10/16 07:15 37.1 82 124/65 10/10/16 01:08 96 Room Air 10/09/16 23:51 37.0 86 18 101/55 98 Room Air Lab Results: Results Past 24 Hours Test 10/09/16 20:29 10/10/16 05:36 10/10/16 07:19 10/10/16 11:42 Range/Units Bedside Glucose 172 140 120 70-99 mg/dl Hemoglobin 7.7 14.0-18.0 g/dL Hematocrit 23.1 42-52 % Sodium Level 136 136-145 mmol/L Potassium Level 3.2 3.5-5.1 mmol/L Chloride Level 100 98-107 mmol/L Carbon Dioxide Level 26 21-32 mmol/L Anion Gap 10.0 3-11 mmol/L Blood Urea Nitrogen 43 7-18 mg/dl Creatinine 1.90 0.60-1.40 mg/dl Est Creatinine Clear Calc Drug Dose 29.5 ml/min Estimated GFR () 37.5 Estimated GFR (Non- 32.3 BUN/Creatinine Ratio 22.7 10-20 Random Glucose 126 70-99 mg/dl Calcium Level 8.8 8.5-10.1 mg/dl
[2016-10-10] MEDS: AMOXICILLIN/CLAVULANATE TAB 500 MG TAB PO SCH (18:06)
[2016-10-10] MEDS: FLUCONAZOLE 100 MG TAB PO SCH (18:07)
[2016-10-10] MEDS: GABAPENTIN 100 MG CAP PO SCH (20:14)
[2016-10-10] MEDS: TAMSULOSIN HCL 0.4 MG CAP PO SCH (20:14)
[2016-10-11 00:24] VITALS: BP 100/54; PULSE 84; TEMP 36.9; O2SAT 96
[2016-10-11] MEDS: NOVASOURCE RENAL 1000ML BAG PEG SCH ×3 (02:16→22:36)
[2016-10-11] MEDS: TUBE FEEDING WATER FLUSH PEG SCH ×4 (02:16→19:44)
[2016-10-11] MEDS: LEVOTHYROXINE 75 MCG TAB NG SCH (05:39)
[2016-10-11] MEDS: HEPARIN SOD 5000 UNIT/0.5 ML CARP SQ SCH ×3 (05:42→20:49)
[2016-10-11 05:44] LABS: HEMATOCRIT 23.7 % (42-52)
[2016-10-11] MEDS: BISACODYL 5 MG TABEC PO SCH ×2 (07:46→20:49)
[2016-10-11] MEDS: PANTOprazole SOD 40 MG TAB PO SCH (07:47)
[2016-10-11] MEDS: ASPIRIN 81 MG ECTAB PO SCH (07:47)
[2016-10-11] MEDS: CITALOPRAM 40 MG TAB PO SCH (07:47)
[2016-10-11] MEDS: FLUCONAZOLE 50 MG TAB PO SCH (07:47)
[2016-10-11] MEDS: ERYTHROMYCIN ETHYLSUCC SUSP 200 MG/5 ML 100 ML BTL PEG SCH ×4 (07:50→20:49)
[2016-10-11 08:10] VITALS: BP 107/62; PULSE 86; TEMP 37; O2SAT 97
[2016-10-11 08:30] VITALS: O2SAT 97
[2016-10-11] MEDS: INSULIN ASPART 100 UNITS/ML 3 ML PEN SC SCH ×4 (09:09→20:48)
[2016-10-11] MEDS: BISACODYL 10 MG SUPP PR SCH (11:27)
[2016-10-11 12:00] VITALS: BP 107/66; PULSE 77; TEMP 37.1; O2SAT 96
[2016-10-11] MEDS: OXYCODONE HCL IR 5 MG TAB (IMMEDIATE RELEASE) PO PRN (13:13)
[2016-10-11 15:47] VITALS: BP 105/62; PULSE 83; TEMP 36.9; O2SAT 98
--- NOTE | 2016-10-11 16:33 | Progress Note ---
Internal Med Progress Note Date of Service: Oct 11, 2016. Provider Documentation: SUBJECTIVE: complains of pain in his left cheek and says current pain meds not working much tolerating mechanical soft diet denies chest pain or sob afebrile OBJECTIVE: Vital Signs-as noted below Exam: General-alert and oriented. Not in distress HEENT- lesion on left cheek. Has bandage Neck-no neck masses Lungs-cta b/l no wheezing no crackles Heart-s1 and s2 heard, regular rate and rhythm no murmurs Abdomen-soft bowel sounds present non tender no distension Extremities-no edema no erythema Neuro-alert and awake moves extremities Lab data as noted below. ASSESSMENT & PLAN: ABDOMINAL DISTENTION /COLONIC DILATATION : most likely Pseudo obstruction due to Ileus improvement after placement of rectal tube rectal tube D/jody TF restarted and tolerating ok Erythromycin to be continued for total 7 days GI following signed off started on Clears , Tube feeding started Surgery consulted -appreciate input -signed off. tolerating mechanical soft diet now await placement ALTERED MENTAL STATUS resolved due to sepsis /dehydration CT head- no acute findings stable POSSIBLE SEPSIS /SOURCE OF INFECTION INFECTED FACIAL ULCER Presented with hypotension, tachycardia -> improved Vital signs after 250 mL bolus has facial lesion with purulent drainage; with underlying malignancy Sq cell ca wound culture growing : gram positive cocci -Streptococcus /Corynebacterium MRSA Nasal swab -negative was on Empiric broad spectrum abx coverage with Zosyn and vancomycin to be given with dialysis consulted infectious disease IV Vancomycin D/jody transition to PO Augmentin to complete 21 day course. To continue local wound care. 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 Tse S/p resection in 04/[address] Evans S/p radiation in January 2015 Developed left neck mass FNA revealed metastatic SCC Completed second round of radiation June 2016 Family states plan is for PET scan October 10 2016 As per oncology note 08/21/16 skin lesion looks concerning for metastasis; if confirmed, checkpoint inhibitor therapy is the one tx that may be considered in this patient Consulted oncology f/u with oncology. 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 Hartmann HYPOTHYROIDISM TSH elevated to 60 Levothyroxine recently increased from 25 -> 50 mcg daily on 09/19/16 increase Levothyroxine to 75 mcg /Free T4 -remains low Recheck TSH as outpatient in 4-6 weeks DM TYPE 2 Diet controlled Monitor BSG ACHS Insulin sliding scale coverage hba1c 6.6 pharmacy consulted for glycemic control HISTORY OF CVA will restart aspirin which was held while npo for colon obstruction CAD Stable; restart po meds DEPRESSION stable BPH stable DVT PROPHYLAXIS SCD's [facility] Social service following for discharge planning Vital Signs: Date Time Temp Pulse Resp B/P Pulse Ox O2 Delivery O2 Flow Rate FiO2 10/11/16 16:00 Room Air 10/11/16 15:47 36.9 83 20 105/62 98 Room Air 10/11/16 12:00 37.1 77 18 107/66 96 Room Air 10/11/16 08:30 97 Room Air 10/11/16 08:21 Room Air 10/11/16 08:10 37.0 86 18 107/62 97 Room Air 10/11/16 00:24 36.9 84 16 100/54 96 Room Air 10/11/16 00:01 Room Air 10/10/16 19:30 Room Air Lab Results: Results Past 24 Hours Test 10/10/16 16:56 10/10/16 20:16 10/11/16 05:20 10/11/16 07:45 Range/Units Bedside Glucose 100 202 193 70-99 mg/dl Hemoglobin 7.9 14.0-18.0 g/dL Hematocrit 23.7 42-52 % Test 10/11/16 11:42 Range/Units Bedside Glucose 125 70-99 mg/dl
[2016-10-11] MEDS: AMOXICILLIN/CLAVULANATE TAB 500 MG TAB PO SCH (17:59)
[2016-10-11] MEDS: GABAPENTIN 100 MG CAP PO SCH (20:50)
[2016-10-11] MEDS: TAMSULOSIN HCL 0.4 MG CAP PO SCH (20:50)
[2016-10-12] VITALS (20 sets, daily range): BP systolic 85–156; BP diastolic 50–76; PULSE 53–91; TEMP 36.6–36.9; O2SAT 95–100
[2016-10-12] MEDS: NOVASOURCE RENAL 1000ML BAG PEG SCH ×3 (02:23→21:08)
[2016-10-12] MEDS: TUBE FEEDING WATER FLUSH PEG SCH ×4 (02:23→20:00)
[2016-10-12] MEDS: MoRPHine SULFATE 2 MG/ML CARP IV PRN ×2 (03:29→23:52)
[2016-10-12] MEDS: HEPARIN SOD 5000 UNIT/0.5 ML CARP SQ SCH ×3 (05:38→21:12)
[2016-10-12] MEDS: LEVOTHYROXINE 75 MCG TAB NG SCH (05:48)
[2016-10-12 06:16] LABS: HEMATOCRIT 24.1 % (42-52)
[2016-10-12] MEDS: INSULIN ASPART 100 UNITS/ML 3 ML PEN SC SCH ×4 (06:30→21:12)
[2016-10-12 06:50] LABS: BUN/CREATININE RATIO 25.5 (10-20); CALCIUM 9.2 mg/dl (8.5-10.1); CREATININE 2.1 mg/dl (0.60-1.40); POTASSIUM 3.1 mmol/L (3.5-5.1)
[2016-10-12] MEDS: HEPARIN SOD (PORCINE) 1000 UNIT/ML 10 ML VIAL IV SCH ×3 (08:00→10:00)
[2016-10-12] MEDS: ERYTHROMYCIN ETHYLSUCC SUSP 200 MG/5 ML 100 ML BTL PEG SCH ×4 (08:00→21:08)
[2016-10-12] MEDS ORDERED: HEPARIN SOD (PORCINE) 1000 UNIT/ML 10 ML VIAL IV SCH (08:00)
--- NOTE | 2016-10-12 10:02 | Dialysis Progress Note ---
Nephrology Dialysis Note Date of Service: Oct 12, 2016. Subjective 81 yo male with esrd who dialyzes m/w/f, admitted with confusion, found to have uti and then discovered to have colonic distention requiring a rectal tube. Patient was seen and examined while on dialysis. access working well. blood flow rate appropriate. BP adequate. tolerating small amount of UF. No Nausea, vomiting, cramping, SOB, or chest pain per patient. c/o L facial/jaw pain at site of H/Neck cancer and ear. appetite unchanged. tolerating small amount of UF removal. Objective Date Time Temp Pulse Resp B/P Pulse Ox O2 Delivery O2 Flow Rate FiO2 10/12/16 09:30 62 97/70 10/12/16 09:15 82 99/65 10/12/16 09:00 80 103/53 10/12/16 08:45 82 97/62 10/12/16 08:30 73 85/55 10/12/16 08:15 53 103/63 10/12/16 08:02 80 118/72 10/12/16 08:00 36.6 82 127/76 10/12/16 07:18 36.9 80 18 126/65 98 Room Air 10/12/16 00:03 36.7 90 18 156/73 97 Room Air 10/12/16 00:00 Room Air 10/11/16 20:00 Room Air 10/11/16 16:00 Room Air 10/11/16 15:47 36.9 83 20 105/62 98 Room Air 10/11/16 12:00 37.1 77 18 107/66 96 Room Air Physical Exam: General-aaox3, on RA Eyes-no scleral icterus ENT-left facial/jaw wound-covered, [place] Neck-supple Lungs-clear/diminished Heart-2/6 systolic murmur, regular Abdomen-bs+, soft, +peg Extremities-no c/c/e Neuro-vinson, fluent but slightly delayed speech Current Inpatient Medications Medications (Trade) Dose Ordered Sig/Aj Route Start Time Stop Time Status Last Admin Dose Admin Ondansetron HCl (Zofran Inj) 4 mg Q6H PRN IV 10/02/16 13:00 11/01/16 12:59 10/04/16 07:59 4 MG Lidocaine/ Prilocaine (Emla 2.5% Crm) 1 ea UD EXT 3/7/17 13:00 11/01/16 12:59 Glucose (Glucose 40% Gel) 15-30 GRAMS 15 GRAMS... UD PRN PO 10/02/16 13:00 11/01/16 12:59 Glucose (Glucose Chew Tab) 4-8 Tablets 4 Tabl... UD PRN PO 10/02/16 13:00 11/01/16 12:59 Dextrose (Dextrose 50% 50ML Syringe) 25-50ML OF 50% DW IV FOR... UD PRN IV 10/02/16 13:00 11/01/16 12:59 Glucagon (Glucagon Inj) 1 mg UD PRN SQ 10/02/16 13:00 11/01/16 12:59 Heparin Sodium (Porcine) (Heparin Sq 5000 Unit/0.5ml) 5,000 unit Q8 SQ 10/03/16 06:00 11/02/16 05:59 10/12/16 05:38 5,000 UNIT Enteral Nutritional Formula (Novasource Renal) 275 ml DAILY@0200,1800,2200 PEG 10/03/16 18:00 11/02/16 17:59 10/12/16 02:23 275 ML Sterile Water (Tube Feeding Water Flush) 1 ea 0200,0300,1800,1900 PEG 10/03/16 18:00 11/02/16 17:59 10/12/16 03:29 1 EA Erythromycin Ethylsuccinate (Ees Susp) 250 mg QID PEG 10/04/16 17:00 10/14/16 16:59 10/11/16 20:49 250 MG Multi-Ingredient Ointment (Eucerin Unscented Cr) 1 appln BID PRN EXT 10/04/16 13:15 11/03/16 13:14 Morphine Sulfate (MoRPHine SULFATE INJ) 1 mg Q4 PRN IV 10/04/16 18:30 10/18/16 18:29 10/12/16 03:29 1 MG Fluconazole (Diflucan Tab) 100 mg MoWeFr@1800 PO 10/05/16 18:00 10/15/16 17:59 10/10/16 18:07 100 MG Fluconazole (Diflucan Tab) 50 mg SuTuThSa@0900 PO 10/06/16 09:00 10/16/16 08:59 10/11/16 07:47 50 MG Amoxicillin/ Clavulanate Potassium (Augmentin Tab) 500 mg Q24H PO 10/07/16 18:00 10/27/16 18:01 10/11/16 17:59 500 MG Bisacodyl (Dulcolax Tab) 5 mg BID PO 10/07/16 20:00 11/06/16 19:59 10/11/16 20:49 5 MG Insulin Aspart (novoLOG ASPART) SLIDING SCALE If C... ACHS SC 10/07/16 21:00 11/06/16 20:59 10/11/16 20:48 2 UNITS Bisacodyl (Dulcolax Supp) 10 mg QAM OH 10/09/16 08:00 11/08/16 07:59 10/11/16 11:27 10 MG Levothyroxine Sodium (Synthroid Tab) 75 mcg DAILYBB NG 10/09/16 06:30 11/08/16 06:29 10/12/16 05:48 75 MCG Aspirin (Ecotrin Tab) 81 mg QAM PO 10/10/16 08:00 11/09/16 07:59 10/11/16 07:47 81 MG Citalopram Hydrobromide (celeXA TAB) 40 mg QAM PO 10/10/16 08:00 11/09/16 07:59 10/11/16 07:47 40 MG Tamsulosin HCl (Flomax Cap) 0.4 mg HS PO 10/09/16 21:00 11/08/16 20:59 10/11/16 20:50 0.4 MG Gabapentin (Neurontin Cap) 100 mg HS PO 10/09/16 21:00 11/08/16 20:59 10/11/16 20:50 100 MG Pantoprazole Sodium (Protonix Tab) 40 mg QAM PO 10/10/16 08:00 11/09/16 07:59 10/11/16 07:47 40 MG Oxycodone HCl (Roxicodone Immediate Rel Tab) 5 mg Q4 PRN PO 10/10/16 14:00 10/24/16 13:59 10/11/16 13:13 5 MG Heparin Sodium (Porcine) (Heparin Iv Bolus) 1,000 unit ONE IV 10/12/16 08:00 10/12/16 18:00 Heparin Sodium (Porcine) (Heparin Iv Bolus) 400 unit Q1H IV 10/12/16 08:00 10/12/16 10:01 Last 24 Hours Test 10/11/16 11:42 10/11/16 16:27 10/11/16 20:21 10/12/16 05:46 Bedside Glucose 125 mg/dl 139 mg/dl 208 mg/dl Hemoglobin 8.2 g/dL Hematocrit 24.1 % Sodium Level 132 mmol/L Potassium Level 3.1 mmol/L Chloride Level 92 mmol/L Carbon Dioxide Level 29 mmol/L Anion Gap 11.0 mmol/L Blood Urea Nitrogen 54 mg/dl Creatinine 2.10 mg/dl Est Creatinine Clear Calc Drug Dose 26.7 ml/min Estimated GFR () 33.2 Estimated GFR (Non- 28.7 BUN/Creatinine Ratio 25.5 Random Glucose 178 mg/dl Calcium Level 9.2 mg/dl Test 10/12/16 07:40 Bedside Glucose 158 mg/dl Other Studies: Last Resulted CBC 10/08/16 05:26 10/12/16 05:46 Last Resulted BMP 10/12/16 05:46 10/10/16 10/11/16 10/12/16 07:59 07:59 07:59 Intake Total 395 ml 1687 ml 1135 ml Output Total 425 ml 1650 ml 350 ml Balance -30 ml 37 ml 785 ml Assessment & Plan 81 yo male with esrd who was admitted with confusion, found to have uti and then discovered to have colonic distention requiring a rectal tube. patient was seen and examined while on dialysis. continuing to dialyze on // schedule or as clinical condition dictates. access working well. mentating well. continue to try for 1-2L to keep BP above 80 systolic. Hypokalemia-likely losing it from GI sources. continue to run on 4k bath. k 3.1 today. will begin to supplement orally and continue to follow closely. Anemia of renal failure-hgb level is stable at 8.2. no procrit given his head and neck cancer. blood transfusions prn This patient was seen and treated with direct collaboration with Dr. Luther. Thank you for the opportunity to participate in this patient's care. Appreciate the Consult. ATTENDING NOTE: I performed a history and physical examination of the patient, including specifically on history-for [facility] transfer when bed available, on ROS-less jaw pain today, on physical exam RRR w/ diminsihed but clear lungs and interactive/ appropriate/limited historian seen on dialysis, and my impression and plan are as above; one time PEG K supplemetn given. I have discussed the patient's management with Dedra Mancini PA-C. Please refer to the above note for the documented findings and plan of care. Emma Luther MD, PhD
[2016-10-12] MEDS ORDERED: POTASSIUM CHLORIDE 20 MEQ/15 ML UDC PEG ONE (10:15)
[2016-10-12] MEDS: BISACODYL 5 MG TABEC PO SCH ×2 (12:09→20:41)
[2016-10-12] MEDS: ASPIRIN 81 MG ECTAB PO SCH (12:09)
[2016-10-12] MEDS: CITALOPRAM 40 MG TAB PO SCH (12:09)
[2016-10-12] MEDS: PANTOprazole SOD 40 MG TAB PO SCH (12:10)
[2016-10-12] MEDS: BISACODYL 10 MG SUPP PR SCH (13:15)
--- NOTE | 2016-10-12 17:30 | Progress Note ---
Internal Med Progress Note Date of Service: Oct 12, 2016. Provider Documentation: SUBJECTIVE: resting comfortably hard of hearing afebrile not eating much OBJECTIVE: Vital Signs-as noted below Exam: General-alert and oriented. Not in distress HEENT- lesion on left cheek. Has bandage Neck-no neck masses Lungs-cta b/l no wheezing no crackles Heart-s1 and s2 heard, regular rate and rhythm no murmurs Abdomen-soft bowel sounds present non tender no distension Extremities-no edema no erythema Neuro-alert and awake moves extremities Lab data as noted below. ASSESSMENT & PLAN: ABDOMINAL DISTENTION /COLONIC DILATATION : most likely Pseudo obstruction due to Ileus improvement after placement of rectal tube rectal tube D/jody TF restarted and tolerating ok Erythromycin to be continued for total 7 days GI following signed off started on Clears , Tube feeding started Surgery consulted -appreciate input -signed off. tolerating mechanical soft diet now stable awaiting placement Stable conditions: ALTERED MENTAL STATUS resolved due to sepsis /dehydration CT head- no acute findings stable POSSIBLE SEPSIS /SOURCE OF INFECTION INFECTED FACIAL ULCER Presented with hypotension, tachycardia -> improved Vital signs after 250 mL bolus has facial lesion with purulent drainage; with underlying malignancy Sq cell ca wound culture growing : gram positive cocci -Streptococcus /Corynebacterium MRSA Nasal swab -negative was on Empiric broad spectrum abx coverage with Zosyn and vancomycin to be given with dialysis consulted infectious disease IV Vancomycin D/jody transition to PO Augmentin to complete 21 day course. To continue local wound care. 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 Tse S/p resection in 04/[address] Evans S/p radiation in January 2015 Developed left neck mass FNA revealed metastatic SCC Completed second round of radiation June 2016 [facility] states plan is for PET scan October 10 2016 As per oncology note 08/21/16 skin lesion looks concerning for metastasis; if confirmed, checkpoint inhibitor therapy is the one tx that may be considered in this patient Consulted oncology f/u with oncology. 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 Hartmann HYPOTHYROIDISM TSH elevated to 60 Levothyroxine recently increased from 25 -> 50 mcg daily on 09/19/16 increase Levothyroxine to 75 mcg /Free T4 -remains low Recheck TSH as outpatient in 4-6 weeks DM TYPE 2 Diet controlled Monitor BSG ACHS Insulin sliding scale coverage hba1c 6.6 pharmacy consulted for glycemic control HISTORY OF CVA will restart aspirin which was held while npo for colon obstruction CAD Stable; restart po meds DEPRESSION stable BPH stable DVT PROPHYLAXIS SCD's DISPOSITION await placement Social service following for discharge planning Vital Signs: Date Time Temp Pulse Resp B/P Pulse Ox O2 Delivery O2 Flow Rate FiO2 10/12/16 15:29 36.8 86 18 113/62 100 Room Air 10/12/16 12:24 142/75 10/12/16 11:15 86 120/71 10/12/16 11:00 85 114/69 10/12/16 10:45 88 105/61 10/12/16 10:30 83 104/50 10/12/16 10:15 85 111/62 10/12/16 10:02 84 114/65 10/12/16 09:45 81 113/63 10/12/16 09:30 62 97/70 10/12/16 09:15 82 99/65 10/12/16 09:00 80 103/53 10/12/16 08:45 82 97/62 10/12/16 08:30 73 85/55 10/12/16 08:15 53 103/63 10/12/16 08:02 80 118/72 10/12/16 08:00 36.6 82 127/76 10/12/16 08:00 Room Air 10/12/16 07:18 36.9 80 18 126/65 98 Room Air 10/12/16 00:03 36.7 90 18 156/73 97 Room Air 10/12/16 00:00 Room Air 10/11/16 20:00 Room Air Lab Results: Results Past 24 Hours Test 10/11/16 20:21 10/12/16 05:46 10/12/16 07:40 10/12/16 12:04 Range/Units Bedside Glucose 208 158 145 70-99 mg/dl Hemoglobin 8.2 14.0-18.0 g/dL Hematocrit 24.1 42-52 % Sodium Level 132 136-145 mmol/L Potassium Level 3.1 3.5-5.1 mmol/L Chloride Level 92 98-107 mmol/L Carbon Dioxide Level 29 21-32 mmol/L Anion Gap 11.0 3-11 mmol/L Blood Urea Nitrogen 54 7-18 mg/dl Creatinine 2.10 0.60-1.40 mg/dl Est Creatinine Clear Calc Drug Dose 26.7 ml/min Estimated GFR () 33.2 Estimated GFR (Non- 28.7 BUN/Creatinine Ratio 25.5 10-20 Random Glucose 178 70-99 mg/dl Calcium Level 9.2 8.5-10.1 mg/dl Test 10/12/16 16:22 Range/Units Bedside Glucose 145 70-99 mg/dl Microbiology Results 10/12/16 C.difficile Toxin B Gene (PCR) - Final, Complete No C. difficile toxin B gene detected
[2016-10-12] MEDS: FLUCONAZOLE 100 MG TAB PO SCH (18:41)
[2016-10-12] MEDS: AMOXICILLIN/CLAVULANATE TAB 500 MG TAB PO SCH (18:41)
[2016-10-12] MEDS: GABAPENTIN 100 MG CAP PO SCH (21:08)
[2016-10-12] MEDS: TAMSULOSIN HCL 0.4 MG CAP PO SCH (21:08)
[2016-10-13] MEDS: NOVASOURCE RENAL 1000ML BAG PEG SCH ×3 (02:15→22:19)
[2016-10-13] MEDS: TUBE FEEDING WATER FLUSH PEG SCH ×4 (02:15→19:45)
[2016-10-13 06:01] LABS: HEMATOCRIT 22.9 % (42-52)
[2016-10-13] MEDS: LEVOTHYROXINE 75 MCG TAB NG SCH (06:40)
[2016-10-13] MEDS: HEPARIN SOD 5000 UNIT/0.5 ML CARP SQ SCH ×2 (06:43→13:30)
[2016-10-13 07:04] VITALS: BP 115/65; PULSE 88; TEMP 36.8; O2SAT 99
[2016-10-13 07:56] LABS: BUN/CREATININE RATIO 23.2 (10-20); CALCIUM 8.5 mg/dl (8.5-10.1); CREATININE 1.7 mg/dl (0.60-1.40); POTASSIUM 3.6 mmol/L (3.5-5.1)
[2016-10-13] MEDS: CITALOPRAM 40 MG TAB PO SCH (09:41)
[2016-10-13] MEDS: INSULIN ASPART 100 UNITS/ML 3 ML PEN SC SCH ×4 (09:41→21:26)
[2016-10-13] MEDS: BISACODYL 5 MG TABEC PO SCH ×2 (09:42→19:55)
[2016-10-13] MEDS: ASPIRIN 81 MG ECTAB PO SCH (09:42)
[2016-10-13] MEDS: BISACODYL 10 MG SUPP PR SCH (09:43)
[2016-10-13] MEDS: PANTOprazole SOD 40 MG TAB PO SCH (09:43)
[2016-10-13] MEDS: FLUCONAZOLE 50 MG TAB PO SCH (09:44)
[2016-10-13] MEDS: ERYTHROMYCIN ETHYLSUCC SUSP 200 MG/5 ML 100 ML BTL PEG SCH ×4 (09:53→19:45)
[2016-10-13 15:26] VITALS: BP 109/62; PULSE 85; TEMP 36.5; O2SAT 98
--- NOTE | 2016-10-13 15:36 | DIAGNOSTIC IMAGING REPORT ---
[facility] CLINICAL HISTORY: abd distension? Pain COMPARISON STUDY: 10/08/2016 FINDINGS: Mild generalized ileus. No significant bowel distention. Colon as well as small bowel are in part air-filled. Degenerative change of the osseous structures including lumbar spine. IMPRESSION: Mild to moderate generalized nonobstructive ileus. Electronically signed by: Maksim Duenas M.D. 10/13/2016 3:34 PM Dictated Date/Time: 10/13/2016 3:32 PM
[2016-10-13 16:23] LABS: MANUAL MICROSCOPIC REQUIRED? NO; REVIEW REQ? NO; URINE APPEARANCE CLEAR (CLEAR); URINE BILIRUBIN NEG (NEG); URINE COLOR DK YELLOW; URINE EPITHELIAL CELL AUTO >30 /lpf (0-5); URINE NITRITE NEG (NEG); URINE PH 5.5 (4.5-7.5); UROBILINOGEN NEG (NEG); ZZUR CULT IF INDIC CLEAN CATCH NO
[2016-10-13 16:52] LABS: HEMATOCRIT 22.9 % (42-52)
--- NOTE | 2016-10-13 17:47 | Progress Note ---
Internal Med Progress Note Date of Service: Oct 13, 2016. Provider Documentation: SUBJECTIVE: resting comfortably hard of hearing had some blood in urine' denies pain afebrile OBJECTIVE: Vital Signs-as noted below Exam: General-alert and oriented. Not in distress HEENT- lesion on left cheek. Has bandage Neck-no neck masses Lungs-cta b/l no wheezing no crackles Heart-s1 and s2 heard, regular rate and rhythm no murmurs Abdomen-soft bowel sounds present non tender no distension mild blood stains in penile region. Extremities-no edema no erythema Neuro-alert and awake moves extremities Lab data as noted below. ASSESSMENT & PLAN: ABDOMINAL DISTENTION /COLONIC DILATATION : most likely Pseudo obstruction due to Ileus improvement after placement of rectal tube rectal tube D/jody TF restarted and tolerating ok Erythromycin to be continued for total 7 days GI following signed off started on Clears , Tube feeding started Surgery consulted -appreciate input -signed off. tolerating mechanical soft diet now stable awaiting placement Hematuria mild will Monitor stopped aspirin and heparin sub q if continue will consult urology otherwise needs out patient followup with urology recheck urine cx Stable conditions: ALTERED MENTAL STATUS resolved due to sepsis /dehydration CT head- no acute findings stable POSSIBLE SEPSIS /SOURCE OF INFECTION INFECTED FACIAL ULCER Presented with hypotension, tachycardia -> improved Vital signs after 250 mL bolus has facial lesion with purulent drainage; with underlying malignancy Sq cell ca wound culture growing : gram positive cocci -Streptococcus /Corynebacterium MRSA Nasal swab -negative was on Empiric broad spectrum abx coverage with Zosyn and vancomycin to be given with dialysis consulted infectious disease IV Vancomycin D/jody transition to PO Augmentin to complete 21 day course. To continue local wound care. 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 Tse S/p resection in 04/[address] Evans S/p radiation in January 2015 Developed left neck mass FNA revealed metastatic SCC Completed second round of radiation June 2016 [facility] plan is for PET scan October 10 2016 As per oncology note 08/21/16 skin lesion looks concerning for metastasis; if confirmed, checkpoint inhibitor therapy is the one tx that may be considered in this patient Consulted oncology f/u with oncology. 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 Hartmann HYPOTHYROIDISM TSH elevated to 60 Levothyroxine recently increased from 25 -> 50 mcg daily on 09/19/16 increase Levothyroxine to 75 mcg /Free T4 -remains low Recheck TSH as outpatient in 4-6 weeks DM TYPE 2 Diet controlled Monitor BSG ACHS Insulin sliding scale coverage hba1c 6.6 pharmacy consulted for glycemic control HISTORY OF CVA will restart aspirin which was held while npo for colon obstruction CAD Stable; restart po meds DEPRESSION stable BPH stable DVT PROPHYLAXIS SCD's DISPOSITION await placement Social service following for discharge planning Vital Signs: Date Time Temp Pulse Resp B/P Pulse Ox O2 Delivery O2 Flow Rate FiO2 10/13/16 16:00 Room Air 10/13/16 15:26 36.5 85 18 109/62 98 Room Air 10/13/16 08:00 Room Air 10/13/16 07:04 36.8 88 20 115/65 99 Room Air 10/13/16 00:00 Room Air 10/12/16 23:05 36.7 91 18 106/65 95 Room Air Lab Results: Results Past 24 Hours Test 10/12/16 21:01 10/13/16 05:41 10/13/16 07:37 10/13/16 11:31 Range/Units Bedside Glucose 192 150 152 70-99 mg/dl Hemoglobin 7.6 14.0-18.0 g/dL Hematocrit 22.9 42-52 % Sodium Level 136 136-145 mmol/L Potassium Level 3.6 3.5-5.1 mmol/L Chloride Level 102 98-107 mmol/L Carbon Dioxide Level 25 21-32 mmol/L Anion Gap 9.0 3-11 mmol/L Blood Urea Nitrogen 39 7-18 mg/dl Creatinine 1.70 0.60-1.40 mg/dl Est Creatinine Clear Calc Drug Dose 33.0 ml/min Estimated GFR () 42.9 Estimated GFR (Non- 37.0 BUN/Creatinine Ratio 23.2 10-20 Random Glucose 160 70-99 mg/dl Calcium Level 8.5 8.5-10.1 mg/dl Test 10/13/16 16:00 10/13/16 16:31 10/13/16 16:37 Range/Units Urine Color DK YELLOW Urine Appearance CLEAR CLEAR Urine pH 5.5 4.5-7.5 Urine Specific [place] 1.030 1.000-1.030 Urine Protein 1+ NEG Urine Glucose (UA) NEG NEG Urine Ketones NEG NEG Urine Occult Blood 3+ NEG Urine Nitrite NEG NEG Urine Bilirubin NEG NEG Urine Urobilinogen NEG NEG Urine Leukocyte Esterase TRACE NEG Urine WBC (Auto) 1-5 0-5 /hpf Urine RBC (Auto) >30 0-4 /hpf Urine Hyaline Casts (Auto) 1-5 0-5 /lpf Urine Epithelial Cells (Auto) >30 0-5 /lpf Urine Bacteria (Auto) NEG NEG Bedside Glucose 114 70-99 mg/dl Hemoglobin 7.7 14.0-18.0 g/dL Hematocrit 22.9 42-52 %
[2016-10-13] MEDS: AMOXICILLIN/CLAVULANATE TAB 500 MG TAB PO SCH (18:32)
[2016-10-13] MEDS: GABAPENTIN 100 MG CAP PO SCH (19:56)
[2016-10-13] MEDS: TAMSULOSIN HCL 0.4 MG CAP PO SCH (19:56)
[2016-10-13 23:49] VITALS: BP 129/68; PULSE 82; TEMP 36.7; O2SAT 100
[2016-10-14] MEDS: NOVASOURCE RENAL 1000ML BAG PEG SCH ×3 (02:27→21:41)
[2016-10-14] MEDS: TUBE FEEDING WATER FLUSH PEG SCH ×4 (02:27→19:30)
[2016-10-14 06:08] LABS: HEMATOCRIT 21.9 % (42-52)
[2016-10-14] MEDS: INSULIN ASPART 100 UNITS/ML 3 ML PEN SC SCH ×4 (06:30→21:46)
[2016-10-14] MEDS: LEVOTHYROXINE 75 MCG TAB NG SCH (06:30)
[2016-10-14 06:45] LABS: BUN/CREATININE RATIO 24.9 (10-20); CALCIUM 8.8 mg/dl (8.5-10.1); POTASSIUM 3.6 mmol/L (3.5-5.1)
[2016-10-14 07:05] VITALS: BP 130/68; PULSE 91; TEMP 36.8; O2SAT 99
[2016-10-14] MEDS: PANTOprazole SOD 40 MG TAB PO SCH (08:00)
[2016-10-14] MEDS: FLUCONAZOLE 50 MG TAB PO SCH (08:14)
[2016-10-14] MEDS: ERYTHROMYCIN ETHYLSUCC SUSP 200 MG/5 ML 100 ML BTL PEG SCH ×3 (08:14→18:10)
[2016-10-14] MEDS: CITALOPRAM 40 MG TAB PO SCH (08:14)
[2016-10-14] MEDS: BISACODYL 5 MG TABEC PO SCH ×2 (08:14→21:40)
[2016-10-14] MEDS: BISACODYL 10 MG SUPP PR SCH (08:29)
[2016-10-14 15:22] VITALS: BP 114/66; PULSE 81; TEMP 36.9; O2SAT 98
[2016-10-14 16:00] VITALS: O2SAT 98
[2016-10-14] MEDS: AMOXICILLIN/CLAVULANATE TAB 500 MG TAB PO SCH (18:12)
--- NOTE | 2016-10-14 18:48 | Progress Note ---
Internal Med Progress Note Date of Service: Oct 14, 2016. Provider Documentation: SUBJECTIVE: resting comfortably hard of hearing had some blood in urine' denies pain afebrile OBJECTIVE: Vital Signs-as noted below Exam: General-alert and oriented. Not in distress HEENT- lesion on left cheek. Has bandage Neck-no neck masses Lungs-cta b/l no wheezing no crackles Heart-s1 and s2 heard, regular rate and rhythm no murmurs Abdomen-soft bowel sounds present non tender no distension mild blood stains in penile region. Extremities-no edema no erythema Neuro-alert and awake moves extremities Lab data as noted below. ASSESSMENT & PLAN: 81 year old male with PMH of SCC of buccal mucosa s/p PEG tube, ESRD on dialysis, CAD, HTN, DM type 2 was brought in for confusion. Alerted mental status mostly form infected left face ulcer. Initially treated with iv vanco and zosyn and later changed to po Augmentin to complete 21 day course as per ID.Hospital stay was complicated by abdominal distension secondary to colonic dilatation form ileus which improved with rectal tube.Tolerating diet. Awaiting placement.On 10/13/16 had mild hematuria with no more episodes.Completed Diflucan course for paola in urine. Follow repeat urine cx.Await placement ALTERED MENTAL STATUS resolved due to sepsis /dehydration CT head- no acute findings stable POSSIBLE SEPSIS /SOURCE OF INFECTION INFECTED FACIAL ULCER Presented with hypotension, tachycardia -> improved Vital signs after 250 mL bolus has facial lesion with purulent drainage; with underlying malignancy Sq cell ca wound culture growing : gram positive cocci -Streptococcus /Corynebacterium MRSA Nasal swab -negative was on Empiric broad spectrum abx coverage with Zosyn and vancomycin to be given with dialysis consulted infectious disease IV Vancomycin D/jody transition to PO Augmentin to complete 21 day course. #12 To continue local wound care. pain control will monitor ABDOMINAL DISTENTION /COLONIC DILATATION : most likely Pseudo obstruction due to Ileus improvement after placement of rectal tube rectal tube D/jody TF restarted and tolerating ok Erythromycin to be continued for total 7 days which is stopped now GI following signed off Tube feeding restarted Surgery consulted -appreciate input -signed off. 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 Tse S/p resection in 04/[address] Evans S/p radiation in January 2015 Developed left neck mass FNA revealed metastatic SCC Completed second round of radiation June 2016 [facility] plan is for PET scan October 10 2016 As per oncology note 08/21/16 skin lesion looks concerning for metastasis; if confirmed, checkpoint inhibitor therapy is the one tx that may be considered in this patient Consulted oncology and appreciate inputs f/u with oncology. 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 Hartmann HYPOTHYROIDISM TSH elevated to 60 Levothyroxine recently increased from 25 -> 50 mcg daily on 09/19/16 increase Levothyroxine to 75 mcg /Free T4 -remains low Recheck TSH as outpatient in 4-6 weeks DM TYPE 2 Diet controlled Monitor BSG ACHS Insulin sliding scale coverage hba1c 6.6 pharmacy consulted for glycemic control HISTORY OF CVA will restart aspirin which was held while npo for colon obstruction CAD Stable; restart po meds DEPRESSION stable BPH stable DVT PROPHYLAXIS SCD's DISPOSITION awaiting placement pt/ot Social service following for discharge planning Vital Signs: Date Time Temp Pulse Resp B/P Pulse Ox O2 Delivery O2 Flow Rate FiO2 10/14/16 15:22 36.9 81 18 114/66 98 Room Air 10/14/16 08:00 Room Air 10/14/16 07:05 36.8 91 20 130/68 99 Room Air 10/14/16 00:00 Room Air 10/13/16 23:49 36.7 82 16 129/68 100 Room Air 10/13/16 20:00 Room Air Lab Results: Results Past 24 Hours Test 10/13/16 20:15 10/14/16 05:22 10/14/16 07:23 10/14/16 11:51 Range/Units Bedside Glucose 174 155 160 70-99 mg/dl Hemoglobin 7.6 14.0-18.0 g/dL Hematocrit 21.9 42-52 % Sodium Level 134 136-145 mmol/L Potassium Level 3.6 3.5-5.1 mmol/L Chloride Level 99 98-107 mmol/L Carbon Dioxide Level 24 21-32 mmol/L Anion Gap 11.0 3-11 mmol/L Blood Urea Nitrogen 50 7-18 mg/dl Creatinine 2.00 0.60-1.40 mg/dl Est Creatinine Clear Calc Drug Dose 28.0 ml/min Estimated GFR () 35.2 Estimated GFR (Non- 30.4 BUN/Creatinine Ratio 24.9 10-20 Random Glucose 177 70-99 mg/dl Calcium Level 8.8 8.5-10.1 mg/dl Test 10/14/16 16:45 Range/Units Bedside Glucose 128 70-99 mg/dl Microbiology Results 10/14/16 Urine Culture, Received Pending
[2016-10-14] MEDS: TAMSULOSIN HCL 0.4 MG CAP PO SCH (21:40)
[2016-10-14] MEDS: GABAPENTIN 100 MG CAP PO SCH (21:41)
[2016-10-14 23:46] VITALS: BP 133/70; PULSE 89; TEMP 36.8; O2SAT 98
[2016-10-15] VITALS (21 sets, daily range): BP systolic 81–126; BP diastolic 54–71; PULSE 63–94; TEMP 36.8–37.1; O2SAT 98–100
[2016-10-15] MEDS: NOVASOURCE RENAL 1000ML BAG PEG SCH ×3 (02:35→21:55)
[2016-10-15] MEDS: TUBE FEEDING WATER FLUSH PEG SCH ×4 (02:35→19:11)
[2016-10-15 05:40] LABS: HEMATOCRIT 22.6 % (42-52); MEAN CELL VOLUME 98.7 fL (80-100); MEAN CORPUSCULAR HEMOGLOBIN 33.2 pg (25-34); MEAN CORPUSCULAR HGB CONC 33.6 g/dl (32-36); MEAN PLATELET VOLUME 9.4 fL (7.4-10.4); PLATELET COUNT 144 K/uL (130-400); RED BLOOD COUNT 2.29 M/uL (4.7-6.1); WHITE BLOOD COUNT 6.14 K/uL (4.8-10.8)
[2016-10-15] MEDS: LEVOTHYROXINE 75 MCG TAB NG SCH (05:51)
[2016-10-15] MEDS: OXYCODONE HCL IR 5 MG TAB (IMMEDIATE RELEASE) PO PRN (05:56)
[2016-10-15 06:03] LABS: BUN/CREATININE RATIO 27.8 (10-20); CALCIUM 8.8 mg/dl (8.5-10.1); CREATININE 2.2 mg/dl (0.60-1.40); POTASSIUM 3.6 mmol/L (3.5-5.1)
[2016-10-15] MEDS: HEPARIN SOD (PORCINE) 1000 UNIT/ML 10 ML VIAL IV SCH ×2 (07:26→07:27)
[2016-10-15 07:37] LABS: BASO % 0.3 %; BASO ABS # 0.02 K/uL (0-0.2); COMPLETE YES; EOS % 4.1 %; IG% 0.5 %; LYMPH ABS # 0.49 K/uL (1.2-3.4); NEUT % 79.1 %
--- NOTE | 2016-10-15 07:50 | Nephrology Progress Note ---
Nephrology Progress Note Date of Service: Oct 15, 2016. Subjective 81 yo male with esrd who was admitted with confusion, found to have uti/ infected facial wound and then discovered to have colonic distention requiring a rectal tube. rectal tube has been removed. has intermittent periods of hematuria. repeating urine culture. awaiting placement. pt comfortable. Objective Date Time Temp Pulse Resp B/P Pulse Ox O2 Delivery O2 Flow Rate FiO2 10/15/16 07:08 37.0 83 20 126/70 100 Room Air 10/15/16 00:00 Room Air 10/14/16 23:46 36.8 89 20 133/70 98 Room Air 10/14/16 16:00 98 Room Air 10/14/16 15:22 36.9 81 18 114/66 98 Room Air 10/14/16 08:00 Room Air Physical Exam: General-aaox3 Eyes-no scleral icterus ENT-left facial wound-covered Neck-supple Lungs-cta Heart-2/6 systolic murmur, regular Abdomen-bs+, soft, +peg Extremities-no edema Neuro-nonfocal Current Inpatient Medications Medications (Trade) Dose Ordered Sig/Aj Route Start Time Stop Time Status Last Admin Dose Admin Ondansetron HCl (Zofran Inj) 4 mg Q6H PRN IV 10/02/16 13:00 11/01/16 12:59 10/04/16 07:59 4 MG Lidocaine/ Prilocaine (Emla 2.5% Crm) 1 ea UD EXT 10/02/16 13:00 11/01/16 12:59 Glucose (Glucose 40% Gel) 15-30 GRAMS 15 GRAMS... UD PRN PO 10/02/16 13:00 11/01/16 12:59 Glucose (Glucose Chew Tab) 4-8 Tablets 4 Tabl... UD PRN PO 10/02/16 13:00 11/01/16 12:59 Dextrose (Dextrose 50% 50ML Syringe) 25-50ML OF 50% DW IV FOR... UD PRN IV 10/02/16 13:00 11/01/16 12:59 Glucagon (Glucagon Inj) 1 mg UD PRN SQ 10/02/16 13:00 11/01/16 12:59 Heparin Sodium (Porcine) (Heparin Sq 5000 Unit/0.5ml) 5,000 unit Q8 SQ 10/03/16 06:00 11/02/16 05:59 Future Hold 10/13/16 13:30 5,000 UNIT Enteral Nutritional Formula (Novasource Renal) 275 ml DAILY@0200,1800,2200 PEG 10/03/16 18:00 11/02/16 17:59 10/15/16 02:35 275 ML Sterile Water (Tube Feeding Water Flush) 1 ea 0200,0300,1800,1900 PEG 10/03/16 18:00 11/02/16 17:59 10/15/16 05:24 1 EA Multi-Ingredient Ointment (Eucerin Unscented Cr) 1 appln BID PRN EXT 10/04/16 13:15 11/03/16 13:14 Morphine Sulfate (MoRPHine SULFATE INJ) 1 mg Q4 PRN IV 10/04/16 18:30 10/18/16 18:29 10/12/16 23:52 1 MG Amoxicillin/ Clavulanate Potassium (Augmentin Tab) 500 mg Q24H PO 10/07/16 18:00 10/27/16 18:01 10/14/16 18:12 500 MG Bisacodyl (Dulcolax Tab) 5 mg BID PO 10/07/16 20:00 11/06/16 19:59 10/14/16 21:40 5 MG Insulin Aspart (novoLOG ASPART) SLIDING SCALE If C... ACHS SC 10/07/16 21:00 11/06/16 20:59 10/14/16 21:46 1 UNITS Bisacodyl (Dulcolax Supp) 10 mg QAM CO 10/09/16 08:00 11/08/16 07:59 10/14/16 08:29 10 MG Levothyroxine Sodium (Synthroid Tab) 75 mcg DAILYBB NG 10/09/16 06:30 11/08/16 06:29 10/15/16 05:51 75 MCG Aspirin (Ecotrin Tab) 81 mg QAM PO 10/10/16 08:00 11/09/16 07:59 Future Hold 10/13/16 09:42 81 MG Citalopram Hydrobromide (celeXA TAB) 40 mg QAM PO 10/10/16 08:00 11/09/16 07:59 10/14/16 08:14 40 MG Tamsulosin HCl (Flomax Cap) 0.4 mg HS PO 10/09/16 21:00 11/08/16 20:59 10/14/16 21:40 0.4 MG Gabapentin (Neurontin Cap) 100 mg HS PO 10/09/16 21:00 11/08/16 20:59 10/14/16 21:41 100 MG Pantoprazole Sodium (Protonix Tab) 40 mg QAM PO 10/10/16 08:00 11/09/16 07:59 10/13/16 09:43 40 MG Oxycodone HCl (Roxicodone Immediate Rel Tab) 5 mg Q4 PRN PO 10/10/16 14:00 10/24/16 13:59 10/15/16 05:56 5 MG Heparin Sodium (Porcine) (Heparin Iv Bolus) 1,000 unit ONE IV 10/15/16 08:00 10/15/16 18:00 Heparin Sodium (Porcine) (Heparin Iv Bolus) 400 unit Q1H IV 10/15/16 08:00 10/15/16 10:01 Last 24 Hours Test 10/14/16 11:51 10/14/16 16:45 10/14/16 20:01 10/15/16 05:25 Bedside Glucose 160 mg/dl 128 mg/dl 180 mg/dl White Blood Count 6.14 K/uL Red Blood Count 2.29 M/uL Hemoglobin 7.6 g/dL Hematocrit 22.6 % Mean Corpuscular Volume 98.7 fL Mean Corpuscular Hemoglobin 33.2 pg Mean Corpuscular Hemoglobin Concent 33.6 g/dl Platelet Count 144 K/uL Mean Platelet Volume 9.4 fL Neutrophils (%) (Auto) 79.1 % Lymphocytes (%) (Auto) 8.0 % Monocytes (%) (Auto) 8.0 % Eosinophils (%) (Auto) 4.1 % Basophils (%) (Auto) 0.3 % Neutrophils # (Auto) 4.86 K/uL Lymphocytes # (Auto) 0.49 K/uL Monocytes # (Auto) 0.49 K/uL Eosinophils # (Auto) 0.25 K/uL Basophils # (Auto) 0.02 K/uL RDW Standard Deviation 50.3 fL RDW Coefficient of Variation 14.1 % Immature Granulocyte % (Auto) 0.5 % Immature Granulocyte # (Auto) 0.03 K/uL Red Blood Cell Morphology Unremarkable Sodium Level 136 mmol/L Potassium Level 3.6 mmol/L Chloride Level 99 mmol/L Carbon Dioxide Level 24 mmol/L Anion Gap 13.0 mmol/L Blood Urea Nitrogen 61 mg/dl Creatinine 2.20 mg/dl Est Creatinine Clear Calc Drug Dose 25.5 ml/min Estimated GFR () 31.4 Estimated GFR (Non- 27.1 BUN/Creatinine Ratio 27.8 Random Glucose 249 mg/dl Calcium Level 8.8 mg/dl Date/Time Source Procedure Growth Status 10/14/16 18:00 Urine , Clean Catch Urine Culture Pending Received Assessment & Plan ESRD-for dialysis today on a 4k bath and at times has to be given potassium. volume status appears appropriate. Anemia of renal failure-pts hg levels are in the 7 range. would transfuse if less than 7. no procrit given his head and neck cancer. overall, pt much improved and back to his baseline. following up on the intermittent hematuria. repeat urine culture is pending.
[2016-10-15] MEDS ORDERED: HEPARIN SOD (PORCINE) 1000 UNIT/ML 10 ML VIAL IV SCH (08:00)
[2016-10-15] MEDS: INSULIN ASPART 100 UNITS/ML 3 ML PEN SC SCH ×4 (08:51→20:40)
[2016-10-15] MEDS: BISACODYL 5 MG TABEC PO SCH ×2 (09:00→20:06)
[2016-10-15] MEDS: CITALOPRAM 40 MG TAB PO SCH (09:00)
[2016-10-15] MEDS: PANTOprazole SOD 40 MG TAB PO SCH (09:00)
[2016-10-15] MEDS: BISACODYL 10 MG SUPP PR SCH (09:18)
--- NOTE | 2016-10-15 11:06 | Progress Note ---
Medicine Progress Note Date & Time of Visit: Oct 15, 2016 at 10:48. 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 presented 13 days ago with AMS/hypotension -Doing well this morning/mentating well -lack of appetite/on Novosource renal via PEG/tolerating PO though -Denies nausea, pain and is otherwise asymptomatic -sitting in bedside chair and reports ambulating with assistance -DEnies any blood in urine/nurse concurs Objective Last 8 Hrs Date Time Temp Pulse Resp B/P Pulse Ox O2 Delivery O2 Flow Rate FiO2 10/15/16 08:00 100 Room Air 10/15/16 07:08 37.0 83 20 126/70 100 Room Air Physical Exam: GEN: WNWD, in no acute distress, alert and appropriate HEENT: Large fungating flesh-colored mass protruding from lower left jaw-some serous drainage is present-dressing in place with some drainage on the bandage, normal sclerae CARDIO: reg rate, 3/6 BONILLA throughout precordium LUNGS: CTA bilaterally, no crackles, rales or wheezes, good diaphragmatic excursion ABD: soft, non-tender, non-distended, no rebound or guarding, +BS, PEG tube in place EXTREMITY: RP and DP palpable 2+ bilat, no LE swelling or edema, extremities are warm and well-perfused NEURO: CN 2-12 grossly intact, no gross focal deficits MUSC: generalized weakness SKIN: warm and dry and wound as above. Laboratory Results: 10/15/16 05:25 Red Blood Count 2.29, Mean Corpuscular Volume 98.7, Mean Corpuscular Hemoglobin 33.2, Mean Corpuscular Hemoglobin Concent 33.6, Mean Platelet Volume 9.4, Neutrophils (%) (Auto) 79.1, Lymphocytes (%) (Auto) 8.0, Monocytes (%) (Auto) 8.0, Eosinophils (%) (Auto) 4.1, Basophils (%) (Auto) 0.3, Neutrophils # (Auto) 4.86, Lymphocytes # (Auto) 0.49, Monocytes # (Auto) 0.49, Eosinophils # (Auto) 0.25, Basophils # (Auto) 0.02 10/15/16 05:25 Test 10/02/16 10:15 10/02/16 10:27 10/02/16 15:05 10/03/16 06:09 Schistocytes 1+ Troponin I < 0.015 ng/ml (0-0.045) Lipase 168 U/L (73-393) Thyroid Stimulating Hormone (TSH) 60.300 uIu/ml (0.300-4.500) Free Thyroxine 0.54 ng/dl (0.80-1.60) Urine Creatinine 2 78.9 MG/DL (>/= 20) Urine Opiates Screen NEGATIVE NG/ML (AUVAGC=459) Urine Opiates Confirmation POSITIVE NG/ML (CUTOFF=50) Urine Oxycodone Screen POSITIVE NG/ML (ONKTCN=686) Urine Methadone, Qualitative NEGATIVE NG/ML (KKFRXC=623) Urine Methadone Level NG/ML (PEGQML=712) Urine Barbiturates NEGATIVE NG/ML (VEWHSU=152) Urine Barbiturate Confirmation NG/ML (SDYKLS=644) Urine Phencyclidine Screen NEGATIVE NG/ML (CUTOFF=25) Urine Phencyclidine (PCP) Confirm NG/ML (CUTOFF=25) Urine Amphetamines Screen NEGATIVE NG/ML (LOZWVI=130) Urine Amphetamines Confirmation NG/ML (RSUIUH=718) Urine Benzodiazepines Screen NEGATIVE NG/ML (YSOIRT=091) Urine Benzodiazepine Confirmation NG/ML (CUTOFF=50/25) Urine Cocaine Level NEGATIVE NG/ML (LWXGIS=299) Urine Cocaine Metabolite Confirm NG/ML (YPVLPZ=077) Urine Marijuana (THC) Screen NEGATIVE NG/ML (CUTOFF=20) Urine Marijuana (THC) Confirmation NG/ML (CUTOFF=5) Urine THC/Creatinine Ratio NG/MG (()) Urine Drug Screen Comment (()) Influenza Type A (RT-PCR) Neg for Influ A (NEG) Influenza Type B (RT-PCR) Neg for Influ B (NEG) Absolute Reticulocyte Count 0.06 10^6/uL (0.02-0.10) Percent Reticulocyte Count 2.6 % (0.5-2.0) Prothrombin Time 10.7 SECONDS (9.0-12.0) Prothromb Time International Ratio 1.0 (0.9-1.1) Estimated Average Glucose 143 mg/dl Hemoglobin A1c 6.6 % (4.5-5.6) Iron Level 50 mcg/dl (35-175) Total Iron Binding Capacity 278 mcg/dl (250-450) Transferrin 239 mg/dl (200-360) Transferrin % Saturation 15 % (20-50) Ferritin 1175.6 ng/ml (8.0-388.0) Vitamin B12 Level 860 pg/mL (211-911) Folate > 24.00 ng/mL (>5.38) Test 10/04/16 08:53 10/07/16 04:50 10/08/16 05:26 10/09/16 05:12 Lactic Acid Level 1.4 mmol/L (0.4-2.0) Total Bilirubin 0.4 mg/dl (0.2-1) Aspartate Amino Transf (AST/SGOT) 23 U/L (15-37) Alanine Aminotransferase (ALT/SGPT) 25 U/L (12-78) Alkaline Phosphatase 104 U/L (45-117) Total Protein 7.7 gm/dl (6.4-8.2) Albumin 3.2 gm/dl (3.4-5.0) Globulin 4.5 gm/dl (2.5-4.0) Albumin/Globulin Ratio 0.7 (0.9-2) Random Vancomycin Level 13.3 mcg/ml Magnesium Level 2.3 mg/dl (1.8-2.4) Hepatitis B Surface Antigen NEG (NEG) Hepatitis B Surface Antibody NEG Test 10/13/16 16:00 10/15/16 05:25 10/15/16 07:53 Urine Color DK YELLOW Urine Appearance CLEAR (CLEAR) Urine pH 5.5 (4.5-7.5) Urine Specific [place] 1.030 (1.000-1.030) Urine Protein 1+ (NEG) Urine Glucose (UA) NEG (NEG) Urine Ketones NEG (NEG) Urine Occult Blood 3+ (NEG) Urine Nitrite NEG (NEG) Urine Bilirubin NEG (NEG) Urine Urobilinogen NEG (NEG) Urine Leukocyte Esterase TRACE (NEG) Urine WBC (Auto) 1-5 /hpf (0-5) Urine RBC (Auto) >30 /hpf (0-4) Urine Hyaline Casts (Auto) 1-5 /lpf (0-5) Urine Epithelial Cells (Auto) >30 /lpf (0-5) Urine Bacteria (Auto) NEG (NEG) White Blood Count 6.14 K/uL (4.8-10.8) Red Blood Count 2.29 M/uL (4.7-6.1) Hemoglobin 7.6 g/dL (14.0-18.0) Hematocrit 22.6 % (42-52) Mean Corpuscular Volume 98.7 fL (80-100) Mean Corpuscular Hemoglobin 33.2 pg (25-34) Mean Corpuscular Hemoglobin Concent 33.6 g/dl (32-36) Platelet Count 144 K/uL (130-400) Mean Platelet Volume 9.4 fL (7.4-10.4) Neutrophils (%) (Auto) 79.1 % Lymphocytes (%) (Auto) 8.0 % Monocytes (%) (Auto) 8.0 % Eosinophils (%) (Auto) 4.1 % Basophils (%) (Auto) 0.3 % Neutrophils # (Auto) 4.86 K/uL (1.4-6.5) Lymphocytes # (Auto) 0.49 K/uL (1.2-3.4) Monocytes # (Auto) 0.49 K/uL (0.11-0.59) Eosinophils # (Auto) 0.25 K/uL (0-0.5) Basophils # (Auto) 0.02 K/uL (0-0.2) RDW Standard Deviation 50.3 fL (36.4-46.3) RDW Coefficient of Variation 14.1 % (11.5-14.5) Immature Granulocyte % (Auto) 0.5 % Immature Granulocyte # (Auto) 0.03 K/uL (0.00-0.02) Red Blood Cell Morphology Unremarkable Anion Gap 13.0 mmol/L (3-11) Est Creatinine Clear Calc Drug Dose 25.5 ml/min Estimated GFR () 31.4 Estimated GFR (Non- 27.1 BUN/Creatinine Ratio 27.8 (10-20) Calcium Level 8.8 mg/dl (8.5-10.1) Bedside Glucose 190 mg/dl (70-99) Date/Time Source Procedure Growth Status 10/02/16 10:43 Blood Blood Culture - Final NO GROWTH Complete 10/04/16 14:00 Nasal MRSA DNA Surveillance Screen - Final Specimen Negative for MRSA by DNA Probe Complete 10/12/16 14:25 Stool C.difficile Toxin B Gene (PCR) - Final No C. difficile toxin B gene detected Complete 10/14/16 18:00 Urine , Clean Catch Urine Culture Pending Received 10/02/16 15:05 Drainage - Surface Face Gram Stain - Final Complete 10/02/16 15:05 Wound Culture - Final Corynebacterium Species Group B Beta Strep Complete Last 24 Hours Test 10/14/16 11:51 10/14/16 16:45 10/14/16 20:01 10/15/16 05:25 Bedside Glucose 160 mg/dl 128 mg/dl 180 mg/dl White Blood Count 6.14 K/uL Red Blood Count 2.29 M/uL Hemoglobin 7.6 g/dL Hematocrit 22.6 % Mean Corpuscular Volume 98.7 fL Mean Corpuscular Hemoglobin 33.2 pg Mean Corpuscular Hemoglobin Concent 33.6 g/dl Platelet Count 144 K/uL Mean Platelet Volume 9.4 fL Neutrophils (%) (Auto) 79.1 % Lymphocytes (%) (Auto) 8.0 % Monocytes (%) (Auto) 8.0 % Eosinophils (%) (Auto) 4.1 % Basophils (%) (Auto) 0.3 % Neutrophils # (Auto) 4.86 K/uL Lymphocytes # (Auto) 0.49 K/uL Monocytes # (Auto) 0.49 K/uL Eosinophils # (Auto) 0.25 K/uL Basophils # (Auto) 0.02 K/uL RDW Standard Deviation 50.3 fL RDW Coefficient of Variation 14.1 % Immature Granulocyte % (Auto) 0.5 % Immature Granulocyte # (Auto) 0.03 K/uL Red Blood Cell Morphology Unremarkable Sodium Level 136 mmol/L Potassium Level 3.6 mmol/L Chloride Level 99 mmol/L Carbon Dioxide Level 24 mmol/L Anion Gap 13.0 mmol/L Blood Urea Nitrogen 61 mg/dl Creatinine 2.20 mg/dl Est Creatinine Clear Calc Drug Dose 25.5 ml/min Estimated GFR () 31.4 Estimated GFR (Non- 27.1 BUN/Creatinine Ratio 27.8 Random Glucose 249 mg/dl Calcium Level 8.8 mg/dl Test 10/15/16 07:53 Bedside Glucose 190 mg/dl Date/Time Source Procedure Growth Status 10/14/16 18:00 Urine , Clean Catch Urine Culture Pending Received Assessment & Plan 81 yoM with 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 Skin infection around tumor-wound culture grew Corynebacterium and Group B beta strep and patient is doing well on Augmentin. Mentation is clear today/CT head on admission was clear has facial lesion with purulent drainage; with underlying malignancy Sq cell ca MRSA Nasal swab -negative was on Empiric broad spectrum abx coverage with Zosyn and vancomycin to be given with dialysis consulted infectious disease IV Vancomycin D/jody transition to PO Augmentin to complete 21 day course. continue local wound care. pain control will monitor 2. Abdominal distension-appears resolved today. KUB on 10/13 revealed nonobstructing ileus. Pt reports tolerating some PO (but is also on PEG feedings). Rectal tube was placed and is out now. GI was following and gave erythromycin for 7 days, which is completed. Surgery was also consulted. cont Tube feeds and mech soft diet. 3. Episode of hematuria on 10/13 which has cleared up. Renal consulted and said patient had hematuria in the past. Could also have been related to recent urine infection? Will restart ASA and Heparin in setting of ESRD and malignancy with high risk blood clot during hospitalization and will monitor. Patient should follow up with Urology as outpatient. 4. UTI-urince culture [facility]--completed Diflucan course for 7 days on . 5. 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 Around baseline and stable. Per Nephro, no tranfusion unless <02/15 or symptomatic. 6. ESRD-cont HD MWF -Dr. Mary Kate torres. 7. Hypothyroidism-TSH was 60 this admission. Levothyroxine increased to 75mcg- -recheck TSH as outpatient 8. DMII-diet controlled, ISS coverage ordered, inpatient glycemic pharmacist following 9. h/o CVA- cont baby ASA 10. h/o CAD-stable, no chest pain, cont medical management with ASA 81, noticeably not on statin therapy. Defer this to PCP to avoid extra meds in light of terminal illness 11. Depression-appears stable. Cont Celexa DVT PROPHYLAXIS restarting heparin/SCDs DISPOSITION awaiting placement pt/ot Social service following for discharge planning DO [facility] Current Inpatient Medications: Current Inpatient Medications Medications (Trade) Dose Ordered Sig/Aj Route Start Time Stop Time Status Last Admin Dose Admin Ondansetron HCl (Zofran Inj) 4 mg Q6H PRN IV 10/02/16 13:00 11/01/16 12:59 3/9/17 07:59 4 MG Lidocaine/ Prilocaine (Emla 2.5% Crm) 1 ea UD EXT 10/02/16 13:00 11/01/16 12:59 Glucose (Glucose 40% Gel) 15-30 GRAMS 15 GRAMS... UD PRN PO 10/02/16 13:00 11/01/16 12:59 Glucose (Glucose Chew Tab) 4-8 Tablets 4 Tabl... UD PRN PO 10/02/16 13:00 11/01/16 12:59 Dextrose (Dextrose 50% 50ML Syringe) 25-50ML OF 50% DW IV FOR... UD PRN IV 10/02/16 13:00 11/01/16 12:59 Glucagon (Glucagon Inj) 1 mg UD PRN SQ 10/02/16 13:00 11/01/16 12:59 Heparin Sodium (Porcine) (Heparin Sq 5000 Unit/0.5ml) 5,000 unit Q8 SQ 10/03/16 06:00 11/02/16 05:59 Future Hold 10/13/16 13:30 5,000 UNIT Enteral Nutritional Formula (Novasource Renal) 275 ml DAILY@0200,1800,2200 PEG 10/03/16 18:00 11/02/16 17:59 10/15/16 02:35 275 ML Sterile Water (Tube Feeding Water Flush) 1 ea 0200,0300,1800,1900 PEG 10/03/16 18:00 11/02/16 17:59 10/15/16 05:24 1 EA Multi-Ingredient Ointment (Eucerin Unscented Cr) 1 appln BID PRN EXT 10/04/16 13:15 11/03/16 13:14 Morphine Sulfate (MoRPHine SULFATE INJ) 1 mg Q4 PRN IV 10/04/16 18:30 10/18/16 18:29 10/12/16 23:52 1 MG Amoxicillin/ Clavulanate Potassium (Augmentin Tab) 500 mg Q24H PO 10/07/16 18:00 10/27/16 18:01 10/14/16 18:12 500 MG Bisacodyl (Dulcolax Tab) 5 mg BID PO 10/07/16 20:00 11/06/16 19:59 10/15/16 09:00 5 MG Insulin Aspart (novoLOG ASPART) SLIDING SCALE If C... ACHS SC 10/07/16 21:00 11/06/16 20:59 10/15/16 08:51 1 UNITS Levothyroxine Sodium (Synthroid Tab) 75 mcg DAILYBB NG 10/09/16 06:30 11/08/16 06:29 10/15/16 05:51 75 MCG Aspirin (Ecotrin Tab) 81 mg QAM PO 10/10/16 08:00 11/09/16 07:59 Future Hold 10/13/16 09:42 81 MG Citalopram Hydrobromide (celeXA TAB) 40 mg QAM PO 10/10/16 08:00 11/09/16 07:59 10/15/16 09:00 40 MG Tamsulosin HCl (Flomax Cap) 0.4 mg HS PO 10/09/16 21:00 11/08/16 20:59 10/14/16 21:40 0.4 MG Gabapentin (Neurontin Cap) 100 mg HS PO 10/09/16 21:00 11/08/16 20:59 10/14/16 21:41 100 MG Pantoprazole Sodium (Protonix Tab) 40 mg QAM PO 10/10/16 08:00 11/09/16 07:59 10/15/16 09:00 40 MG Oxycodone HCl (Roxicodone Immediate Rel Tab) 5 mg Q4 PRN PO 10/10/16 14:00 10/24/16 13:59 10/15/16 05:56 5 MG Heparin Sodium (Porcine) (Heparin Iv Bolus) 1,000 unit ONE IV 10/15/16 08:00 10/15/16 18:00
[2016-10-15] MEDS: HEPARIN SOD 5000 UNIT/0.5 ML CARP SQ SCH ×2 (12:02→21:53)
[2016-10-15] MEDS: AMOXICILLIN/CLAVULANATE TAB 500 MG TAB PO SCH (17:59)
[2016-10-15] MEDS: TAMSULOSIN HCL 0.4 MG CAP PO SCH (20:37)
[2016-10-15] MEDS: GABAPENTIN 100 MG CAP PO SCH (20:37)
[2016-10-16 00:34] VITALS: BP 106/59; PULSE 83; TEMP 37.3; O2SAT 100
[2016-10-16] MEDS: TUBE FEEDING WATER FLUSH PEG SCH ×4 (02:02→19:00)
[2016-10-16] MEDS: NOVASOURCE RENAL 1000ML BAG PEG SCH ×3 (02:02→22:08)
[2016-10-16] MEDS: OXYCODONE HCL IR 5 MG TAB (IMMEDIATE RELEASE) PO PRN ×3 (03:16→23:29)
[2016-10-16 05:01] VITALS: BP 120/68; PULSE 90; TEMP 37.3; O2SAT 98
[2016-10-16 05:49] LABS: MEAN CELL VOLUME 99.6 fL (80-100); MEAN CORPUSCULAR HEMOGLOBIN 33.8 pg (25-34); MEAN CORPUSCULAR HGB CONC 33.9 g/dl (32-36); MEAN PLATELET VOLUME 9.7 fL (7.4-10.4); PLATELET COUNT 157 K/uL (130-400); RED BLOOD COUNT 2.31 M/uL (4.7-6.1)
[2016-10-16] MEDS: LEVOTHYROXINE 75 MCG TAB NG SCH (06:19)
[2016-10-16] MEDS: HEPARIN SOD 5000 UNIT/0.5 ML CARP SQ SCH ×3 (06:24→22:14)
[2016-10-16 06:26] LABS: BUN/CREATININE RATIO 26.2 (10-20); CALCIUM 8.7 mg/dl (8.5-10.1); CREATININE 1.7 mg/dl (0.60-1.40); POTASSIUM 3.5 mmol/L (3.5-5.1)
[2016-10-16 07:12] VITALS: BP 110/66; PULSE 79; TEMP 36.6; O2SAT 96
[2016-10-16] MEDS ORDERED: BISACODYL 10 MG SUPP PR SCH (08:00)
[2016-10-16] MEDS: ASPIRIN 81 MG ECTAB PO SCH (08:58)
[2016-10-16] MEDS: CITALOPRAM 40 MG TAB PO SCH (08:58)
[2016-10-16] MEDS: BISACODYL 5 MG TABEC PO SCH ×2 (08:58→22:00)
[2016-10-16] MEDS: PANTOprazole SOD 40 MG TAB PO SCH (08:59)
[2016-10-16] MEDS: INSULIN ASPART 100 UNITS/ML 3 ML PEN SC SCH ×3 (09:00→16:30)
[2016-10-16 11:14] VITALS: BP 109/55; PULSE 84; TEMP 36.7; O2SAT 97
[2016-10-16 15:04] VITALS: BP 116/66; PULSE 85; TEMP 36.6; O2SAT 98
[2016-10-16] MEDS: AMOXICILLIN/CLAVULANATE TAB 500 MG TAB PO SCH (18:50)
[2016-10-16 20:06] VITALS: BP 109/46; PULSE 80; TEMP 36.8; O2SAT 99
--- NOTE | 2016-10-16 21:41 | Progress Note ---
Medicine Progress Note Date & Time of Visit: Oct 16, 2016 at 13:23. 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 -Exam reveals a normal TM and external canal on the L but a cerumen blockage on the right -still reports low appetite. -tolerating Novosource via PEG -PT today Objective Last 8 Hrs Date Time Temp Pulse Resp B/P Pulse Ox O2 Delivery O2 Flow Rate FiO2 10/16/16 11:14 36.7 84 20 109/55 97 Room Air 10/16/16 09:00 Room Air 10/16/16 07:12 36.6 79 18 110/66 96 Room Air Physical Exam: GEN: WNWD, in no acute distress, alert and appropriate-slow to respond, needs things repeated HEENT: Large fungating flesh-colored mass protruding from lower left jaw-some serous drainage is present-dressing in place with some drainage on the bandage, normal sclerae. TM clear and pearly on L ear; R external canal is blocked with cerumen. CARDIO: reg rate, 3/6 BONILLA throughout precordium LUNGS: CTA bilaterally, no crackles, rales or wheezes, good diaphragmatic excursion ABD: soft, non-tender, non-distended, no rebound or guarding, +BS, PEG tube in place EXTREMITY: no LE swelling or edema, extremities are warm and well-perfused NEURO: CN 2-12 grossly intact, no gross focal deficits MUSC: generalized weakness SKIN: warm and dry and wound as above. Laboratory Results: Last 24 Hours Test 10/15/16 16:03 10/15/16 20:16 10/16/16 05:19 10/16/16 07:23 Bedside Glucose 136 mg/dl 206 mg/dl 139 mg/dl White Blood Count 5.80 K/uL Red Blood Count 2.31 M/uL Hemoglobin 7.8 g/dL Hematocrit 23.0 % Mean Corpuscular Volume 99.6 fL Mean Corpuscular Hemoglobin 33.8 pg Mean Corpuscular Hemoglobin Concent 33.9 g/dl RDW Standard Deviation 50.9 fL RDW Coefficient of Variation 14.1 % Platelet Count 157 K/uL Mean Platelet Volume 9.7 fL Sodium Level 134 mmol/L Potassium Level 3.5 mmol/L Chloride Level 94 mmol/L Carbon Dioxide Level 29 mmol/L Anion Gap 11.0 mmol/L Blood Urea Nitrogen 45 mg/dl Creatinine 1.70 mg/dl Est Creatinine Clear Calc Drug Dose 33.0 ml/min Estimated GFR () 42.9 Estimated GFR (Non- 37.0 BUN/Creatinine Ratio 26.2 Random Glucose 171 mg/dl Calcium Level 8.7 mg/dl Test 10/16/16 11:18 Bedside Glucose 174 mg/dl Assessment & Plan 81 yoM with 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 Skin infection around tumor-wound culture grew Corynebacterium and Group B beta strep and patient is doing well on Augmentin. Mentating well today/CT head on admission was clear. Has fungating mass on L cheek (malignant squamous cell CA) with purulent drainage. MRSA Nasal swab -negative. Was on Empiric broad spectrum abx coverage with Zosyn and vancomycin to be given with dialysis. ID consulted and transitioned patient to Augmentin PO for 21 day course. Cont local wound care and pain control. 2. Abdominal distension-resolved. KUB on 10/13 revealed nonobstructing ileus. Pt reports tolerating some PO (but is also on PEG feedings). Rectal tube was placed and is out now. GI was following and gave erythromycin for 7 days, which is completed. Surgery was also consulted. Cont Tube feeds and mech soft diet as tolerated. 3. Episode of hematuria on 10/13 which has cleared up. Renal consulted and said patient had hematuria in the past. Could also have been related to recent urine infection? Will restart ASA and Heparin in setting of ESRD and malignancy with high risk blood clot during hospitalization and will monitor. Patient should follow up with Urology as outpatient. 4. UTI-urine culture [facility]--completed Diflucan course for 7 days on 10/14. 5. 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 Around baseline and stable. Per Nephro, no transfusion unless <02/15 or symptomatic. 6. ESRD-cont HD MWF -Dr. Hartmann following. 7. Hypothyroidism-TSH was 60 this admission. Levothyroxine increased to 75mcg on 10/09--recheck TSH as outpatient 8. DMII-diet controlled was stopped as patient not requiring insulin. Fingersticks were stopped for comfort. 9. h/o CVA- cont baby ASA 10. h/o CAD-stable, no chest pain, cont medical management with ASA 81, noticeably not on statin therapy. Defer this to PCP to avoid extra meds in light of terminal illness 11. Depression-appears stable. Cont Celexa DVT PROPHYLAXIS Heparin/SCDs DISPOSITION awaiting placement at [facility] pt/ot Social service following for discharge planning DO Jazzy Gayle Hospitalist Continued [facility] stay due to: home environment unsafe for pt Discharge planning: [facility] facility Current Inpatient Medications: Current Inpatient Medications Medications (Trade) Dose Ordered Sig/Aj Route Start Time Stop Time Status Last Admin Dose Admin Ondansetron HCl (Zofran Inj) 4 mg Q6H PRN IV 10/02/16 13:00 11/01/16 12:59 10/04/16 07:59 4 MG Lidocaine/ Prilocaine (Emla 2.5% Crm) 1 ea UD EXT 10/02/16 13:00 11/01/16 12:59 Glucose (Glucose 40% Gel) 15-30 GRAMS 15 GRAMS... UD PRN PO 10/02/16 13:00 11/01/16 12:59 Glucose (Glucose Chew Tab) 4-8 Tablets 4 Tabl... UD PRN PO 10/02/16 13:00 11/01/16 12:59 Dextrose (Dextrose 50% 50ML Syringe) 25-50ML OF 50% DW IV FOR... UD PRN IV 10/02/16 13:00 11/01/16 12:59 Glucagon (Glucagon Inj) 1 mg UD PRN SQ 10/02/16 13:00 11/01/16 12:59 Heparin Sodium (Porcine) (Heparin Sq 5000 Unit/0.5ml) 5,000 unit Q8 SQ 10/03/16 06:00 11/02/16 05:59 Future hold 10/16/16 06:24 5,000 UNIT Enteral Nutritional Formula (Novasource Renal) 275 ml DAILY@0200,1800,2200 PEG 10/03/16 18:00 11/02/16 17:59 10/16/16 02:02 275 ML Sterile Water (Tube Feeding Water Flush) 1 ea 0200,0300,1800,1900 PEG 10/03/16 18:00 11/02/16 17:59 10/16/16 03:09 1 EA Multi-Ingredient Ointment (Eucerin Unscented Cr) 1 appln BID PRN EXT 10/04/16 13:15 11/03/16 13:14 Morphine Sulfate (MoRPHine SULFATE INJ) 1 mg Q4 PRN IV 10/04/16 18:30 10/18/16 18:29 10/12/16 23:52 1 MG Amoxicillin/ Clavulanate Potassium (Augmentin Tab) 500 mg Q24H PO 10/07/16 18:00 10/27/16 18:01 10/15/16 17:59 500 MG Bisacodyl (Dulcolax Tab) 5 mg BID PO 10/07/16 20:00 11/06/16 19:59 10/15/16 20:06 5 MG Insulin Aspart (novoLOG ASPART) SLIDING SCALE If C... ACHS SC 10/07/16 21:00 11/06/16 20:59 10/16/16 12:42 1 UNITS Levothyroxine Sodium (Synthroid Tab) 75 mcg DAILYBB NG 10/09/16 06:30 11/08/16 06:29 10/16/16 06:19 75 MCG Aspirin (Ecotrin Tab) 81 mg QAM PO 10/10/16 08:00 11/09/16 07:59 Future hold 10/16/16 08:58 81 MG Citalopram Hydrobromide (celeXA TAB) 40 mg QAM PO 10/10/16 08:00 11/09/16 07:59 10/16/16 08:58 40 MG Tamsulosin HCl (Flomax Cap) 0.4 mg HS PO 10/09/16 21:00 11/08/16 20:59 10/15/16 20:37 0.4 MG Gabapentin (Neurontin Cap) 100 mg HS PO 10/09/16 21:00 11/08/16 20:59 10/15/16 20:37 100 MG Pantoprazole Sodium (Protonix Tab) 40 mg QAM PO 10/10/16 08:00 11/09/16 07:59 10/16/16 08:59 40 MG Oxycodone HCl (Roxicodone Immediate Rel Tab) 5 mg Q4 PRN PO 10/10/16 14:00 10/24/16 13:59 10/16/16 09:10 5 MG
[2016-10-16] MEDS: TAMSULOSIN HCL 0.4 MG CAP PO SCH (22:00)
[2016-10-16] MEDS: GABAPENTIN 100 MG CAP PO SCH (22:01)
[2016-10-17] VITALS (22 sets, daily range): BP systolic 98–126; BP diastolic 49–89; PULSE 60–108; TEMP 36.6–37.2; O2SAT 93–99
[2016-10-17] MEDS: NOVASOURCE RENAL 1000ML BAG PEG SCH ×3 (01:58→21:41)
[2016-10-17] MEDS: TUBE FEEDING WATER FLUSH PEG SCH ×4 (02:00→19:29)
[2016-10-17] MEDS: MoRPHine SULFATE 2 MG/ML CARP IV PRN (02:34)
[2016-10-17 05:33] LABS: HEMATOCRIT 22.3 % (42-52)
[2016-10-17] MEDS: HEPARIN SOD 5000 UNIT/0.5 ML CARP SQ SCH ×3 (05:40→21:02)
[2016-10-17] MEDS: LEVOTHYROXINE 75 MCG TAB NG SCH (05:41)
[2016-10-17 06:07] LABS: BUN/CREATININE RATIO 27.1 (10-20); CALCIUM 8.6 mg/dl (8.5-10.1); CREATININE 2.2 mg/dl (0.60-1.40); POTASSIUM 3.6 mmol/L (3.5-5.1)
[2016-10-17] MEDS: PANTOprazole SOD 40 MG TAB PO SCH (08:08)
[2016-10-17] MEDS: OXYCODONE HCL IR 5 MG TAB (IMMEDIATE RELEASE) PO PRN ×3 (08:09→23:12)
--- NOTE | 2016-10-17 09:42 | Dialysis Progress Note ---
Nephrology Dialysis Note Date of Service: Oct 17, 2016. Subjective 81 yo male with esrd who was admitted with confusion, found to have uti/ infected facial wound and then discovered to have colonic distention requiring a rectal tube. rectal tube has been removed. pt seen on dialysis. stable. comfortable. Objective Date Time Temp Pulse Resp B/P Pulse Ox O2 Delivery O2 Flow Rate FiO2 10/17/16 08:05 Room Air 10/17/16 07:42 36.6 82 20 115/58 97 Room Air 10/17/16 00:12 36.8 85 20 112/64 99 Room Air 10/17/16 00:00 Room Air 10/16/16 20:06 36.8 80 20 109/46 99 10/16/16 16:00 Room Air 10/16/16 15:04 36.6 85 18 116/66 98 Room Air 10/16/16 11:14 36.7 84 20 109/55 97 Room Air Physical Exam: General-[id number] Eyes-no scleral icterus ENT-left facial wound-covered Neck-supple Lungs-clear Heart-2/6 systolic murmur, regular Abdomen-bs+, soft, +peg Extremities-no edema Neuro-nonfocal Current Inpatient Medications Medications (Trade) Dose Ordered Sig/Aj Route Start Time Stop Time Status Last Admin Dose Admin Ondansetron HCl (Zofran Inj) 4 mg Q6H PRN IV 10/02/16 13:00 11/01/16 12:59 10/04/16 07:59 4 MG Lidocaine/ Prilocaine (Emla 2.5% Crm) 1 ea UD EXT 10/02/16 13:00 11/01/16 12:59 Heparin Sodium (Porcine) (Heparin Sq 5000 Unit/0.5ml) 5,000 unit Q8 SQ 10/03/16 06:00 11/02/16 05:59 Future hold 10/16/16 22:14 5,000 UNIT Enteral Nutritional Formula (Novasource Renal) 275 ml DAILY@0200,1800,2200 PEG 10/03/16 18:00 11/02/16 17:59 10/17/16 01:58 275 ML Sterile Water (Tube Feeding Water Flush) 1 ea 0200,0300,1800,1900 PEG 10/03/16 18:00 11/02/16 17:59 10/17/16 03:10 1 EA Multi-Ingredient Ointment (Eucerin Unscented Cr) 1 appln BID PRN EXT 10/04/16 13:15 11/03/16 13:14 Morphine Sulfate (MoRPHine SULFATE INJ) 1 mg Q4 PRN IV 10/04/16 18:30 10/18/16 18:29 10/17/16 02:34 1 MG Amoxicillin/ Clavulanate Potassium (Augmentin Tab) 500 mg Q24H PO 10/07/16 18:00 10/27/16 18:01 10/16/16 18:50 500 MG Bisacodyl (Dulcolax Tab) 5 mg BID PO 10/07/16 20:00 11/06/16 19:59 10/16/16 22:00 5 MG Levothyroxine Sodium (Synthroid Tab) 75 mcg DAILYBB NG 10/09/16 06:30 11/08/16 06:29 10/17/16 05:41 75 MCG Aspirin (Ecotrin Tab) 81 mg QAM PO 10/10/16 08:00 11/09/16 07:59 Future hold 10/16/16 08:58 81 MG Citalopram Hydrobromide (celeXA TAB) 40 mg QAM PO 10/10/16 08:00 11/09/16 07:59 10/16/16 08:58 40 MG Tamsulosin HCl (Flomax Cap) 0.4 mg HS PO 10/09/16 21:00 11/08/16 20:59 10/16/16 22:00 0.4 MG Gabapentin (Neurontin Cap) 100 mg HS PO 10/09/16 21:00 11/08/16 20:59 10/16/16 22:01 100 MG Pantoprazole Sodium (Protonix Tab) 40 mg QAM PO 10/10/16 08:00 11/09/16 07:59 10/17/16 08:08 40 MG Oxycodone HCl (Roxicodone Immediate Rel Tab) 5 mg Q4 PRN PO 10/10/16 14:00 10/24/16 13:59 10/17/16 08:09 5 MG Last 24 Hours Test 10/16/16 11:18 10/16/16 16:17 10/16/16 20:13 10/17/16 05:15 Bedside Glucose 174 mg/dl 120 mg/dl 155 mg/dl Hemoglobin 7.5 g/dL Hematocrit 22.3 % Sodium Level 132 mmol/L Potassium Level 3.6 mmol/L Chloride Level 93 mmol/L Carbon Dioxide Level 29 mmol/L Anion Gap 10.0 mmol/L Blood Urea Nitrogen 60 mg/dl Creatinine 2.20 mg/dl Est Creatinine Clear Calc Drug Dose 25.3 ml/min Estimated GFR () 31.4 Estimated GFR (Non- 27.1 BUN/Creatinine Ratio 27.1 Random Glucose 216 mg/dl Calcium Level 8.6 mg/dl Assessment & Plan ESRD-seen on dialysis today on a 4k bath. bp stable. 1 liter uf as tolerated. access working well. Anemia of renal failure-pts hg levels are in the 7 range. would transfuse if less than 7. no procrit given his head and neck cancer. hematuria-periodic bouts. repeat culture negative. monitor.
[2016-10-17] MEDS: ASPIRIN 81 MG ECTAB PO SCH (14:02)
[2016-10-17] MEDS: CITALOPRAM 40 MG TAB PO SCH (14:02)
[2016-10-17] MEDS: BISACODYL 5 MG TABEC PO SCH ×2 (14:02→19:28)
[2016-10-17] MEDS: AMOXICILLIN/CLAVULANATE TAB 500 MG TAB PO SCH (18:07)
[2016-10-17] MEDS: GABAPENTIN 100 MG CAP PO SCH (19:28)
[2016-10-17] MEDS: TAMSULOSIN HCL 0.4 MG CAP PO SCH (19:29)
--- NOTE | 2016-10-17 23:19 | Progress Note ---
Medicine Progress Note Date & Time of Visit: Oct 17, 2016 at 1800. 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 presented 14 days ago with AMS/hypotension -sitting comfortably in bedside chair eating dinner -denies pain except for some in lower jaw -otherwise is asymptomatic Objective Last 8 Hrs Date Time Temp Pulse Resp B/P Pulse Ox O2 Delivery O2 Flow Rate FiO2 10/17/16 20:00 Room Air 10/17/16 18:00 97 Room Air 10/17/16 15:24 Room Air 10/17/16 15:20 36.8 Physical Exam: GEN: WNWD, in no acute distress, alert and appropriate-slow to respond, needs things repeated HEENT: Large fungating flesh-colored mass protruding from lower left jaw-some serous drainage is present-dressing in place with some drainage on the bandage, normal sclerae. CARDIO: reg rate, 3/6 BONILLA throughout precordium LUNGS: CTA bilaterally, no crackles, rales or wheezes, good diaphragmatic excursion ABD: soft, non-tender, non-distended, no rebound or guarding, +BS, PEG tube in place EXTREMITY: no LE swelling or edema, extremities are warm and well-perfused NEURO: CN 2-12 grossly intact, no gross focal deficits MUSC: generalized weakness SKIN: warm and dry and wound as above. Laboratory Results: 10/16/16 05:19 10/17/16 05:15 10/17/16 05:15 Test 10/02/16 10:15 10/02/16 10:27 10/02/16 15:05 10/03/16 06:09 Schistocytes 1+ Troponin I < 0.015 ng/ml (0-0.045) Lipase 168 U/L (73-393) Thyroid Stimulating Hormone (TSH) 60.300 uIu/ml (0.300-4.500) Free Thyroxine 0.54 ng/dl (0.80-1.60) Urine Creatinine 2 78.9 MG/DL (>/= 20) Urine Opiates Screen NEGATIVE NG/ML (HBSNIF=500) Urine Opiates Confirmation POSITIVE NG/ML (CUTOFF=50) Urine Oxycodone Screen POSITIVE NG/ML (ELAOTQ=410) Urine Methadone, Qualitative NEGATIVE NG/ML (VVHAKH=979) Urine Methadone Level NG/ML (MQJJIZ=419) Urine Barbiturates NEGATIVE NG/ML (MAQDBV=036) Urine Barbiturate Confirmation NG/ML (TGXNGB=603) Urine Phencyclidine Screen NEGATIVE NG/ML (CUTOFF=25) Urine Phencyclidine (PCP) Confirm NG/ML (CUTOFF=25) Urine Amphetamines Screen NEGATIVE NG/ML (WRDSRK=774) Urine Amphetamines Confirmation NG/ML (XPNATT=068) Urine Benzodiazepines Screen NEGATIVE NG/ML (KNEBGU=982) Urine Benzodiazepine Confirmation NG/ML (CUTOFF=50/25) Urine Cocaine Level NEGATIVE NG/ML (CQWXKX=842) Urine Cocaine Metabolite Confirm NG/ML (UHDYIF=695) Urine Marijuana (THC) Screen NEGATIVE NG/ML (CUTOFF=20) Urine Marijuana (THC) Confirmation NG/ML (CUTOFF=5) Urine THC/Creatinine Ratio NG/MG (()) Urine Drug Screen Comment (()) Influenza Type A (RT-PCR) Neg for Influ A (NEG) Influenza Type B (RT-PCR) Neg for Influ B (NEG) Absolute Reticulocyte Count 0.06 10^6/uL (0.02-0.10) Percent Reticulocyte Count 2.6 % (0.5-2.0) Prothrombin Time 10.7 SECONDS (9.0-12.0) Prothromb Time International Ratio 1.0 (0.9-1.1) Estimated Average Glucose 143 mg/dl Hemoglobin A1c 6.6 % (4.5-5.6) Iron Level 50 mcg/dl (35-175) Total Iron Binding Capacity 278 mcg/dl (250-450) Transferrin 239 mg/dl (200-360) Transferrin % Saturation 15 % (20-50) Ferritin 1175.6 ng/ml (8.0-388.0) Vitamin B12 Level 860 pg/mL (211-911) Folate > 24.00 ng/mL (>5.38) Test 10/04/16 08:53 10/07/16 04:50 10/08/16 05:26 10/09/16 05:12 Lactic Acid Level 1.4 mmol/L (0.4-2.0) Total Bilirubin 0.4 mg/dl (0.2-1) Aspartate Amino Transf (AST/SGOT) 23 U/L (15-37) Alanine Aminotransferase (ALT/SGPT) 25 U/L (12-78) Alkaline Phosphatase 104 U/L (45-117) Total Protein 7.7 gm/dl (6.4-8.2) Albumin 3.2 gm/dl (3.4-5.0) Globulin 4.5 gm/dl (2.5-4.0) Albumin/Globulin Ratio 0.7 (0.9-2) Random Vancomycin Level 13.3 mcg/ml Magnesium Level 2.3 mg/dl (1.8-2.4) Hepatitis B Surface Antigen NEG (NEG) Hepatitis B Surface Antibody NEG Test 10/13/16 16:00 10/15/16 05:25 10/16/16 05:19 10/17/16 05:15 Urine Color DK YELLOW Urine Appearance CLEAR (CLEAR) Urine pH 5.5 (4.5-7.5) Urine Specific Conner 1.030 (1.000-1.030) Urine Protein 1+ (NEG) Urine Glucose (UA) NEG (NEG) Urine Ketones NEG (NEG) Urine Occult Blood 3+ (NEG) Urine Nitrite NEG (NEG) Urine Bilirubin NEG (NEG) Urine Urobilinogen NEG (NEG) Urine Leukocyte Esterase TRACE (NEG) Urine WBC (Auto) 1-5 /hpf (0-5) Urine RBC (Auto) >30 /hpf (0-4) Urine Hyaline Casts (Auto) 1-5 /lpf (0-5) Urine Epithelial Cells (Auto) >30 /lpf (0-5) Urine Bacteria (Auto) NEG (NEG) Immature Granulocyte % (Auto) 0.5 % White Blood Count 6.14 K/uL (4.8-10.8) Red Blood Count 2.29 M/uL (4.7-6.1) 2.31 M/uL (4.7-6.1) Hemoglobin 7.6 g/dL (14.0-18.0) Hematocrit 22.6 % (42-52) Mean Corpuscular Volume 98.7 fL (80-100) 99.6 fL (80-100) Mean Corpuscular Hemoglobin 33.2 pg (25-34) 33.8 pg (25-34) Mean Corpuscular Hemoglobin Concent 33.6 g/dl (32-36) 33.9 g/dl (32-36) Platelet Count 144 K/uL (130-400) Mean Platelet Volume 9.4 fL (7.4-10.4) 9.7 fL (7.4-10.4) Neutrophils (%) (Auto) 79.1 % Lymphocytes (%) (Auto) 8.0 % Monocytes (%) (Auto) 8.0 % Eosinophils (%) (Auto) 4.1 % Basophils (%) (Auto) 0.3 % Neutrophils # (Auto) 4.86 K/uL (1.4-6.5) Lymphocytes # (Auto) 0.49 K/uL (1.2-3.4) Monocytes # (Auto) 0.49 K/uL (0.11-0.59) Eosinophils # (Auto) 0.25 K/uL (0-0.5) Basophils # (Auto) 0.02 K/uL (0-0.2) Immature Granulocyte # (Auto) 0.03 K/uL (0.00-0.02) Red Blood Cell Morphology Unremarkable RDW Standard Deviation 50.9 fL (36.4-46.3) RDW Coefficient of Variation 14.1 % (11.5-14.5) Anion Gap 10.0 mmol/L (3-11) Est Creatinine Clear Calc Drug Dose 25.3 ml/min Estimated GFR () 31.4 Estimated GFR (Non- 27.1 BUN/Creatinine Ratio 27.1 (10-20) Calcium Level 8.6 mg/dl (8.5-10.1) Test 10/17/16 13:18 Bedside Glucose 147 mg/dl (70-99) Date/Time Source Procedure Growth Status 10/02/16 10:43 Blood Blood Culture - Final NO GROWTH Complete 10/04/16 14:00 Nasal MRSA DNA Surveillance Screen - Final Specimen Negative for MRSA by DNA Probe Complete 10/12/16 14:25 Stool C.difficile Toxin B Gene (PCR) - Final No C. difficile toxin B gene detected Complete 10/14/16 18:00 Urine , Clean Catch Urine Culture - Final NO GROWTH - LESS THAN 1,000 COLONIES/ML Complete 10/02/16 15:05 Drainage - Surface Face Gram Stain - Final Complete 10/02/16 15:05 Wound Culture - Final Corynebacterium Species Group B Beta Strep Complete Last 24 Hours Test 10/17/16 05:15 10/17/16 13:18 Hemoglobin 7.5 g/dL Hematocrit 22.3 % Sodium Level 132 mmol/L Potassium Level 3.6 mmol/L Chloride Level 93 mmol/L Carbon Dioxide Level 29 mmol/L Anion Gap 10.0 mmol/L Blood Urea Nitrogen 60 mg/dl Creatinine 2.20 mg/dl Est Creatinine Clear Calc Drug Dose 25.3 ml/min Estimated GFR () 31.4 Estimated GFR (Non- 27.1 BUN/Creatinine Ratio 27.1 Random Glucose 216 mg/dl Calcium Level 8.6 mg/dl Bedside Glucose 147 mg/dl Assessment & Plan 81 yoM with 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 Skin infection around tumor-wound culture grew Corynebacterium and Group B beta strep and patient is doing well on Augmentin. Mentating well today/CT head on admission was clear. Has fungating mass on L cheek (malignant squamous cell CA) with purulent drainage. MRSA Nasal swab -negative. Was on Empiric broad spectrum abx coverage with Zosyn and vancomycin to be given with dialysis. ID consulted and transitioned patient to Augmentin PO for 21 day course. Cont local wound care and pain control. 2. Abdominal distension-resolved. KUB on 10/13 revealed nonobstructing ileus. Pt reports tolerating some PO (but is also on PEG feedings). Rectal tube was placed and is out now. GI was following and gave erythromycin for 7 days, which is completed. Surgery was also consulted. Cont Tube feeds and mech soft diet as tolerated. 3. Episode of hematuria on 10/13 which has cleared up. Renal consulted and said patient had hematuria in the past. Could also have been related to recent urine infection? Will restart ASA and Heparin in setting of ESRD and malignancy with high risk blood clot during hospitalization and will monitor. Patient should follow up with Urology as outpatient. 4. UTI-urine culture [facility]--completed Diflucan course for 7 days on 10/14. 5. 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 Around baseline and stable. Per Nephro, no transfusion unless <02/15 or symptomatic. 6. ESRD-cont HD MWF -Dr. Hartmann following. 7. Hypothyroidism-TSH was 60 this admission. Levothyroxine increased to 75mcg on 10/09--recheck TSH as outpatient 8. DMII-diet controlled was stopped as patient not requiring insulin. Fingersticks were stopped for comfort. 9. h/o CVA- cont baby ASA 10. h/o CAD-stable, no chest pain, cont medical management with ASA 81, noticeably not on statin therapy. Defer this to PCP to avoid extra meds in light of terminal illness 11. Depression-appears stable. Cont Celexa DVT PROPHYLAXIS Heparin/SCDs DISPOSITION awaiting placement at [facility] pt/ot Social service following for discharge planning Mitra Breen DO [facility] Hospitalist Continued [facility] stay due to: home environment unsafe for pt Discharge planning: prison facility Consultants: Isaak Current Inpatient Medications: Current Inpatient Medications Medications (Trade) Dose Ordered Sig/Aj Route Start Time Stop Time Status Last Admin Dose Admin Ondansetron HCl (Zofran Inj) 4 mg Q6H PRN IV 10/02/16 13:00 11/01/16 12:59 10/04/16 07:59 4 MG Lidocaine/ Prilocaine (Emla 2.5% Crm) 1 ea UD EXT 10/02/16 13:00 11/01/16 12:59 Heparin Sodium (Porcine) (Heparin Sq 5000 Unit/0.5ml) 5,000 unit Q8 SQ 10/03/16 06:00 11/02/16 05:59 Future hold 10/17/16 21:02 5,000 UNIT Enteral Nutritional Formula (Novasource Renal) 275 ml DAILY@0200,1800,2200 PEG 10/03/16 18:00 11/02/16 17:59 10/17/16 21:41 275 ML Sterile Water (Tube Feeding Water Flush) 1 ea 0200,0300,1800,1900 PEG 10/03/16 18:00 11/02/16 17:59 10/17/16 19:29 1 EA Multi-Ingredient Ointment (Eucerin Unscented Cr) 1 appln BID PRN EXT 10/04/16 13:15 11/03/16 13:14 Morphine Sulfate (MoRPHine SULFATE INJ) 1 mg Q4 PRN IV 10/04/16 18:30 10/18/16 18:29 10/17/16 02:34 1 MG Amoxicillin/ Clavulanate Potassium (Augmentin Tab) 500 mg Q24H PO 10/07/16 18:00 10/27/16 18:01 10/17/16 18:07 500 MG Bisacodyl (Dulcolax Tab) 5 mg BID PO 10/07/16 20:00 11/06/16 19:59 10/17/16 19:28 5 MG Levothyroxine Sodium (Synthroid Tab) 75 mcg DAILYBB NG 10/09/16 06:30 11/08/16 06:29 10/17/16 05:41 75 MCG Aspirin (Ecotrin Tab) 81 mg QAM PO 10/10/16 08:00 11/09/16 07:59 Future hold 10/17/16 14:02 81 MG Citalopram Hydrobromide (celeXA TAB) 40 mg QAM PO 10/10/16 08:00 11/09/16 07:59 10/17/16 14:02 40 MG Tamsulosin HCl (Flomax Cap) 0.4 mg HS PO 10/09/16 21:00 11/08/16 20:59 10/17/16 19:29 0.4 MG Gabapentin (Neurontin Cap) 100 mg HS PO 10/09/16 21:00 11/08/16 20:59 10/17/16 19:28 100 MG Pantoprazole Sodium (Protonix Tab) 40 mg QAM PO 10/10/16 08:00 11/09/16 07:59 10/17/16 08:08 40 MG Oxycodone HCl (Roxicodone Immediate Rel Tab) 5 mg Q4 PRN PO 10/10/16 14:00 10/24/16 13:59 10/17/16 23:12 5 MG
[2016-10-18] VITALS (20 sets, daily range): BP systolic 93–157; BP diastolic 53–76; PULSE 74–110; TEMP 35.9–37.4; O2SAT 92–100
[2016-10-18] MEDS: NOVASOURCE RENAL 1000ML BAG PEG SCH ×3 (01:51→22:05)
[2016-10-18] MEDS: TUBE FEEDING WATER FLUSH PEG SCH ×4 (01:52→19:00)
[2016-10-18] MEDS: HEPARIN SOD 5000 UNIT/0.5 ML CARP SQ SCH ×3 (06:03→22:08)
[2016-10-18] MEDS: LEVOTHYROXINE 75 MCG TAB NG SCH (06:07)
[2016-10-18 06:21] LABS: HEMATOCRIT 21.1 % (42-52)
[2016-10-18 06:54] LABS: BUN/CREATININE RATIO 26.4 (10-20); CALCIUM 8.7 mg/dl (8.5-10.1); CREATININE 1.7 mg/dl (0.60-1.40); POTASSIUM 3.6 mmol/L (3.5-5.1)
[2016-10-18] MEDS: CITALOPRAM 40 MG TAB PO SCH (08:27)
[2016-10-18] MEDS: ASPIRIN 81 MG ECTAB PO SCH (08:27)
[2016-10-18] MEDS: BISACODYL 5 MG TABEC PO SCH ×2 (08:27→20:47)
[2016-10-18] MEDS: PANTOprazole SOD 40 MG TAB PO SCH (08:28)
[2016-10-18] MEDS ORDERED: ACETAMINOPHEN 325 MG TAB PO ONE (11:00)
[2016-10-18] MEDS ORDERED: FUROSEMIDE INJ 40 MG in SYRINGE 0 ML IV SCH (11:00)
[2016-10-18] MEDS ORDERED: ACETAMINOPHEN 325 MG TAB ONE (13:18)
[2016-10-18] MEDS: AMOXICILLIN/CLAVULANATE TAB 500 MG TAB PO SCH (18:57)
[2016-10-18] MEDS: TAMSULOSIN HCL 0.4 MG CAP PO SCH (20:47)
[2016-10-18] MEDS: GABAPENTIN 100 MG CAP PO SCH (20:47)
--- NOTE | 2016-10-18 23:06 | Progress Note ---
Medicine Progress Note Date & Time of Visit: Oct 18, 2016 at 12:29. Subjective -tolerating PO -tolerating tube feeds -denies abdominal issues -denies any pain -consented for blood products--also called his POA daughter and discussed blood admin, too. She was fine with proceeding Objective Last 8 Hrs Date Time Temp Pulse Resp B/P Pulse Ox O2 Delivery O2 Flow Rate FiO2 10/18/16 08:10 Room Air 10/18/16 08:00 36.9 85 16 107/64 98 Room Air 10/18/16 04:47 36.7 85 20 105/62 98 Room Air Physical Exam: GEN: WNWD, in no acute distress, alert and appropriate-slow to respond, needs things repeated HEENT: Large fungating flesh-colored mass protruding from lower left jaw-some serous drainage is present-dressing in place THAT IS C/D/I CARDIO: reg rate, 3/6 BONILLA throughout precordium LUNGS: CTA bilaterally, no crackles, rales or wheezes, good diaphragmatic excursion ABD: soft, non-tender, non-distended, no rebound or guarding, +BS, PEG tube in place EXTREMITY: no LE swelling or edema, extremities are warm and well-perfused NEURO: CN 2-12 grossly intact, no gross focal deficits MUSC: generalized weakness SKIN: warm and dry and wound as above. 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 Skin infection around tumor-wound culture grew Corynebacterium and Group B beta strep and patient is doing well on Augmentin. Mentating well today/CT head on admission was clear. Has fungating mass on L cheek (malignant squamous cell CA) with purulent drainage. MRSA Nasal swab -negative. Was on Empiric broad spectrum abx coverage with Zosyn and vancomycin to be given with dialysis. ID consulted and transitioned patient to Augmentin PO for 21 day course. Cont local wound care and pain control. 2. Abdominal distension-resolved. KUB on 10/13 revealed nonobstructing ileus. Pt reports tolerating some PO (but is also on PEG feedings). Rectal tube was placed and is out now. GI was following and gave erythromycin for 7 days, which is completed. Surgery was also consulted. Cont Tube feeds and mech soft diet as tolerated. 3. Episode of hematuria on 10/13 which has cleared up. Renal consulted and said patient had hematuria in the past. Could also have been related to recent urine infection? Will restart ASA and Heparin in setting of ESRD and malignancy with high risk blood clot during hospitalization and will monitor. Patient should follow up with Urology as outpatient. 4. UTI-urine culture [facility]--completed Diflucan course for 7 days on 10/14. 5. 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 Around baseline and stable. Per Nephro, no transfusion unless <02/15 or symptomatic. -- TRANSFUSING TWO UNITS NOW 6. ESRD-cont HD MWF -Dr. Hartmann following. 7. Hypothyroidism-TSH was 60 this admission. Levothyroxine increased to 75mcg on 10/09--recheck TSH as outpatient 8. DMII-diet controlled was stopped as patient not requiring insulin. Fingersticks were stopped for comfort. 9. h/o CVA- cont baby ASA 10. h/o CAD-stable, no chest pain, cont medical management with ASA 81, noticeably not on statin therapy. Defer this to PCP to avoid extra meds in light of terminal illness 11. Depression-appears stable. Cont Celexa DVT PROPHYLAXIS Heparin/SCDs DISPOSITION awaiting placement at [facility] pt/ot Social service following for discharge planning DO [facility] Continued [facility] stay due to: home environment unsafe for pt Discharge planning: [facility] facility Current Inpatient Medications: Current Inpatient Medications Medications (Trade) Dose Ordered Sig/Aj Route Start Time Stop Time Status Last Admin Dose Admin Ondansetron HCl (Zofran Inj) 4 mg Q6H PRN IV 10/02/16 13:00 11/01/16 12:59 10/04/16 07:59 4 MG Lidocaine/ Prilocaine (Emla 2.5% Crm) 1 ea UD EXT 10/02/16 13:00 11/01/16 12:59 Heparin Sodium (Porcine) (Heparin Sq 5000 Unit/0.5ml) 5,000 unit Q8 SQ 10/03/16 06:00 11/02/16 05:59 Future hold 10/18/16 06:03 5,000 UNIT Enteral Nutritional Formula (Novasource Renal) 275 ml DAILY@0200,1800,2200 PEG 10/03/16 18:00 11/02/16 17:59 10/18/16 01:51 275 ML Sterile Water (Tube Feeding Water Flush) 1 ea 0200,0300,1800,1900 PEG 10/03/16 18:00 11/02/16 17:59 10/18/16 03:00 1 EA Multi-Ingredient Ointment (Eucerin Unscented Cr) 1 appln BID PRN EXT 10/04/16 13:15 11/03/16 13:14 Morphine Sulfate (MoRPHine SULFATE INJ) 1 mg Q4 PRN IV 10/04/16 18:30 10/18/16 18:29 10/17/16 02:34 1 MG Amoxicillin/ Clavulanate Potassium (Augmentin Tab) 500 mg Q24H PO 10/07/16 18:00 10/27/16 18:01 10/17/16 18:07 500 MG Bisacodyl (Dulcolax Tab) 5 mg BID PO 10/07/16 20:00 11/06/16 19:59 10/18/16 08:27 5 MG Levothyroxine Sodium (Synthroid Tab) 75 mcg DAILYBB NG 10/09/16 06:30 11/08/16 06:29 10/18/16 06:07 75 MCG Aspirin (Ecotrin Tab) 81 mg QAM PO 10/10/16 08:00 11/09/16 07:59 Future hold 10/18/16 08:27 81 MG Citalopram Hydrobromide (celeXA TAB) 40 mg QAM PO 10/10/16 08:00 11/09/16 07:59 10/18/16 08:27 40 MG Tamsulosin HCl (Flomax Cap) 0.4 mg HS PO 10/09/16 21:00 11/08/16 20:59 10/17/16 19:29 0.4 MG Gabapentin (Neurontin Cap) 100 mg HS PO 10/09/16 21:00 11/08/16 20:59 10/17/16 19:28 100 MG Pantoprazole Sodium (Protonix Tab) 40 mg QAM PO 10/10/16 08:00 11/09/16 07:59 10/18/16 08:28 40 MG Oxycodone HCl (Roxicodone Immediate Rel Tab) 5 mg Q4 PRN PO 10/10/16 14:00 10/24/16 13:59 10/17/16 23:12 5 MG Heparin Sodium (Porcine) (Heparin Iv Bolus) 1,000 unit ONE IV 10/19/16 08:00 10/19/16 08:01 Heparin Sodium (Porcine) 400 unit 400 unit Q1H IV 10/19/16 08:00 10/19/16 10:01 Furosemide/Syringe (Lasix Inj/ Syringe) 4 ml @ 4 mls/min BETWEENUNITS IV 10/18/16 11:00 10/18/16 18:00
[2016-10-18] MEDS: OXYCODONE HCL IR 5 MG TAB (IMMEDIATE RELEASE) PO PRN (23:37)
[2016-10-19] VITALS (23 sets, daily range): BP systolic 90–137; BP diastolic 41–72; PULSE 54–89; TEMP 36.8–37; O2SAT 93–99
[2016-10-19] MEDS: NOVASOURCE RENAL 1000ML BAG PEG SCH ×3 (02:48→22:01)
[2016-10-19] MEDS: TUBE FEEDING WATER FLUSH PEG SCH ×4 (02:49→19:17)
[2016-10-19] MEDS: LEVOTHYROXINE 75 MCG TAB NG SCH (06:21)
[2016-10-19] MEDS: HEPARIN SOD 5000 UNIT/0.5 ML CARP SQ SCH ×3 (06:26→22:02)
[2016-10-19] MEDS: OXYCODONE HCL IR 5 MG TAB (IMMEDIATE RELEASE) PO PRN ×3 (06:26→18:06)
[2016-10-19 07:10] LABS: HEMATOCRIT 28.2 % (42-52); MEAN CELL VOLUME 93.4 fL (80-100); MEAN CORPUSCULAR HEMOGLOBIN 31.8 pg (25-34); MEAN PLATELET VOLUME 9.6 fL (7.4-10.4); PLATELET COUNT 144 K/uL (130-400); RED BLOOD COUNT 3.02 M/uL (4.7-6.1); WHITE BLOOD COUNT 5.77 K/uL (4.8-10.8)
[2016-10-19 07:40] LABS: BUN/CREATININE RATIO 28.3 (10-20); CALCIUM 9.3 mg/dl (8.5-10.1); CREATININE 2.1 mg/dl (0.60-1.40); MAGNESIUM 2.3 mg/dl (1.8-2.4); POTASSIUM 3.4 mmol/L (3.5-5.1)
[2016-10-19] MEDS ORDERED: HEPARIN SOD (PORCINE) 1000 UNIT/ML 10 ML VIAL IV SCH ×2 (08:00)
--- NOTE | 2016-10-19 08:59 | Dialysis Progress Note ---
Nephrology Dialysis Note Date of Service: Oct 19, 2016. Subjective 81 yo male with esrd who was admitted with confusion, found to have uti/ infected facial wound and then discovered to have colonic distention requiring a rectal tube. rectal tube has been removed. pt is sleepy today. did not eat breakfast. had blood transfusion yesterday. Objective Date Time Temp Pulse Resp B/P Pulse Ox O2 Delivery O2 Flow Rate FiO2 10/19/16 07:09 36.8 75 18 109/62 97 Room Air 10/19/16 03:52 36.8 78 18 102/57 98 Room Air 10/19/16 00:01 Room Air 10/18/16 23:28 37.0 74 18 101/64 96 Room Air 10/18/16 21:00 37.0 75 18 102/53 10/18/16 20:00 36.8 76 18 93/54 96 10/18/16 19:00 36.9 83 18 106/54 98 10/18/16 18:30 36.5 82 18 124/57 99 10/18/16 18:15 36.6 81 18 108/63 97 10/18/16 17:56 36.5 78 18 119/69 96 10/18/16 17:55 36.5 78 18 119/69 96 10/18/16 17:23 35.9 80 18 97/57 99 10/18/16 16:30 36.4 76 18 115/66 10/18/16 16:30 36.1 80 18 100/59 100 10/18/16 16:00 92 Room Air 10/18/16 15:30 36.5 78 18 115/66 92 10/18/16 15:00 36.1 80 18 100/59 92 10/18/16 14:48 36.2 81 18 109/76 94 10/18/16 14:17 36.3 80 18 107/64 94 10/18/16 14:01 36.9 83 18 93/53 97 10/18/16 13:04 36.5 80 16 101/56 97 Physical Exam: General-aaox3, sleepy Eyes-no scleral icterus ENT-left facial wound-covered Neck-supple Lungs-cta Heart-2/6 systolic murmur, regular Abdomen-bs+, soft, +peg Extremities-no edema Neuro-nonfocal Current Inpatient Medications Medications (Trade) Dose Ordered Sig/Aj Route Start Time Stop Time Status Last Admin Dose Admin Ondansetron HCl (Zofran Inj) 4 mg Q6H PRN IV 10/02/16 13:00 11/01/16 12:59 10/04/16 07:59 4 MG Lidocaine/ Prilocaine (Emla 2.5% Crm) 1 ea UD EXT 10/02/16 13:00 11/01/16 12:59 Heparin Sodium (Porcine) (Heparin Sq 5000 Unit/0.5ml) 5,000 unit Q8 SQ 10/03/16 06:00 11/02/16 05:59 Future hold 10/19/16 06:26 5,000 UNIT Enteral Nutritional Formula (Novasource Renal) 275 ml DAILY@0200,1800,2200 PEG 10/03/16 18:00 11/02/16 17:59 10/19/16 02:48 275 ML Sterile Water (Tube Feeding Water Flush) 1 ea 0200,0300,1800,1900 PEG 10/03/16 18:00 11/02/16 17:59 10/19/16 03:15 1 EA Multi-Ingredient Ointment (Eucerin Unscented Cr) 1 appln BID PRN EXT 10/04/16 13:15 11/03/16 13:14 Amoxicillin/ Clavulanate Potassium (Augmentin Tab) 500 mg Q24H PO 10/07/16 18:00 10/27/16 18:01 10/18/16 18:57 500 MG Bisacodyl (Dulcolax Tab) 5 mg BID PO 10/07/16 20:00 11/06/16 19:59 10/18/16 20:47 5 MG Levothyroxine Sodium (Synthroid Tab) 75 mcg DAILYBB NG 10/09/16 06:30 11/08/16 06:29 10/19/16 06:21 75 MCG Aspirin (Ecotrin Tab) 81 mg QAM PO 10/10/16 08:00 11/09/16 07:59 Future hold 10/18/16 08:27 81 MG Citalopram Hydrobromide (celeXA TAB) 40 mg QAM PO 10/10/16 08:00 11/09/16 07:59 10/18/16 08:27 40 MG Tamsulosin HCl (Flomax Cap) 0.4 mg HS PO 10/09/16 21:00 11/08/16 20:59 10/18/16 20:47 0.4 MG Gabapentin (Neurontin Cap) 100 mg HS PO 10/09/16 21:00 11/08/16 20:59 10/18/16 20:47 100 MG Pantoprazole Sodium (Protonix Tab) 40 mg QAM PO 10/10/16 08:00 11/09/16 07:59 10/18/16 08:28 40 MG Oxycodone HCl (Roxicodone Immediate Rel Tab) 5 mg Q4 PRN PO 10/10/16 14:00 10/24/16 13:59 10/19/16 06:26 5 MG Heparin Sodium (Porcine) (Heparin Iv Bolus) 400 unit Q1H IV 10/19/16 08:00 10/19/16 10:01 Last 24 Hours Test 10/19/16 06:51 White Blood Count 5.77 K/uL Red Blood Count 3.02 M/uL Hemoglobin 9.6 g/dL Hematocrit 28.2 % Mean Corpuscular Volume 93.4 fL Mean Corpuscular Hemoglobin 31.8 pg Mean Corpuscular Hemoglobin Concent 34.0 g/dl RDW Standard Deviation 53.1 fL RDW Coefficient of Variation 15.5 % Platelet Count 144 K/uL Mean Platelet Volume 9.6 fL Sodium Level 134 mmol/L Potassium Level 3.4 mmol/L Chloride Level 95 mmol/L Carbon Dioxide Level 30 mmol/L Anion Gap 9.0 mmol/L Blood Urea Nitrogen 59 mg/dl Creatinine 2.10 mg/dl Est Creatinine Clear Calc Drug Dose 26.7 ml/min Estimated GFR () 33.2 Estimated GFR (Non- 28.7 BUN/Creatinine Ratio 28.3 Random Glucose 171 mg/dl Calcium Level 9.3 mg/dl Phosphorus Level 3.0 mg/dl Magnesium Level 2.3 mg/dl Assessment & Plan ESRD-seen on dialysis today. pt is sleepy and will see if he wakes up more on dialysis. k continues to be low at 3.4 despite the blood transfusion. Anemia of renal failure-no procrit and had blood transfusion yesterday. hg levels are in the 9s now.
[2016-10-19] MEDS: CITALOPRAM 40 MG TAB PO SCH (13:30)
[2016-10-19] MEDS: ASPIRIN 81 MG ECTAB PO SCH (13:30)
[2016-10-19] MEDS: POTASSIUM CHLORIDE 20 MEQ/15 ML UDC PO SCH ×2 (13:30→15:47)
[2016-10-19] MEDS: PANTOprazole SOD 40 MG TAB PO SCH (13:31)
[2016-10-19] MEDS: BISACODYL 5 MG TABEC PO SCH ×2 (13:31→19:38)
[2016-10-19] MEDS: AMOXICILLIN/CLAVULANATE TAB 500 MG TAB PO SCH (18:03)
[2016-10-19] MEDS: TAMSULOSIN HCL 0.4 MG CAP PO SCH (21:13)
[2016-10-19] MEDS: GABAPENTIN 100 MG CAP PO SCH (21:13)
--- NOTE | 2016-10-19 22:04 | Progress Note ---
Medicine Progress Note Date & Time of Visit: Oct 19, 2016 at 1200 Subjective doing well today appears slightly perked up after blood yesterday having some pain in jaw and already requested pain meds from nurse tolerating PO along with tube feeds otherwise asymptomatic. Objective Last 8 Hrs Date Time Temp Pulse Resp B/P Pulse Ox O2 Delivery O2 Flow Rate FiO2 10/19/16 19:08 36.9 89 18 111/71 97 Room Air 10/19/16 16:00 Room Air 10/19/16 15:25 37.0 84 16 123/72 93 Room Air Physical Exam: GEN: WNWD, in no acute distress, alert and appropriate-slow to respond, needs things repeated HEENT: Large fungating flesh-colored mass protruding from lower left jaw-some serous drainage is present-dressing in place-c/d/i CARDIO: reg rate, 3/6 BONILLA throughout precordium LUNGS: CTA bilaterally, no crackles, rales or wheezes, good diaphragmatic excursion ABD: soft, non-tender, non-distended, no rebound or guarding, +BS, PEG tube in place EXTREMITY: no LE swelling or edema, extremities are warm and well-perfused NEURO: CN 2-12 grossly intact, no gross focal deficits MUSC: generalized weakness SKIN: warm and dry and wound as above. Laboratory Results: 10/19/16 06:51 10/19/16 06:51 Test 10/02/16 10:15 10/02/16 10:27 10/02/16 15:05 10/03/16 06:09 Schistocytes 1+ Troponin I < 0.015 ng/ml (0-0.045) Lipase 168 U/L (73-393) Thyroid Stimulating Hormone (TSH) 60.300 uIu/ml (0.300-4.500) Free Thyroxine 0.54 ng/dl (0.80-1.60) Urine Creatinine 2 78.9 MG/DL (>/= 20) Urine Opiates Screen NEGATIVE NG/ML (FXPQAS=921) Urine Opiates Confirmation POSITIVE NG/ML (CUTOFF=50) Urine Oxycodone Screen POSITIVE NG/ML (KJVAIA=761) Urine Methadone, Qualitative NEGATIVE NG/ML (XMYWLW=995) Urine Methadone Level NG/ML (CDHVLK=293) Urine Barbiturates NEGATIVE NG/ML (BBSEWS=812) Urine Barbiturate Confirmation NG/ML (AXSTXA=512) Urine Phencyclidine Screen NEGATIVE NG/ML (CUTOFF=25) Urine Phencyclidine (PCP) Confirm NG/ML (CUTOFF=25) Urine Amphetamines Screen NEGATIVE NG/ML (FQTFNJ=795) Urine Amphetamines Confirmation NG/ML (LTCMKF=839) Urine Benzodiazepines Screen NEGATIVE NG/ML (TVDVEH=990) Urine Benzodiazepine Confirmation NG/ML (CUTOFF=50/25) Urine Cocaine Level NEGATIVE NG/ML (LMLVTA=744) Urine Cocaine Metabolite Confirm NG/ML (EYFFCP=369) Urine Marijuana (THC) Screen NEGATIVE NG/ML (CUTOFF=20) Urine Marijuana (THC) Confirmation NG/ML (CUTOFF=5) Urine THC/Creatinine Ratio NG/MG (()) Urine Drug Screen Comment (()) Influenza Type A (RT-PCR) Neg for Influ A (NEG) Influenza Type B (RT-PCR) Neg for Influ B (NEG) Absolute Reticulocyte Count 0.06 10^6/uL (0.02-0.10) Percent Reticulocyte Count 2.6 % (0.5-2.0) Prothrombin Time 10.7 SECONDS (9.0-12.0) Prothromb Time International Ratio 1.0 (0.9-1.1) Estimated Average Glucose 143 mg/dl Hemoglobin A1c 6.6 % (4.5-5.6) Iron Level 50 mcg/dl (35-175) Total Iron Binding Capacity 278 mcg/dl (250-450) Transferrin 239 mg/dl (200-360) Transferrin % Saturation 15 % (20-50) Ferritin 1175.6 ng/ml (8.0-388.0) Vitamin B12 Level 860 pg/mL (211-911) Folate > 24.00 ng/mL (>5.38) Test 10/04/16 08:53 10/07/16 04:50 10/09/16 05:12 10/13/16 16:00 Lactic Acid Level 1.4 mmol/L (0.4-2.0) Total Bilirubin 0.4 mg/dl (0.2-1) Aspartate Amino Transf (AST/SGOT) 23 U/L (15-37) Alanine Aminotransferase (ALT/SGPT) 25 U/L (12-78) Alkaline Phosphatase 104 U/L (45-117) Total Protein 7.7 gm/dl (6.4-8.2) Albumin 3.2 gm/dl (3.4-5.0) Globulin 4.5 gm/dl (2.5-4.0) Albumin/Globulin Ratio 0.7 (0.9-2) Random Vancomycin Level 13.3 mcg/ml Hepatitis B Surface Antigen NEG (NEG) Hepatitis B Surface Antibody NEG Urine Color DK YELLOW Urine Appearance CLEAR (CLEAR) Urine pH 5.5 (4.5-7.5) Urine Specific [place] 1.030 (1.000-1.030) Urine Protein 1+ (NEG) Urine Glucose (UA) NEG (NEG) Urine Ketones NEG (NEG) Urine Occult Blood 3+ (NEG) Urine Nitrite NEG (NEG) Urine Bilirubin NEG (NEG) Urine Urobilinogen NEG (NEG) Urine Leukocyte Esterase TRACE (NEG) Urine WBC (Auto) 1-5 /hpf (0-5) Urine RBC (Auto) >30 /hpf (0-4) Urine Hyaline Casts (Auto) 1-5 /lpf (0-5) Urine Epithelial Cells (Auto) >30 /lpf (0-5) Urine Bacteria (Auto) NEG (NEG) Test 10/15/16 05:25 10/19/16 06:51 10/19/16 20:13 Immature Granulocyte % (Auto) 0.5 % White Blood Count 6.14 K/uL (4.8-10.8) Red Blood Count 2.29 M/uL (4.7-6.1) 3.02 M/uL (4.7-6.1) Hemoglobin 7.6 g/dL (14.0-18.0) Hematocrit 22.6 % (42-52) Mean Corpuscular Volume 98.7 fL (80-100) 93.4 fL (80-100) Mean Corpuscular Hemoglobin 33.2 pg (25-34) 31.8 pg (25-34) Mean Corpuscular Hemoglobin Concent 33.6 g/dl (32-36) 34.0 g/dl (32-36) Platelet Count 144 K/uL (130-400) Mean Platelet Volume 9.4 fL (7.4-10.4) 9.6 fL (7.4-10.4) Neutrophils (%) (Auto) 79.1 % Lymphocytes (%) (Auto) 8.0 % Monocytes (%) (Auto) 8.0 % Eosinophils (%) (Auto) 4.1 % Basophils (%) (Auto) 0.3 % Neutrophils # (Auto) 4.86 K/uL (1.4-6.5) Lymphocytes # (Auto) 0.49 K/uL (1.2-3.4) Monocytes # (Auto) 0.49 K/uL (0.11-0.59) Eosinophils # (Auto) 0.25 K/uL (0-0.5) Basophils # (Auto) 0.02 K/uL (0-0.2) Immature Granulocyte # (Auto) 0.03 K/uL (0.00-0.02) Red Blood Cell Morphology Unremarkable RDW Standard Deviation 53.1 fL (36.4-46.3) RDW Coefficient of Variation 15.5 % (11.5-14.5) Anion Gap 9.0 mmol/L (3-11) Est Creatinine Clear Calc Drug Dose 26.7 ml/min Estimated GFR () 33.2 Estimated GFR (Non- 28.7 BUN/Creatinine Ratio 28.3 (10-20) Calcium Level 9.3 mg/dl (8.5-10.1) Phosphorus Level 3.0 mg/dl (2.5-4.9) Magnesium Level 2.3 mg/dl (1.8-2.4) Bedside Glucose 178 mg/dl (70-99) Date/Time Source Procedure Growth Status 10/02/16 10:43 Blood Blood Culture - Final NO GROWTH Complete 10/04/16 14:00 Nasal MRSA DNA Surveillance Screen - Final Specimen Negative for MRSA by DNA Probe Complete 10/12/16 14:25 Stool C.difficile Toxin B Gene (PCR) - Final No C. difficile toxin B gene detected Complete 10/14/16 18:00 Urine , Clean Catch Urine Culture - Final NO GROWTH - LESS THAN 1,000 COLONIES/ML Complete 10/02/16 15:05 Drainage - Surface Face Gram Stain - Final Complete 10/02/16 15:05 Wound Culture - Final Corynebacterium Species Group B Beta Strep Complete Last 24 Hours Test 10/19/16 06:51 10/19/16 16:45 10/19/16 20:13 White Blood Count 5.77 K/uL Red Blood Count 3.02 M/uL Hemoglobin 9.6 g/dL Hematocrit 28.2 % Mean Corpuscular Volume 93.4 fL Mean Corpuscular Hemoglobin 31.8 pg Mean Corpuscular Hemoglobin Concent 34.0 g/dl RDW Standard Deviation 53.1 fL RDW Coefficient of Variation 15.5 % Platelet Count 144 K/uL Mean Platelet Volume 9.6 fL Sodium Level 134 mmol/L Potassium Level 3.4 mmol/L Chloride Level 95 mmol/L Carbon Dioxide Level 30 mmol/L Anion Gap 9.0 mmol/L Blood Urea Nitrogen 59 mg/dl Creatinine 2.10 mg/dl Est Creatinine Clear Calc Drug Dose 26.7 ml/min Estimated GFR () 33.2 Estimated GFR (Non- 28.7 BUN/Creatinine Ratio 28.3 Random Glucose 171 mg/dl Calcium Level 9.3 mg/dl Phosphorus Level 3.0 mg/dl Magnesium Level 2.3 mg/dl Bedside Glucose 177 mg/dl 178 mg/dl Assessment & Plan 81 yoM with 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 Skin infection around tumor-wound culture grew Corynebacterium and Group B beta strep and patient is doing well on Augmentin. Mentating well today/CT head on admission was clear. Has fungating mass on L cheek (malignant squamous cell CA) with purulent drainage. MRSA Nasal swab -negative. Was on Empiric broad spectrum abx coverage with Zosyn and vancomycin to be given with dialysis. ID consulted and transitioned patient to Augmentin PO for 21 day course. Cont local wound care and pain control. 2. Abdominal distension-resolved. KUB on 10/13 revealed nonobstructing ileus. Pt reports tolerating some PO (but is also on PEG feedings). Rectal tube was placed and is out now. GI was following and gave erythromycin for 7 days, which is completed. Surgery was also consulted. Cont Tube feeds and mech soft diet as tolerated. 3. Episode of hematuria on 10/13 which has cleared up. Renal consulted and said patient had hematuria in the past. Could also have been related to recent urine infection? Will restart ASA and Heparin in setting of ESRD and malignancy with high risk blood clot during hospitalization and will monitor. Patient should follow up with Urology as outpatient. 4. UTI-urine culture GPC/Paola--completed Diflucan course for 7 days on 10/14. 5. 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 Around baseline and stable. Per Nephro, no transfusion unless <02/15 or symptomatic. -- TRANSFUSING TWO UNITS NOW 6. ESRD-cont HD MWF -Dr. Hartmann following. 7. Hypothyroidism-TSH was 60 this admission. Levothyroxine increased to 75mcg on 10/09--recheck TSH as outpatient 8. DMII-diet controlled was stopped as patient not requiring insulin. Fingersticks were stopped for comfort. 9. h/o CVA- cont baby ASA 10. h/o CAD-stable, no chest pain, cont medical management with ASA 81, noticeably not on statin therapy. Defer this to PCP to avoid extra meds in light of terminal illness 11. Depression-appears stable. Cont Celexa DVT PROPHYLAXIS Heparin/SCDs DISPOSITION awaiting placement at [facility] pt/ot Social service following for discharge planning Mitra Breen DO [facility] Hospitalist Continued [facility] stay due to: home environment unsafe for pt Discharge planning: [facility] facility Consultants: Nephro Current Inpatient Medications: Current Inpatient Medications Medications (Trade) Dose Ordered Sig/Aj Route Start Time Stop Time Status Last Admin Dose Admin Ondansetron HCl (Zofran Inj) 4 mg Q6H PRN IV 10/02/16 13:00 11/01/16 12:59 10/04/16 07:59 4 MG Lidocaine/ Prilocaine (Emla 2.5% Crm) 1 ea UD EXT 10/02/16 13:00 11/01/16 12:59 Heparin Sodium (Porcine) (Heparin Sq 5000 Unit/0.5ml) 5,000 unit Q8 SQ 10/03/16 06:00 11/02/16 05:59 Future hold 10/19/16 13:31 5,000 UNIT Enteral Nutritional Formula (Novasource Renal) 275 ml DAILY@0200,1800,2200 PEG 10/03/16 18:00 11/02/16 17:59 10/19/16 18:03 275 ML Sterile Water (Tube Feeding Water Flush) 1 ea 0200,0300,1800,1900 PEG 10/03/16 18:00 11/02/16 17:59 10/19/16 19:17 1 EA Multi-Ingredient Ointment (Eucerin Unscented Cr) 1 appln BID PRN EXT 10/04/16 13:15 11/03/16 13:14 Amoxicillin/ Clavulanate Potassium (Augmentin Tab) 500 mg Q24H PO 10/07/16 18:00 10/27/16 18:01 10/19/16 18:03 500 MG Bisacodyl (Dulcolax Tab) 5 mg BID PO 10/07/16 20:00 11/06/16 19:59 10/19/16 19:38 5 MG Levothyroxine Sodium (Synthroid Tab) 75 mcg DAILYBB NG 10/09/16 06:30 11/08/16 06:29 10/19/16 06:21 75 MCG Aspirin (Ecotrin Tab) 81 mg QAM PO 10/10/16 08:00 11/09/16 07:59 Future hold 10/19/16 13:30 81 MG Citalopram Hydrobromide (celeXA TAB) 40 mg QAM PO 10/10/16 08:00 11/09/16 07:59 10/19/16 13:30 40 MG Tamsulosin HCl (Flomax Cap) 0.4 mg HS PO 10/09/16 21:00 11/08/16 20:59 10/19/16 21:13 0.4 MG Gabapentin (Neurontin Cap) 100 mg HS PO 10/09/16 21:00 11/08/16 20:59 10/19/16 21:13 100 MG Pantoprazole Sodium (Protonix Tab) 40 mg QAM PO 10/10/16 08:00 11/09/16 07:59 10/19/16 13:31 40 MG Oxycodone HCl (Roxicodone Immediate Rel Tab) 5 mg Q4 PRN PO 10/10/16 14:00 10/24/16 13:59 10/19/16 18:06 5 MG
[2016-10-20] MEDS: TUBE FEEDING WATER FLUSH PEG SCH ×4 (02:09→19:17)
[2016-10-20] MEDS: NOVASOURCE RENAL 1000ML BAG PEG SCH ×3 (02:09→21:48)
[2016-10-20 04:08] VITALS: BP 109/67; PULSE 76; TEMP 36.8; O2SAT 98
[2016-10-20] MEDS: LEVOTHYROXINE 75 MCG TAB NG SCH (06:09)
[2016-10-20] MEDS: HEPARIN SOD 5000 UNIT/0.5 ML CARP SQ SCH ×3 (06:10→21:50)
[2016-10-20 06:54] LABS: BUN/CREATININE RATIO 24.5 (10-20); CREATININE 1.7 mg/dl (0.60-1.40); MAGNESIUM 2.5 mg/dl (1.8-2.4); PHOSPHORUS 1.8 mg/dl (2.5-4.9); POTASSIUM 4.3 mmol/L (3.5-5.1)
[2016-10-20 07:20] VITALS: BP 128/81; PULSE 79; TEMP 36.9; O2SAT 96
[2016-10-20] MEDS: CITALOPRAM 40 MG TAB PO SCH (07:58)
[2016-10-20] MEDS: BISACODYL 5 MG TABEC PO SCH ×2 (07:58→20:25)
[2016-10-20] MEDS: OXYCODONE HCL IR 5 MG TAB (IMMEDIATE RELEASE) PO PRN (07:59)
[2016-10-20] MEDS: ASPIRIN 81 MG ECTAB PO SCH (07:59)
[2016-10-20] MEDS: PANTOprazole SOD 40 MG TAB PO SCH (07:59)
[2016-10-20 11:10] VITALS: BP 108/63; PULSE 80; TEMP 36.7; O2SAT 95
[2016-10-20] MEDS: POT PHOSPHATE MONOBASIC W/ SOD TAB PO SCH ×3 (11:45→20:25)
--- NOTE | 2016-10-20 13:32 | Progress Note ---
Medicine Progress Note Date & Time of Visit: Oct 20, 2016 at 13:24. Subjective P siting in chair at bedside Sleeping when I arrived but easily rousable Denied any pain or symptoms at this time. Objective Last 8 Hrs Date Time Temp Pulse Resp B/P Pulse Ox O2 Delivery O2 Flow Rate FiO2 10/20/16 11:10 36.7 80 18 108/63 95 Room Air 10/20/16 08:35 Room Air 10/20/16 07:20 36.9 79 18 128/81 96 Room Air Physical Exam: GEN: WNWD, in no acute distress, alert and appropriate-slow to respond, needs things repeated HEENT: Large fungating flesh-colored mass protruding from lower left jaw-some serous drainage is present-dressing in place-c/d/i CARDIO: reg rate, 3/6 BONILLA throughout precordium LUNGS: CTA bilaterally, no crackles, rales or wheezes, good diaphragmatic excursion ABD: soft, non-tender, non-distended, no rebound or guarding, +BS, PEG tube in place EXTREMITY: no LE swelling or edema, extremities are warm and well-perfused NEURO: CN 2-12 grossly intact, no gross focal deficits MUSC: generalized weakness SKIN: warm and dry and wound as above. Laboratory Results: 10/20/16 05:30 Test 10/20/16 05:30 10/20/16 11:23 Anion Gap 8.0 mmol/L (3-11) Est Creatinine Clear Calc Drug Dose 32.2 ml/min Estimated GFR () 42.9 Estimated GFR (Non- 37.0 BUN/Creatinine Ratio 24.5 (10-20) Calcium Level 9.0 mg/dl (8.5-10.1) Phosphorus Level 1.8 mg/dl (2.5-4.9) Magnesium Level 2.5 mg/dl (1.8-2.4) Bedside Glucose 168 mg/dl (70-99) Last 24 Hours Test 10/19/16 16:45 10/19/16 20:13 10/20/16 05:30 10/20/16 07:35 Bedside Glucose 177 mg/dl 178 mg/dl 128 mg/dl Sodium Level 135 mmol/L Potassium Level 4.3 mmol/L Chloride Level 98 mmol/L Carbon Dioxide Level 29 mmol/L Anion Gap 8.0 mmol/L Blood Urea Nitrogen 42 mg/dl Creatinine 1.70 mg/dl Est Creatinine Clear Calc Drug Dose 32.2 ml/min Estimated GFR () 42.9 Estimated GFR (Non- 37.0 BUN/Creatinine Ratio 24.5 Random Glucose 145 mg/dl Calcium Level 9.0 mg/dl Phosphorus Level 1.8 mg/dl Magnesium Level 2.5 mg/dl Test 10/20/16 11:23 Bedside Glucose 168 mg/dl Assessment & Plan 81 yoM with 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 Skin infection around tumor-wound culture grew Corynebacterium and Group B beta strep and patient is doing well on Augmentin. Mentating well today/CT head on admission was clear. Has fungating mass on L cheek (malignant squamous cell CA) with purulent drainage. MRSA Nasal swab -negative. Was on Empiric broad spectrum abx coverage with Zosyn and vancomycin to be given with dialysis. ID consulted and transitioned patient to Augmentin PO for 21 day course. Cont local wound care and pain control. 2. Abdominal distension-resolved. KUB on 10/13 revealed nonobstructing ileus. Pt reports tolerating some PO (but is also on PEG feedings). Rectal tube was placed and is out now. GI was following and gave erythromycin for 7 days, which is completed. Surgery was also consulted. Cont Tube feeds and mech soft diet as tolerated. 3. Episode of hematuria on 10/13 which has cleared up. Renal consulted and said patient had hematuria in the past. Could also have been related to recent urine infection? Will restart ASA and Heparin in setting of ESRD and malignancy with high risk blood clot during hospitalization and will monitor. Patient should follow up with Urology as outpatient. 4. UTI-urine culture [facility]/Paola--completed Diflucan course for 7 days on 10/14. 5. 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 Around baseline and stable. Per Nephro, no transfusion unless <02/15 or symptomatic. 6. ESRD-cont HD MWF -Nephro 7. Hypothyroidism-TSH was 60 this admission. Levothyroxine increased to 75mcg on 10/09--recheck TSH as outpatient 8. DMII-diet controlled was stopped as patient not requiring insulin. Fingersticks were stopped for comfort. 9. h/o CVA- cont baby ASA 10. h/o CAD-stable, no chest pain, cont medical management with ASA 81, noticeably not on statin therapy. Defer this to PCP to avoid extra meds in light of terminal illness 11. Depression-appears stable. Cont Celexa 12. Hypophosphatemia-replaced IV on amission but still rather low. Placed on PO supplementation--care taken and will monitor tomorrow as patient is on dialysis. DVT PROPHYLAXIS Heparin/SCDs DISPOSITION awaiting placement at [facility] pt/ot Social service following for discharge planning [facility] Contin[facility] stay due to: home environment unsafe for pt Discharge planning: [facility] facility Consultants: Nephro Current Inpatient Medications: Current Inpatient Medications Medications (Trade) Dose Ordered Sig/Aj Route Start Time Stop Time Status Last Admin Dose Admin Ondansetron HCl (Zofran Inj) 4 mg Q6H PRN IV 10/02/16 13:00 11/01/16 12:59 10/04/16 07:59 4 MG Lidocaine/ Prilocaine (Emla 2.5% Crm) 1 ea UD EXT 10/02/16 13:00 11/01/16 12:59 Heparin Sodium (Porcine) (Heparin Sq 5000 Unit/0.5ml) 5,000 unit Q8 SQ 10/03/16 06:00 11/02/16 05:59 Future hold 10/20/16 06:10 5,000 UNIT Enteral Nutritional Formula (Novasource Renal) 275 ml DAILY@0200,1800,2200 PEG 10/03/16 18:00 11/02/16 17:59 10/20/16 02:09 275 ML Sterile Water (Tube Feeding Water Flush) 1 ea 0200,0300,1800,1900 PEG 10/03/16 18:00 11/02/16 17:59 10/20/16 03:15 1 EA Multi-Ingredient Ointment (Eucerin Unscented Cr) 1 appln BID PRN EXT 10/04/16 13:15 11/03/16 13:14 Amoxicillin/ Clavulanate Potassium (Augmentin Tab) 500 mg Q24H PO 10/07/16 18:00 10/27/16 18:01 10/19/16 18:03 500 MG Bisacodyl (Dulcolax Tab) 5 mg BID PO 10/07/16 20:00 11/06/16 19:59 10/20/16 07:58 5 MG Levothyroxine Sodium (Synthroid Tab) 75 mcg DAILYBB NG 10/09/16 06:30 11/08/16 06:29 10/20/16 06:09 75 MCG Aspirin (Ecotrin Tab) 81 mg QAM PO 10/10/16 08:00 11/09/16 07:59 Future hold 10/20/16 07:59 81 MG Citalopram Hydrobromide (celeXA TAB) 40 mg QAM PO 10/10/16 08:00 11/09/16 07:59 10/20/16 07:58 40 MG Tamsulosin HCl (Flomax Cap) 0.4 mg HS PO 10/09/16 21:00 11/08/16 20:59 10/19/16 21:13 0.4 MG Gabapentin (Neurontin Cap) 100 mg HS PO 10/09/16 21:00 11/08/16 20:59 10/19/16 21:13 100 MG Pantoprazole Sodium (Protonix Tab) 40 mg QAM PO 10/10/16 08:00 11/09/16 07:59 10/20/16 07:59 40 MG Oxycodone HCl (Roxicodone Immediate Rel Tab) 5 mg Q4 PRN PO 10/10/16 14:00 10/24/16 13:59 10/20/16 07:59 5 MG Potassium/ Phosphorus/Sodium (Phospha 250 Neutral 155-852-130 Mg) 1 tab QID PO 10/20/16 12:00 11/19/16 11:59 10/20/16 11:45 1 TAB
[2016-10-20 14:52] VITALS: BP 113/68; PULSE 83; TEMP 36.9; O2SAT 97
[2016-10-20] MEDS: AMOXICILLIN/CLAVULANATE TAB 500 MG TAB PO SCH (18:04)
[2016-10-20 19:31] VITALS: BP 105/61; PULSE 91; TEMP 36.8; O2SAT 99
[2016-10-20] MEDS: TAMSULOSIN HCL 0.4 MG CAP PO SCH (20:26)
[2016-10-20] MEDS: GABAPENTIN 100 MG CAP PO SCH (20:26)
[2016-10-20 23:46] VITALS: BP 101/63; PULSE 88; TEMP 36.9; O2SAT 97
[2016-10-21] VITALS (7 sets, daily range): BP systolic 107–129; BP diastolic 62–75; PULSE 82–96; TEMP 36.5–36.9; O2SAT 93–99
[2016-10-21] MEDS: NOVASOURCE RENAL 1000ML BAG PEG SCH ×3 (02:00→22:01)
[2016-10-21] MEDS: TUBE FEEDING WATER FLUSH PEG SCH ×4 (02:00→19:15)
[2016-10-21 05:33] LABS: HEMATOCRIT 30.6 % (42-52)
[2016-10-21] MEDS: OXYCODONE HCL IR 5 MG TAB (IMMEDIATE RELEASE) PO PRN ×2 (05:33→14:11)
[2016-10-21] MEDS: LEVOTHYROXINE 75 MCG TAB NG SCH (05:33)
[2016-10-21] MEDS: HEPARIN SOD 5000 UNIT/0.5 ML CARP SQ SCH ×3 (05:34→21:33)
[2016-10-21] MEDS: BISACODYL 5 MG TABEC PO SCH ×2 (07:32→21:34)
[2016-10-21] MEDS: CITALOPRAM 40 MG TAB PO SCH (07:32)
[2016-10-21] MEDS: ASPIRIN 81 MG ECTAB PO SCH (07:32)
[2016-10-21] MEDS: PANTOprazole SOD 40 MG TAB PO SCH (07:33)
[2016-10-21] MEDS: POT PHOSPHATE MONOBASIC W/ SOD TAB PO SCH (07:33)
--- NOTE | 2016-10-21 14:23 | Progress Note ---
Medicine Progress Note Date & Time of Visit: Oct 21, 2016 at 14:15. Subjective -reports some pain in jaw today -tolerating PO Objective Last 8 Hrs Date Time Temp Pulse Resp B/P Pulse Ox O2 Delivery O2 Flow Rate FiO2 10/21/16 11:40 36.5 85 18 107/67 93 Room Air 10/21/16 07:32 97 Room Air 10/21/16 07:27 36.9 85 16 119/72 97 Room Air Physical Exam: GEN: WNWD, in no acute distress, alert and appropriate-slow to respond, needs things repeated HEENT: Large fungating flesh-colored mass protruding from lower left jaw-some serous drainage is present-dressing in place-c/d/i CARDIO: reg rate, 3/6 BONILLA throughout precordium LUNGS: CTA bilaterally, no crackles, rales or wheezes, good diaphragmatic excursion ABD: soft, non-tender, non-distended, no rebound or guarding, +BS, PEG tube in place EXTREMITY: no LE swelling or edema, extremities are warm and well-perfused N/M: no gross focal deficits. SKIN: warm and dry and wound as above. 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 Skin infection around tumor-wound culture grew Corynebacterium and Group B beta strep and patient is doing well on Augmentin. Mentating well today/CT head on admission was clear. Has fungating mass on L cheek (malignant squamous cell CA) with purulent drainage. MRSA Nasal swab -negative. Was on Empiric broad spectrum abx coverage with Zosyn and vancomycin to be given with dialysis. ID consulted and transitioned patient to Augmentin PO for 21 day course. Cont local wound care and pain control. 2. Abdominal distension-resolved. KUB on 10/13 revealed nonobstructing ileus. Pt reports tolerating some PO (but is also on PEG feedings). Rectal tube was placed and is out now. GI was following and gave erythromycin for 7 days, which is completed. Surgery was also consulted. Cont Tube feeds and mech soft diet as tolerated. 3. Episode of hematuria on 10/13 which has cleared up. Renal consulted and said patient had hematuria in the past. Could also have been related to recent urine infection? Will restart ASA and Heparin in setting of ESRD and malignancy with high risk blood clot during hospitalization and will monitor. Patient should follow up with Urology as outpatient. 4. UTI-urine culture [facility]PC/Paola--completed Diflucan course for 7 days on 10/14. 5. 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 H/H improved and stable since recent transfusion. 6. ESRD-cont inpatient HD per Nephro 7. Hypothyroidism-TSH was 60 this admission. Levothyroxine increased to 75mcg on 10/09--recheck TSH as outpatient 8. DMII-diet controlled was stopped as patient not requiring insulin. Fingersticks were stopped for comfort. 9. h/o CVA- cont baby ASA 10. h/o CAD-stable, no chest pain, cont medical management with ASA 81, noticeably not on statin therapy. Defer this to PCP to avoid extra meds in light of terminal illness 11. Depression-appears stable. Cont Celexa 12. Hypophosphatemia-replaced IV on amission but still rather low. Placed on PO supplementation yesterday--stopped this morning as level is appropriate DVT PROPHYLAXIS Heparin/SCDs DISPOSITION awaiting placement at [facility] pt/ot Social service following for discharge planning Mitra Breen DO [facility] Hospitalist Continued [facility] stay due to: home environment unsafe for pt Discharge planning: [facility] facility Consultants: Nephro Current Inpatient Medications: Current Inpatient Medications Medications (Trade) Dose Ordered Sig/Aj Route Start Time Stop Time Status Last Admin Dose Admin Ondansetron HCl (Zofran Inj) 4 mg Q6H PRN IV 10/02/16 13:00 11/01/16 12:59 10/04/16 07:59 4 MG Lidocaine/ Prilocaine (Emla 2.5% Crm) 1 ea UD EXT 10/02/16 13:00 11/01/16 12:59 Heparin Sodium (Porcine) (Heparin Sq 5000 Unit/0.5ml) 5,000 unit Q8 SQ 10/03/16 06:00 11/02/16 05:59 Future hold 10/21/16 14:07 5,000 UNIT Enteral Nutritional Formula (Novasource Renal) 275 ml DAILY@0200,1800,2200 PEG 10/03/16 18:00 11/02/16 17:59 10/21/16 02:00 275 ML Sterile Water (Tube Feeding Water Flush) 1 ea 0200,0300,1800,1900 PEG 10/03/16 18:00 11/02/16 17:59 10/21/16 03:00 1 EA Multi-Ingredient Ointment (Eucerin Unscented Cr) 1 appln BID PRN EXT 10/04/16 13:15 11/03/16 13:14 Amoxicillin/ Clavulanate Potassium (Augmentin Tab) 500 mg Q24H PO 10/07/16 18:00 10/27/16 18:01 10/20/16 18:04 500 MG Bisacodyl (Dulcolax Tab) 5 mg BID PO 10/07/16 20:00 11/06/16 19:59 10/21/16 07:32 5 MG Levothyroxine Sodium (Synthroid Tab) 75 mcg DAILYBB NG 10/09/16 06:30 11/08/16 06:29 10/21/16 05:33 75 MCG Aspirin (Ecotrin Tab) 81 mg QAM PO 10/10/16 08:00 11/09/16 07:59 Future hold 10/21/16 07:32 81 MG Citalopram Hydrobromide (celeXA TAB) 40 mg QAM PO 10/10/16 08:00 11/09/16 07:59 10/21/16 07:32 40 MG Tamsulosin HCl (Flomax Cap) 0.4 mg HS PO 10/09/16 21:00 11/08/16 20:59 10/20/16 20:26 0.4 MG Gabapentin (Neurontin Cap) 100 mg HS PO 10/09/16 21:00 11/08/16 20:59 10/20/16 20:26 100 MG Pantoprazole Sodium (Protonix Tab) 40 mg QAM PO 10/10/16 08:00 11/09/16 07:59 10/21/16 07:33 40 MG Oxycodone HCl (Roxicodone Immediate Rel Tab) 5 mg Q4 PRN PO 10/10/16 14:00 10/24/16 13:59 10/21/16 14:11 5 MG
[2016-10-21] MEDS: AMOXICILLIN/CLAVULANATE TAB 500 MG TAB PO SCH (18:42)
[2016-10-21] MEDS: GABAPENTIN 100 MG CAP PO SCH (21:32)
[2016-10-21] MEDS: TAMSULOSIN HCL 0.4 MG CAP PO SCH (21:33)
[2016-10-22] VITALS (18 sets, daily range): BP systolic 93–135; BP diastolic 45–96; PULSE 61–100; TEMP 36.7–37.4; O2SAT 97–98
[2016-10-22] MEDS: TUBE FEEDING WATER FLUSH PEG SCH ×2 (02:15→03:28)
[2016-10-22] MEDS: NOVASOURCE RENAL 1000ML BAG PEG SCH (02:15)
[2016-10-22] MEDS: LEVOTHYROXINE 75 MCG TAB NG SCH (06:17)
[2016-10-22] MEDS: HEPARIN SOD 5000 UNIT/0.5 ML CARP SQ SCH ×2 (06:19→14:08)
[2016-10-22] MEDS: OXYCODONE HCL IR 5 MG TAB (IMMEDIATE RELEASE) PO PRN (06:20)
[2016-10-22 06:42] LABS: HEMATOCRIT 29.2 % (42-52); MEAN CELL VOLUME 95.1 fL (80-100); MEAN CORPUSCULAR HEMOGLOBIN 31.9 pg (25-34); MEAN CORPUSCULAR HGB CONC 33.6 g/dl (32-36); MEAN PLATELET VOLUME 9.6 fL (7.4-10.4); PLATELET COUNT 152 K/uL (130-400); RED BLOOD COUNT 3.07 M/uL (4.7-6.1)
[2016-10-22 07:17] LABS: BUN/CREATININE RATIO 35.2 (10-20); CALCIUM 9.9 mg/dl (8.5-10.1); CREATININE 2.2 mg/dl (0.60-1.40); MAGNESIUM 2.4 mg/dl (1.8-2.4); PHOSPHORUS 3.9 mg/dl (2.5-4.9)
[2016-10-22] MEDS: ASPIRIN 81 MG ECTAB PO SCH (07:53)
[2016-10-22] MEDS: CITALOPRAM 40 MG TAB PO SCH (07:53)
[2016-10-22] MEDS: BISACODYL 5 MG TABEC PO SCH (07:53)
[2016-10-22] MEDS: PANTOprazole SOD 40 MG TAB PO SCH (07:54)
--- NOTE | 2016-10-22 10:10 | Nephrology Progress Note ---
Nephrology Progress Note Date of Service: Oct 22, 2016. Subjective 81 yo male with esrd who was admitted with confusion, found to have uti/ infected facial wound and then discovered to have colonic distention requiring a rectal tube. rectal tube has been removed. pt getting intermittent transfusions since transfusion dependent. pt with no complaints today. getting dialysis m-w-f inpatient. Objective Date Time Temp Pulse Resp B/P Pulse Ox O2 Delivery O2 Flow Rate FiO2 10/22/16 06:51 36.7 86 18 111/65 98 Room Air 10/22/16 03:17 36.7 87 18 107/61 97 Room Air 10/22/16 00:01 Room Air 10/21/16 23:38 36.9 86 16 110/62 95 Room Air 10/21/16 20:00 Room Air 10/21/16 19:01 36.9 82 18 127/75 96 Room Air 10/21/16 17:37 Room Air 10/21/16 16:08 36.8 82 16 129/69 97 Room Air 10/21/16 11:40 36.5 85 18 107/67 93 Room Air Physical Exam: General-aaox3 Eyes-no scleral icterus ENT-left facial wound-covered Neck-supple Lungs-clear Heart-2/6 systolic murmur, regular Abdomen-bs+, soft, +peg Extremities-no edema Neuro-nonfocal Current Inpatient Medications Medications (Trade) Dose Ordered Sig/Aj Route Start Time Stop Time Status Last Admin Dose Admin Ondansetron HCl (Zofran Inj) 4 mg Q6H PRN IV 10/02/16 13:00 11/01/16 12:59 10/04/16 07:59 4 MG Lidocaine/ Prilocaine (Emla 2.5% Crm) 1 ea UD EXT 10/02/16 13:00 11/01/16 12:59 Heparin Sodium (Porcine) (Heparin Sq 5000 Unit/0.5ml) 5,000 unit Q8 SQ 10/03/16 06:00 11/02/16 05:59 Future hold 10/22/16 06:19 5,000 UNIT Enteral Nutritional Formula (Novasource Renal) 275 ml DAILY@0200,1800,2200 PEG 10/03/16 18:00 11/02/16 17:59 10/22/16 02:15 275 ML Sterile Water (Tube Feeding Water Flush) 1 ea 0200,0300,1800,1900 PEG 10/03/16 18:00 11/02/16 17:59 10/22/16 03:28 1 EA Multi-Ingredient Ointment (Eucerin Unscented Cr) 1 appln BID PRN EXT 10/04/16 13:15 11/03/16 13:14 Amoxicillin/ Clavulanate Potassium (Augmentin Tab) 500 mg Q24H PO 10/07/16 18:00 10/27/16 18:01 10/21/16 18:42 500 MG Bisacodyl (Dulcolax Tab) 5 mg BID PO 10/07/16 20:00 11/06/16 19:59 10/22/16 07:53 5 MG Levothyroxine Sodium (Synthroid Tab) 75 mcg DAILYBB NG 10/09/16 06:30 11/08/16 06:29 10/22/16 06:17 75 MCG Aspirin (Ecotrin Tab) 81 mg QAM PO 10/10/16 08:00 11/09/16 07:59 Future hold 10/22/16 07:53 81 MG Citalopram Hydrobromide (celeXA TAB) 40 mg QAM PO 10/10/16 08:00 11/09/16 07:59 10/22/16 07:53 40 MG Tamsulosin HCl (Flomax Cap) 0.4 mg HS PO 10/09/16 21:00 11/08/16 20:59 10/21/16 21:33 0.4 MG Gabapentin (Neurontin Cap) 100 mg HS PO 10/09/16 21:00 11/08/16 20:59 10/21/16 21:32 100 MG Pantoprazole Sodium (Protonix Tab) 40 mg QAM PO 10/10/16 08:00 11/09/16 07:59 10/22/16 07:54 40 MG Oxycodone HCl (Roxicodone Immediate Rel Tab) 5 mg Q4 PRN PO 10/10/16 14:00 10/24/16 13:59 10/22/16 06:20 5 MG Last 24 Hours Test 10/22/16 06:00 White Blood Count 5.70 K/uL Red Blood Count 3.07 M/uL Hemoglobin 9.8 g/dL Hematocrit 29.2 % Mean Corpuscular Volume 95.1 fL Mean Corpuscular Hemoglobin 31.9 pg Mean Corpuscular Hemoglobin Concent 33.6 g/dl RDW Standard Deviation 49.0 fL RDW Coefficient of Variation 14.1 % Platelet Count 152 K/uL Mean Platelet Volume 9.6 fL Sodium Level 135 mmol/L Potassium Level 4.0 mmol/L Chloride Level 97 mmol/L Carbon Dioxide Level 27 mmol/L Anion Gap 11.0 mmol/L Blood Urea Nitrogen 77 mg/dl Creatinine 2.20 mg/dl Est Creatinine Clear Calc Drug Dose 25.2 ml/min Estimated GFR () 31.4 Estimated GFR (Non- 27.1 BUN/Creatinine Ratio 35.2 Random Glucose 133 mg/dl Calcium Level 9.9 mg/dl Phosphorus Level 3.9 mg/dl Magnesium Level 2.4 mg/dl Assessment & Plan ESRD-for dialysis today, 4 k bath with k chronically low. k of 4 at last check. volume status appears appropriate. Anemia of renal failure-no procrit secondary to malignancy. hg levels are stable and transfusing prn. MAGALY-phos levels are good and no binders indicated at this time.
[2016-10-22] MEDS ORDERED: AMOX1TAB42 PO (14:18)
[2016-10-22] MEDS ORDERED: SYN75 PEG (14:26)
--- NOTE | 2016-10-22 14:47 | Discharge Summary ---
Discharge Summary Date of Service Oct 22, 2016. Discharge Summary Admission Date: Oct 02, 2016 at 12:59 Discharge Date: Oct 22, 2016 [facility] Principal Diagnosis: 1. AMS 2. Superficial skin infection 3. ESRD requiring hemodialysis 4. Abdominal distension-resolved 5. Hematuria-resolved 6. UTI 2/2 [place] 7. Anemia-chronic 8. Hypothyroidism 9. DMII 10. h/o CVA 11. Depression 12. Hypophosphatemia-replaced 13. 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 Procedures: Hemodialysis MWF schedule Vaccinations: None. Consultations: Nephro, GI, General Surgery, Infectious Disease, Hematology/Oncology Medication Reconciliation New Medications: Amoxicillin & Pot Clavulanate (Amoxicillin/Clavulanate P) 1 Tab Tab 500 MG PO Q24H for 6 Days, #6 TAB Levothyroxine Sodium (Synthroid) 75 Mcg Tab 75 MCG PEG DAILY@0600 for 30 Days, #30 TAB Changed Medications: Levothyroxine Sodium (Synthroid) 50 Mcg Tab 75 MCG PO DAILY for 30 Days, TAB (Changed from: 50 MCG) Continued Medications: Acetaminophen (Tylenol) 325 Mg Tab 325 MG PEG Q4H PRN for Pain, TAB Aspirin (Aspirin Ec) 81 Mg Tab 81 MG PEG DAILY Citalopram (Citalopram Hydrobromide) 40 Mg Tab 40 MG PEG DAILY Folic Acid (Folvite) 1 Mg Tab 1 MG PEG DAILY, TAB Gabapentin (Neurontin) 100 Mg Cap 100 MG PEG QPM, CAP Lidocaine-Prilocaine (Lidocaine/Prilocaine) 1 Cre Cre 1 APPLN TOP UD APPLIES TO FISTULA ON LEFT ARM Nutritional Supplements (Twocal Hn) 1 Liq Liq 5 CAN PEG QPM Omeprazole (Prilosec) 20 Mg Capcr 20 MG PEG QAM, CAP Take one hour prior to the first meal of the day Oxycodone Ir (Roxicodone Ir) 5 Mg Tab 5 MG PO Q4H PRN for Pain, TAB Tamsulosin Hcl (Flomax) 0.4 Mg Cap 0.4 MG PEG QPM, CAP Admission Information HPI (per Admitting provider): This is an 81 year old male with PMH of SCC of buccal mucosa s/p PEG tube, ESRD on dialysis, CAD, HTN, DM type 2, hypothyroidism, BPH, and other problems listed below who was brought to the ED for confusion. History obtained from daughter in law at bedside due to patient's mental status. At baseline patient is oriented x 3 except mildly off on days of the week. He is currently only oriented to person. Daughter in law states confusion started 4 days ago on Saturday and has progressively worsened. Yesterday at dialysis pt was attempting to stand up from the table. She reports associated insomnia and visual hallucinations. Daughter in law states pt accidentally hit himself in the face with his hand 2 weeks ago and ruptured the masses on his left jaw area. From that time he had increased pain which has been medicated with Tylenol and rare use of Oxy IR- last dose 7 am. There has been white drainage from the lesions. Pt has chronic mouth asymmetry s/p buccal surgery. 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 Over past 2 weeks pt's legs occasionally give out but has not fallen. Ambulates with walker and assistance. Pt is chronically incontinent of dark yellow urine which is malodorous. Pt has occasional epistaxis a few times per month but no severe, prolonged bleeding. Pt is chronically cold. He takes in liquids, pills, occasional puree consistency food PO but main source of nutrition is via PEG tube. Daughter in law denies fevers, URI symptoms, cough, chest pain, SOB, speech or swallowing difficulty, acute focal numbness, chest pain, SOB, abdominal pain, nausea, vomiting, change in chronic diarrhea, hematochezia, melena. Pt dialyzes MWF and had full dialysis tx yesterday. Levothyroxine was increased approx 2 weeks ago but no other recent med change. Physical Exam (per Admitting): General Appearance: WD/WN, no apparent distress, + pertinent finding ( pleasantly confused elderly male, no distress) Head: normocephalic, atraumatic Eyes: normal inspection, PERRL, EOMI ENT: hearing grossly normal, + pertinent finding (pharynx exam limited due to patient's decreased ability to open his mouth) Neck: supple, no JVD, trachea midline Respiratory/Chest: lungs clear, normal breath sounds, no respiratory distress, no accessory muscle use Cardiovascular: regular rate, rhythm, + systolic murmur Abdomen/GI: normal bowel sounds, non tender, soft, + pertinent finding (PEG tube in place) Extremities/Musculoskelatal: no calf tenderness, no pedal edema Neurologic/Psych: alert, normal mood/affect, oriented x 3, + pertinent finding (left lip asymmetry secondary to prior buccal surgery. well healed scar noted at left commisure. cranial nerves II-XII otherwise normal. funeral home manager strength 4 /5 left hand- chronic. all other extremities strenth 5/5. no sensory deficit of face or extremities.) Skin: + pertinent finding (large mass left jaw with purulent discharge, tenderness, mild surrounding erythema. tiny abrasion on left buttock without erythema or drainage. remainder of skin is warm and dry with normal color. 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 Skin infection around tumor-wound culture grew Corynebacterium and Group B beta strep and patient is doing well on Augmentin. Mentating well today/CT head on admission was clear. Has fungating mass on L cheek (malignant squamous cell CA) with purulent drainage. MRSA Nasal swab -negative. Was on Empiric broad spectrum abx coverage with Zosyn and vancomycin to be given with dialysis. ID consulted and transitioned patient to Augmentin PO for 21 day course. Cont local wound care and pain control. 2. Abdominal distension-resolved. KUB on 10/13 revealed nonobstructing ileus. Pt reports tolerating some PO (but is also on PEG feedings). Rectal tube was placed and is out now. GI was following and gave erythromycin for 7 days, which is completed. Surgery was also consulted-nonoperative findings. Cont Tube feeds and mech soft diet as he is tolerating this well with no abdominal distension at this time. 3. Episode of hematuria on 10/13 which has cleared up. Renal consulted and said patient had hematuria in the past. Could also have been related to recent urine infection? Will restart ASA and Heparin in setting of ESRD and malignancy with high risk blood clot during hospitalization and will monitor. Patient should follow up with Urology as outpatient. 4. UTI-urine culture GPC/Paola--completed Diflucan course for 7 days on 10/14. 5. 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 H/H improved and stable since recent transfusion. 6. ESRD-cont inpatient HD per Nephro-MWF schedule 7. Hypothyroidism-TSH was 60 this admission. Levothyroxine increased to 75mcg on 10/09--recheck TSH as outpatient 8. DMII-diet controlled was stopped as patient not requiring insulin. Fingersticks were stopped for comfort. 9. h/o CVA- cont baby ASA 10. h/o CAD-stable, no chest pain, cont medical management with ASA 81, noticeably not on statin therapy. Defer this to PCP to avoid extra meds in light of terminal illness 11. Depression-appears stable. Cont Celexa 12. Hypophosphatemia-replaced IV on admission but still rather low. Placed on PO supplementation yesterday--stopped as level was appropriate 10/21 Dispo to [facility] Total time spent on discharge = 60 minutes This includes examination of the patient, discharge planning, medication reconciliation, and communication with other providers. Discharge Instructions Discharge Instructions Date of Service Oct 05, 2016. Admission Reason for Admission: Altered Mental Status, Hypotension Discharge Discharge Diagnosis / Problem: SEPSIS /INFECTED FACIAL WOUND /ILLEUS Discharge Goals Goal(s): Increase independence, Improve disease control, Diagnostic testing, Therapeutic intervention Activity Recommendations Activity Level: Assistance Required Therapies: Physical Therapy, Occupational Therapy . Additional Information Patient informed of condition: Yes Advance Directives: No DNR: No Level of Care: Skilled Communicable Disease: No Prognosis: Stable Kaur Catheter: No Instructions / Follow-Up Instructions / Follow-Up FOLLOW UP WITH FAMILY PHYSICIAN AFTER DISCHARGE FORM REHAB Current Hospital Diet Patient's current hospital diet: Regular Diet Discharge Diet Recommended Diet: N/A (TUBE FEEDING ) Pending Studies Studies pending at discharge: no Laboratory Results Hemoglobin A1c Test 10/03/16 06:09 Range/Units Estimated Average Glucose 143 mg/dl Hemoglobin A1c 6.6 H 4.5-5.6 % Medical Emergencies . Who to Call and When: Medical Emergencies: If at any time you feel your situation is an emergency, please call 911 immediately. . Non-Emergent Contact Non-Emergency issues call your: Primary Care Provider . . "Provider Documentation" section prepared by Viki Kellogg. Core Measure Problem Core Measures: None Addendum: Mitra Breen, DO on 10/22/16 @ 14:45 Discharge Inst - Addendum Addendum Notes: Levothyroxine was increased to 75mcg daily on 10/09. PCP to recheck TSH level 6- 8 weeks after this time for adjustment of dosage. Also need outpatient Urology follow-up for hematuria episode that cleared up in the hospital. Mitra Breen DO [facility] Hospitalist Addendum Provider: Addendum Notes were documented by provider Mitra Breen. (Mitra Breen, DO) Additional Copies To Francisco Delarosa M.D.
[2016-11-20] MEDS ORDERED: FNTTP25 TOP (11:13)
[2016-12-18] MEDS ORDERED: INSU1INJ SC (11:47)
[2016-12-18] MEDS ORDERED: LEVO100T7 PO (11:52)
[2016-12-28] MEDS ORDERED: ATV/1 SL (22:45)
[2016-12-28] MEDS ORDERED: OXYC10SO PO (22:45)
[2016-12-28] MEDS ORDERED: FNTTP25 TOP (22:45)
[2016-12-28] MEDS ORDERED: SCOP1DIS14 TD (22:45)
[2016-12-29] MEDS ORDERED: ATROPS5 SL (20:17)
[2016-12-29] MEDS ORDERED: SCOP1DIS14 TD (20:17)
[2016-12-30] MEDS ORDERED: GABA-112 PO (12:02)
[2016-12-30] MEDS ORDERED: NVLNI SC (12:23)
== END 2016-10-22 17:20 | DRG 871 ==
LOC: CANRESERV → ENRESERVDT → ENRESERVTM → C.EDB 09:46 → C.2T 12:59 → EDBEDREQ 13:05 → C.4E 10-03 22:17
PROVIDERS: ADMIT Hospitalist; ATTEND Hospitalist
DX: A41.9 Sepsis, unspecified organism (principal); N18.6 End stage renal disease; I69.954 Hemiplegia and hemiparesis following unspecified cerebrovascular disease affecting left non-dominant side; C06.0 Malignant neoplasm of cheek mucosa; I12.0 Hypertensive chronic kidney disease with stage 5 chronic kidney disease or end stage renal disease; B37.49 Other urogenital candidiasis; N17.9 Acute kidney failure, unspecified; G25.81 Restless legs syndrome; K56.7 Ileus, unspecified; K85.90 Acute pancreatitis without necrosis or infection, unspecified; F32.9 Major depressive disorder, single episode, unspecified; E11.21 Type 2 diabetes mellitus with diabetic nephropathy; R65.20 Severe sepsis without septic shock; Z87.891 Personal history of nicotine dependence; D64.9 Anemia, unspecified; Z93.1 Gastrostomy status; N40.0 Benign prostatic hyperplasia without lower urinary tract symptoms; Z99.2 Dependence on renal dialysis; E03.9 Hypothyroidism, unspecified; E83.39 Other disorders of phosphorus metabolism; B95.5 Unspecified streptococcus as the cause of diseases classified elsewhere; B96.89 Other specified bacterial agents as the cause of diseases classified elsewhere; E86.0 Dehydration

== ENCOUNTER 2016-12-26 01:33 | Inpatient (IN) | payer OTHER ==
[~2016-12-26] VITALS: Ht 172.7 cm; Wt 66.0 kg
[~2016-12-26 01:33] MED LIST: ACET-1311 PO; ASPI81TA28 PO; CITA40TA4 PO; FNTTP25 TOP; FOLI1TAB7 PO; GABA-112 PO; INSU1INJ SC; LEVO100T7 PO; NUTR-431 PEG; OXYC1TAB3 PO; PRLSR20 PO; TAMS0.4C38 PO
[2016-12-26] MEDS ORDERED: SODIUM CHLORIDE 0.9% 1000ML 1,000 ML IV STA (01:39)
[2016-12-26] MEDS ORDERED: DOCU-94 PO (02:16)
[2016-12-26] MEDS ORDERED: METR0.7536 TOP (02:16)
--- NOTE | 2016-12-26 02:16 | EMERGENCY ROOM VISIT NOTE ---
History Report prepared by Duncan: Kaleb Leon Under the Supervision of: Dr. Dmitri Quiros D.O. First contact with patient: 01:39 Chief Complaint: ABNORMAL LABS Stated Complaint: HIGH SODIUM History of Present Illness The patient is an 81 year old male who presents to the Emergency Room with abnormal lab findings beginning prior to arrival. Per the patient's doctor, the patient reports to be hypernatremic and dehydrated. The patient's daughter reports that the patient also is hyperglycemic. She notes that before every meal she injects him with 14 units of insulin. The daughter reports that yesterday morning, the patient blood sugar was 421, this morning it was 273, and this evening it was in the 300s. She states that he would be sitting down shaking, fall asleep, and then spill the beverage he was drinking. The daughter notes that it is difficult to administer the patient fluids because she does not have a feeding tube that is capable of doing both. She reports he is currently on Augmentin from [facility]. The nurse states that the patient' s current glucose level is 352. Source of History: family (daughter) Onset: prior to arrival Position: other (global) Quality: other (abnormal labs) Timing: constant Note: Associated symptoms: dehydration and hypernatremia. Review of Systems See HPI for pertinent positives and negatives. A total of ten systems were reviewed and were otherwise negative. 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 (20) Squamous cell cancer of buccal mucosa (21) Valvular disease Surgical Problems: (1) H/O colonoscopy (2) History of surgical procedure on mouth (3) S/P percutaneous endoscopic gastrostomy (PEG) tube placement Family History Diabetes mellitus BROTHER FH: cancer BROTHER (esophageal) Social History Smoking Status: Former Smoker Alcohol Use: none Drug Use: none Marital Status: Occupation Status: retired Current/Historical Medications Scheduled Aspirin (Aspirin Ec), 81 MG PO DAILY Citalopram (Citalopram Hydrobromide), 40 MG PO DAILY Docusate Sodium (Colace), 200 MG PO BID Fentanyl (Fentanyl), 25 MCG TOP every 3 days Folic Acid (Folvite), 1 MG PO DAILY Gabapentin (Neurontin), 100 MG PO QPM Insulin Isophan/Regular (Humulin 70/30), 14 SC QPM Levothyroxine Sodium (Levothyroxine Sodium), 1 TAB PO DAILY Nutritional Supplements (Twocal Hn), 5 CAN PEG QPM Omeprazole (Prilosec), 20 MG PO QAM Tamsulosin Hcl (Flomax), 0.4 MG PO QPM Scheduled PRN Acetaminophen (Tylenol), 325 MG PO Q4H PRN for Pain Metronidazole (Topical) (Metronidazole), 1 APPLN TOP BID PRN for WITH DRESSING CHANGE TO FACE Oxycodone Ir (Roxicodone Ir), 5 MG PO Q4H PRN for Pain Allergies Coded Allergies: No Known Allergies (Unverified , 12/26/16) Physical Exam Vital Signs Date Time Temp Pulse Resp B/P Pulse Ox O2 Delivery O2 Flow Rate FiO2 12/26/16 03:02 81 15 127/75 99 Room Air 12/26/16 02:15 95 15 135/71 98 Room Air 12/26/16 02:09 96 12/26/16 01:55 Room Air 12/26/16 01:38 37.1 99 20 129/73 98 Room Air Physical Exam GENERAL: Awake, alert, cachectic-appearing, in no distress HENT: Normocephalic, atraumatic. Oropharynx unremarkable. Tumor bandage on left cheek. EYES: Normal conjunctiva. Sclera non-icteric. NECK: Supple. No nuchal rigidity. FROM. No JVD. RESPIRATORY: Clear to auscultation. CARDIAC: Regular rate, normal rhythm. Extremities warm and well perfused. Pulses equal. ABDOMEN: Soft, non-distended. No tenderness to palpation. No rebound or guarding. No masses. Left upper quadrant PEG tube. RECTAL: Deferred. MUSCULOSKELETAL: Chest examination reveals no tenderness. The back is symmetrical on inspection without obvious abnormality. There is no CVA tenderness to palpation. No joint edema. LOWER EXTREMITIES: Calves are equal size bilaterally and non-tender. No edema. No discoloration. UPPER EXTREMITIES: Left arm: dialysis graft NEURO: Normal sensorium. No sensory or motor deficits noted. SKIN: No rash or jaundice noted. Poor turgor Medical Decision & Procedures Laboratory Results 12/26/16 01:55 Red Blood Count 2.88, Mean Corpuscular Volume 102.8, Mean Corpuscular Hemoglobin 31.3, Mean Corpuscular Hemoglobin Concent 30.4, Mean Platelet Volume 10.5, Neutrophils (%) (Auto) 87.0, Lymphocytes (%) (Auto) 6.4, Monocytes (%) ( Auto) 4.5, Eosinophils (%) (Auto) 1.3, Basophils (%) (Auto) 0.3, Neutrophils # ( Auto) 7.46, Lymphocytes # (Auto) 0.55, Monocytes # (Auto) 0.39, Eosinophils # ( Auto) 0.11, Basophils # (Auto) 0.03 12/26/16 01:55 Test 12/26/16 01:51 12/26/16 01:55 12/26/16 02:20 Bedside Glucose 352 mg/dl (70-99) White Blood Count 8.58 K/uL (4.8-10.8) Red Blood Count 2.88 M/uL (4.7-6.1) Hemoglobin 9.0 g/dL (14.0-18.0) Hematocrit 29.6 % (42-52) Mean Corpuscular Volume 102.8 fL (80-100) Mean Corpuscular Hemoglobin 31.3 pg (25-34) Mean Corpuscular Hemoglobin Concent 30.4 g/dl (32-36) Platelet Count 201 K/uL (130-400) Mean Platelet Volume 10.5 fL (7.4-10.4) Neutrophils (%) (Auto) 87.0 % Lymphocytes (%) (Auto) 6.4 % Monocytes (%) (Auto) 4.5 % Eosinophils (%) (Auto) 1.3 % Basophils (%) (Auto) 0.3 % Neutrophils # (Auto) 7.46 K/uL (1.4-6.5) Lymphocytes # (Auto) 0.55 K/uL (1.2-3.4) Monocytes # (Auto) 0.39 K/uL (0.11-0.59) Eosinophils # (Auto) 0.11 K/uL (0-0.5) Basophils # (Auto) 0.03 K/uL (0-0.2) RDW Standard Deviation 53.2 fL (36.4-46.3) RDW Coefficient of Variation 14.2 % (11.5-14.5) Immature Granulocyte % (Auto) 0.5 % Immature Granulocyte # (Auto) 0.04 K/uL (0.00-0.02) Red Blood Cell Morphology Unremarkable Prothrombin Time 10.9 SECONDS (9.0-12.0) Prothromb Time International Ratio 1.0 (0.9-1.1) Activated Partial Thromboplast Time 23.6 SECONDS (21.0-31.0) Partial Thromboplastin Ratio 0.9 Anion Gap 8.0 mmol/L (3-11) Est Creatinine Clear Calc Drug Dose 20.8 ml/min Estimated GFR () 25.7 Estimated GFR (Non- 22.1 BUN/Creatinine Ratio 39.7 (10-20) Calcium Level 9.6 mg/dl (8.5-10.1) Magnesium Level 3.3 mg/dl (1.8-2.4) Total Bilirubin 0.3 mg/dl (0.2-1) Direct Bilirubin < 0.1 mg/dl (0-0.2) Aspartate Amino Transf (AST/SGOT) 48 U/L (15-37) Alanine Aminotransferase (ALT/SGPT) 50 U/L (12-78) Alkaline Phosphatase 102 U/L (45-117) Total Protein 7.9 gm/dl (6.4-8.2) Albumin 2.4 gm/dl (3.4-5.0) Lipase 135 U/L (73-393) Beta-Hydroxybutyric Acid 1.75 mg/dL (0.2-2.81) Thyroid Stimulating Hormone (TSH) 6.570 uIu/ml (0.300-4.500) Urine Color YELLOW Urine Appearance CLEAR (CLEAR) Urine pH 6.5 (4.5-7.5) Urine Specific [place] 1.020 (1.000-1.030) Urine Protein 1+ (NEG) Urine Glucose (UA) NEG (NEG) Urine Ketones NEG (NEG) Urine Occult Blood TRACE (NEG) Urine Nitrite NEG (NEG) Urine Bilirubin NEG (NEG) Urine Urobilinogen NEG (NEG) Urine Leukocyte Esterase NEG (NEG) Urine WBC (Auto) 1-5 /hpf (0-5) Urine RBC (Auto) 0-4 /hpf (0-4) Urine Hyaline Casts (Auto) 1-5 /lpf (0-5) Urine Epithelial Cells (Auto) >30 /lpf (0-5) Urine Bacteria (Auto) NEG (NEG) Urine Renal Epithelial Cells /lpf (0-5) Laboratory results reviewed by me Medications Administered Medications (Trade) Dose Ordered Sig/Aj Route Start Time Stop Time Status Last Admin Dose Admin Sodium Chloride (Nss 1000ml) 1,000 ml @ 999 mls/hr Q1H1M STAT IV 12/26/16 01:39 12/26/16 02:39 DC 12/26/16 02:11 999 MLS/HR ECG Indication: other (abnormal labs) Rate (beats per minute): 99 Rhythm: sinus rhythm Findings: other (Poor R-wave progression in the precordium, normal axis, poor baseline) ED Course 0139: Ordered Sodium Chloride 1000 ml @ 999 mls/hr IV 0152: The patient was evaluated in room A11B. A complete history and physical exam was performed. 0240: Upon reexamination, the patient was resting easy. I discussed the test results and treatment plan with him. I discussed the patient's case with Dr. Bishop [facility]. The patient will be evaluated for further management. Medical Decision Renal insufficiency, dehydration, metabolic derangement, uremia. Medication Reconciliation: I attest that I have personally reviewed the patient' s current medication list. Blood pressure screening: Patient was found to have normal blood pressure on screening and does not require follow-up. Patient started on IV fluids patient's clinical exam shows evidence of dehydration. Case is discussed with the patient's family at bedside [facility] Consults Time Called: [phone] Consulting Physician: [facility] Returned Call: [phone] I discussed the [facility] The patient will be evaluated for further management. Impression Primary Impression: Hypernatremia Additional Impressions: Hyperglycemia Uremia Scribe Attestation The scribe's documentation has been prepared under my direction and personally reviewed by me in its entirety. I confirm that the note above accurately reflects all work, treatment, procedures, and medical decision making performed by me. Departure Information Dispostion Being Evaluated By Hospitalist Referrals Francisco Delarosa M.D. (PCP) Patient Instructions My [facility] Problem Qualifiers
[2016-12-26 02:18] LABS: PARTIAL THROMBOPLASTIN RATIO 0.9; PROTHROMBIN TIME (PATIENT) 10.9 SECONDS (9.0-12.0)
[2016-12-26 02:25] LABS: HEMATOCRIT 29.6 % (42-52); MEAN CELL VOLUME 102.8 fL (80-100); MEAN CORPUSCULAR HEMOGLOBIN 31.3 pg (25-34); MEAN CORPUSCULAR HGB CONC 30.4 g/dl (32-36); MEAN PLATELET VOLUME 10.5 fL (7.4-10.4); PLATELET COUNT 201 K/uL (130-400); RED BLOOD COUNT 2.88 M/uL (4.7-6.1); WHITE BLOOD COUNT 8.58 K/uL (4.8-10.8)
[2016-12-26 02:32] LABS: ALT/SGPT 50 U/L (12-78); AST/SGOT 48 U/L (15-37); BLOOD UREA NITROGEN 103 mg/dl (7-18); BUN/CREATININE RATIO 39.7 (10-20); CALCIUM 9.6 mg/dl (8.5-10.1); CARBON DIOXIDE 30 mmol/L (21-32); CHLORIDE 117 mmol/L (98-107); GLUCOSE 329 mg/dl (70-99); MAGNESIUM 3.3 mg/dl (1.8-2.4); POTASSIUM 4.3 mmol/L (3.5-5.1); SODIUM 155 mmol/L (136-145)
[2016-12-26 02:36] LABS: URINE APPEARANCE CLEAR (CLEAR); URINE BILIRUBIN NEG (NEG); URINE COLOR YELLOW; URINE EPITHELIAL CELL AUTO >30 /lpf (0-5); URINE NITRITE NEG (NEG); URINE PH 6.5 (4.5-7.5); UROBILINOGEN NEG (NEG); ZZURINE CULT IF INDIC CATH NO
[2016-12-26 02:43] LABS: ALKALINE PHOSPHATASE 102 U/L (45-117); BETA-HYDROXYBUTYRATE 1.75 mg/dL (0.2-2.81)
[2016-12-26 02:48] LABS: MANUAL MICROSCOPIC REQUIRED? NO; REVIEW REQ? YES
[2016-12-26 02:53] LABS: BASO % 0.3 %; BASO ABS # 0.03 K/uL (0-0.2); COMPLETE YES; EOS % 1.3 %; IG% 0.5 %; LYMPH % 6.4 %; LYMPH ABS # 0.55 K/uL (1.2-3.4); MONO % 4.5 %
[2016-12-26] MEDS ORDERED: PIPERACILLIN/TAZOBACTAM 4.5 GM/100ML D5W IV STA (05:02)
[2016-12-26] MEDS ORDERED: INSULIN ASPART 100 UNITS/ML 3 ML PEN SC ONE (05:02)
[2016-12-26] MEDS ORDERED: INSULIN GLARGINE SOLOSTAR 100 UNITS/ML 3 ML PEN SC STA (05:05)
[2016-12-26] MEDS ORDERED: GLUCAGON FOR INJ 1 MG VIAL SQ PRN (05:15)
[2016-12-26] MEDS ORDERED: HYDROmorphone INJ 1 MG/ML SYR IV PRN (05:15)
[2016-12-26] MEDS ORDERED: ACETAMINOPHEN 325 MG TAB PO PRN ×2 (05:15)
[2016-12-26] MEDS ORDERED: ONDANSETRON INJ 2 MG/ML 2 ML VIAL IV PRN (05:15)
[2016-12-26] MEDS ORDERED: GLUCOSE 40% GEL 15 GM TUBE PO PRN (05:15)
[2016-12-26] MEDS ORDERED: DEXTROSE 50% 50 ML SYR IV PRN (05:15)
[2016-12-26] MEDS ORDERED: GLUCOSE 10 TABS/TUBE PO PRN (05:15)
[2016-12-26 05:55] VITALS: BP 135/71; PULSE 93; TEMP 36.7; O2SAT 98; BMI 22.1
[2016-12-26] MEDS ORDERED: PATIENT'S HEIGHT AND/OR WEIGHT NEEDED SCH (06:15)
[2016-12-26] MEDS: SODIUM CHLORIDE 0.45% 1000ML 1,000 ML IV SCH ×2 (06:19→15:44)
[2016-12-26] MEDS: HEPARIN SOD 5000 UNIT/0.5 ML CARP SQ SCH ×3 (06:32→21:17)
[2016-12-26] MEDS: LEVOTHYROXINE 100 MCG TAB PO SCH (06:33)
--- NOTE | 2016-12-26 07:31 | DIAGNOSTIC IMAGING REPORT ---
MAXILLOFACIAL CT CT DOSE: HISTORY: Altered mental status. Left facial wound. TECHNIQUE: Multiaxial CT images of the maxillofacial region were performed and reformatted in the coronal plane without the use of contrast. COMPARISON: None. FINDINGS: The visualized brain parenchyma and orbits are unremarkable. There is a large ill-defined ulcerating and infiltrative mass involving the left lower face/mandibular region. This measures up to 12 cm in size. The ulceration measures 4 cm and surrounds the angle of the left hemimandible and extends into the left submandibular location. This mass invades into the left masseter muscle and surrounds the angle of the left hemimandible. There is cortical erosion of the angle of the left hemimandible. The mass also invades into the left parapharyngeal soft tissues and into the left sternocleidomastoid muscle. The mass appears to abut the left thyroid cartilage. There is effacement of the left pyriform sinus due to the mass effect and mild right shift of the airway. The mass extends into the sublingual and submandibular locations on the left. There is left-sided skin thickening and left facial subcutaneous fat stranding. A 3.3 cm soft tissue mass within the left paratracheal location which abuts the carotid bifurcation. This could represent a component of the left facial mass versus a metastatic lymph node. There are a few additional mildly enlarged left cervical lymph nodes. Fluid level within the left maxillary sinus and a few partially opacified left ethmoid air cells. Small left mastoid effusion. Small focal defect within the lateral wall the left maxillary sinus which measures 5 mm. No fractures identified. IMPRESSION: 1. A large ill-defined ulcerating and infiltrative mass within the left lower face/into the region which measures up to 12 cm as described above. There is mild cortical erosion at the angle of the left hemimandible which is likely secondary to the mass. However, this is also located at the area of the large ulceration and could represent a focal osteomyelitis. 2. No fractures. 3. Left facial skin thickening and subcutaneous fat stranding which could be due to posttreatment change or a focal cellulitis. 4. Additional findings as described above. Electronically signed by: Antwon Calderón M.D. 12/26/2016 7:29 AM Dictated Date/Time: 12/26/2016 7:18 AM
--- NOTE | 2016-12-26 07:31 | DIAGNOSTIC IMAGING REPORT ---
CT OF THE HEAD WITHOUT CONTRAST CLINICAL HISTORY: Altered mental status. COMPARISON STUDY: Head CT October 02, 2016. CT DOSE: 749.39 mGy.cm TECHNIQUE: Helical axial images of the head were obtained without IV contrast. Automated exposure control was utilized for the study. FINDINGS: No acute intracranial hemorrhage, midline shift or mass effect is present. Ventricular system is stable. Basilar cisterns are patent. There are no extra-axial collections. Scattered hypodensities are unchanged. There are no findings to suggest acute dural sinus thrombosis or acute territorial infarct. There is no significant calvarial abnormality. A left maxillary sinus air-fluid level is noted. There is wall thickening of the left maxillary sinus. Left mastoid air cells are partially opacified. Infiltration of the subcutaneous tissues of the left aspect of the face as well as asymmetric mass affect within the left aspect of the pharynx is better depicted on the maxillofacial CT. IMPRESSION: 1. No acute intracranial findings. 2. Left maxillary sinus air-fluid level and partially opacified left mastoid air cells. 3. Asymmetric left facial infiltration and asymmetric mass-like density within the left aspect of the pharynx which are partially imaged on this exam. These are imaged on the unenhanced facial CT. Please see that report. Electronically signed by: Eyal Elizabeth M.D. 12/26/2016 7:30 AM Dictated Date/Time: 12/26/2016 7:25 AM
[2016-12-26] MEDS: DOCUSATE SODIUM 100 MG CAP PO SCH ×2 (08:05→21:14)
[2016-12-26] MEDS: CITALOPRAM 40 MG TAB PO SCH (08:05)
[2016-12-26] MEDS: ASPIRIN 81 MG ECTAB PO SCH (08:06)
[2016-12-26] MEDS: PANTOprazole SOD 40 MG TAB PO SCH (08:06)
[2016-12-26] MEDS ORDERED: PIPERACILL/TAZOBAC CONSULT ACTIVE PRN (09:00)
--- NOTE | 2016-12-26 09:27 | HISTORY & PHYSICAL EXAMINATION ---
DATE OF ADMISSION: 12/26/2016 PATIENT'S PRIMARY CARE DOCTOR: Dr. Delarosa. CHIEF COMPLAINT: Abnormal labs as per family. HISTORY OF PRESENT ILLNESS: History obtained from patient's family, records. Limited hx from px 2 to dementia, hearing impairment. 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 CAD as per records, dementia, DM2 insulin requiring, hypothyroidism, history of pancreatitis, chronic wound left cheek, chronic pain on narcotics, end-stage renal disease currently off hemodialysis, past tobacco abuse, chronic anemia (baseline hemoglobin of 9-10). Ongoing PEG tube feeds for nutrition. Recent confinement last September 2016 for altered mental status, skin infection around left cheek tumor, patient improved on Augmentin. Patient discharged to [facility] for rehab subsequently dcd to home under family's care. Patient taken off dialysis a few weeks ago secondary to px intolerance/ inconvenience. Weekly outpatient lab work as per structural steel engineer. Last few days the patient noted to be less responsive. No chest pain, no shortness of breath. Outpatient sodium noted to be 150s. Patient sent to the Emergency Room after consultation with patient's structural steel engineer. MEDICAL HISTORY: As above. Px follows with [facility] for deteriorating malignant ulcer left face/mandible. Last visit 12/18/2016. No debridement was required at that time. MetroGel topical prn. Outpatient Augmentin Rx from PCP for foul smelling cheek wound drainage helping as per [id number]. [facility] Palliative Care last 11/21/2016. As per family, the patient will opt for comfort care if he has decision making capacity. SURGERIES: PEG tube placement, vascular procedures, carpal tunnel surgery, head and neck repair of mouth lesion with reconstruction with FLAP reconstruction. HOME MEDICATIONS: Include aspirin, Tylenol, citalopram, Colace, Folvite, fentanyl, Neurontin, Humulin, levothyroxine, metronidazole, Prilosec, OxyIR, Flomax. ALLERGIES: No known drug allergies. FAMILY HISTORY: Alcoholism, diabetes and esophageal cancer. PERSONAL AND SOCIAL HISTORY: Past tobacco abuse. No chronic intake of alcoholic beverages. 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 REVIEW OF SYSTEMS: Cannot be reliably obtained. PHYSICAL EXAMINATION: VITAL SIGNS: Blood pressure noted to be 110/70, pulse rate 81, RR 15, temperature 36.7, sats 99 on room air. GENERAL: Noted to be chronically ill, demented. No respiratory distress, hard of hearing. SKIN: Pallor. HEAD, EYES, EARS, NOSE, AND THROAT: Pale palpebral conjunctivae. Dry mucosa. Some limited mouth opening, chronic facial asymmetry, ulcerated wound on the left cheek with some intraoral extension with foul smelling white opaque drainage. NECK: No JVD. Supple. CHEST: Decreased effort. HEART: Regular rate and rhythm. ABDOMEN: Some distention, nontender. PEG tube in place. NEUROLOGIC EXAMINATION: Dementia, old facial asymmetry. decreased MMTs L (chronic) LABORATORY DATA: Hemoglobin was noted to be 9, hematocrit 31.6, WBC 5, platelets 201. Sodium 155, potassium 4.3, chloride 117, CO2 30, BUN 20 creatinine 2.6, glucose was noted to be 329 Hemoglobin A1c from November 2016 was noted to be 7.3. CT head initial read stable atrophy. CT facial large infiltrative mass L lower face w/ left mandibular angle extension consistent with known neoplasm with poss superimposed infection, cellulitis. EKG as per my interpretation : rate 100, NSR, diffuse artifacts ASSESSMENT: 1. Encephalopathy multifactorial : hypernatremia, clinical dehydration Home meds (Fentanyl patch) 2. hx recurrent oral cavity cancer post surgery/radiation disease seems to be progressing possible infected wound, no sepsis. 3. history of coronary artery disease as per records. 4. HTN stable 5. ESRD. Patient currently off dialysis. px clinically dry 6. DM type 2, insulin requiring. Elevated blood sugars. Reasonable control as of recent outpx HgA1c. 7. dementia 8. hx PEG tube feedings PLAN: GMF hold Fentanyl patch ff serum sodium, half normal saline for now Nephrology consult. RE Hypernatremia. Patient known to Dr. Schwarz. wound CS, [place] for infected wound, L cheek. Wound care consultation (Dr. Jenkins.) basal insulin, ISS BG goal 140-180. PT/OT eval DVT prophylaxis. Heparin subQ. DNR as per patient's previous wishes as per [id number], Ms. Dixon Varela. She requests updates from providers at [phone] . [facility]
[2016-12-26] MEDS: PIPERACILL/TAZOBAC IV 3.375 GM in DEXTROSE 5% 100ML IV SCH ×2 (10:16→18:41)
[2016-12-26 11:34] VITALS: BMI 22.1
--- NOTE | 2016-12-26 11:48 | Nephrology Consultation ---
Nephrology Consultation Date of Consultation: December 26, 2016. 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 PMH includes past stroke, DM, HTN, s/p PEG placement, advanced renal disease until recently dialysis dependent and as below. He had been worsening clinically and established care w/ palliative care services earlier this month; he was not however formally on hospice. He has been living at home. He had been having a harder and harder time getting to dialysis d/t debilitation and his labs and daily urine output suggested that he might tolerate stopping dialysis. His family and I decided to stop dialysis >> last tx was 12/12 of this month. We had been monitoring labs to make sure he was tolerating this change. His creatinine has changed only from the high ones to low 2's after nearly 2 wks w/o HD; potassium was controlled. However outpt labs as previously described showed elevated sodium. His daughter called me as the invisible braces orthodontist political worker overnight to discuss labs >> she was giving him water via his PEG but not consistently. He has recently started to have a harder time again with swallowing and taking po. Past Medical/Surgical History Medical Problems: (1) Acute pancreatitis Status: Acute (2) Acute renal failure Status: Acute (3) Anemia Status: Acute (4) Change in mental status Status: Acute (5) Hyperglycemia Status: Acute (6) Hypernatremia Status: Acute (7) Hypotension Status: Acute (8) Uremia Status: Acute -hypertension -prostatic hypertrophy -coronary artery disease -past stroke -type 2 diabetes -advanced renal dz. recently dependent on dialysis from 05/03/16-12/17/16 under my care at [facility] -buccal mucosal squamous cell carcinoma, s/p surgery and radiation -s/p PEG tube placement, -s/p avf creation -s/p surgery to his cancer on his L jaw Family History Diabetes mellitus BROTHER FH: cancer BROTHER (esophageal) Social History Smoking Status: Former Smoker Alcohol Use: none Drug Use: none Marital Status: Housing Status: lives with family Occupation Status: retired Allergies Coded Allergies: No Known Allergies (Unverified , 12/26/16) Medications Current Inpatient Medications Medications (Trade) Dose Ordered Sig/Aj Route Start Time Stop Time Status Last Admin Dose Admin Sodium Chloride (1/2 Nss 1000ml) 1,000 ml @ 100 mls/hr Q10H IV 12/26/16 06:00 01/25/17 05:59 12/26/16 06:19 100 MLS/HR Insulin Glargine (Lantus Solostar Pen) 5 unit BID SC 12/27/16 09:00 01/26/17 08:59 Heparin Sodium (Porcine) (Heparin Sq 5000 Unit/0.5ml) 5,000 unit Q8H SQ 12/26/16 06:00 01/25/17 05:59 12/26/16 06:32 5,000 UNIT Acetaminophen (Tylenol Tab) 650 mg Q4H PRN PO 12/26/16 05:15 01/25/17 05:14 Insulin Aspart (novoLOG ASPART) SLIDING SCALE If C... ACHS SC 12/26/16 12:00 01/25/17 11:59 Glucose (Glucose 40% Gel) 15-30 GRAMS 15 GRAMS... UD PRN PO 12/26/16 05:15 01/25/17 05:14 Glucose (Glucose Chew Tab) 4-8 Tablets 4 Tabl... UD PRN PO 12/26/16 05:15 01/25/17 05:14 Dextrose (Dextrose 50% 50ML Syringe) 25-50ML OF 50% DW IV FOR... UD PRN IV 12/26/16 05:15 01/25/17 05:14 Glucagon (Glucagon Inj) 1 mg UD PRN SQ 12/26/16 05:15 01/25/17 05:14 Acetaminophen (Tylenol Tab) 325 mg Q4H PRN PO 12/26/16 05:15 01/25/17 05:14 Aspirin (Ecotrin Tab) 81 mg DAILY PO 12/26/16 09:00 01/25/17 08:59 12/26/16 08:06 81 MG Citalopram Hydrobromide (celeXA TAB) 40 mg DAILY PO 12/26/16 09:00 01/25/17 08:59 12/26/16 08:05 40 MG Docusate Sodium (coLACE CAP) 200 mg BID PO 12/26/16 09:00 01/25/17 08:59 12/26/16 08:05 200 MG Folic Acid (Folvite Tab) 1 mg DAILY PO 12/26/16 09:00 01/25/17 08:59 12/26/16 08:05 1 MG Levothyroxine Sodium (Synthroid Tab) 100 mcg DAILYBB PO 12/26/16 06:30 01/25/17 06:59 12/26/16 06:33 100 MCG Oxycodone HCl (Roxicodone Immediate Rel Tab) 5 mg Q4H PRN PO 12/26/16 05:15 01/09/17 05:14 Tamsulosin HCl (Flomax Cap) 0.4 mg QPM PO 12/26/16 21:00 01/25/17 20:59 Miscellaneous Information (Order Awaiting Action) 1 ea QS N/A 12/26/16 08:00 01/25/17 07:59 Pantoprazole Sodium (Protonix Tab) 40 mg QAM PO 12/26/16 09:00 01/25/17 08:59 12/26/16 08:06 40 MG Hydromorphone HCl (Dilaudid Inj) 0.5 mg Q3H PRN IV 12/26/16 05:15 01/09/17 05:14 Ondansetron HCl (Zofran Inj) 4 mg Q6H PRN IV 12/26/16 05:15 01/25/17 05:14 Piperacillin Sod/ Tazobactam Sod 1 ea 1 ea DAILY PRN N/A 12/26/16 09:00 01/25/17 08:59 Piperacillin Sod/ Tazobactam Sod/ Dextrose (Zosyn Iv/D5 100ml) 115 ml @ 230 mls/hr Q8H IV 12/26/16 10:00 01/05/17 09:59 12/26/16 10:16 230 MLS/HR Gabapentin (Neurontin Cap) 100 mg QPM PO 12/26/16 21:00 01/25/17 20:59 Home Meds and Scripts Medications Dose Route/Sig Max Daily Dose Days Date Category Dose Instructions Metronidazole (Metronidazole (Topical)) 1 % Gel 1 Appln TOP BID PRN 12/26/16 Reported Colace (Docusate Sodium) 100 Mg Cap 200 Mg PO BID 30 12/26/16 Reported Levothyroxine Sodium 100 Mcg Tab 1 Tab PO DAILY 12/18/16 Reported Humulin 70/30 (Insulin Human Isoph/Insulin Regular) Susp 14 SC QPM 12/18/16 Reported Fentanyl 25 Mcg Tdsy 25 Mcg TOP EVERY 3 DAYS 11/20/16 Reported Folvite (Folic Acid) 1 Mg Tab 1 Mg PO DAILY 10/02/16 Reported Citalopram Hydrobromide (Citalopram) 40 Mg Tab 40 Mg PO DAILY 10/02/16 Reported Aspirin Ec (Aspirin) 81 Mg Tab 81 Mg PO DAILY 10/02/16 Reported Neurontin (Gabapentin) 100 Mg Cap 100 Mg PO QPM 10/02/16 Reported Flomax (Tamsulosin Hcl) 0.4 Mg Cap 0.4 Mg PO QPM 10/02/16 Reported Tylenol (Acetaminophen) 325 Mg Tab 325 Mg PO Q4H PRN 10/02/16 Reported Prilosec (Omeprazole) 20 Mg Capcr 20 Mg PO QAM 10/02/16 Reported Take one hour prior to the first meal of the day Roxicodone Ir (Oxycodone HCl) 5 Mg Tab 5 Mg PO Q4H PRN 10/02/16 Reported Twocal Hn (Nutritional Supplements) 1 Liq Liq 5 Can PEG QPM 10/02/16 Reported GIVEN IN PM THRU PEG TUBE. Review of Systems Constitutional: + weakness, No chills, No fever Eyes: No worsening of vision ENT: No hearing loss Respiratory: No shortness of breath Cardiac: No chest pain, No edema, No palpitations Abdomen: + problem reported (PEG working well), No diarrhea, No nausea, No pain , No vomiting Musculoskeletal: + muscle pain (pain over the cancer site), No joint pain Male : + problem reported (voids daily and plentifully; no change in voiding habits recently per daughter) Psych: + problem reported (altered/diminished MS past 48 hrs) Heme: No abnormal bleeding/bruising Endo: + fatigue (sleeping a lot) Skin: + new/changing skin lesions (cancer extending to L ear) Pt very tired, answers ROS in monosyllables; ROS is based on my interview w/ daughter early this am by phone as we were considering whether to bring him to hospital or not; daughter not at bedside this am when I evaluated him Physical Exam Date Time Temp Pulse Resp B/P Pulse Ox O2 Delivery O2 Flow Rate FiO2 12/26/16 08:00 Room Air 12/26/16 05:55 36.7 93 20 135/71 98 Room Air 12/26/16 05:21 90 13 117/74 98 12/26/16 05:11 90 13 117/74 98 Room Air 12/26/16 04:02 90 14 112/70 97 Room Air 12/26/16 03:02 81 15 127/75 99 Room Air 12/26/16 02:15 95 15 135/71 98 Room Air 12/26/16 02:09 96 12/26/16 01:55 Room Air 12/26/16 01:38 37.1 99 20 129/73 98 Room Air General Appearance: WD/WN, no apparent distress (on RA, very tired but arouseable; answers in monosyllables), + cachetic Eyes: PERRL, EOMI ENT: + pertinent finding (hard of hearing; large dressing L jaw w/ redness protruding to ear) Neck: supple Respiratory/Chest: lungs clear, normal breath sounds, no accessory muscle use, + decreased breath sounds Cardiovascular: no edema, + tachycardia (in 90s regularly spaced), + systolic murmur Abdomen: normal bowel sounds, non tender, soft, + pertinent finding (PEG) Extremities: + pertinent finding (AVF L forearm + t/b) Neurologic/Psych: + pertinent finding (lethargic, answers simple yes/no questions x 3; gravelly but fluent speech) Skin: warm/dry, no rash, + pertinent finding (cancer lesions extending on L jaw compared to my last eval of him 14 days back) Diagnostics Last 24 Hours Test 12/26/16 01:51 12/26/16 01:55 12/26/16 02:20 12/26/16 06:31 Bedside Glucose 352 mg/dl 272 mg/dl White Blood Count 8.58 K/uL Red Blood Count 2.88 M/uL Hemoglobin 9.0 g/dL Hematocrit 29.6 % Mean Corpuscular Volume 102.8 fL Mean Corpuscular Hemoglobin 31.3 pg Mean Corpuscular Hemoglobin Concent 30.4 g/dl Platelet Count 201 K/uL Mean Platelet Volume 10.5 fL Neutrophils (%) (Auto) 87.0 % Lymphocytes (%) (Auto) 6.4 % Monocytes (%) (Auto) 4.5 % Eosinophils (%) (Auto) 1.3 % Basophils (%) (Auto) 0.3 % Neutrophils # (Auto) 7.46 K/uL Lymphocytes # (Auto) 0.55 K/uL Monocytes # (Auto) 0.39 K/uL Eosinophils # (Auto) 0.11 K/uL Basophils # (Auto) 0.03 K/uL RDW Standard Deviation 53.2 fL RDW Coefficient of Variation 14.2 % Immature Granulocyte % (Auto) 0.5 % Immature Granulocyte # (Auto) 0.04 K/uL Red Blood Cell Morphology Unremarkable Prothrombin Time 10.9 SECONDS Prothromb Time International Ratio 1.0 Activated Partial Thromboplast Time 23.6 SECONDS Partial Thromboplastin Ratio 0.9 Sodium Level 155 mmol/L Potassium Level 4.3 mmol/L Chloride Level 117 mmol/L Carbon Dioxide Level 30 mmol/L Anion Gap 8.0 mmol/L Blood Urea Nitrogen 103 mg/dl Creatinine 2.60 mg/dl Est Creatinine Clear Calc Drug Dose 20.8 ml/min Estimated GFR () 25.7 Estimated GFR (Non- 22.1 BUN/Creatinine Ratio 39.7 Random Glucose 329 mg/dl Calcium Level 9.6 mg/dl Magnesium Level 3.3 mg/dl Total Bilirubin 0.3 mg/dl Direct Bilirubin < 0.1 mg/dl Aspartate Amino Transf (AST/SGOT) 48 U/L Alanine Aminotransferase (ALT/SGPT) 50 U/L Alkaline Phosphatase 102 U/L Total Protein 7.9 gm/dl Albumin 2.4 gm/dl Lipase 135 U/L Beta-Hydroxybutyric Acid 1.75 mg/dL Thyroid Stimulating Hormone (TSH) 6.570 uIu/ml Free Thyroxine 0.87 ng/dl Urine Color YELLOW Urine Appearance CLEAR Urine pH 6.5 Urine Specific [place] 1.020 Urine Protein 1+ Urine Glucose (UA) NEG Urine Ketones NEG Urine Occult Blood TRACE Urine Nitrite NEG Urine Bilirubin NEG Urine Urobilinogen NEG Urine Leukocyte Esterase NEG Urine WBC (Auto) 1-5 /hpf Urine RBC (Auto) 0-4 /hpf Urine Hyaline Casts (Auto) 1-5 /lpf Urine Epithelial Cells (Auto) >30 /lpf Urine Bacteria (Auto) NEG Urine Renal Epithelial Cells /lpf Test 12/26/16 07:30 Bedside Glucose 266 mg/dl Assessment & Plan 81 y/o M w/ advanced/terminal head/neck cancer and w/ advanced renal disease until earlier this month dialysis dependent for 7 mos admitted for mgt of hypernatremia. Hypernatremia Presenting sNa 155. Goal sNa by tomorrow am is 145; reasonable to give 1/2 NS at current rate; recheck bmp ordered by noon -would cont 1/2 ns for now b/c still tachycardic and relatively hypotensive >> no bp meds currently; suspect he is still slightly dehydrated though he was getting TF at home; TFTs noted; when more volume replete, we can change him to D5W -daughter needs guidance about how / when / how much to give free water w/ TF -even though pt is DNR/DNI, did not appear reasonable to for lack of access simply to water; hence we brought him in for therapy CKD4 -stable/ acceptable chemistries for now; no indication at this point to resume dialysis since his volume status and potassium, acid/base status are acceptable Anemia of chronic disease -not a candidate for epo d/t cancer; monitor cbc q2-3 days Advanced head/neck cancer -low threshold for palliative care consult, for soc svces eval to ensure family has adequate support -family is realistic about this pt's prx Appreciate consult; will follow with you.
[2016-12-26] MEDS: INSULIN ASPART 100 UNITS/ML 3 ML PEN SC SCH ×3 (12:15→21:00)
[2016-12-26 13:30] LABS: CREATININE 2.3 mg/dl (0.60-1.40)
[2016-12-26 13:31] LABS: BUN/CREATININE RATIO 40.8 (10-20); CALCIUM 9.1 mg/dl (8.5-10.1); POTASSIUM 3.9 mmol/L (3.5-5.1)
[2016-12-26] MEDS: OXYCODONE HCL IR 5 MG TAB (IMMEDIATE RELEASE) PO PRN ×2 (13:51→18:49)
--- NOTE | 2016-12-26 14:22 | WOUND CONSULTATION ---
DATE OF CONSULTATION: 12/26/2016. SUBJECTIVE: The patient is well known to the wound clinic and is seen today for consultation of his bleeding ulceration in the left mandibular region. The patient gives no other specific complaints at this time. The patient has been under our care for palliative treatment. OBJECTIVE: The patient's vital signs were reviewed and found to be unremarkable. The patient is afebrile. The wound site has a similar appearance to that which it has had last evaluated 8 days ago. There is some central drainage as well as slough noted with surrounding fungating tissue present. There is no expansion of erythema or edema noted at the wound site. 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 PLAN: At this time, no debridement is indicated. The site will be managed with some MetroGel followed by Aquacel AG and gauze dressings changed on a daily or p.r.n. basis. The patient will continue to be monitored while in-hospital patient and followed up in the outpatient clinic in 4-6 weeks per his prior agreement.
[2016-12-26 15:06] VITALS: BP 117/72; PULSE 84; TEMP 37.1; O2SAT 95
[2016-12-26] MEDS: NOVASOURCE RENAL 1000ML BAG PEG SCH (19:45)
[2016-12-26 20:26] LABS: BUN/CREATININE RATIO 39.2 (10-20); CREATININE 2.2 mg/dl (0.60-1.40)
[2016-12-26] MEDS ORDERED: NURSING VERBAL MED ORDER ONE ×2 (20:45→21:30)
[2016-12-26] MEDS: DEXTROSE 5% 1000ML 1,000 ML IV SCH (21:10)
[2016-12-26] MEDS: TAMSULOSIN HCL 0.4 MG CAP PO SCH (21:13)
[2016-12-26] MEDS: GABAPENTIN 100 MG CAP PO SCH (21:14)
--- NOTE | 2016-12-26 21:24 | Progress Note ---
Progress Note Date of Service December 26, 2016. Progress Note ATTENDING ADDENDUM ; pt admitted earlier today with confusion /encephalopathy severe dehydration /hypernatremia hx of Sq cell Ca of head /neck /face with ulcerative malignant wound on face - concern for infection on empiric abx Zosyn wound culture ordered appreciate input form Wound care Dr Jenkins Hypernatremia : due to dehydration on TF via PEG tube Na 156 appreciate input form Nephrology IVF changed to D5W @ 125 ml /hr increased free water flush through PEG tube follow PRP DNR
[2016-12-27 00:15] VITALS: BP 125/67; PULSE 87; TEMP 36.8; O2SAT 97
[2016-12-27] MEDS: PIPERACILL/TAZOBAC IV 3.375 GM in DEXTROSE 5% 100ML IV SCH ×3 (01:35→18:32)
[2016-12-27] MEDS: DEXTROSE 5% 1000ML 1,000 ML IV SCH (05:11)
[2016-12-27] MEDS: LEVOTHYROXINE 100 MCG TAB PO SCH (06:04)
[2016-12-27] MEDS: HEPARIN SOD 5000 UNIT/0.5 ML CARP SQ SCH ×3 (06:05→20:39)
[2016-12-27] MEDS ORDERED: PHARMACY GLYCEMIC MGMT CONSULT PRN (07:48)
[2016-12-27 07:54] LABS: HEMATOCRIT 25.6 % (42-52); MEAN CELL VOLUME 99.6 fL (80-100); MEAN CORPUSCULAR HGB CONC 30.1 g/dl (32-36); PLATELET COUNT 172 K/uL (130-400); RED BLOOD COUNT 2.57 M/uL (4.7-6.1); WHITE BLOOD COUNT 8.46 K/uL (4.8-10.8)
[2016-12-27] MEDS: [UNRECOGNIZED DRUG - REMARK] SCH (08:06)
[2016-12-27] MEDS: ASPIRIN 81 MG ECTAB PO SCH (08:18)
[2016-12-27] MEDS: PANTOprazole SOD 40 MG TAB PO SCH (08:18)
[2016-12-27] MEDS: DOCUSATE SODIUM 100 MG CAP PO SCH ×2 (08:18→20:34)
[2016-12-27] MEDS: CITALOPRAM 40 MG TAB PO SCH (08:18)
[2016-12-27 08:21] LABS: BASO % 0.2 %; BASO ABS # 0.02 K/uL (0-0.2); COMPLETE YES; EOS % 1.9 %; IG% 0.6 %; LYMPH % 6.6 %; LYMPH ABS # 0.56 K/uL (1.2-3.4); MONO % 4.5 %; NEUT % 86.2 %
[2016-12-27] MEDS ORDERED: INSULIN REGULAR 5 UNITS in SYRINGE 0 ML IV SCH (08:30)
[2016-12-27 08:55] LABS: BUN/CREATININE RATIO 37.7 (10-20); CALCIUM 8.4 mg/dl (8.5-10.1); CREATININE 2.2 mg/dl (0.60-1.40)
[2016-12-27] MEDS: INSULIN ASPART 100 UNITS/ML 3 ML PEN SC SCH ×4 (08:55→20:38)
[2016-12-27] MEDS ORDERED: INSULIN GLARGINE SOLOSTAR 100 UNITS/ML 3 ML PEN SC SCH (09:00)
[2016-12-27 09:05] LABS: BETA-HYDROXYBUTYRATE 1.52 mg/dL (0.2-2.81)
[2016-12-27] MEDS ORDERED: SODIUM CHLORIDE 0.45% 1000ML 1,000 ML IV SCH (11:00)
--- NOTE | 2016-12-27 12:09 | Pharmacy Progress Note ---
Glycemic Control Intl Consult Date of Service Dec 27, 2016. Scope Glycemic Pharmacist consulted by Dr Kellogg on 12/27/16 for glycemic control and to write orders per [facility] inpatient glycemic control protocol Objective Weight (Kilograms): 66.000 Accuchecks BSG (last 24hrs): Test 12/26/16 12:40 12/26/16 16:28 12/26/16 19:19 12/26/16 20:22 Random Glucose 208 mg/dl (70-99) 168 mg/dl (70-99) Bedside Glucose 164 mg/dl (70-99) 177 mg/dl (70-99) Test 12/27/16 07:34 12/27/16 07:44 12/27/16 11:27 Bedside Glucose 463 mg/dl (70-99) 327 mg/dl (70-99) Random Glucose 453 mg/dl (70-99) Laboratory Data (last 24hrs) Test 12/26/16 12:40 12/26/16 19:19 12/27/16 07:44 Anion Gap 7.0 mmol/L 6.0 mmol/L 12.0 mmol/L BUN/Creatinine Ratio 40.8 39.2 37.7 Blood Urea Nitrogen 94 mg/dl 86 mg/dl 83 mg/dl Creatinine 2.30 mg/dl 2.20 mg/dl 2.20 mg/dl Potassium Level 3.9 mmol/L 4.0 mmol/L 4.0 mmol/L Sodium Level 156 mmol/L 156 mmol/L 147 mmol/L White Blood Count 8.46 K/uL Red Blood Count 2.57 M/uL Hemoglobin 7.7 g/dL Hematocrit 25.6 % Mean Corpuscular Volume 99.6 fL Mean Corpuscular Hemoglobin 30.0 pg Mean Corpuscular Hemoglobin Concent 30.1 g/dl Platelet Count 172 K/uL Mean Platelet Volume 10.0 fL Neutrophils (%) (Auto) 86.2 % Lymphocytes (%) (Auto) 6.6 % Monocytes (%) (Auto) 4.5 % Eosinophils (%) (Auto) 1.9 % Basophils (%) (Auto) 0.2 % Neutrophils # (Auto) 7.29 K/uL Lymphocytes # (Auto) 0.56 K/uL Monocytes # (Auto) 0.38 K/uL Eosinophils # (Auto) 0.16 K/uL Basophils # (Auto) 0.02 K/uL Recent Pertinent Medications Outpatient Anti-diabetic Regimen: * Humulin 70/30 14 units QPM * Need to clarify with patient as CDE noted some confusion with home regimen * A1c = 6.6 % 10/03/16 The patient is currently receiving: * Basal insulin: Lantus 5 units X 1 given yesterday morning * Correctional Insulin: Novolog Correction per scale ACHS Goal Range: Low 100 mg/dL - High 140 mg/dL Correction Factor: 25 mg/dL/unit * Prandial insulin: Per carb ratio of 1 unit per 15 grams CHO consumed Risk Factors for Insulin Resistance: * Infection * IVF * Diet Assessment & Plan ASSESSMENT: * 81 yo M known to pharmacy from prior admissions/glycemic consults * Pt here with encephalopathy and hypernatremia * Initiated on D5@100 cc/hr * Pt with poor PO intake so tube feeds started via PEG as overnight continuous feed from 7313-1324 * Tube feeds to provide 165 g CHO total * Usually under multiple stressors (antibiotics, dextrose IVFs etc), patient typically requires minimal insulin (correctional only) * Pharmacy consulted for Fasting BSG 463 mg/dL this AM * Knowing his history, I do not want to be overly aggressive as he is insulin sensitive * Correct severe hyperglycemia with SQ bolus insulin today gradually (patient here with encephalopathy) * Over night feeds seem to be the reason for the BSG spike * Instead of doing frequent checks, I will opt to use an HS dose of NPH to see if I can gain control without having to wake the patient up through the night * Initiate NPH 12 units @2000 with initiation of tube feeds and reassess in the AM * Continue weight-based, stress of 2 Novolog throughout the day to cover and oral carbs and dextrose IV * ADA & AACE recommend a goal blood sugar range 140-180 mg/dl for the majority of critically ill & non-critically ill patients. However, more stringent targets may be selected in individual cases. PLAN FOR INPATIENT GLYCEMIC CONTROL: * Basal insulin with NPH 12 units @2000 with initiation of tube feeds * NPH has shorter half life and will hopefully peak appropriately with tube feeds * Correctional Insulin with NOVOLOG per scale ACHS or Q6hrs while NPO * Goal Range: Low 140 mg/dL - High 180 mg/dL * Correction Factor: 35 mg/dL/unit * Nutritional / Prandial insulin per carb ratio of 1 unit per 12 grams CHO consumed * Please note that the plan above was derived based on current level of insulin resistance and hospital stress. These recommendations are appropriate for inpatient admission only. Plan of care upon discharge will need to be reassessed to avoid potential outpatient hypo/hyperglycemia. Thank you.
[2016-12-27 14:05] VITALS: BMI 22.1
--- NOTE | 2016-12-27 14:14 | Nephrology Progress Note ---
Nephrology Progress Note Date of Service: Dec 27, 2016. Subjective no interval events; Na near normal now; pt still quite lethargic; d5W gtt off Objective Date Time Temp Pulse Resp B/P (MAP) Pulse Ox O2 Delivery O2 Flow Rate FiO2 12/27/16 08:00 Room Air 12/27/16 00:15 36.8 87 20 125/67 (86) 97 Room Air 12/27/16 00:00 Room Air 12/26/16 16:00 Room Air 12/26/16 15:06 37.1 84 19 117/72 (87) 95 Room Air Physical Exam: General Appearance: WD/WN, no apparent distress (on RA, very tired but arouseable), + cachetic Eyes: PERRL, EOMI ENT: + pertinent finding (hard of hearing; large dressing L jaw w/ redness protruding to ear) Neck: supple Respiratory/Chest: lungs clear, normal breath sounds, no accessory muscle use, + decreased breath sounds Cardiovascular: no edema, RRR, + systolic murmur Abdomen: normal bowel sounds, non tender, soft, + pertinent finding (PEG) Extremities: + pertinent finding (AVF L forearm + t/b) Neurologic/Psych: + pertinent finding (lethargic) Skin: warm/dry, no rash, + pertinent finding (cancer lesions extending on L jaw compared to my last eval of him 14 days back) Current Inpatient Medications Medications (Trade) Dose Ordered Sig/Aj Route Start Time Stop Time Status Last Admin Dose Admin Heparin Sodium (Porcine) (Heparin Sq 5000 Unit/0.5ml) 5,000 unit Q8H SQ 12/26/16 06:00 01/25/17 05:59 12/27/16 14:00 5,000 UNIT Acetaminophen (Tylenol Tab) 650 mg Q4H PRN PO 12/26/16 05:15 01/25/17 05:14 Glucose (Glucose 40% Gel) 15-30 GRAMS 15 GRAMS... UD PRN PO 12/26/16 05:15 01/25/17 05:14 Glucose (Glucose Chew Tab) 4-8 Tablets 4 Tabl... UD PRN PO 12/26/16 05:15 01/25/17 05:14 Dextrose (Dextrose 50% 50ML Syringe) 25-50ML OF 50% DW IV FOR... UD PRN IV 12/26/16 05:15 01/25/17 05:14 Glucagon (Glucagon Inj) 1 mg UD PRN SQ 12/26/16 05:15 01/25/17 05:14 Aspirin (Ecotrin Tab) 81 mg DAILY PO 12/26/16 09:00 01/25/17 08:59 12/27/16 08:18 81 MG Citalopram Hydrobromide (celeXA TAB) 40 mg DAILY PO 12/26/16 09:00 01/25/17 08:59 12/27/16 08:18 40 MG Docusate Sodium (coLACE CAP) 200 mg BID PO 12/26/16 09:00 01/25/17 08:59 12/27/16 08:18 200 MG Folic Acid (Folvite Tab) 1 mg DAILY PO 12/26/16 09:00 01/25/17 08:59 12/27/16 08:18 1 MG Levothyroxine Sodium (Synthroid Tab) 100 mcg DAILYBB PO 12/26/16 06:30 01/25/17 06:59 12/27/16 06:04 100 MCG Oxycodone HCl (Roxicodone Immediate Rel Tab) 5 mg Q4H PRN PO 12/26/16 05:15 01/09/17 05:14 12/26/16 18:49 5 MG Tamsulosin HCl (Flomax Cap) 0.4 mg QPM PO 12/26/16 21:00 01/25/17 20:59 12/26/16 21:13 0.4 MG Miscellaneous Information (Order Awaiting Action) 1 ea QS N/A 12/26/16 08:00 01/25/17 07:59 Pantoprazole Sodium (Protonix Tab) 40 mg QAM PO 12/26/16 09:00 01/25/17 08:59 12/27/16 08:18 40 MG Hydromorphone HCl (Dilaudid Inj) 0.5 mg Q3H PRN IV 12/26/16 05:15 01/09/17 05:14 Ondansetron HCl (Zofran Inj) 4 mg Q6H PRN IV 12/26/16 05:15 01/25/17 05:14 Piperacillin Sod/ Tazobactam Sod (Consult) 1 ea DAILY PRN N/A 12/26/16 09:00 01/25/17 08:59 Piperacillin Sod/ Tazobactam Sod 3.375 gm/Dextrose 115 ml @ 230 mls/hr Q8H IV 12/26/16 10:00 01/05/17 09:59 12/27/16 10:21 230 MLS/HR Gabapentin (Neurontin Cap) 100 mg QPM PO 12/26/16 21:00 01/25/17 20:59 12/26/16 21:14 100 MG Enteral Nutritional Formula (Novasource Renal) 1,000 ml DAILY@2000 PEG 12/26/16 20:00 01/25/17 19:59 12/26/16 19:45 1,000 ML Miscellaneous (Stop Order) 1 ea DAILY@0800 N/A 12/27/16 08:00 01/26/17 07:59 12/27/16 08:06 1 EA Miscellaneous Information (Consult Glycemic Management Pharmacy) 1 ea UD PRN N/A 12/27/16 07:48 01/26/17 07:47 Insulin Aspart (novoLOG ASPART) SLIDING SCALE ACHS SC 12/27/16 08:30 01/26/17 08:29 12/27/16 12:04 5 UNITS Last 24 Hours Test 12/26/16 16:28 12/26/16 19:19 12/26/16 20:22 12/27/16 07:34 Bedside Glucose 164 mg/dl 177 mg/dl 463 mg/dl Sodium Level 156 mmol/L Potassium Level 4.0 mmol/L Chloride Level 119 mmol/L Carbon Dioxide Level 31 mmol/L Anion Gap 6.0 mmol/L Blood Urea Nitrogen 86 mg/dl Creatinine 2.20 mg/dl Est Creatinine Clear Calc Drug Dose 24.6 ml/min Estimated GFR () 31.4 Estimated GFR (Non- 27.1 BUN/Creatinine Ratio 39.2 Random Glucose 168 mg/dl Osmolality 349 mOsm/kg Calcium Level 9.0 mg/dl Test 12/27/16 07:44 12/27/16 11:27 White Blood Count 8.46 K/uL Red Blood Count 2.57 M/uL Hemoglobin 7.7 g/dL Hematocrit 25.6 % Mean Corpuscular Volume 99.6 fL Mean Corpuscular Hemoglobin 30.0 pg Mean Corpuscular Hemoglobin Concent 30.1 g/dl Platelet Count 172 K/uL Mean Platelet Volume 10.0 fL Neutrophils (%) (Auto) 86.2 % Lymphocytes (%) (Auto) 6.6 % Monocytes (%) (Auto) 4.5 % Eosinophils (%) (Auto) 1.9 % Basophils (%) (Auto) 0.2 % Neutrophils # (Auto) 7.29 K/uL Lymphocytes # (Auto) 0.56 K/uL Monocytes # (Auto) 0.38 K/uL Eosinophils # (Auto) 0.16 K/uL Basophils # (Auto) 0.02 K/uL RDW Standard Deviation 51.8 fL RDW Coefficient of Variation 14.5 % Immature Granulocyte % (Auto) 0.6 % Immature Granulocyte # (Auto) 0.05 K/uL Red Blood Cell Morphology Unremarkable Sodium Level 147 mmol/L Potassium Level 4.0 mmol/L Chloride Level 112 mmol/L Carbon Dioxide Level 23 mmol/L Anion Gap 12.0 mmol/L Blood Urea Nitrogen 83 mg/dl Creatinine 2.20 mg/dl Est Creatinine Clear Calc Drug Dose 24.6 ml/min Estimated GFR () 31.4 Estimated GFR (Non- 27.1 BUN/Creatinine Ratio 37.7 Random Glucose 453 mg/dl Calcium Level 8.4 mg/dl Beta-Hydroxybutyric Acid 1.52 mg/dL Bedside Glucose 327 mg/dl Date/Time Source Procedure Growth Status 12/26/16 15:45 Nasal MRSA DNA Surveillance Screen - Final Specimen Negative for MRSA by DNA Probe Complete Assessment & Plan 81 y/o M w/ advanced/terminal head/neck cancer and w/ advanced renal disease until earlier this month dialysis dependent for 7 mos admitted for mgt of hypernatremia. Hypernatremia Presenting sNa 155>improved to 147 today. Goal sNa by tomorrow am is normal value -D5w stopped when I saw him this am ? d/t hyperglycemia; agree w/ cont to hold -continue FW flush 250-300 q4h -daughter needs guidance about how / when / how much to give free water w/ TF after d/c -even though pt is DNR/DNI, did not appear reasonable to for lack of access simply to water; hence we brought him in for therapy -reasonably to ck bmp daily CKD4 -stable/ acceptable chemistries for now; no indication at this point to resume dialysis since his volume status and potassium, acid/base status are acceptable Anemia of chronic disease -not a candidate for epo d/t cancer; monitor cbc daily w/ hgb < 8 >>>defer to hospitalist for when / if to transfuse Advanced head/neck cancer -low threshold for palliative care consult, for soc svces eval to ensure family has adequate support -family is realistic about this pt's prx Appreciate consult; will follow with you.
[2016-12-27 15:26] VITALS: BP 126/69; PULSE 93; TEMP 37.8; O2SAT 99
--- NOTE | 2016-12-27 16:26 | Progress Note ---
Internal Med Progress Note Date of Service: Dec 27, 2016. 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 CT of maxillofacial report done this admission shared Family aware of the Poor Prognosis and advanced /end stage disease status Had Palliative care discussion in [place] already family remains as primary caregiver willing to seek help form hospice care wants to continue TF and treatment of eversible causes as long as it beneficial to patient -hypernatremia , infection , dehydration etc social service asked to discuss hospice option with patient OBJECTIVE: Vital Signs-as noted below Exam: General-elderly gentleman , appears to be confused ENT/Neck--large ulcerative malignant mass on left side of face and neck , bandage present Lungs-+ rales , wheeze Heart-regular Abdomen-peg tube present Extremities-no rash or deformity Neuro-confused with dementia , no focal deficit noted Lab data as noted below. 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 A large ill-defined ulcerating and infiltrative mass within the left lower face/into the region which measures up to 12 cm as described above. There is mild cortical erosion at the angle of the left hemimandible which is likely secondary to the mass. However, this is also located at the area of the large ulceration and could represent a focal osteomyelitis. family aware regarding poor /end stage status of the disease willing to consider hospice care INFECTED WOUND ON LEFT FACE /OSTEOMYELITIS : wound culture -staph aureus CT finding of possible osteomyelitis of left mandible on IV Zosyn given advanced malignancy -no healing wound/will have continued infection - difficult to treat very poor prognosis hospice /palliative care is appropriate DVT PROPHYLAXIS high risk for DVT subq heparin DNR/DNI DISPOSITION Lives at home with Son and daughter in Law as primary residential care officer want to keep pt comfortable and maintain as much of quality of life possible has hospital bed already [facility] -bathing , cleaning the pt pt has been completely bedbound for last few months willing to consider Hospice care Palliative care consulted Vital Signs: Date Time Temp Pulse Resp B/P (MAP) Pulse Ox O2 Delivery O2 Flow Rate FiO2 12/27/16 15:26 37.8 93 16 126/69 (88) 99 Room Air 12/27/16 08:00 Room Air 12/27/16 00:15 36.8 87 20 125/67 (86) 97 Room Air 12/27/16 00:00 Room Air Lab Results: Results Past 24 Hours Test 12/26/16 16:28 12/26/16 19:19 12/26/16 20:22 12/27/16 07:34 Range/Units Bedside Glucose 164 177 463 70-99 mg/dl Sodium Level 156 136-145 mmol/L Potassium Level 4.0 3.5-5.1 mmol/L Chloride Level 119 98-107 mmol/L Carbon Dioxide Level 31 21-32 mmol/L Anion Gap 6.0 3-11 mmol/L Blood Urea Nitrogen 86 7-18 mg/dl Creatinine 2.20 0.60-1.40 mg/dl Est Creatinine Clear Calc Drug Dose 24.6 ml/min Estimated GFR () 31.4 Estimated GFR (Non- 27.1 BUN/Creatinine Ratio 39.2 10-20 Random Glucose 168 70-99 mg/dl Osmolality 349 280-300 mOsm/kg Calcium Level 9.0 8.5-10.1 mg/dl Test 12/27/16 07:44 12/27/16 11:27 Range/Units White Blood Count 8.46 4.8-10.8 K/uL Red Blood Count 2.57 4.7-6.1 M/uL Hemoglobin 7.7 14.0-18.0 g/dL Hematocrit 25.6 42-52 % Mean Corpuscular Volume 99.6 80-100 fL Mean Corpuscular Hemoglobin 30.0 25-34 pg Mean Corpuscular Hemoglobin Concent 30.1 32-36 g/dl Platelet Count 172 130-400 K/uL Mean Platelet Volume 10.0 7.4-10.4 fL Neutrophils (%) (Auto) 86.2 % Lymphocytes (%) (Auto) 6.6 % Monocytes (%) (Auto) 4.5 % Eosinophils (%) (Auto) 1.9 % Basophils (%) (Auto) 0.2 % Neutrophils # (Auto) 7.29 1.4-6.5 K/uL Lymphocytes # (Auto) 0.56 1.2-3.4 K/uL Monocytes # (Auto) 0.38 0.11-0.59 K/uL Eosinophils # (Auto) 0.16 0-0.5 K/uL Basophils # (Auto) 0.02 0-0.2 K/uL RDW Standard Deviation 51.8 36.4-46.3 fL RDW Coefficient of Variation 14.5 11.5-14.5 % Immature Granulocyte % (Auto) 0.6 % Immature Granulocyte # (Auto) 0.05 0.00-0.02 K/uL Red Blood Cell Morphology Unremarkable Sodium Level 147 136-145 mmol/L Potassium Level 4.0 3.5-5.1 mmol/L Chloride Level 112 98-107 mmol/L Carbon Dioxide Level 23 21-32 mmol/L Anion Gap 12.0 3-11 mmol/L Blood Urea Nitrogen 83 7-18 mg/dl Creatinine 2.20 0.60-1.40 mg/dl Est Creatinine Clear Calc Drug Dose 24.6 ml/min Estimated GFR () 31.4 Estimated GFR (Non- 27.1 BUN/Creatinine Ratio 37.7 10-20 Random Glucose 453 70-99 mg/dl Calcium Level 8.4 8.5-10.1 mg/dl Beta-Hydroxybutyric Acid 1.52 0.2-2.81 mg/dL Bedside Glucose 327 70-99 mg/dl
[2016-12-27] MEDS ORDERED: INSULIN HUMAN NPH SC SCH (20:00)
[2016-12-27] MEDS: NOVASOURCE RENAL 1000ML BAG PEG SCH (20:12)
[2016-12-27] MEDS: TAMSULOSIN HCL 0.4 MG CAP PO SCH (20:34)
[2016-12-27] MEDS: GABAPENTIN 100 MG CAP PO SCH (20:36)
[2016-12-28] MEDS: PIPERACILL/TAZOBAC IV 3.375 GM in DEXTROSE 5% 100ML IV SCH ×3 (02:01→17:45)
[2016-12-28] MEDS: HEPARIN SOD 5000 UNIT/0.5 ML CARP SQ SCH ×3 (05:32→20:55)
[2016-12-28] MEDS: LEVOTHYROXINE 100 MCG TAB PO SCH (05:37)
[2016-12-28 07:37] VITALS: BP 121/65; PULSE 88; TEMP 36.9; O2SAT 96
[2016-12-28 07:58] LABS: HEMATOCRIT 23.5 % (42-52)
[2016-12-28] MEDS: [UNRECOGNIZED DRUG - REMARK] SCH (07:58)
[2016-12-28] MEDS: PANTOprazole SOD 40 MG TAB PO SCH (07:58)
[2016-12-28] MEDS: DOCUSATE SODIUM 100 MG CAP PO SCH ×2 (07:58→20:42)
[2016-12-28] MEDS: CITALOPRAM 40 MG TAB PO SCH (07:58)
[2016-12-28] MEDS: ASPIRIN 81 MG ECTAB PO SCH (07:58)
[2016-12-28] MEDS: INSULIN ASPART 100 UNITS/ML 3 ML PEN SC SCH ×5 (07:59→23:59)
[2016-12-28 08:26] LABS: CALCIUM 8.5 mg/dl (8.5-10.1)
[2016-12-28] MEDS ORDERED: INSULIN HUMAN REGULAR IV BOLUS 4 UNIT in SYRINGE 0 ML IV ONE (08:30)
[2016-12-28 08:32] LABS: BUN/CREATININE RATIO 36.9 (10-20); CREATININE 2.1 mg/dl (0.60-1.40); POTASSIUM 3.7 mmol/L (3.5-5.1)
--- NOTE | 2016-12-28 08:39 | Pharmacy Progress Note ---
Glycemic Control: Progress Nt Date of Service Dec 28, 2016. Scope Glycemic Pharmacist consulted by Dr Kellogg on 12/27/16 for glycemic control and to write orders per [facility] inpatient glycemic control protocol. Objective Accuchecks BSG (last 24hrs): Test 12/27/16 11:27 12/27/16 16:23 12/27/16 20:27 12/28/16 07:44 Bedside Glucose 327 mg/dl (70-99) 201 mg/dl (70-99) 232 mg/dl (70-99) Test 12/28/16 07:53 Bedside Glucose 396 mg/dl (70-99) Laboratory Data (last 24hrs) Test 12/28/16 07:44 HbA1c: Test 12/28/16 07:44 Recent Pertinent Medications Outpatient Anti-diabetic Regimen: * Humulin 70/30 14 units QPM * Need to clarify with patient as CDE noted some confusion with home regimen * A1c = 6.6 % 10/03/16 Risk Factors for Insulin Resistance: * Infection * IVF * Diet Assessment & Plan ASSESSMENT: * 81 yo M known to pharmacy from prior admissions/glycemic consults * Pt here with encephalopathy and hypernatremia * Pt with poor PO intake so tube feeds started via PEG as overnight continuous feed from [id number] * Tube feeds to provide 165 g CHO total * Usually under multiple stressors (antibiotics, dextrose IVFs, bolus feeds etc) , patient typically requires minimal insulin (correctional only) * Over the past 24 hours, patient used a total of 29 units of insulin * Patient again with severe hyperglycemia this AM (nearly 100 points better than yesterday- but still >350) * This indicates that not enough coverage was given for overnight feeds * This is not a fasting number so I initially did not add Lantus, however, patient consistently stayed >200 throughout the evening so I feel comfortable now starting a low basal dose this morning * Give Regular Insulin .05 units/kg IV X 1 to bring BSG down * Tighten Novolog today and Increase NPH tonight based on carb ratio of 10 versus 12 last night * Add additional checks through the night to further correct tube feeds as I titrate NPH to appropriate dose * ADA & AACE recommend a goal blood sugar range 140-180 mg/dl for the majority of critically ill & non-critically ill patients. However, more stringent targets may be selected in individual cases. PLAN FOR INPATIENT GLYCEMIC CONTROL: * Add basal insulin with Lantus 8 units X 1 this AM and re-evaluate dosing tomorrow * Increase to NPH 16 units @1999 with initiation of tube feeds * HOLD if tube feeds are held * Tighten Correctional Insulin with NOVOLOG per scale ACHS + 0000 and 0400 * Goal Range: Low 140 mg/dL - High 180 mg/dL * Correction Factor: 30 mg/dL/unit * Nutritional / Prandial insulin per carb ratio of 1 unit per 10 grams CHO consumed RECOMMENDATIONS FOR DISCHARGE: * Since last admission, A1c up to 7.8% from 6.6% so it looks like his control has worsened over the past 3 months * Wanted to speak with family as there is confusion regarding outpatient insulin regimen (70/30 daily versus 3 times per day) * Told nurse to contact me if/when daughter is available. Unfortunately not able to touch base today. * Please note that the plan above was derived based on current level of insulin resistance and hospital stress. These recommendations are appropriate for inpatient admission only. Plan of care upon discharge will need to be reassessed to avoid potential outpatient hypo/hyperglycemia. Thank you.
[2016-12-28 08:43] LABS: BETA-HYDROXYBUTYRATE 1.39 mg/dL (0.2-2.81)
[2016-12-28] MEDS ORDERED: INSULIN GLARGINE SOLOSTAR 100 UNITS/ML 3 ML PEN SC SCH (09:00)
[2016-12-28 09:50] LABS: ESTIMATED AVERAGE GLUCOSE 177 mg/dl; HA1C FLAG Normal (Normal)
[2016-12-28 14:47] VITALS: Ht 172.7 cm; Wt 66.0 kg
--- NOTE | 2016-12-28 15:08 | Nephrology Progress Note ---
Nephrology Progress Note Date of Service: Dec 28, 2016. Subjective t Max 37.8 ON, high for him; else no acute interval events; still lethargic.family at bedside Objective Date Time Temp Pulse Resp B/P (MAP) Pulse Ox O2 Delivery O2 Flow Rate FiO2 12/28/16 07:37 36.9 88 16 121/65 (83) 96 Room Air 12/28/16 00:00 Room Air 12/27/16 16:00 Room Air 12/27/16 15:26 37.8 93 16 126/69 (88) 99 Room Air Physical Exam: General Appearance: WD/WN, no apparent distress (on RA, very tired but arouseable), + cachetic Eyes: PERRL, EOMI ENT: + pertinent finding (hard of hearing; large dressing L jaw w/ redness protruding to ear) Neck: supple Respiratory/Chest: lungs clear, normal breath sounds, no accessory muscle use, + decreased breath sounds Cardiovascular: no edema, RRR, + systolic murmur Abdomen: normal bowel sounds, non tender, soft, + pertinent finding (PEG) Extremities: + pertinent finding (AVF L forearm + t/b) Neurologic/Psych: + pertinent finding (lethargic) Skin: warm/dry, no rash, + pertinent finding (cancer lesions extending on L jaw compared to my last eval of him 14 days back) Current Inpatient Medications Medications (Trade) Dose Ordered Sig/Aj Route Start Time Stop Time Status Last Admin Dose Admin Heparin Sodium (Porcine) (Heparin Sq 5000 Unit/0.5ml) 5,000 unit Q8H SQ 12/26/16 06:00 01/25/17 05:59 12/28/16 05:32 5,000 UNIT Acetaminophen (Tylenol Tab) 650 mg Q4H PRN PO 12/26/16 05:15 01/25/17 05:14 Glucose (Glucose 40% Gel) 15-30 GRAMS 15 GRAMS... UD PRN PO 12/26/16 05:15 01/25/17 05:14 Glucose (Glucose Chew Tab) 4-8 Tablets 4 Tabl... UD PRN PO 12/26/16 05:15 01/25/17 05:14 Dextrose (Dextrose 50% 50ML Syringe) 25-50ML OF 50% DW IV FOR... UD PRN IV 12/26/16 05:15 01/25/17 05:14 Glucagon (Glucagon Inj) 1 mg UD PRN SQ 12/26/16 05:15 01/25/17 05:14 Aspirin (Ecotrin Tab) 81 mg DAILY PO 12/26/16 09:00 01/25/17 08:59 12/28/16 07:58 81 MG Citalopram Hydrobromide (celeXA TAB) 40 mg DAILY PO 12/26/16 09:00 01/25/17 08:59 12/28/16 07:58 40 MG Docusate Sodium (coLACE CAP) 200 mg BID PO 12/26/16 09:00 01/25/17 08:59 12/28/16 07:58 200 MG Folic Acid (Folvite Tab) 1 mg DAILY PO 12/26/16 09:00 01/25/17 08:59 12/28/16 07:58 1 MG Levothyroxine Sodium (Synthroid Tab) 100 mcg DAILYBB PO 12/26/16 06:30 01/25/17 06:59 12/28/16 05:37 100 MCG Oxycodone HCl (Roxicodone Immediate Rel Tab) 5 mg Q4H PRN PO 12/26/16 05:15 01/09/17 05:14 12/26/16 18:49 5 MG Tamsulosin HCl (Flomax Cap) 0.4 mg QPM PO 12/26/16 21:00 01/25/17 20:59 12/27/16 20:34 0.4 MG Miscellaneous Information (Order Awaiting Action) 1 ea QS N/A 12/26/16 08:00 01/25/17 07:59 Pantoprazole Sodium (Protonix Tab) 40 mg QAM PO 12/26/16 09:00 01/25/17 08:59 12/28/16 07:58 40 MG Hydromorphone HCl (Dilaudid Inj) 0.5 mg Q3H PRN IV 12/26/16 05:15 01/09/17 05:14 Ondansetron HCl (Zofran Inj) 4 mg Q6H PRN IV 12/26/16 05:15 01/25/17 05:14 Piperacillin Sod/ Tazobactam Sod (Consult) 1 ea DAILY PRN N/A 12/26/16 09:00 01/25/17 08:59 Piperacillin Sod/ Tazobactam Sod 3.375 gm/Dextrose 115 ml @ 230 mls/hr Q8H IV 12/26/16 10:00 01/05/17 09:59 12/28/16 02:01 230 MLS/HR Gabapentin (Neurontin Cap) 100 mg QPM PO 12/26/16 21:00 01/25/17 20:59 12/27/16 20:36 100 MG Enteral Nutritional Formula (Novasource Renal) 1,000 ml DAILY@1999 PEG 12/26/16 20:00 01/25/17 19:59 12/27/16 20:12 1,000 ML Miscellaneous (Stop Order) 1 ea DAILY@0800 N/A 12/27/16 08:00 01/26/17 07:59 12/28/16 07:58 1 EA Miscellaneous Information (Consult Glycemic Management Pharmacy) 1 ea UD PRN N/A 12/27/16 07:48 01/26/17 07:47 Insulin Aspart (novoLOG ASPART) CARB RATIO FOR ORAL CA... ACHS SC 12/27/16 08:30 01/26/17 08:29 12/28/16 07:59 7 UNITS Insulin Human NPH (novoLIN-N NPH) 12 units DAILY@1999 SC 12/27/16 20:00 01/26/17 19:59 12/27/16 20:39 12 UNITS Last 24 Hours Test 12/27/16 11:27 12/27/16 16:23 12/27/16 20:27 12/28/16 07:44 Bedside Glucose 327 mg/dl 201 mg/dl 232 mg/dl Hemoglobin 7.7 g/dL Hematocrit 23.5 % Test 12/28/16 07:53 Bedside Glucose 396 mg/dl Assessment & Plan 81 y/o M w/ advanced/terminal head/neck cancer and w/ advanced renal disease until earlier this month dialysis dependent for 7 mos admitted for mgt of hypernatremia. Hypernatremia, resolved Presenting sNa 155>improved to 142 today. -continue FW flush 250-300 q4h which he has been tolerating or as per recs at d/ c -had a long talk w/ -daughter needs guidance about how / when / how much to give free water w/ TF after d/c -even though pt is DNR/DNI, did not appear reasonable to for lack of access simply to water; hence we brought him in for therapy CKD4 -stable/ acceptable chemistries for now; no indication at this point to resume dialysis since his volume status and potassium, acid/base status are acceptable Anemia of chronic disease -not a candidate for epo d/t cancer; monitor cbc daily w/ hgb < 8 >>>defer to hospitalist for when / if to transfuse Advanced head/neck cancer -low threshold for palliative care consult, for soc svces eval to ensure family has adequate support -family is realistic about this pt's prx -proteus growing from facial wound in addtn to strep Appreciate consult; will follow with you. care coordinated w/ dr marie
--- NOTE | 2016-12-28 15:15 | Palliative Care Progress Note ---
Palliative Care Progress Note Date of Service Dec 28, 2016. Subjective Patient was discussed with Dr. Kellogg and the dependency case manager. Plans are made for patient to go home with hospice and family denies any further needs. Palliative care consult to be cancelled per Dr. Kellogg.
[2016-12-28 16:00] VITALS: BP 111/63; PULSE 84; TEMP 37.3; O2SAT 95; O2SAT 96
[2016-12-28] MEDS: NOVASOURCE RENAL 1000ML BAG PEG SCH (20:41)
[2016-12-28] MEDS: TAMSULOSIN HCL 0.4 MG CAP PO SCH (20:50)
[2016-12-28] MEDS: INSULIN HUMAN NPH SC SCH (20:54)
[2016-12-28] MEDS: GABAPENTIN 100 MG CAP PO SCH (21:00)
[2016-12-28] MEDS ORDERED: ATV/1 SL (22:45)
[2016-12-28] MEDS ORDERED: FNTTP25 TOP (22:45)
[2016-12-28] MEDS ORDERED: OXYC10SO PO (22:45)
[2016-12-28] MEDS ORDERED: SCOP1.5D2 TD (22:45)
--- NOTE | 2016-12-28 22:47 | Discharge Instructions ---
Discharge Instructions Date of Service Dec 28, 2016. Admission Reason for Admission: Encephalopathy, Hypernatremia Discharge Discharge Diagnosis / Problem: END STAGE /METASTATIC HEAD -NECK CANCER / HOSPICE CARE Discharge Goals Goal(s): Decrease discomfort, Improve disease control Activity Recommendations Activity Limitations: as noted below ( TOLERTED ) . Instructions / Follow-Up Instructions / Follow-Up CONTINUE TO FOLLOW UP WITH [facility] FOR PALLIATIVE CARE FREE WATER FLUSH 200ML EVERY -6 HRS VIA PEG TUBE TO PREVENT DEHYDRATION PLEASE HOLD /DISCONTINUE TUBE FEED /FREE WATER FLUSH IF YOU NOTICE, PATIENT HAVING INCREASING RESPIRATORY DISTRESS , SHALLOW GASPY BREATHING , MORE GURGLING SOUND CALL /ASK HOSPICE AGENCY TO PROVIDE FURTHER GUIDANCE Current Hospital Diet Patient's current hospital diet: Diabetes Type 2 Diet Discharge Diet Recommended Diet: Regular Diet (MECHANICAL SOFT ) Pending Studies Studies pending at discharge: no Laboratory Results Hemoglobin A1c Test 12/28/16 07:44 Range/Units Estimated Average Glucose 177 mg/dl Hemoglobin A1c 7.8 H 4.5-5.6 % Medical Emergencies . Who to Call and When: Medical Emergencies: If at any time you feel your situation is an emergency, please call 911 immediately. . Non-Emergent Contact Non-Emergency issues call your: Specialist ([facility] ) . . "Provider Documentation" section prepared by Viki Kellogg. . VTE Core Measure Inpt VTE Proph given/why not?: Unfractionated heparin SQ
--- NOTE | 2016-12-28 22:49 | Progress Note ---
Internal Med Progress Note Date of Service: Dec 28, 2016. Provider Documentation: SUBJECTIVE: remains confused , unable to verbalize any words no overt sign of distress OBJECTIVE: Vital Signs-as noted below Exam: General-elderly gentleman , confused /disoriented ENT/Neck--large ulcerative malignant mass on left side of face and neck , bandage present Lungs-+ rales , wheeze Heart-regular Abdomen-peg tube present Extremities-no rash or deformity Neuro-confused with dementia , no focal deficit noted Lab data as noted below. ASSESSMENT & PLAN: HYPERNATREMIA : resolved due to dehydration , inadequate free water flush with PEG tube feeding , unable to have PO intake due to advanced malignancy Na normalize 147 -142 IVF is D/jody for concern of vol overload on TF water flush 200-300 ml q 4 hrs will given instruction to family members /care givers to continue free water flush 250 -300 ml Q 4-6 hrs irrespective of TF feeding to prevent dehydration / hypernatremia appreciate nephrology input family members understands the poor prognosis of advance malignancy opt for home hospice will be discharged home with [facility] agency referral HYPERGLYCEMIA : insulin SSI adjusted pharmacy consulted for glycemic management CKD STAGE 4 : was on Dialysis in past HD discontinued for over a week , as renal function been stable ADVANCED METASTATIC CA ON HEAD /NECK very poor prognosis as per ENT in [place] no further treatment will be effective at this advanced stage hospice /palliative care was recommended Maxillofacial CT: 1. A large ill-defined ulcerating and infiltrative mass within the left lower face/into the region which measures up to 12 cm as described above. There is mild cortical erosion at the angle of the left hemimandible which is likely secondary to the mass. However, this is also located at the area of the large ulceration and could represent a focal osteomyelitis. family aware regarding poor /end stage status of the disease willing to consider hospice care INFECTED WOUND ON LEFT FACE /OSTEOMYELITIS : wound culture -proteus /streptococcus -pansensitive will D/c Zosyn transitioned to PO Ciprofloxacin dose adjusted based on poor renal clearance CT finding of possible osteomyelitis of left mandible given advanced malignancy -no healing wound/will have continued infection - difficult to treat very poor prognosis hospice /palliative care is appropriate DVT PROPHYLAXIS high risk for DVT subq heparin DNR/DNI DISPOSITION Lives at home with Son and daughter in Law as primary human services care specialist want to keep pt comfortable and maintain as much of quality of life possible has hospital bed already getting service through [place] for basic ADL's -bathing , cleaning the pt pt has been completely bedbound for last few months wants home Hospice care arrangements made through [facility] Pt will be discharge home with home Hospice tomorrow Vital Signs: Date Time Temp Pulse Resp B/P (MAP) Pulse Ox O2 Delivery O2 Flow Rate FiO2 12/28/16 16:00 37.3 84 18 111/63 (79) 95 Room Air 12/28/16 16:00 96 Room Air 12/28/16 08:00 Room Air 12/28/16 07:37 36.9 88 16 121/65 (83) 96 Room Air 12/28/16 00:00 Room Air Lab Results: Results Past 24 Hours Test 12/28/16 07:44 12/28/16 07:53 12/28/16 11:28 12/28/16 16:18 Range/Units Hemoglobin 7.7 14.0-18.0 g/dL Hematocrit 23.5 42-52 % Sodium Level 142 136-145 mmol/L Potassium Level 3.7 3.5-5.1 mmol/L Chloride Level 109 98-107 mmol/L Carbon Dioxide Level 24 21-32 mmol/L Anion Gap 9.0 3-11 mmol/L Blood Urea Nitrogen 77 7-18 mg/dl Creatinine 2.10 0.60-1.40 mg/dl Est Creatinine Clear Calc Drug Dose 25.8 ml/min Estimated GFR () 33.2 Estimated GFR (Non- 28.7 BUN/Creatinine Ratio 36.9 10-20 Random Glucose 354 70-99 mg/dl Estimated Average Glucose 177 mg/dl Hemoglobin A1c 7.8 4.5-5.6 % Calcium Level 8.5 8.5-10.1 mg/dl Beta-Hydroxybutyric Acid 1.39 0.2-2.81 mg/dL Bedside Glucose 396 171 183 70-99 mg/dl Test 12/28/16 20:45 Range/Units Bedside Glucose 151 70-99 mg/dl
[2016-12-28] MEDS ORDERED: ATROPINE SULFATE 1% OP SOLN 5 ML BTL SL PRN (23:00)
[2016-12-28] MEDS ORDERED: LORAZEPAM 1 MG TAB SL PRN (23:00)
[2016-12-28] MEDS: CHECK SCOPOLAMINE PATCH PLACEMENT SCH (23:53)
[2016-12-28] MEDS: SCOPOLAMINE 1.5 MG TDSY TD SCH (23:53)
[2016-12-28 23:58] VITALS: BP 109/62; PULSE 90; TEMP 36.6; O2SAT 95
[2016-12-29] MEDS: INSULIN ASPART 100 UNITS/ML 3 ML PEN SC SCH ×4 (04:00→20:00)
[2016-12-29] MEDS: HEPARIN SOD 5000 UNIT/0.5 ML CARP SQ SCH ×2 (05:49→12:36)
[2016-12-29] MEDS: LEVOTHYROXINE 100 MCG TAB PO SCH (06:27)
[2016-12-29 07:38] VITALS: BP 134/71; PULSE 90; TEMP 36.6; O2SAT 98
[2016-12-29 07:47] LABS: BUN/CREATININE RATIO 40.7 (10-20); CALCIUM 8.3 mg/dl (8.5-10.1); CREATININE 1.9 mg/dl (0.60-1.40); POTASSIUM 3.2 mmol/L (3.5-5.1)
[2016-12-29] MEDS: [UNRECOGNIZED DRUG - REMARK] SCH (07:57)
[2016-12-29] MEDS: CIPROFLOXACIN 250 MG TAB PO SCH (07:58)
[2016-12-29 08:00] VITALS: O2SAT 98
[2016-12-29] MEDS: DOCUSATE SODIUM 100 MG CAP PO SCH (08:02)
[2016-12-29] MEDS: PANTOprazole SOD 40 MG TAB PO SCH (08:02)
[2016-12-29] MEDS: CHECK SCOPOLAMINE PATCH PLACEMENT SCH ×3 (08:03→23:14)
[2016-12-29] MEDS: ASPIRIN 81 MG ECTAB PO SCH (08:27)
[2016-12-29] MEDS: CITALOPRAM 40 MG TAB PO SCH (08:27)
[2016-12-29] MEDS: INSULIN GLARGINE SOLOSTAR 100 UNITS/ML 3 ML PEN SC SCH (10:22)
[2016-12-29 15:41] VITALS: BP 111/67; PULSE 83; TEMP 37.5; O2SAT 98
[2016-12-29 16:30] VITALS: BP 111/67; PULSE 83; TEMP 37.5; O2SAT 98
[2016-12-29] MEDS ORDERED: NURSING VERBAL MED ORDER ONE (17:15)
[2016-12-29] MEDS: TUBE FEEDING WATER FLUSH NG SCH ×2 (20:00→23:23)
[2016-12-29] MEDS ORDERED: LOPERAMIDE LIQUID 1MG/7.5ML 120ML BTL PO PRN (20:15)
[2016-12-29] MEDS ORDERED: ATROPS5 SL (20:17)
[2016-12-29] MEDS ORDERED: SCOP1.5D2 TD (20:17)
--- NOTE | 2016-12-29 20:20 | Progress Note ---
Internal Med Progress Note Date of Service: Dec 29, 2016. Provider Documentation: SUBJECTIVE: pt found to be obtunded having gurgling sound had multiple loose bowel movement today multiple family members present at bedside plan is to return home with Hospice care tomorrow will need [employer] van transport arrangement OBJECTIVE: Vital Signs-as noted below Exam: General-elderly gentleman , lethargic ENT/Neck--large ulcerative malignant mass on left side of face and neck , bandage present Lungs-+ rales , wheeze Heart-regular Abdomen-peg tube present Extremities-no rash or deformity Neuro-confused with dementia , no focal deficit noted Lab data as noted below. ASSESSMENT & PLAN: HYPERNATREMIA : resolved due to dehydration , inadequate free water flush with PEG tube feeding , unable to have PO intake due to advanced malignancy Na normalize 147 -142 IVF is D/jody for concern of vol overload on TF water flush 200-300 ml q 4 hrs will given instruction to family members /care givers to continue free water flush 250 -300 ml Q 4-6 hrs irrespective of TF feeding to prevent dehydration / hypernatremia -asked to hold TF and free water flushed if there is S/s of fluid overload appreciate nephrology input family members understands the poor prognosis of advance malignancy opt for home hospice will be discharged home with [facility] agency referral HYPERGLYCEMIA : insulin SSI adjusted pharmacy consulted for glycemic management CKD STAGE 4 : was on Dialysis in past HD discontinued for over a week , as renal function been stable ADVANCED METASTATIC CA ON HEAD /NECK very poor prognosis as per ENT in [place] no further treatment will be effective at this advanced stage hospice /palliative care was recommended Maxillofacial CT: 1. A large ill-defined ulcerating and infiltrative mass within the left lower face/into the region which measures up to 12 cm as described above. There is mild cortical erosion at the angle of the left hemimandible which is likely secondary to the mass. However, this is also located at the area of the large ulceration and could represent a focal osteomyelitis. family aware regarding poor /end stage status of the disease willing to consider hospice care INFECTED WOUND ON LEFT FACE /OSTEOMYELITIS : wound culture -proteus /streptococcus -pansensitive will D/c Zosyn transitioned to PO Ciprofloxacin dose adjusted based on poor renal clearance CT finding of possible osteomyelitis of left mandible given advanced malignancy -no healing wound/will have continued infection - difficult to treat very poor prognosis hospice /palliative care is appropriate Abx will be D/jody on discharged DVT PROPHYLAXIS high risk for DVT subq heparin DNR/DNI DISPOSITION Lives at home with Son and daughter in Law as primary healthcare liaison want to keep pt comfortable and maintain as much of quality of life possible has hospital bed already getting service through [place] for basic ADL's -bathing , cleaning the pt pt has been completely bedbound for last few months wants home Hospice care arrangements made through [facility] Pt will be discharge home with home Hospice tomorrow 12/30/16 family requesting [employer] van transportation at 11 Am if possible Vital Signs: Date Time Temp Pulse Resp B/P (MAP) Pulse Ox O2 Delivery O2 Flow Rate FiO2 12/29/16 16:30 37.5 83 18 98 12/29/16 15:41 37.5 83 18 111/67 (82) 98 Room Air 12/29/16 08:00 98 Room Air 12/29/16 07:38 36.6 90 18 134/71 (92) 98 Room Air 12/29/16 00:00 Room Air 12/28/16 23:58 36.6 90 16 109/62 (78) 95 Room Air Lab Results: Results Past 24 Hours Test 12/28/16 20:45 12/28/16 23:57 12/29/16 03:53 12/29/16 06:55 Range/Units Bedside Glucose 151 178 217 70-99 mg/dl Sodium Level 143 136-145 mmol/L Potassium Level 3.2 3.5-5.1 mmol/L Chloride Level 108 98-107 mmol/L Carbon Dioxide Level 25 21-32 mmol/L Anion Gap 10.0 3-11 mmol/L Blood Urea Nitrogen 77 7-18 mg/dl Creatinine 1.90 0.60-1.40 mg/dl Est Creatinine Clear Calc Drug Dose 28.5 ml/min Estimated GFR () 37.5 Estimated GFR (Non- 32.3 BUN/Creatinine Ratio 40.7 10-20 Random Glucose 217 70-99 mg/dl Calcium Level 8.3 8.5-10.1 mg/dl Test 12/29/16 07:43 12/29/16 11:20 Range/Units Bedside Glucose 251 182 70-99 mg/dl
[2016-12-29] MEDS: INSULIN HUMAN NPH SC SCH (21:23)
[2016-12-29] MEDS: MoRPHine SULFATE 5 MG/0.25 ML UDP PO PRN (21:32)
[2016-12-29] MEDS: NOVASOURCE RENAL 1000ML BAG PEG SCH (22:30)
[2016-12-30] MEDS: TUBE FEEDING WATER FLUSH NG SCH ×3 (05:00→13:38)
[2016-12-30] MEDS: MoRPHine SULFATE 5 MG/0.25 ML UDP PO PRN ×3 (05:31→15:44)
[2016-12-30] MEDS: CHECK SCOPOLAMINE PATCH PLACEMENT SCH (08:00)
[2016-12-30] MEDS: [UNRECOGNIZED DRUG - REMARK] SCH (08:00)
[2016-12-30] MEDS: CIPROFLOXACIN 250 MG TAB PO SCH (08:02)
[2016-12-30] MEDS: SCOPOLAMINE 1.5 MG TDSY TD SCH (08:05)
[2016-12-30] MEDS: OXYCODONE HCL IR 5 MG TAB (IMMEDIATE RELEASE) PO PRN (08:06)
[2016-12-30] MEDS: INSULIN GLARGINE SOLOSTAR 100 UNITS/ML 3 ML PEN SC SCH (08:20)
[2016-12-30] MEDS: INSULIN ASPART 100 UNITS/ML 3 ML PEN SC SCH ×2 (08:20→14:34)
[2016-12-30 09:44] VITALS: BP 111/67; PULSE 83; TEMP 37.5; O2SAT 98
--- NOTE | 2016-12-30 10:22 | Progress Note ---
Progress Note Date of Service Dec 30, 2016. 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
[2016-12-30] MEDS ORDERED: GABA-112 PO (12:02)
[2016-12-30] MEDS ORDERED: NVLNI SC (12:23)
--- NOTE | 2016-12-30 20:28 | Discharge Summary ---
Discharge Summary Date of Service Dec 30, 2016. Discharge Summary Admission Date: December 26, 2016 at 04:36 Discharge Date: Dec 30, 2016 Discharge Disposition: Home with services (hospice ) Principal Diagnosis: END STAGE /METASTATIC HEAD -NECK CANCER /HOSPICE CARE Consultations: PALLIATIVE CARE NEPHROLOGY Medication Reconciliation New Medications: Lorazepam (Ativan) 1 Mg Tab 1 MG SL Q6H, #90 TAB Oxycodone Oral Soln (Roxicodone Oral Soln) 5 Mg/5 Ml Soln 5 ML PO Q4 for Pain, #120 ML Scopolamine (Transderm-Scop) 1 Mg/3 Days Dis 3 MG TD Q72H, #10 PATCH Atropine Sulfate (Atropine Sulfate) 1 % Sheila 2 DROPS SL Q2H PRN for INCREASED SECRETION , #1 BTL Insulin Human NPH (Novolin N) 100 Units/Ml Susp 16 UNITS SC HS for 30 Days, #1 VIAL 2 Refills Scopolamine (Transderm-Scop) 1 Mg/3 Days Dis 1.5 MG TD Q72H, #30 Continued Medications: Fentanyl (Fentanyl) 25 Mcg Tdsy 25 MCG TOP every 3 days, #10 (This prescription has been renewed) Gabapentin (Neurontin) 100 Mg Cap 100 MG PO QPM for 30 Days, #30 CAP 3 Refills (This prescription has been renewed ) Metronidazole (Topical) (Metronidazole) 1 % Gel 1 APPLN TOP BID PRN for WITH DRESSING CHANGE TO FACE Nutritional Supplements (Twocal Hn) 1 Liq Liq 3 CAN PEG QPM GIVEN IN PM THRU PEG TUBE. do not continue Tube feeding if pt showing signs of respiratory distress Discontinued Medications: Acetaminophen (Tylenol) 325 Mg Tab 325 MG PO Q4H PRN for Pain, TAB Aspirin (Aspirin Ec) 81 Mg Tab 81 MG PO DAILY Citalopram (Citalopram Hydrobromide) 40 Mg Tab 40 MG PO DAILY Docusate Sodium (Colace) 100 Mg Cap 200 MG PO BID for 30 Days, #120 CAP Folic Acid (Folvite) 1 Mg Tab 1 MG PO DAILY, TAB Levothyroxine Sodium (Levothyroxine Sodium) 100 Mcg Tab 1 TAB PO DAILY, TAB Omeprazole (Prilosec) 20 Mg Capcr 20 MG PO QAM, CAP Take one hour prior to the first meal of the day Oxycodone Ir (Roxicodone Ir) 5 Mg Tab 5 MG PO Q4H PRN for Pain, TAB Tamsulosin Hcl (Flomax) 0.4 Mg Cap 0.4 MG PO QPM, CAP Admission Information HPI (per Admitting provider): DATE OF ADMISSION: 12/26/2016 PATIENT'S PRIMARY CARE DOCTOR: Dr. Delarosa. CHIEF COMPLAINT: Abnormal labs as per family. HISTORY OF PRESENT ILLNESS: History obtained from patient's family, records. Limited hx from px 2 to dementia, hearing impairment. 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 CAD as per records, dementia, DM2 insulin requiring, hypothyroidism, history of pancreatitis, chronic wound left cheek, chronic pain on narcotics, end-stage renal disease currently off hemodialysis, past tobacco abuse, chronic anemia (baseline hemoglobin of 9-10). Ongoing PEG tube feeds for nutrition. Recent confinement last September 2016 for altered mental status, skin infection around left cheek tumor, patient improved on Augmentin. Patient discharged to [facility] for rehab subsequently dcd to home under family's care. Patient taken off dialysis a few weeks ago secondary to px intolerance/ inconvenience. Weekly outpatient lab work as per security systems administrator. Last few days the patient noted to be less responsive. No chest pain, no shortness of breath. Outpatient sodium noted to be 150s. Patient sent to the Emergency Room after consultation with patient's security systems administrator. MEDICAL HISTORY: As above. Px follows with [facility] for deteriorating malignant ulcer left face/mandible. Last visit 12/18/2016. No debridement was required at that time. MetroGel topical prn. Outpatient Augmentin Rx from PCP for foul smelling cheek wound drainage helping as per [id number]. [facility] Palliative Care last 11/21/2016. As per family, the patient will opt for comfort care if he has decision making capacity. SURGERIES: PEG tube placement, vascular procedures, carpal tunnel surgery, head and neck repair of mouth lesion with reconstruction with FLAP reconstruction. HOME MEDICATIONS: Include aspirin, Tylenol, citalopram, Colace, Folvite, fentanyl, Neurontin, Humulin, levothyroxine, metronidazole, Prilosec, OxyIR, Flomax. ALLERGIES: No known drug allergies. FAMILY HISTORY: Alcoholism, diabetes and esophageal cancer. PERSONAL AND SOCIAL HISTORY: Past tobacco abuse. No chronic intake of alcoholic beverages. 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 REVIEW OF SYSTEMS: Cannot be reliably obtained. Physical Exam (per Admitting): PHYSICAL EXAMINATION: VITAL SIGNS: Blood pressure noted to be 110/70, pulse rate 81, RR 15, temperature 36.7, sats 99 on room air. GENERAL: Noted to be chronically ill, demented. No respiratory distress, hard of hearing. SKIN: Pallor. HEAD, EYES, EARS, NOSE, AND THROAT: Pale palpebral conjunctivae. Dry mucosa. Some limited mouth opening, chronic facial asymmetry, ulcerated wound on the left cheek with some intraoral extension with foul smelling white opaque drainage. NECK: No JVD. Supple. CHEST: Decreased effort. HEART: Regular rate and rhythm. ABDOMEN: Some distention, nontender. PEG tube in place. NEUROLOGIC EXAMINATION: Dementia, old facial asymmetry. decreased MMTs L (chronic) Hospital Course HYPERNATREMIA : resolved due to dehydration , inadequate free water flush with PEG tube feeding , unable to have PO intake due to advanced malignancy Na normalize 147 -142 IVF is D/jody for concern of vol overload on TF water flush 200-300 ml q 4 hrs will given instruction to family members /care givers to continue free water flush 250 -300 ml Q 4-6 hrs irrespective of TF feeding to prevent dehydration / hypernatremia -asked to hold TF and free water flushed if there is S/s of fluid overload appreciate nephrology input family members understands the poor prognosis of advance malignancy opt for home hospice will be discharged home TODAY with [facility] agency referral HYPERGLYCEMIA : insulin SSI adjusted pharmacy consulted for glycemic management CKD STAGE 4 : was on Dialysis in past HD discontinued END STAGE STATUS POOR PROGNOSIS ADVANCED METASTATIC CA ON HEAD /NECK very poor prognosis as per ENT in [place] no further treatment will be effective at this advanced stage hospice /palliative care was recommended Maxillofacial CT: 1. A large ill-defined ulcerating and infiltrative mass within the left lower face/into the region which measures up to 12 cm as described above. There is mild cortical erosion at the angle of the left hemimandible which is likely secondary to the mass. However, this is also located at the area of the large ulceration and could represent a focal osteomyelitis. family aware regarding poor /end stage status of the disease PT WILL BE RETURNING HOME TODAY WITH FAMILY SUPPORT /hospice care INFECTED WOUND ON LEFT FACE /OSTEOMYELITIS : wound culture -proteus /streptococcus -pansensitive will D/c Zosyn transitioned to PO Ciprofloxacin dose adjusted based on poor renal clearance CT finding of possible osteomyelitis of left mandible given advanced malignancy -no healing wound/will have continued infection - difficult to treat very poor prognosis hospice /palliative care is appropriate PT IS BEING DISCHARGED HOME TODAY WITH HOSPICE /COMFORT CARE DVT PROPHYLAXIS high risk for DVT subq heparin DNR/DNI DISPOSITION Lives at home with Son and daughter in Law as primary furnace caretaker want to keep pt comfortable and maintain as much of quality of life possible has hospital bed already getting service through [facility] for basic ADL's -bathing , cleaning the pt pt has been completely bedbound for last few months wants home Hospice care arrangements made through [facility] Pt IS DISCHARGED HOME TODAY WITH [facility] HOSPICE THROUGH [place] [facility] Total time spent on discharge = 35 mins This includes examination of the patient, discharge planning, medication reconciliation, and communication with other providers. Discharge Instructions Discharge Instructions Date of Service Dec 28, 2016. Admission Reason for Admission: Encephalopathy, Hypernatremia Discharge Discharge Diagnosis / Problem: END STAGE /METASTATIC HEAD -NECK CANCER / HOSPICE CARE Discharge Goals Goal(s): Decrease discomfort, Improve disease control Activity Recommendations Activity Limitations: as noted below ( TOLERTED ) . Instructions / Follow-Up Instructions / Follow-Up CONTINUE TO FOLLOW UP WITH [facility] FOR PALLIATIVE CARE FREE WATER FLUSH 200ML EVERY -6 HRS VIA PEG TUBE TO PREVENT DEHYDRATION PLEASE HOLD /DISCONTINUE TUBE FEED /FREE WATER FLUSH IF YOU NOTICE, PATIENT HAVING INCREASING RESPIRATORY DISTRESS , SHALLOW GASPY BREATHING , MORE GURGLING SOUND CALL /ASK HOSPICE AGENCY TO PROVIDE FURTHER GUIDANCE Current Hospital Diet Patient's current hospital diet: Diabetes Type 2 Diet Discharge Diet Recommended Diet: Regular Diet (MECHANICAL SOFT ) Pending Studies Studies pending at discharge: no Laboratory Results Hemoglobin A1c Test 12/28/16 07:44 Range/Units Estimated Average Glucose 177 mg/dl Hemoglobin A1c 7.8 H 4.5-5.6 % Medical Emergencies . Who to Call and When: Medical Emergencies: If at any time you feel your situation is an emergency, please call 911 immediately. . Non-Emergent Contact Non-Emergency issues call your: Specialist ([facility] ) . . "Provider Documentation" section prepared by Viki Kellogg. . VTE Core Measure Inpt VTE Proph given/why not?: Unfractionated heparin SQ
== END 2016-12-30 16:21 | disposition hospice, home (50) | DRG 640 ==
LOC: ENRESERVDT → ENRESERVTM → C.EDB 01:35 → C.MED 04:36 → EEVIPCON 04:36 → C.4E 12-29 16:41
PROVIDERS: ADMIT Hospitalist; ATTEND Hospitalist
DX: E87.0 Hyperosmolality and hypernatremia (principal); G93.49 Other encephalopathy; Z51.5 Encounter for palliative care; L03.211 Cellulitis of face; N18.6 End stage renal disease; C77.0 Secondary and unspecified malignant neoplasm of lymph nodes of head, face and neck; C79.51 Secondary malignant neoplasm of bone; C79.2 Secondary malignant neoplasm of skin; I12.0 Hypertensive chronic kidney disease with stage 5 chronic kidney disease or end stage renal disease; C76.0 Malignant neoplasm of head, face and neck; D64.9 Anemia, unspecified; N40.0 Benign prostatic hyperplasia without lower urinary tract symptoms; Z86.73 Personal history of transient ischemic attack (TIA), and cerebral infarction without residual deficits; F32.9 Major depressive disorder, single episode, unspecified; E11.21 Type 2 diabetes mellitus with diabetic nephropathy; Z93.1 Gastrostomy status; M27.2 Inflammatory conditions of jaws; G25.81 Restless legs syndrome; F03.90 Unspecified dementia, unspecified severity, without behavioral disturbance, psychotic disturbance, mood disturbance, and anxiety; H91.93 Unspecified hearing loss, bilateral; I25.10 Atherosclerotic heart disease of native coronary artery without angina pectoris; Z92.3 Personal history of irradiation; Z87.891 Personal history of nicotine dependence